=== PATIENT | female | born 1980 | race Caucasian/White ===

== ENCOUNTER 2016-05-03 10:24 | Emergency (ER) | payer BC, MEDICAID ==
[~2016-05-03] VITALS: Ht 154.9 cm; Wt 74.4 kg
[~2016-05-03 10:24] MED LIST: ACHD5005 PO; AMOX500C2; AMOX500C2 PO; CYCL10TA9 PO; DEPLIN; FRS325T PO; FURO20TA PO; FURO40TA4 PO; IBP600T1 PO; LABE100T2 PO; LANS30CA PO; LIRA0.6P SQ; METF-380; METF-380 PO; METHYL; METR500T PO; NITR-65 PO; NORE1TAB4 PO; OMEP20CA6; ONDA4TAB8 PO; ONDA8TAB12 PO; OXYC-12 PO; PHEN37.582 PO; POTA10CA16 PO; PREN1TAB19 PO; SERT25TA PO; SPIR100T28 PO
--- NOTE | 2016-05-03 10:38 | ED General ---
General Chief Complaint: Cough/Cold/Flu Symptoms Stated Complaint: COUGH,CONGESTION,N,V Source of Information: Patient Exam Limitations: No Limitations History of Present Illness Time Seen by Provider: 10:37 Initial Comments To ER with a cough, nasal congestion for which she has been on Zithromax and has 2 pills left, nausea and vomiting. These symptoms have been present for the past 12 days. She was seen at [facility] yesterday morning and was given a liter of IV fluids. She denies fevers. She is between 29 and 32 weeks gestation she states. Timing/Duration: 1-2 Days Severity: Moderate Associated Systoms: Nausea/Vomiting Allergies and Home Medications Allergies Coded Allergies: NKANo Known Allergies (Verified Allergy, Unknown, 06/03/08) Home Medications (Reported) Azithromycin 500 Mg Tablet #3 500 MG PO DAILY (Reported) Cefuroxime Axetil 500 Mg Tablet #14 500 MG PO BID Prescribed by: TORSTEN ENGEL on 05/03/16 1143 Fluoxetine HCl 20 Mg Capsule 20 MG PO DAILY (Reported) Ondansetron HCl 8 Mg Tablet #30 8 MG PO 4 PRN PRN NAUSEA (Reported) Pnv95/Ferrous Fumarate/FA 1 Each Tablet 1 EACH PO DAILY (Reported) Constitutional: see HPINo chills, No fever EENTM: see HPI Respiratory: no symptoms reported Cardiovascular: no symptoms reported Gastrointestinal: No abdominal pain, nausea vomiting Musculoskeletal: no symptoms reported Skin: no symptoms reported Psychiatric/Neurological: No Symptoms Reported Hematologic/Lymphatic: No Symptoms Reported Immunological/Allergic: no symptoms reported Past Yrcpmrm-Kdhluz-Vmdjhi Hx Patient Social History Alcohol Use: Denies Use Recreational Drug Use: No Smoking Status: Never a Smoker Former Smoker/When Quit: Jan 28, 2014 Immunizations Up To Date Tetanus Booster (TDap): Less than 5yrs PED Vaccines UTD: Yes Date of Influenza Vaccine: Feb 08, 2014 Surgeries HX Surgeries: Yes (LAP BAND 2009, RIGHT FOOT-AGE 5) Surgeries: Abdominal, Adenoidectomy, Gallbladder, Orthopedic, Tonsillectomy Respiratory Hx Respiratory Disorders: No Cardiovascular Hx Cardiac Disorders: Yes (GESTATIONAL HYPERTENSION) Cardiac Disorders: Syncope Neurological Hx Neurological Disorders: No Reproductive System Hx Reproductive Disorders: Yes Sexually Transmitted Disease: Yes (TRICHOMONAS) HIV/AIDS: No Female Reproductive Disorders: Menstrual Problems, Polycystic Ovarian Dis Genitourinary Hx Genitourinary Disorders: No Gastrointestinal Hx Gastrointestinal Disorders: Yes (Hx of [place]) Musculoskeletal Hx Musculoskeletal Disorders: No Endocrine Hx Endocrine Disorders: No HEENT HX ENT Disorders: No Cancer Hx Cancer: No Psychosocial Hx Psychiatric Problems: Yes Behavioral Health Disorders: Depression Integumentary HX Skin/Integumentary Disorder: No Blood Transfusions Hx Blood Disorders: Yes (ANEMIA) Adverse Reaction to a Blood Tr: No Family Medical History Family Medial History: Asthma 19 MOTHER, Onset:40's - Diabetes mellitus 19 MOTHER, Onset: Gastroenteritis G8 SISTER, Onset: Hypercholesterolemia 19 FATHER 19 MOTHER, Onset: Hypertension 19 FATHER, Onset: 19 MOTHER, Onset: Seizure disorder G8 SISTER, Onset: No Family History of: AIDS Abdominal aortic aneurysm [place]'s disease Alcoholism Alzheimer's disease Aphasia Arthritis Cancer of mouth Cardiovascular disease Cataracts Colon cancer Completed stroke Congenital disease Congenital heart disease Coronary thrombosis Cystic fibrosis Deafness or hearing loss Dementia Drug abuse Dysphasia Fibrocystic disease of breast Glaucoma Headache disorder Infertility Kidney disease Myocardial infarction Neoplasm Not obtainable due to adoption Osteoporosis Parkinson's disease Prostate cancer Psychosocial problem Respiratory disorder Severe allergy Thyroid disease Tuberculosis Visual disorder Physical Exam Vital Signs Vital Sign - Last 12Hours 05/03/16 10:34 Temp 97.9 Pulse 87 Resp 18 B/P 123/84 Pulse Ox 98 Capillary Refill : General Appearance: No Apparent Distress WD/WN Eyes: Bilateral Eye EOMI, Bilateral Eye Normal Inspection, Bilateral Eye PERRL HEENT: PERRL/EOMI TMs Normal Normal ENT Inspection Neck: Full Range of Motion Normal Inspection Respiratory: Normal Breath Sounds No Accessory Muscle Use No Respiratory Distress Cardiovascular: Regular Rate, Rhythm Normal Peripheral Pulses Gastrointestinal: Normal Bowel Sounds Soft Extremity: Normal Capillary Refill Normal Inspection Neurologic/Psychiatric: Alert Oriented x3 No Motor/Sensory Deficits Skin: Normal Color Warm/Dry Progress/Results/Core Measures Results/Orders Lab Results Laboratory Tests Test 05/03/16 10:45 05/03/16 10:55 Range/Units Urine Bacteria LARGE H /HPF Urine Bilirubin NEGATIVE NEGATIVE Urine Casts NONE /LPF Urine Clarity VERY CLOUDY H Urine Color YELLOW Urine Crystals NONE /LPF Urine Culture Indicated YES Urine Glucose (UA) NEGATIVE NEGATIVE Urine Ketones NEGATIVE NEGATIVE Urine Leukocyte Esterase 3+ H NEGATIVE Urine Mucus NEGATIVE /LPF Urine Nitrite NEGATIVE NEGATIVE Urine Protein 1+ H NEGATIVE Urine RBC RARE /HPF Urine RBC (Auto) NEGATIVE NEGATIVE Urine Specific [place] 1.020 1.016-1.022 Urine Squamous Epithelial Cells 10-25 H /HPF Urine Urobilinogen NORMAL NORMAL MG/DL Urine WBC 25-50 H /HPF Urine pH 5 5-9 Alanine Aminotransferase (ALT/SGPT) 9 0-55 U/L Albumin 3.2 3.2-4.5 G/DL Alkaline Phosphatase 75 40-136 U/L Anion Gap 9 5-14 MMOL/L Aspartate Amino Transf (AST/SGOT) 12 5-34 U/L BUN/Creatinine Ratio 11 Basophils # (Auto) 0.0 0.0-0.1 10^3/uL Basophils (%) (Auto) 0 0-10 % Blood Urea Nitrogen 8 7-18 MG/DL Calcium Level 8.4 L 8.5-10.1 MG/DL Carbon Dioxide Level 22 21-32 MMOL/L Chloride Level 105 98-107 MMOL/L Creatinine 0.73 0.60-1.30 MG/DL Eosinophils # (Auto) 0.0 0.0-0.3 10^3/uL Eosinophils (%) (Auto) 1 0-10 % Estimat Glomerular Filtration Rate > 60 Glucose Level 58 *L 70-105 MG/DL Hematocrit 37 35-52 % Hemoglobin 12.5 11.5-16.0 G/DL Lymphocytes # (Auto) 0.8 L 1.0-4.0 X 10^3 Lymphocytes (%) (Auto) 16 12-44 % Mean Corpuscular Hemoglobin 31 25-34 PG Mean Corpuscular Hemoglobin Concent 34 32-36 G/DL Mean Corpuscular Volume 92 80-99 FL Mean Platelet Volume 9.7 7.4-10.4 FL Monocytes # (Auto) 0.4 0.0-1.0 X 10^3 Monocytes (%) (Auto) 8 0-12 % Neutrophils # (Auto) 3.8 1.8-7.8 X 10^3 Neutrophils (%) (Auto) 76 H 42-75 % Platelet Count 194 130-400 10^3/uL Potassium Level 3.4 L 3.6-5.0 MMOL/L Red Blood Count 3.99 L 4.35-5.85 10^6/uL Red Cell Distribution Width 13.7 10.0-14.5 % Sodium Level 136 135-145 MMOL/L Total Bilirubin 0.3 0.1-1.0 MG/DL Total Protein 6.1 L 6.4-8.2 G/DL White Blood Count 5.0 4.3-11.0 10^3/uL Micro Results Microbiology 05/03/16 Influenza Types A,B Antigen (SAMI) - Final, Complete My Orders Orders-TORSTEN ENGEL APRN Cbc With Automated Diff (05/03/16 10:33) Comprehensive Metabolic Panel (05/03/16 10:33) Ua Culture If Indicated (05/03/16 10:33) Influenza A And B Antigens (05/03/16 10:33) Ns Iv 1000 Ml (Sodium Chloride 0.9%) (05/03/16 11:00) Ondansetron Injection (Zofran Injectio (05/03/16 11:00) Urine Culture (05/03/16 10:45) Ceftriaxone Injection (Rocephin Injectio (05/03/16 11:45) D50w (Emergency) Syringe (Dextrose 50% 5 (05/03/16 11:36) Medications Given in ED Current Medications Medications Dose Ordered Sig/Rufina Route Start Time Stop Time Status Last Admin Dose Admin Dextrose 50 ml STK-MED ONCE .ROUTE 05/03/16 11:36 05/03/16 11:38 DC 05/03/16 11:40 25 ML Ondansetron HCl 4 mg ONCE ONCE IVP 05/03/16 11:00 05/03/16 11:01 DC 05/03/16 11:01 4 MG Vital Signs/I&O Vital Sign - Last 12Hours 05/03/16 10:34 Temp 97.9 Pulse 87 Resp 18 B/P 123/84 Pulse Ox 98 Departure Communication Progress Notes heart tones obtained by RN and patient is feeling baby move. Impression Impression: Primary Impression: UTI (urinary tract infection) Qualified Code: N30.00 - Acute cystitis without hematuria Additional Impression: Hypoglycemia Disposition: 01 HOME, SELF-CARE Condition: Stable Departure-Patient Inst. Decision time for Depature: 11:42 Referrals: FÁTIMA NAVARRO DO (PCP) Primary Care Physician CAMPBELL NAVARRO, KIEL (Family) Primary Care Physician Patient Instructions: HYPOGLYCEMIA Add. Discharge Instructions: 1. Antibiotics as directed 2. Return to ER for any concerns 3. Follow-up with your doctor next week 4. Stop Zithromax start new antibiotic. All discharge instructions reviewed with patient and/or family. Voiced understanding. Scripts Cefuroxime Axetil (Cefuroxime)500 Mg [id number] Mg PO BID #14 TAB Prov:TORSTEN ENGEL APRN 05/03/16 TORSTEN ENGEL APRN May 03, 2016 10:38
[2016-05-03] MEDS ORDERED: AZIT500T2 PO (10:45)
[2016-05-03] MEDS ORDERED: PNV91TAB3 PO (10:45)
[2016-05-03] MEDS ORDERED: FLUO20CA42 PO (10:45)
[2016-05-03 10:57] LABS: BILIRUBIN,URINE NEGATIVE (NEGATIVE); KETONES,URINE NEGATIVE (NEGATIVE); LEUKOCYTE ESTERASE ,URINE 3+ (NEGATIVE); NITRITE,URINE NEGATIVE (NEGATIVE); PH,URINE 5 (5-9); PROTEIN,URINE 1+ (NEGATIVE); UROBILINOGEN,URINE NORMAL (NORMAL)
[2016-05-03] MEDS ORDERED: NS IV 1000 ML 1,000 ML IV SCH (11:00)
[2016-05-03] MEDS ORDERED: ONDANSETRON 4 MG/2 ML (SDV) Z0FRAN IVP ONE (11:00)
[2016-05-03 11:12] LABS: BASOPHILS % (AUTO) 0 % (0-10); EOSINOPHILS % (AUTO) 1 % (0-10); LYMPHOCYTES # (AUTO) 0.8 X 10^3 (1.0-4.0); LYMPHOCYTES % (AUTO) 16 % (12-44); MEAN CORPUSCULAR HEMOGLOBIN 31 PG (25-34); MEAN CORPUSCULAR HGB CONC 34 G/DL (32-36); MEAN CORPUSCULAR VOLUME 92 FL (80-99); MEAN PLATELET VOLUME 9.7 FL (7.4-10.4); MONOCYTES # (AUTO) 0.4 X 10^3 (0.0-1.0); MONOCYTES % (AUTO) 8 % (0-12); NEUTROPHILS # (AUTO) 3.8 X 10^3 (1.8-7.8); NEUTROPHILS % (AUTO) 76 % (42-75); PLATELET COUNT 194 10^3/uL (130-400); RED BLOOD COUNT 3.99 10^6/uL (4.35-5.85); RED CELL DISTRIBUTION WIDTH 13.7 % (10.0-14.5)
[2016-05-03 11:16] LABS: WBC,URINE 25-50 /HPF
[2016-05-03 11:32] LABS: ALANINE AMINOTRANSFERASE 9 U/L (0-55); ALBUMIN 3.2 G/DL (3.2-4.5); ANION GAP 9 MMOL/L (5-14); ASPARTATE AMINO TRANSFERASE 12 U/L (5-34); BILIRUBIN,TOTAL 0.3 MG/DL (0.1-1.0); BLOOD UREA NITROGEN 8 MG/DL (7-18); BUN/CREATININE RATIO 11; CALCIUM 8.4 MG/DL (8.5-10.1); CARBON DIOXIDE 22 MMOL/L (21-32); CHLORIDE 105 MMOL/L (98-107); CREATININE SERUM 0.73 MG/DL (0.60-1.30); GFR ESTIMATED > 60; POTASSIUM 3.4 MMOL/L (3.6-5.0); SODIUM 136 MMOL/L (135-145); TOTAL PROTEIN 6.1 G/DL (6.4-8.2)
[2016-05-03 11:35] LABS: GLUCOSE 58 MG/DL (70-105)
[2016-05-03] MEDS ORDERED: DEXTROSE 50% 50 ML (IMS) SYR ONE (11:36)
[2016-05-03] MEDS ORDERED: CEFU500T63 PO (11:43)
[2016-05-03] MEDS ORDERED: cefTRIAXone INJECTION 1,000 MG in NS (IVPB) 50 ML IV ONE (11:45)
[2016-05-03 12:14] VITALS: BP 123/84
[2016-05-20] MEDS ORDERED: CLIN300C11 PO (11:08)
== END 2016-05-03 12:14 | disposition home or self-care (01) ==
LOC: EDUNIT# 10:24 → ER 10:27
DX: O23.42 Unspecified infection of urinary tract in pregnancy, second trimester (principal); O99.280 Endocrine, nutritional and metabolic diseases complicating pregnancy, unspecified trimester; E16.2 Hypoglycemia, unspecified; O99.512 Diseases of the respiratory system complicating pregnancy, second trimester; Z3A.27 27 weeks gestation of pregnancy
CPT/HCPCS: 36415; 80053; 81000; 82962; 85025; 87088; 87804; 96361; 96365; 96375; 99282

== ENCOUNTER 2016-06-22 13:20 | Observation (INO) | payer BC, MEDICAID ==
[~2016-06-22] VITALS: Ht 154.9 cm; Wt 75.3 kg
[2016-06-22] VITALS (17 sets, daily range): BP systolic 133–190; BP diastolic 83–103
[~2016-06-22 13:20] MED LIST changes: +AZIT500T2 PO; +CEFU500T63 PO; +CLIN300C11 PO; +FLUO20CA42 PO; +PNV91TAB3 PO
[2016-06-22 13:38] LABS: KETONES,URINE 2+ (NEGATIVE); LEUKOCYTE ESTERASE ,URINE 2+ (NEGATIVE); NITRITE,URINE NEGATIVE (NEGATIVE); PH,URINE 5 (5-9); PROTEIN,URINE 2+ (NEGATIVE); UROBILINOGEN,URINE 1 MG/DL (NORMAL)
[2016-06-22 13:51] LABS: BILIRUBIN,URINE 1+ (NEGATIVE)
[2016-06-22] MEDS ORDERED: D5 LR IV SOLUTION 1,000 ML IV ONE (16:27)
[2016-06-22] MEDS ORDERED: morphine INJ 4 MG/ML 1 ML (VIAL/SYRINGE) IVP PRN (16:30)
[2016-06-22] MEDS: D5 LR IV SOLUTION 1,000 ML IV SCH (16:34)
[2016-06-22] MEDS ORDERED: LACTATED RINGERS 1,000 ML IV SCH (17:15)
[2016-06-22] MEDS: morphine INJ 4 MG/ML 1 ML (VIAL/SYRINGE) IVP PRN (23:49)
[2016-06-23] MEDS: D5 LR IV SOLUTION 1,000 ML IV SCH (00:13)
[2016-06-23] MEDS: morphine INJ 4 MG/ML 1 ML (VIAL/SYRINGE) IVP PRN ×2 (02:37→05:16)
[2016-06-23 05:16] VITALS: BP 148/99
[2016-06-23 10:00] VITALS: BP 147/94
[2016-06-23 10:27] VITALS: BP 141/94
--- NOTE | 2016-06-23 10:35 | Discharge Instructions ---
Discharge Inst-[facility] Serv Depart Medications Continued Medications: Pnv95/Ferrous Fumarate/FA ( [place]) 1 Each Tablet 1 EACH PO DAILY, TAB [Deplin] () Follow Up/Instructions Goal/Follow Up: Follow up with Dr. Brasher 1 week (next Friday) - [facility] will call to reschedule appt Activity Activity: Activity as Tolerated Nothing Inside Vagina: No [place] Diet Discharge Diet: No Restrictions Return to The Hospital For: Regular contractions (every 2-3 min) that you cannot walk or talk through that do not go away after rest and drinking fluid; return if leaking fluid For Any Problems or Questions: Contact Your Physician ALONDRA BRASHER DO Jun 23, 2016 10:34
--- NOTE | 2016-06-23 10:40 | Clinic Account Progress/Dx ---
Clinic Account Progress/Dx DIAGNOSIS: Diagnosis 1. 35 yo at 35w4d w/ contractions, not in active labor. - Pt was admitted for observation due to continued contractions. She was treated with IVF and pain medication with her contractions spacing out. Cervical exam at discharged was 3-3.5/80/posterior without significant change since admission. - GBS culture was obtained prior to DC. - Pt was discharged, she will not return to work until re-evaluated in 1 week. 2. Elevated BP during - BP was 140 systolic during her hospitalization. 24h urine protein and pre- eclampsia labs were done in the office this week and were wnl. Pt has hx of gestational hypertension with last . Will continue to monitor ALONDRA BRASHER DO Jun 23, 2016 10:39
--- OUTSIDE RECORDS SUMMARY | 2016-07-09 13:03 | XMS REPORT ---
Author ALONDRA Whitney Organization [employer] Address Unknown Phone Unavailable Care Team Providers Care Fiction And Nonfiction Writer Prose Name Role Phone ALONDRA BRASHER CP Unavailable Allergies, Adverse Reactions, Alerts Substance Reaction Event Type N.K.D.A. Info Not Available Non Drug Allergy Problems Problem Type Condition Code Onset Dates Condition Status Problem Gestational hypertension 642.30 Active Problem Polycystic ovaries 256.4 Active Problem hypertension 642.94 Active Medications Medication Code System Code Instructions Start Date End Date Status Dosage Prozac [facility] [address]-40 20 MG Orally Once a day 1 capsule in the morning Results No Known Results Summary Purpose [employer] Submission
--- OUTSIDE RECORDS SUMMARY | 2016-07-09 13:03 | XMS REPORT ---
Author ALONDRA Whitney Organization [employer] Address Unknown Phone Unavailable Care Team Providers Care Crozer Operator Name Role Phone ALONDRA BRASHER CP Unavailable Allergies No Known Allergies Problems Problem Type Condition Code Onset Dates Condition Status Problem Gestational hypertension 642.30 Active Problem Polycystic ovaries 256.4 Active Problem hypertension 642.94 Active Medications Medication Code System Code Instructions Start Date End Date Status Dosage Ortho-Novum (63) [facility] [address]-60 1-35 MG-MCG Orally Once a day 1 tablet Results No Known Results Summary Purpose [employer] Submission
--- OUTSIDE RECORDS SUMMARY | 2016-07-09 13:04 | XMS REPORT ---
Author CHAYA Lorenzo Organization [employer] Address Unknown Phone Unavailable Care Team Providers Care Tester Armature Or Fields Name Role Phone CHAYA BAILON CP Unavailable Allergies, Adverse Reactions, Alerts Substance Reaction Event Type N.K.D.A. Info Not Available Non Drug Allergy Problems Problem Type Condition Code Onset Dates Condition Status Problem Gestational hypertension 642.30 Active Problem Polycystic ovaries 256.4 Active Problem hypertension 642.94 Active Assessment Sinusitis J32.9 Active Medications Medication Code System Code Instructions Start Date End Date Status Dosage Zoloft [facility] [address]-81 25 MG Orally Once a day 1 tablet Motrin [facility] [address]-27 600 MG Orally Three times a day 1 tablet Flonase [facility] [address]-63 50 MCG/ACT Nasally 2 times a day Jan 04, 2015 1 spray in each nostril Ceftin [facility] [address]-26 250 MG Orally Twice a day Jan 11, 2015 Jan 21, 2015 1 tablet Ortho Micronor [facility] [address]-90 0.35 MG Orally Once a day Nov 03, 2014 1 tablet Lansoprazole [facility] [address]-61 30 MG Orally Once a day 1 capsule Procedures Procedure Coding System Code Date THER/PROPH/DIAG INJ, SC/IM CPT-4 82917 Jan 11, 2015 Office Visit, Est Pt., Level 3 CPT-4 61087 Jan 11, 2015 DEXAMETHASONE 4MG/ML (PER 1 MG) CPT-4 J1100 Jan 11, 2015 Vital Signs Date/Time: Jan 11, 2015 Temperature 98.4 F Weight 167.5 lbs Height 61 in BMI 31.65 Index Blood Pressure Diastolic 80 mmHg Blood Pressure Systolic 110 mmHg Cardiac Monitoring Heart Rate 84 bpm Results No Known Results Summary Purpose [employer] Submission
--- OUTSIDE RECORDS SUMMARY | 2016-07-09 13:04 | XMS REPORT ---
Author Author CHELLE KILLIAN Organization [employer] Address Unknown Phone Unavailable Care Team Providers Care Epitaxial Reactor Operator Name Role Phone CHELLE KILLIAN CP Unavailable Allergies, Adverse Reactions, Alerts Substance Reaction Event Type N.K.D.A. Info Not Available Non Drug Allergy Problems Problem Type Condition Code Onset Dates Condition Status Problem Gestational hypertension 642.30 Active Problem Polycystic ovaries 256.4 Active Problem hypertension 642.94 Active Assessment Encounter for dental examination Z01.20 Active Medications Medication Code System Code Instructions Start Date End Date Status Dosage Motrin [facility] [address]-28 600 MG Orally Three times a day 1 tablet Zoloft [facility] [address]-20 25 MG Orally Once a day 1 tablet Flonase [facility] [address]-48 50 MCG/ACT Nasally 2 times a day Jan 04, 2015 1 spray in each nostril Lansoprazole [facility] [address]-91 30 MG Orally Once a day 1 capsule Ortho Micronor [facility] [address]-60 0.35 MG Orally Once a day Nov 03, 2014 1 tablet Procedures Procedure Coding System Code Date Billing Notes on claim CPT-4 EC109 Jan 24, 2015 [employer] Employee/Board adjustment CPT-4 CHCEM Jan 24, 2015 INTERIM PARTIAL DENTURE CPT-4 D5820 Jan 24, 2015 Results No Known Results Summary Purpose [employer] Submission
--- OUTSIDE RECORDS SUMMARY | 2016-07-09 13:04 | XMS REPORT ---
Author Author KRISTINA TRACEY Organization [employer] Address Unknown Phone Unavailable Care Team Providers Care Tank Erector Name Role Phone KRISTINA TRACEY CP Unavailable Allergies, Adverse Reactions, Alerts Substance Reaction Event Type N.K.D.A. Info Not Available Non Drug Allergy Problems Problem Type Condition Code Onset Dates Condition Status Problem Gestational hypertension 642.30 Active Problem Polycystic ovaries 256.4 Active Problem hypertension 642.94 Active Assessment Acute nasopharyngitis [common cold] J00 Active Medications Medication Code System Code Instructions Start Date End Date Status Dosage Zithromax Z-Brian [facility] [address]-25 250 MG Orally Once a day Jan 02, 2015 Jan 07, 2015 2 tablets on the first day, then 1 tablet daily for 4 days Ortho Micronor [facility] [address]-41 0.35 MG Orally Once a day Nov 03, 2014 1 tablet Zoloft [facility] [address]-85 25 MG Orally Once a day 1 tablet Lansoprazole [facility] [address]-88 30 MG Orally Once a day 1 capsule Flonase [facility] [address]-29 50 MCG/ACT Nasally 2 times a day Jan 04, 2015 1 spray in each nostril Procedures Procedure Coding System Code Date Office Visit, Est Pt., Level 3 CPT-4 83370 Jan 04, 2015 Vital Signs Date/Time: Jan 04, 2015 Temperature 98.1 F Weight 170.2 lbs Height 61 in BMI 32.16 Index Blood Pressure Diastolic 68 mmHg Blood Pressure Systolic 112 mmHg Cardiac Monitoring Heart Rate 60 bpm Results No Known Results Summary Purpose [employer] Submission
--- OUTSIDE RECORDS SUMMARY | 2016-07-09 13:05 | XMS REPORT ---
Author Author SILVINO AGRCIA Organization [employer] Address Unknown Phone Unavailable Care Team Providers Care Postal Transportation Clerk Name Role Phone SILVINO GARCIA CP Unavailable Allergies, Adverse Reactions, Alerts Substance Reaction Event Type N.K.D.A. Info Not Available Non Drug Allergy Problems Problem Type Condition Code Onset Dates Condition Status Problem Gestational hypertension 642.30 Active Problem Polycystic ovaries 256.4 Active Problem hypertension 642.94 Active Assessment Sinusitis J32.9 Active Medications Medication Code System Code Instructions Start Date End Date Status Dosage Lansoprazole [facility] [address]-14 30 MG Orally Once a day 1 capsule Ortho Micronor [facility] [address]-29 0.35 MG Orally Once a day Nov 03, 2014 1 tablet Zithromax Z-Brian [facility] [address]-61 250 MG Orally Once a day Jan 02, 2015 Jan 07, 2015 2 tablets on the first day, then 1 tablet daily for 4 days Motrin [facility] [address]-12 600 MG Orally Three times a day 1 tablet Zoloft [facility] [address]-49 25 MG Orally Once a day 1 tablet Procedures Procedure Coding System Code Date Office Visit, Est Pt., Level 3 CPT-4 62281 Jan 02, 2015 Vital Signs Date/Time: Jan 02, 2015 Temperature 98.4 F Weight 167.9 lbs Height 61 in BMI 31.72 Index Blood Pressure Diastolic 70 mmHg Blood Pressure Systolic 110 mmHg Cardiac Monitoring Heart Rate 80 bpm Results No Known Results Summary Purpose [employer] Submission
--- OUTSIDE RECORDS SUMMARY | 2016-07-09 13:05 | XMS REPORT ---
Author Author CHELLE KILLIAN Organization [employer] Address Unknown Phone Unavailable Care Team Providers Care Package Winder Name Role Phone CHELLE KILLIAN CP Unavailable Allergies, Adverse Reactions, Alerts Substance Reaction Event Type N.K.D.A. Info Not Available Non Drug Allergy Problems Problem Type Condition Code Onset Dates Condition Status Problem Gestational hypertension 642.30 Active Problem Polycystic ovaries 256.4 Active Problem hypertension 642.94 Active Assessment Encounter for dental examination Z01.20 Active Assessment Dental caries K02.9 Active Medications No Known Medications Procedures Procedure Coding System Code Date EXTRAC ERUPTED TOOTH/EXPOSED ROOT CPT-4 D7140 Feb 16, 2015 EXTRAC ERUPTED TOOTH/EXPOSED ROOT CPT-4 D7140 Feb 16, 2015 MAX PARTIAL DENTURE - RESIN BASE CPT-4 D5211 Feb 16, 2015 Billing Notes on claim CPT-4 EC109 Feb 16, 2015 [employer] Employee/Board adjustment CPT-4 [facility] Feb 16, 2015 Vital Signs Date/Time: Feb 16, 2015 Blood Pressure Diastolic 70 mmHg Blood Pressure Systolic 110 mmHg Results No Known Results Summary Purpose [employer] Submission
--- OUTSIDE RECORDS SUMMARY | 2016-07-09 13:05 | XMS REPORT ---
Author ALONDRA Whitney Organization [employer] Address Unknown Phone Unavailable Care Team Providers Care Ct Manager Name Role Phone ALONDRA BRASHER CP Unavailable Allergies, Adverse Reactions, Alerts Substance Reaction Event Type N.K.D.A. Info Not Available Non Drug Allergy Problems Problem Type Condition Code Onset Dates Condition Status Problem Gestational hypertension 642.30 Active Problem Polycystic ovaries 256.4 Active Problem hypertension 642.94 Active Assessment Abnormal uterine bleeding N93.9 Active Medications Medication Code System Code Instructions Start Date End Date Status Dosage Lansoprazole [facility] [address]-96 30 MG Orally Once a day 1 capsule Zoloft [facility] [address]-13 25 MG Orally Once a day 1 tablet Zofran ODT [facility] [address]-56 4 MG Orally every 8 hrs 1 tablet on the tongue and allow to dissolve Ortho-Novum 1/35 (28) [facility] [address]-54 1-35 MG-MCG Orally Once a day 4 tablet Procedures Procedure Coding System Code Date Office Visit, Est Pt., Level 3 CPT-4 25146 Jan 30, 2015 Vital Signs Date/Time: Jan 30, 2015 Temperature 97.6 F Weight 173.0 lbs Height 61 in BMI 32.68 Index Blood Pressure Diastolic 72 mmHg Blood Pressure Systolic 114 mmHg Cardiac Monitoring Heart Rate 78 bpm Results No Known Results Summary Purpose [employer] Submission
--- OUTSIDE RECORDS SUMMARY | 2016-07-09 13:05 | XMS REPORT ---
Author Author BENI ROJO Organization [employer] Address Unknown Phone Unavailable Care Team Providers Care Loaf Counter Name Role Phone BENI ROJO CP Unavailable Allergies, Adverse Reactions, Alerts Substance Reaction Event Type N.K.D.A. Info Not Available Non Drug Allergy Problems Problem Type Condition Code Onset Dates Condition Status Problem Gestational hypertension 642.30 Active Problem Polycystic ovaries 256.4 Active Problem hypertension 642.94 Active Assessment Encounter for dental examination Z01.20 Active Medications No Known Medications Procedures Procedure Coding System Code Date INTRAORL-PERIAPICAL EA ADD FILM CPT-4 D0230 Jan 24, 2015 INTRAORL-PERIAPICAL EA ADD FILM CPT-4 D0230 Jan 24, 2015 INTRAORL-PERIAPICAL 1 FILM 35541 CPT-4 D0220 Jan 24, 2015 [employer] Employee/Board adjustment CPT-4 [facility] Jan 24, 2015 BITEWINGS - FOUR FILMS CPT-4 D0274 Jan 24, 2015 INTRAORL-PERIAPICAL EA ADD FILM CPT-4 D0230 Jan 24, 2015 Billing Notes on claim CPT-4 EC109 Jan 24, 2015 PROPHYLAXIS - ADULT CPT-4 D1110 Jan 24, 2015 Vital Signs Date/Time: Jan 24, 2015 Blood Pressure Diastolic 64 mmHg Blood Pressure Systolic 109 mmHg Height 61 in Results No Known Results Summary Purpose [employer]Works Submission
--- OUTSIDE RECORDS SUMMARY | 2016-07-09 13:08 | XMS REPORT | Continuity of Care Document ---
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 E61.2 02/09/2015 NAVARRO, CAMPBELL L MANAGER LATIN Ot Z87.440 02/10/2015 NAVARRO, CAMPBELL L MANAGER LATIN Ot N93.9 02/10/2015 NAVARRO, CAMPBELL L MANAGER LATIN Ot N93.9 02/21/2015 ANSHU RAWLS ALONDRA K Ot V89.03 02/21/2015 NAVARRO, CAMPBELL L MANAGER LATIN Ot D55.9 02/21/2015 NAVARRO, CAMPBELL L MANAGER LATIN Ot E03.9 02/21/2015 NAVARRO, CAMPBELL L MANAGER LATIN Ot E28.2 02/21/2015 NAVARRO, CAMPBELL L MANAGER LATIN Ot E53.8 02/21/2015 NAVARRO, CAMPBELL L MANAGER LATIN Ot E61.2 02/21/2015 CAMPBELL NAVARRO MANAGER LATIN Ot Z87.440 02/21/2015 CAMPBELL NAVARRO MANAGER LATIN Ot N93.9 02/21/2015 CAMPBELL NAVARRO MANAGER LATIN Ot N93.9 02/21/2015 CAMPBELL NAVARRO MANAGER LATIN Ot D55.9 02/21/2015 NAVARROCAMPBELL PAUL MANAGER LATIN Ot E03.9 02/21/2015 NAVARROCAMPBELL PAUL MANAGER LATIN Ot E28.2 02/21/2015 NAVARROCAMPBELL PAUL MANAGER LATIN Ot E53.8 02/21/2015 NAVARROCAMPBELL PAUL MANAGER LATIN Ot E61.2 02/21/2015 NAVARROCAMPBELL PAUL MANAGER LATIN Ot Z87.440 02/21/2015 CAMPBELL NAVARRO MANAGER LATIN Ot N93.9 03/02/2015 NAVARROCAMPBELL PAUL MANAGER LATIN Ot N93.9 03/02/2015 NAVARROCAMPBELL PAUL MANAGER LATIN Ot R10.30 04/19/2015 Ot 256.4 04/19/2015 Ot 268.9 04/19/2015 Ot 285.9 04/19/2015 Ot 787.91 04/19/2015 Ot 256.4 04/19/2015 Ot 266.2 04/19/2015 Ot 285.9 04/19/2015 Ot 255.8 04/19/2015 Ot 256.4 04/19/2015 Ot 268.9 04/19/2015 Ot 275.41 04/19/2015 Ot 579.9 04/19/2015 Ot 255.8 04/19/2015 Ot 256.4 04/19/2015 Ot 268.9 04/19/2015 Ot 275.41 04/19/2015 Ot 579.9 04/19/2015 Ot 427.9 04/19/2015 Ot 780.2 04/19/2015 Ot 427.9 04/19/2015 Ot 780.2 04/19/2015 Ot 244.9 04/19/2015 Ot 256.4 04/19/2015 Ot 285.9 04/19/2015 Ot 458.0 04/19/2015 Ot 780.79 04/19/2015 Ot 255.8 04/19/2015 Ot 255.10 04/19/2015 Ot 255.10 04/19/2015 Ot 782.3 04/19/2015 Ot 785.1 04/19/2015 Ot 256.4 04/19/2015 Ot 266.2 04/19/2015 Ot 268.9 04/19/2015 Ot 275.2 04/19/2015 Ot 285.9 04/19/2015 Ot 256.4 04/19/2015 Ot 266.2 04/19/2015 Ot 268.9 04/19/2015 Ot 275.2 04/19/2015 Ot 285.9 04/19/2015 RAMON CAMPBELL L MANAGER LATIN Ot 244.9 04/19/2015 RAMON CAMPBELL L MANAGER LATIN Ot 285.9 04/19/2015 RAMON CAMPBELL L MANAGER LATIN Ot 780.79 04/19/2015 RAMON CAMPBELL L MANAGER LATIN Ot 599.0 04/19/2015 RAMON CAMPBELL L MANAGER LATIN Ot 719.40 04/19/2015 RAMON CAMPBELL L MANAGER LATIN Ot 795.79 04/19/2015 CARLEY VIEYRAIA C AUTO PAINTER HELPER Ot 789.00 04/19/2015 RAMON CAMPBELL L MANAGER LATIN Ot 266.2 04/19/2015 RAMON CAMPBELL L MANAGER LATIN Ot 268.9 04/19/2015 RAMON CAMPBELL L MANAGER LATIN Ot 620.2 04/19/2015 RAMON CAMPBELL L MANAGER LATIN Ot 780.79 04/19/2015 RAMON CAMPBELL L MANAGER LATIN Ot 786.09 04/19/2015 RAMON CAMPBELL L MANAGER LATIN Ot 789.00 04/19/2015 RAMON CAMPBELL L MANAGER LATIN Ot 789.00 04/19/2015 RAMON CAMPBELL L MANAGER LATIN Ot V45.86 04/19/2015 RAMON CAMPBELL L MANAGER LATIN Ot 256.4 04/19/2015 RAMON CAMPBELL L MANAGER LATIN Ot 611.6 04/19/2015 RAMON CAMPBELL L MANAGER LATIN Ot 626.0 04/19/2015 RAMON CAMPBELL L MANAGER LATIN Ot 787.3 04/19/2015 RAMON CAMPBELL L MANAGER LATIN Ot 789.00 04/19/2015 RAMONCAMPBELL MANAGER LATIN Ot 611.6 04/19/2015 RAMONCAMPBELL MANAGER LATIN Ot 787.3 04/19/2015 RAMONCAMPBELL MANAGER LATIN Ot 789.00 04/19/2015 LASHON PATIÑO APRN Ot V22.0 04/19/2015 ALONDRA BRASHER DO Ot V22.0 04/19/2015 Ot V28.81 04/19/2015 BRASHER ALONDRA RAWLS Ot V89.03 04/19/2015 RAMON CAMPBELL Vasquez MANAGER LATIN Ot D55.9 04/19/2015 RAMON CAMPBELL Vasquez MANAGER LATIN Ot E03.9 04/19/2015 RAMON CAMPBELL Vasquez MANAGER LATIN Ot E28.2 04/19/2015 RAMON CAMPBELL Vasquez MANAGER LATIN Ot E53.8 04/19/2015 RAMON CAMPBELL Vasquez MANAGER LATIN Ot E61.2 04/19/2015 RAMON CAMPBELL Vasquez MANAGER LATIN Ot Z87.440 04/19/2015 RAMON CAMPBELL Vasquez MANAGER LATIN Ot N93.9 04/19/2015 RAMON CAMPBELL Vasquez MANAGER LATIN Ot N93.9 04/19/2015 RAMON CAMPBELL Vasquez MANAGER LATIN Ot R10.30 07/18/2015 RUTH GRANADOS MD Ot D50.9 IRON DEFICIENCY ANEMIA, UNSPECIFIED 07/18/2015 RUTH GRANADOS MD Ot E46 UNSPECIFIED PROTEIN-CALORIE MALNUTRITION 07/18/2015 RUTH GRANADOS MD Ot K90.9 INTESTINAL MALABSORPTION, UNSPECIFIED 07/18/2015 RUTH GRANADOS MD Ot Z98.84 BARIATRIC SURGERY STATUS 08/17/2015 Ot 256.4 POLYCYSTIC OVARIES 08/17/2015 Ot 266.2 B-COMPLEX DEFIC NEC 08/17/2015 Ot 285.9 ANEMIA NOS 08/17/2015 Ot 255.8 ADRENAL DISORDER NEC 08/17/2015 Ot 256.4 POLYCYSTIC OVARIES 08/17/2015 Ot 268.9 VITAMIN D DEFICIENCY NOS 08/17/2015 Ot 275.41 HYPOCALCEMIA 08/17/2015 Ot 579.9 INTEST MALABSORPTION NOS 08/17/2015 Ot 255.8 ADRENAL DISORDER NEC 08/17/2015 Ot 256.4 POLYCYSTIC OVARIES 08/17/2015 Ot 268.9 VITAMIN D DEFICIENCY NOS 08/17/2015 Ot 275.41 HYPOCALCEMIA 08/17/2015 Ot 579.9 INTEST MALABSORPTION NOS 08/17/2015 Ot 427.9 CARDIAC DYSRHYTHMIA NOS 08/17/2015 Ot 780.2 SYNCOPE AND COLLAPSE 08/17/2015 Ot 427.9 CARDIAC DYSRHYTHMIA NOS 08/17/2015 Ot 780.2 SYNCOPE AND COLLAPSE 08/17/2015 Ot 244.9 HYPOTHYROIDISM NOS 08/17/2015 Ot 256.4 POLYCYSTIC OVARIES 08/17/2015 Ot 285.9 ANEMIA NOS 08/17/2015 Ot 458.0 ORTHOSTATIC HYPOTENSION 08/17/2015 Ot 780.79 OTH MALAISE FATIGUE 08/17/2015 Ot 255.8 ADRENAL DISORDER NEC 08/17/2015 Ot 255.10 HYPERALDOSTERONISM, UNSPECIFIED 08/17/2015 Ot 255.10 HYPERALDOSTERONISM, UNSPECIFIED 08/17/2015 Ot 782.3 EDEMA 08/17/2015 Ot 785.1 PALPITATIONS 08/17/2015 Ot 256.4 POLYCYSTIC OVARIES 08/17/2015 Ot 266.2 B-COMPLEX DEFIC NEC 08/17/2015 Ot 268.9 VITAMIN D DEFICIENCY NOS 08/17/2015 Ot 275.2 DIS MAGNESIUM METABOLISM 08/17/2015 Ot 285.9 ANEMIA NOS 08/17/2015 Ot 256.4 POLYCYSTIC OVARIES 08/17/2015 Ot 266.2 B-COMPLEX DEFIC NEC 08/17/2015 Ot 268.9 VITAMIN D DEFICIENCY NOS 08/17/2015 Ot 275.2 DIS MAGNESIUM METABOLISM 08/17/2015 Ot 285.9 ANEMIA NOS 08/17/2015 CAMPBELL NAVARRO L MANAGER LATIN Ot 244.9 HYPOTHYROIDISM NOS 08/17/2015 CAMPBELL NAVARRO L MANAGER LATIN Ot 285.9 ANEMIA NOS 08/17/2015 CAMPBELL NAVARRO L MANAGER LATIN Ot 780.79 OTH MALAISE FATIGUE 08/17/2015 CAMPBELL NAVARRO L MANAGER LATIN Ot 599.0 URIN TRACT INFECTION NOS 08/17/2015 CAMPBELL NAVARRO L MANAGER LATIN Ot 719.40 JOINT PAIN-UNSPEC 08/17/2015 CAMPBELL NAVARRO L MANAGER LATIN Ot 795.79 OTH AND UNSPEC NONSPECIFIC IMMUNOLOGICAL 08/17/2015 CARLEY VIEYRAIA Ender AUT[employer] PAINTER HELPER Ot 789.00 ABDOMINAL PAIN, UNSPECIFIED SITE 08/17/2015 CAMPBELL NAVARRO MANAGER LATIN Ot 266.2 B-COMPLEX DEFIC NEC 08/17/2015 CAMPBELL NAVARRO MANAGER LATIN Ot 268.9 VITAMIN D DEFICIENCY NOS 08/17/2015 CAMPBELL NAVARRO MANAGER LATIN Ot 620.2 OVARIAN CYST NEC/NOS 08/17/2015 CAMPBELL NAVARRO MANAGER LATIN Ot 780.79 OTH MALAISE FATIGUE 08/17/2015 CAMPBELL NAVARRO MANAGER LATIN Ot 786.09 RESPIRATORY ABNORM NEC 08/17/2015 CAMPBELL NAVARRO MANAGER LATIN Ot 789.00 ABDOMINAL PAIN, UNSPECIFIED SITE 08/17/2015 CAMPBELL NAVARRO MANAGER LATIN Ot 789.00 ABDOMINAL PAIN, UNSPECIFIED SITE 08/17/2015 CAMPBELL NAVARRO MANAGER LATIN Ot V45.86 BARIATRIC SURGERY STATUS 08/17/2015 CAMPBELL NAVARRO MANAGER LATIN Ot 256.4 POLYCYSTIC OVARIES 08/17/2015 CAMPBELL NAVARRO MANAGER LATIN Ot 611.6 GALACTORRHEA-NONOBSTET 08/17/2015 CAMPBELL NAVARRO MANAGER LATIN Ot 626.0 ABSENCE OF MENSTRUATION 08/17/2015 CAMPBELL NAVARRO MANAGER LATIN Ot 787.3 FLATUL/ERUCTAT/GAS PAIN 08/17/2015 CAMPBELL NAVARRO MANAGER LATIN Ot 789.00 ABDOMINAL PAIN, UNSPECIFIED SITE 08/17/2015 CAMPBELL NAVARRO MANAGER LATIN Ot 611.6 GALACTORRHEA-NONOBSTET 08/17/2015 CAMPBELL NAVARRO MANAGER LATIN Ot 787.3 FLATUL/ERUCTAT/GAS PAIN 08/17/2015 CAMPBELL NAVARRO MANAGER LATIN Ot 789.00 ABDOMINAL PAIN, UNSPECIFIED SITE 08/17/2015 LASHON PATIÑO APRN Ot V22.0 SUPERVIS NORMAL 1ST PREG 08/17/2015 ALONDRA BRASHER DO Ot V22.0 SUPERVIS NORMAL 1ST PREG 08/17/2015 Ot V28.81 ENCOUNTER FOR ANATOMIC SURVEY 08/17/2015 ALONDRA BRASHER DO Ot V89.03 SUSPECTED ANOMALY NOT FOUND 08/17/2015 CAMPBELL NAVARRO MANAGER LATIN Ot D55.9 ANEMIA DUE TO ENZYME DISORDER, UNSPECIFI 08/17/2015 CAMPBELL NAVARRO MANAGER LATIN Ot E03.9 HYPOTHYROIDISM, UNSPECIFIED 08/17/2015 CAMPBELL NAVARRO MANAGER LATIN Ot E28.2 POLYCYSTIC OVARIAN SYNDROME 08/17/2015 CAMPBELL NAVARRO MANAGER LATIN Ot E53.8 DEFICIENCY OF OTHER SPECIFIED B GROUP 08/17/2015 CAMPBELL NAVARRO MANAGER LATIN Ot E61.2 MAGNESIUM DEFICIENCY 08/17/2015 CAMPBELL NAVARRO MANAGER LATIN Ot Z87.440 PERSONAL HISTORY OF URINARY (TRACT ) INFE 08/17/2015 CAMPBELL NAVARRO MANAGER LATIN Ot N93.9 ABNORMAL UTERINE AND VAGINAL BLEEDING, U 08/17/2015 CAMPBELL NAVARRO MANAGER LATIN Ot N93.9 ABNORMAL UTERINE AND VAGINAL BLEEDING, U 08/17/2015 CAMPBELL NAVARRO MANAGER LATIN Ot R10.30 LOWER ABDOMINAL PAIN, UNSPECIFIED 08/17/2015 RUTH GRANADOS MD Ot D50.9 IRON DEFICIENCY ANEMIA, UNSPECIFIED 08/17/2015 RUTH GRANADOS MD Ot E46 UNSPECIFIED PROTEIN-CALORIE MALNUTRITION 08/17/2015 RUTH GRANADOS MD Ot K90.9 INTESTINAL MALABSORPTION, UNSPECIFIED 08/17/2015 RUTH GRANADOS MD Ot Z98.84 BARIATRIC SURGERY STATUS 08/17/2015 CAMPBELL NAVARRO MANAGER LATIN Ot D55.9 ANEMIA DUE TO ENZYME DISORDER, UNSPECIFI 08/17/2015 CAMPBELL NAVARRO MANAGER LATIN Ot E03.9 HYPOTHYROIDISM, UNSPECIFIED 08/17/2015 CAMPBELL NAVARRO MANAGER LATIN Ot E28.2 POLYCYSTIC OVARIAN SYNDROME 08/17/2015 CAMPBELL NAVARRO MANAGER LATIN Ot E53.8 DEFICIENCY OF OTHER SPECIFIED B GROUP 08/17/2015 CAMPBELL NAVARRO MANAGER LATIN Ot E61.2 MAGNESIUM DEFICIENCY 08/17/2015 CAMPBELL NAVARRO MANAGER LATIN Ot Z87.440 PERSONAL HISTORY OF URINARY (TRACT ) INFE 08/17/2015 CAMPBELL NAVARRO MANAGER LATIN Ot N93.9 ABNORMAL UTERINE AND VAGINAL BLEEDING, U 08/17/2015 CAMPBELL NAVARRO MANAGER LATIN Ot N93.9 ABNORMAL UTERINE AND VAGINAL BLEEDING, U 08/17/2015 CAMPBELL NAVARRO MANAGER LATIN Ot R10.30 LOWER ABDOMINAL PAIN, UNSPECIFIED 08/17/2015 RUTH GRANADOS MD Ot D50.9 IRON DEFICIENCY ANEMIA, UNSPECIFIED 08/17/2015 RUTH GRANADOS MD Ot E46 UNSPECIFIED PROTEIN-CALORIE MALNUTRITION 08/17/2015 RUTH GRANADOS MD Ot K90.9 INTESTINAL MALABSORPTION, UNSPECIFIED 08/17/2015 RUTH GRANADOS MD Ot Z98.84 BARIATRIC SURGERY STATUS 08/17/2015 BRASHER DO, ALONDRA K Ot V22.0 SUPERVIS NORMAL 1ST PREG 08/17/2015 LASHON PATIÑO APRN Ot V22.0 SUPERVIS NORMAL 1ST PREG 08/17/2015 CAMPBELL NAVARRO MANAGER LATIN Ot 611.6 GALACTORRHEA-NONOBSTET 08/17/2015 CAMPBELL NAVARRO MANAGER LATIN Ot 787.3 FLATUL/ERUCTAT/GAS PAIN 08/17/2015 CAMPBELL NAVARRO MANAGER LATIN Ot 789.00 ABDOMINAL PAIN, UNSPECIFIED SITE 08/17/2015 CAMPBELL NAVARRO MANAGER LATIN Ot 256.4 POLYCYSTIC OVARIES 08/17/2015 CAMPBELL NAVARRO MANAGER LATIN Ot 611.6 GALACTORRHEA-NONOBSTET 08/17/2015 CAMPBELL NAVARRO MANAGER LATIN Ot 626.0 ABSENCE OF MENSTRUATION 08/17/2015 CAMPBELL NAVARRO MANAGER LATIN Ot 787.3 FLATUL/ERUCTAT/GAS PAIN 08/17/2015 CAMPBELL NAVARRO MANAGER LATIN Ot 789.00 ABDOMINAL PAIN, UNSPECIFIED SITE 08/17/2015 CAMPBELL NAVARRO MANAGER LATIN Ot 789.00 ABDOMINAL PAIN, UNSPECIFIED SITE 08/17/2015 CAMPBELL NAVARRO MANAGER LATIN Ot V45.86 BARIATRIC SURGERY STATUS 08/17/2015 CAMPBELL NAVARRO MANAGER LATIN Ot 789.00 ABDOMINAL PAIN, UNSPECIFIED SITE 08/17/2015 CAMPBELL NAVARRO MANAGER LATIN Ot 266.2 B-COMPLEX DEFIC NEC 08/17/2015 CAMPBELL NAVARRO MANAGER LATIN Ot 268.9 VITAMIN D DEFICIENCY NOS 08/17/2015 CAMPBELL NAVARRO MANAGER LATIN Ot 620.2 OVARIAN CYST NEC/NOS 08/17/2015 CAMPBELL NAVARRO MANAGER LATIN Ot 780.79 OTH MALAISE FATIGUE 08/17/2015 CAMPBELL NAVARRO MANAGER LATIN Ot 786.09 RESPIRATORY ABNORM NEC 08/17/2015 CAMPBELL VIEYRA AUTO PAINTER HELPER Ot 789.00 ABDOMINAL PAIN, UNSPECIFIED SITE 08/31/2015 Ot 256.4 POLYCYSTIC OVARIES 08/31/2015 Ot 266.2 B-COMPLEX DEFIC NEC 08/31/2015 Ot 285.9 ANEMIA NOS 08/31/2015 Ot 255.8 ADRENAL DISORDER NEC 08/31/2015 Ot 256.4 POLYCYSTIC OVARIES 08/31/2015 Ot 268.9 VITAMIN D DEFICIENCY NOS 08/31/2015 Ot 275.41 HYPOCALCEMIA 08/31/2015 Ot 579.9 INTEST MALABSORPTION NOS 08/31/2015 Ot 255.8 ADRENAL DISORDER NEC 08/31/2015 Ot 256.4 POLYCYSTIC OVARIES 08/31/2015 Ot 268.9 VITAMIN D DEFICIENCY NOS 08/31/2015 Ot 275.41 HYPOCALCEMIA 08/31/2015 Ot 579.9 INTEST MALABSORPTION NOS 08/31/2015 Ot 427.9 CARDIAC DYSRHYTHMIA NOS 08/31/2015 Ot 780.2 SYNCOPE AND COLLAPSE 08/31/2015 Ot 427.9 CARDIAC DYSRHYTHMIA NOS 08/31/2015 Ot 780.2 SYNCOPE AND COLLAPSE 08/31/2015 Ot 244.9 HYPOTHYROIDISM NOS 08/31/2015 Ot 256.4 POLYCYSTIC OVARIES 08/31/2015 Ot 285.9 ANEMIA NOS 08/31/2015 Ot 458.0 ORTHOSTATIC HYPOTENSION 08/31/2015 Ot 780.79 OTH MALAISE FATIGUE 08/31/2015 Ot 255.8 ADRENAL DISORDER NEC 08/31/2015 Ot 255.10 HYPERALDOSTERONISM, UNSPECIFIED 08/31/2015 Ot 255.10 HYPERALDOSTERONISM, UNSPECIFIED 08/31/2015 Ot 782.3 EDEMA 08/31/2015 Ot 785.1 PALPITATIONS 08/31/2015 Ot 256.4 POLYCYSTIC OVARIES 08/31/2015 Ot 266.2 B-COMPLEX DEFIC NEC 08/31/2015 Ot 268.9 VITAMIN D DEFICIENCY NOS 08/31/2015 Ot 275.2 DIS MAGNESIUM METABOLISM 08/31/2015 Ot 285.9 ANEMIA NOS 08/31/2015 Ot 256.4 POLYCYSTIC OVARIES 08/31/2015 Ot 266.2 B-COMPLEX DEFIC NEC 08/31/2015 Ot 268.9 VITAMIN D DEFICIENCY NOS 08/31/2015 Ot 275.2 DIS MAGNESIUM METABOLISM 08/31/2015 Ot 285.9 ANEMIA NOS 08/31/2015 CAMPBELL NAVARRO L MANAGER LATIN Ot 244.9 HYPOTHYROIDISM NOS 08/31/2015 CAMPBELL NAVARRO L MANAGER LATIN Ot 285.9 ANEMIA NOS 08/31/2015 CAMPBELL NAVARRO L MANAGER LATIN Ot 780.79 OTH MALAISE FATIGUE 08/31/2015 CAMPBELL NAVARRO MANAGER LATIN Ot 599.0 URIN TRACT INFECTION NOS 08/31/2015 CAMPBELL NAVARRO L MANAGER LATIN Ot 719.40 JOINT PAIN-UNSPEC 08/31/2015 CAMPBELL NAVARRO MANAGER LATIN Ot 795.79 OTH AND UNSPEC NONSPECIFIC IMMUNOLOGICAL 08/31/2015 CAMPBELL VIEYRA AUTO PAINTER HELPER Ot 789.00 ABDOMINAL PAIN, UNSPECIFIED SITE 08/31/2015 CAMPBELL NAVARRO MANAGER LATIN Ot 266.2 B-COMPLEX DEFIC NEC 08/31/2015 CAMPBELL NAVARRO MANAGER LATIN Ot 268.9 VITAMIN D DEFICIENCY NOS 08/31/2015 CAMPBELL NAVARRO L MANAGER LATIN Ot 620.2 OVARIAN CYST NEC/NOS 08/31/2015 CAMPBELL NAVARRO L MANAGER LATIN Ot 780.79 OTH MALAISE FATIGUE 08/31/2015 CAMPBELL NAVARRO L MANAGER LATIN Ot 786.09 RESPIRATORY ABNORM NEC 08/31/2015 CAMPBELL NAVARRO L MANAGER LATIN Ot 789.00 ABDOMINAL PAIN, UNSPECIFIED SITE 08/31/2015 CAMPBELL NAVARRO L MANAGER LATIN Ot 789.00 ABDOMINAL PAIN, UNSPECIFIED SITE 08/31/2015 CAMPBELL NAVARRO MANAGER LATIN Ot V45.86 BARIATRIC SURGERY STATUS 08/31/2015 CAMPBELL NAVARRO L MANAGER LATIN Ot 256.4 POLYCYSTIC OVARIES 08/31/2015 CAMPBELL NAVARRO L MANAGER LATIN Ot 611.6 GALACTORRHEA-NONOBSTET 08/31/2015 CAMPBELL NAVARRO MANAGER LATIN Ot 626.0 ABSENCE OF MENSTRUATION 08/31/2015 NAVARROCAMPBELL PAUL MANAGER LATIN Ot 787.3 FLATUL/ERUCTAT/GAS PAIN 08/31/2015 NAVARROCAMPBELL PAUL MANAGER LATIN Ot 789.00 ABDOMINAL PAIN, UNSPECIFIED SITE 08/31/2015 RAMONCAMPBELL MANAGER LATIN Ot 611.6 GALACTORRHEA-NONOBSTET 08/31/2015 RAMON CAMPBELL Vasquez MANAGER LATIN Ot 787.3 FLATUL/ERUCTAT/GAS PAIN 08/31/2015 NAVARROCAMPBELL PAUL MANAGER LATIN Ot 789.00 ABDOMINAL PAIN, UNSPECIFIED SITE 08/31/2015 LASHON PATIÑO APRN Ot V22.0 SUPERVIS NORMAL 1ST PREG 08/31/2015 ALONDRA BRASHER DO Ot V22.0 SUPERVIS NORMAL 1ST PREG 08/31/2015 Ot V28.81 ENCOUNTER FOR ANATOMIC SURVEY 08/31/2015 ALONDRA BRASHER DO Ot V89.03 SUSPECTED ANOMALY NOT FOUND 08/31/2015 CAMPBELL NAVARRO MANAGER LATIN Ot D55.9 ANEMIA DUE TO ENZYME DISORDER, UNSPECIFI 08/31/2015 CAMPBELL NAVARRO MANAGER LATIN Ot E03.9 HYPOTHYROIDISM, UNSPECIFIED 08/31/2015 CAMPBELL NAVARRO MANAGER LATIN Ot E28.2 POLYCYSTIC OVARIAN SYNDROME 08/31/2015 RAMON CAMPBELL Pedro MANAGER LATIN Ot E53.8 DEFICIENCY OF OTHER SPECIFIED B GROUP 08/31/2015 CAMPBELL NAVARRO MANAGER LATIN Ot E61.2 MAGNESIUM DEFICIENCY 08/31/2015 CAMPBELL NAVARRO MANAGER LATIN Ot Z87.440 PERSONAL HISTORY OF URINARY (TRACT ) INFE 08/31/2015 CAMPBELL NAVARRO MANAGER LATIN Ot N93.9 ABNORMAL UTERINE AND VAGINAL BLEEDING, U 08/31/2015 CAMPBELL NAVARRO MANAGER LATIN Ot N93.9 ABNORMAL UTERINE AND VAGINAL BLEEDING, U 08/31/2015 CAMPBELL NAVARRO MANAGER LATIN Ot R10.30 LOWER ABDOMINAL PAIN, UNSPECIFIED 08/31/2015 RUTH GRANADOS MD Ot D50.9 IRON DEFICIENCY ANEMIA, UNSPECIFIED 08/31/2015 RUTH GRANADOS MD Ot E46 UNSPECIFIED PROTEIN-CALORIE MALNUTRITION 08/31/2015 RUTH GRANADOS MD Ot K90.9 INTESTINAL MALABSORPTION, UNSPECIFIED 08/31/2015 RUTH GRANADOS MD, Ot Z98.84 BARIATRIC SURGERY STATUS 11/26/2015 RAMON CAMPBELL L MANAGER LATIN Ot D55.9 ANEMIA DUE TO ENZYME DISORDER, UNSPECIFI 11/26/2015 CAMPBELL NAVARRO MANAGER LATIN Ot E03.9 HYPOTHYROIDISM, UNSPECIFIED 11/26/2015 CAMPBELL NAVARRO MANAGER LATIN Ot E28.2 POLYCYSTIC OVARIAN SYNDROME 11/26/2015 CARLEY NAVARROIA Pedro MANAGER LATIN Ot E53.8 DEFICIENCY OF OTHER SPECIFIED B GROUP 11/26/2015 CAMPBELL NAVARRO MANAGER LATIN Ot E61.2 MAGNESIUM DEFICIENCY 11/26/2015 CAMPBELL NAVARRO MANAGER LATIN Ot Z87.440 PERSONAL HISTORY OF URINARY (TRACT ) INFE 11/26/2015 CAMPBELL NAVARRO MANAGER LATIN Ot N93.9 ABNORMAL UTERINE AND VAGINAL BLEEDING, U 11/26/2015 CAMPBELL NAVARRO MANAGER LATIN Ot N93.9 ABNORMAL UTERINE AND VAGINAL BLEEDING, U 11/26/2015 CAMPBELL NAVARRO MANAGER LATIN Ot R10.30 LOWER ABDOMINAL PAIN, UNSPECIFIED 11/26/2015 RUTH GRANADOS MD Ot D50.9 IRON DEFICIENCY ANEMIA, UNSPECIFIED 11/26/2015 RUTH GRANADOS MD Ot E46 UNSPECIFIED PROTEIN-CALORIE MALNUTRITION 11/26/2015 RUTH GRANADOS MD Ot K90.9 INTESTINAL MALABSORPTION, UNSPECIFIED 11/26/2015 RUTH GRANADOS MD Ot Z98.84 BARIATRIC SURGERY STATUS 12/06/2015 TIP BOJORQUEZ MD Ot E86.9 VOLUME DEPLETION, UNSPECIFIED 12/06/2015 TIP BOOJRQUEZ MD Ot 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.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 12/06/2015 TIP BOJORQUEZ MD Ot R11.2 NAUSEA WITH VOMITING, UNSPECIFIED 12/06/2015 TIP BOJORQUEZ MD Ot Z3A.01 LESS THAN 8 WEEKS GESTATION OF 12/06/2015 TIP BOJORQUEZ MD, Ot Z87.891 PERSONAL HISTORY OF NICOTINE DEPENDENCE 12/06/2015 Ot 255.8 ADRENAL DISORDER NEC 12/06/2015 Ot 256.4 POLYCYSTIC OVARIES 12/06/2015 Ot 268.9 VITAMIN D DEFICIENCY NOS 12/06/2015 Ot 275.41 HYPOCALCEMIA 12/06/2015 Ot 579.9 INTEST MALABSORPTION NOS 12/06/2015 Ot 255.8 ADRENAL DISORDER NEC 12/06/2015 Ot 256.4 POLYCYSTIC OVARIES 12/06/2015 Ot 268.9 VITAMIN D DEFICIENCY NOS 12/06/2015 Ot 275.41 HYPOCALCEMIA 12/06/2015 Ot 579.9 INTEST MALABSORPTION NOS 12/06/2015 Ot 427.9 CARDIAC DYSRHYTHMIA NOS 12/06/2015 Ot 780.2 SYNCOPE AND COLLAPSE 12/06/2015 Ot 427.9 CARDIAC DYSRHYTHMIA NOS 12/06/2015 Ot 780.2 SYNCOPE AND COLLAPSE 12/06/2015 Ot 244.9 HYPOTHYROIDISM NOS 12/06/2015 Ot 256.4 POLYCYSTIC OVARIES 12/06/2015 Ot 285.9 ANEMIA NOS 12/06/2015 Ot 458.0 ORTHOSTATIC HYPOTENSION 12/06/2015 Ot 780.79 OTH MALAISE FATIGUE 12/06/2015 Ot 255.8 ADRENAL DISORDER NEC 12/06/2015 Ot 255.10 HYPERALDOSTERONISM, UNSPECIFIED 12/06/2015 Ot 255.10 HYPERALDOSTERONISM, UNSPECIFIED 12/06/2015 Ot 782.3 EDEMA 12/06/2015 Ot 785.1 PALPITATIONS 12/06/2015 Ot 256.4 POLYCYSTIC OVARIES 12/06/2015 Ot 266.2 B-COMPLEX DEFIC NEC 12/06/2015 Ot 268.9 VITAMIN D DEFICIENCY NOS 12/06/2015 Ot 275.2 DIS MAGNESIUM METABOLISM 12/06/2015 Ot 285.9 ANEMIA NOS 12/06/2015 Ot 256.4 POLYCYSTIC OVARIES 12/06/2015 Ot 266.2 B-COMPLEX DEFIC NEC 12/06/2015 Ot 268.9 VITAMIN D DEFICIENCY NOS 12/06/2015 Ot 275.2 DIS MAGNESIUM METABOLISM 12/06/2015 Ot 285.9 ANEMIA NOS 12/06/2015 CAMPBELL NAVARRO L MANAGER LATIN Ot 244.9 HYPOTHYROIDISM NOS 12/06/2015 CAMPBELL NAVARRO L MANAGER LATIN Ot 285.9 ANEMIA NOS 12/06/2015 CAMPBELL NAVARRO L MANAGER LATIN Ot 780.79 OTH MALAISE FATIGUE 12/06/2015 CAMPBELL NAVARRO L MANAGER LATIN Ot 599.0 URIN TRACT INFECTION NOS 12/06/2015 CAMPBELL NAVARRO MANAGER LATIN Ot 719.40 JOINT PAIN-UNSPEC 12/06/2015 CAMPBELL NAVARRO MANAGER LATIN Ot 795.79 OTH AND UNSPEC NONSPECIFIC IMMUNOLOGICAL 12/06/2015 JARRELL CAMPBELL Handley AUTO PAINTER HELPER Ot 789.00 ABDOMINAL PAIN, UNSPECIFIED SITE 12/06/2015 CAMPBELL NAVARRO MANAGER LATIN Ot 266.2 B-COMPLEX DEFIC NEC 12/06/2015 CAMPBELL NAVARRO L MANAGER LATIN Ot 268.9 VITAMIN D DEFICIENCY NOS 12/06/2015 CAMPBELL NAVARRO MANAGER LATIN Ot 620.2 OVARIAN CYST NEC/NOS 12/06/2015 CAMPBELL NAVARRO MANAGER LATIN Ot 780.79 OTH MALAISE FATIGUE 12/06/2015 CAMPBELL NAVARRO MANAGER LATIN Ot 786.09 RESPIRATORY ABNORM NEC 12/06/2015 CAMPBELL NAVARRO MANAGER LATIN Ot 789.00 ABDOMINAL PAIN, UNSPECIFIED SITE 12/06/2015 CAMPBELL NAVARRO L MANAGER LATIN Ot 789.00 ABDOMINAL PAIN, UNSPECIFIED SITE 12/06/2015 CAMPBELL NAVARRO MANAGER LATIN Ot V45.86 BARIATRIC SURGERY STATUS 12/06/2015 CAMPBELL NAVARRO L MANAGER LATIN Ot 256.4 POLYCYSTIC OVARIES 12/06/2015 CAMPBELL NAVARRO MANAGER LATIN Ot 611.6 GALACTORRHEA-NONOBSTET 12/06/2015 CAMPBELL NAVARRO MANAGER LATIN Ot 626.0 ABSENCE OF MENSTRUATION 12/06/2015 CAMPBELL NAVARRO MANAGER LATIN Ot 787.3 FLATUL/ERUCTAT/GAS PAIN 12/06/2015 CAMPBELL NAVARRO MANAGER LATIN Ot 789.00 ABDOMINAL PAIN, UNSPECIFIED SITE 12/06/2015 CAMPBELL ANVARRO MANAGER LATIN Ot 611.6 GALACTORRHEA-NONOBSTET 12/06/2015 CAMPBELL NAVARRO L MANAGER LATIN Ot 787.3 FLATUL/ERUCTAT/GAS PAIN 12/06/2015 CAMPBELL NAVARRO MANAGER LATIN Ot 789.00 ABDOMINAL PAIN, UNSPECIFIED SITE 12/06/2015 LASHON PATIÑO AUTO PAINTER HELPER Ot V22.0 SUPERVIS NORMAL 1ST PREG 12/06/2015 ALONDRA BRASHER DO Ot V22.0 SUPERVIS NORMAL 1ST PREG 12/06/2015 Ot V28.81 ENCOUNTER FOR ANATOMIC SURVEY 12/06/2015 ALONDRA BRASHER DO Ot V89.03 SUSPECTED ANOMALY NOT FOUND 12/06/2015 CAMPBELL NAVARRO MANAGER LATIN Ot D55.9 ANEMIA DUE TO ENZYME DISORDER, UNSPECIFI 12/06/2015 CAMPBELL NAVARRO MANAGER LATIN Ot E03.9 HYPOTHYROIDISM, UNSPECIFIED 12/06/2015 CAMPBELL NAVARRO MANAGER LATIN Ot E28.2 POLYCYSTIC OVARIAN SYNDROME 12/06/2015 CAMPBELL NAVARRO MANAGER LATIN Ot E53.8 DEFICIENCY OF OTHER SPECIFIED B GROUP 12/06/2015 CAMPBELL NAVARRO MANAGER LATIN Ot E61.2 MAGNESIUM DEFICIENCY 12/06/2015 CAMPBELL NAVARRO MANAGER LATIN Ot Z87.440 PERSONAL HISTORY OF URINARY (TRACT ) INFE 12/06/2015 CAMPBELL NAVARRO MANAGER LATIN Ot N93.9 ABNORMAL UTERINE AND VAGINAL BLEEDING, U 12/06/2015 CAMPBELL NAVARRO MANAGER LATIN Ot N93.9 ABNORMAL UTERINE AND VAGINAL BLEEDING, U 12/06/2015 CAMPBELL NAVARRO MANAGER LATIN Ot R10.30 LOWER ABDOMINAL PAIN, UNSPECIFIED 12/06/2015 RUTH GRANADOS MD Ot D50.9 IRON DEFICIENCY ANEMIA, UNSPECIFIED 12/06/2015 RUTH GRANADOS MD Ot E46 UNSPECIFIED PROTEIN-CALORIE MALNUTRITION 12/06/2015 RUTH GRANADOS MD Ot K90.9 INTESTINAL MALABSORPTION, UNSPECIFIED 12/06/2015 RUTH GRANADOS MD Ot Z98.84 BARIATRIC SURGERY STATUS 12/08/2015 TIP BOJORQUEZ MD, Ot E86.9 VOLUME DEPLETION, UNSPECIFIED 12/08/2015 TIP BOJORQUEZ MD, Ot O99.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 12/08/2015 TIP BOJORQUEZ MD, Ot R11.2 NAUSEA WITH VOMITING, UNSPECIFIED 12/08/2015 TIP BOJORQUEZ MD, Ot Z3A.01 LESS THAN 8 WEEKS GESTATION OF 12/08/2015 TPI BOJORQUEZ MD, Ot Z87.891 PERSONAL HISTORY OF NICOTINE DEPENDENCE 02/27/2016 VANESSA BRASHER DOA John Ot Z34.82 ENCOUNTER FOR SUPRVSN OF NORMAL PREGNANC 02/28/2016 VANESSA BRASHER DOA John Ot Z34.82 ENCOUNTER FOR SUPRVSN OF NORMAL PREGNANC 03/13/2016 BRASHER VANESSA RAWLSA John Ot Z34.82 ENCOUNTER FOR SUPRVSN OF NORMAL PREGNANC 05/03/2016 TORSTEN ENGEL APRN Ot E16.2 HYPOGLYCEMIA, UNSPECIFIED 05/03/2016 TORSTEN ENGEL APRN Ot O23.42 UNSP INFCT OF URINARY TRACT IN 05/03/2016 TORSTEN ENGEL APRN Ot O99.280 ENDO, NUTRITIONAL AND METAB DISEASES COM 05/03/2016 TORSTEN ENGEL APRN Ot O99.512 DISEASES OF THE RESP SYS COMP , 05/03/2016 TORSTEN ENGEL APRN Ot R11.2 NAUSEA WITH VOMITING, UNSPECIFIED 05/03/2016 TORSTEN ENGEL APRN Ot Z3A.27 27 WEEKS GESTATION OF 05/05/2016 TORSTEN ENGEL AUTO PAINTER HELPER Ot E16.2 HYPOGLYCEMIA, UNSPECIFIED 05/05/2016 TORSTEN ENGEL APRN Ot O23.42 UNSP INFCT OF URINARY TRACT IN 05/05/2016 TORSTEN ENGEL APRN Ot O99.280 ENDO, NUTRITIONAL AND METAB DISEASES COM 05/05/2016 TORSTEN ENGEL APRN Ot O99.512 DISEASES OF THE RESP SYS COMP , 05/05/2016 TORSTEN ENGEL APRN Ot R11.2 NAUSEA WITH VOMITING, UNSPECIFIED 05/05/2016 TORSTEN ENGEL APRN Ot Z3A.27 27 WEEKS GESTATION OF 06/23/2016 VANESSA BRASHER DOA K Ot O26.93 RELATED CONDITIONS, UNSPECIFIE 06/23/2016 VANESSA BRASHER DOA K Ot O60.03 LABOR WITHOUT DELIVERY, THIRD TR 06/23/2016 VANESSA BRASHER DOA K Ot R03.0 ELEVATED BLOOD-PRESSURE READING, W/O DON 06/23/2016 VANESSA BRASHER DOA K Ot Z3A.35 35 WEEKS GESTATION OF 06/23/2016 VANESSA BRASHER DOA K Ot O26.93 RELATED CONDITIONS, UNSPECIFIE 06/23/2016 ANSHU RAWLS ALONDRA K Ot O60.03 LABOR WITHOUT DELIVERY, THIRD TR 06/23/2016 ALONDRA BRASHER DO Ot R03.0 ELEVATED BLOOD-PRESSURE READING, W/O DON 06/23/2016 ALONDRA BRASHER DO Ot Z3A.35 35 WEEKS GESTATION OF 06/30/2016 ALONDRA BRASHER DO Ot O32.1XX0 MATERNAL CARE FOR BREECH PRESENTATION, U 06/30/2016 ALONDRA BRASHER DO John Ot O42.013 PRETRM ELEUTERIO ROM, ONSET LABOR W/N 24 HOUR 06/30/2016 ALONDRA BRASHER DO John Ot Z37.0 SINGLE LIVE 06/30/2016 ALONDRA BRASHER DO Ot Z3A.36 36 WEEKS GESTATION OF Procedures Code Description [place] [address] TEST, URINE (IN-HOUSE) 01/31/2014 69363 ROUTINE VENIPUNCTURE 02/07/2014 48408 US OB - EARLY <14 WEEKS 02/07/2014 78833 SYPHILLIS-STATE LAB 02/07/2014 81104 HIV (STATE [facility]) 02/07/2014 88518 ANTIBODY SCREEN (order) 02/07/2014 42940 CULTURE URINE 12/2013 00041 HEP B SURFACE ANTIGEN (FORMERLY [facility]) 02/07/2014 04273 CBC 02/07/2014 87969 TSH 02/07/2014 [id number] ANTIBODY SCREEN (RESULT ONLY) 02/08/2014 81741 A1C (L) 2013 15058 BLOOD TYPE/Rh FACTOR 02/08/2014 10395 RUBELLA ANTIBODY, IGG 02/08/2014 39360 GC/CHLAM PROBE (FORMERLY [facility]) 03/07/2014 16079 PAP SMEAR 2013 Q0091 PAP SMEAR OBTAIN SMEAR 03/07/2014 89476 UA OB DIP 2013 65887 TRICHOMONAS (IN-HOUSE) 03/07/2014 81770 CULTURE URINE 11/2013 24879 CULTURE UROGENITAL 03/09/2014 07266 TB TEST INTRADERMAL 03/16/2014 81360 UA W/ CULTURE IF INDICATED 03/30/2014 31469 CULTURE URINE 63184 UA OB DIP 2014 09908 ROUTINE VENIPUNCTURE 06/28/2014 83050 UA OB DIP 2014 14733 CBC 06/28/2014 57521 GLUCOSE JACINTA 1 HOUR 06/29/2014 17456 UA OB DIP 2014 75.69 09/23/2014 [id number] EXTRACTION OF POC, LOW CERVICAL, OPEN AP 06/28/2016 Results Test Result Range Influenza virus A and B antigen detection - 05/03/16 10:44 FLU RESULT NEGATIVE FOR INFLUENZA A AND B ANTIGENS BY IA NRG Complete urinalysis with reflex to culture - 05/03/16 10:45 Urine color determination YELLOW NRG Urine clarity determination VERY CLOUDY NRG Urine pH measurement by test strip 5 5- 9 Specific gravity of urine by test strip 1.020 1.016-1.022 Urine protein assay by test strip, semi-quantitative 1+ NEGATIVE Urine glucose detection by automated test strip NEGATIVE NEGATIVE Erythrocytes detection in urine sediment by light microscopy NEGATIVE NEGATIVE Urine ketones detection by automated test strip NEGATIVE NEGATIVE Urine nitrite detection by test strip NEGATIVE NEGATIVE Urine total bilirubin detection by test strip NEGATIVE NEGATIVE Urine urobilinogen measurement by automated test strip (mass/volume) NORMAL NORMAL Urine leukocyte esterase detection by dipstick 3+ NEGATIVE Automated urine sediment erythrocyte count by microscopy (number/high power field) RARE NRG Automated urine sediment leukocyte count by microscopy (number/high power field ) [HPF] NRG Bacteria detection in urine sediment by light microscopy LARGE NRG Squamous epithelial cells detection in urine sediment by light microscopy 10-25 NRG Crystals detection in urine sediment by light microscopy NONE NRG Casts detection in urine sediment by light microscopy NONE NRG Mucus detection in urine sediment by light microscopy NEGATIVE NRG Complete urinalysis with reflex to culture YES NRG Bacterial urine culture - 05/03/16 10:45 Bacterial urine culture [id number] NRG COLONY COUNT >100,000/ML NRG Complete blood count (CBC) with automated white blood cell (WBC) differential - 05/03/16 10:55 Blood leukocytes automated count (number/volume) 5.0 10*3/ uL 4.3-11.0 Blood erythrocytes automated count (number/volume) 3.99 10*6 /uL 4.35-5.85 Venous blood hemoglobin measurement (mass/volume) 12.5 g/dL 11.5-16.0 Blood hematocrit (volume fraction) 37 % 35-52 Automated erythrocyte mean corpuscular volume 92 [foz_us] 80-99 Automated erythrocyte mean corpuscular hemoglobin (mass per erythrocyte) 31 pg 25-34 Automated erythrocyte mean corpuscular hemoglobin concentration measurement ( mass/volume) 34 g/dL 32-36 Automated erythrocyte distribution width ratio 13.7 % 10.0-14.5 Automated blood platelet count (count/volume) 194 10*3/uL 130-400 Automated blood platelet mean volume measurement 9.7 [foz_us ] 7.4-10.4 Automated blood neutrophils/100 leukocytes 76 % 42-75 Automated blood lymphocytes/100 leukocytes 16 % 12-44 Blood monocytes/100 leukocytes 8 % 0-12 Automated blood eosinophils/100 leukocytes 1 % 0-10 Automated blood basophils/100 leukocytes 0 % 0-10 Blood neutrophils automated count (number/volume) 3.8 10*3 1.8-7.8 Blood lymphocytes automated count (number/volume) 0.8 10*3 1.0-4.0 Blood monocytes automated count (number/volume) 0.4 10*3 0.0-1.0 Automated eosinophil count 0.0 10*3/uL 0.0-0.3 Automated blood basophil count (count/volume) 0.0 10*3/uL 0.0-0.1 Comprehensive metabolic panel - 05/03/16 10:55 Serum or plasma sodium measurement (moles/volume) 136 mmol/ L 135-145 Serum or plasma potassium measurement (moles/volume) 3.4 mmol/L 3.6-5.0 Serum or plasma chloride measurement (moles/volume) 105 mmol /L 98-107 Carbon dioxide 22 mmol/L 21-32 Serum or plasma anion gap determination (moles/volume) 9 mmol/L 5-14 Serum or plasma urea nitrogen measurement (mass/volume) 8 mg /dL 7-18 Serum or plasma creatinine measurement (mass/volume) 0.73 mg /dL 0.60-1.30 Serum or plasma urea nitrogen/creatinine mass ratio 11 NRG Serum or plasma creatinine measurement with calculation of estimated glomerular filtration rate > NRG Serum or plasma glucose measurement (mass/volume) 58 mg/dL 70-105 Serum or plasma calcium measurement (mass/volume) 8.4 mg/dL 8.5-10.1 Serum or plasma total bilirubin measurement (mass/volume) 0.3 mg/dL 0.1-1.0 Serum or plasma alkaline phosphatase measurement (enzymatic activity/volume) 75 U/L 40-136 Serum or plasma aspartate aminotransferase measurement (enzymatic activity/ volume) 12 U/L 5-34 Serum or plasma alanine aminotransferase measurement (enzymatic activity/volume ) 9 U/L 0-55 Serum or plasma protein measurement (mass/volume) 6.1 g/dL 6.4-8.2 Serum or plasma albumin measurement (mass/volume) 3.2 g/dL 3.2-4.5 Capillary blood glucose measurement by glucometer (mass/volume) - 05/03/16 12: 10 Capillary blood glucose measurement by glucometer (mass/volume) 80 mg/dL 70-110 Complete urinalysis with reflex to culture - 06/22/16 13:30 Urine color determination YELLOW NRG Urine clarity determination SLIGHTLY CLOUDY NRG Urine pH measurement by test strip 5 5- 9 Specific gravity of urine by test strip 1.025 1.016-1.022 Urine protein assay by test strip, semi-quantitative 2+ NEGATIVE Urine glucose detection by automated test strip NEGATIVE NEGATIVE Erythrocytes detection in urine sediment by light microscopy 2+ NEGATIVE Urine ketones detection by automated test strip 2+ NEGATIVE Urine nitrite detection by test strip NEGATIVE NEGATIVE Urine total bilirubin detection by test strip 1+ NEGATIVE Urine urobilinogen measurement by automated test strip (mass/volume) 1 mg/dL NORMAL Urine leukocyte esterase detection by dipstick 2+ NEGATIVE Automated urine sediment erythrocyte count by microscopy (number/high power field) NONE NRG Automated urine sediment leukocyte count by microscopy (number/high power field ) [HPF] NRG Bacteria detection in urine sediment by light microscopy FEW NRG Squamous epithelial cells detection in urine sediment by light microscopy 10-25 NRG Crystals detection in urine sediment by light microscopy NONE NRG Casts detection in urine sediment by light microscopy NONE NRG Mucus detection in urine sediment by light microscopy MODERATE NRG Complete urinalysis with reflex to culture NO NRG Bacterial urine culture - 06/22/16 13:30 Bacterial urine culture FOOTNOTE NRG Streptococcus agalactiae detection by organism specific culture - 06/23/16 10: 25 QUANTITY OF GROWTH Isolated NRG MRSA AGAR Screening test for MRSA is NEGATIVE (Final to follow) NRG Streptococcus agalactiae detection by organism specific culture [id number] NRG Complete urinalysis with reflex to culture - 06/28/16 05:15 Urine color determination YELLOW NRG Urine clarity determination CLEAR NRG Urine pH measurement by test strip 6 5- 9 Specific gravity of urine by test strip 1.025 1.016-1.022 Urine protein assay by test strip, semi-quantitative 2+ NEGATIVE Urine glucose detection by automated test strip NEGATIVE NEGATIVE Erythrocytes detection in urine sediment by light microscopy 4+ NEGATIVE Urine ketones detection by automated test strip 1+ NEGATIVE Urine nitrite detection by test strip NEGATIVE NEGATIVE Urine total bilirubin detection by test strip NEGATIVE NEGATIVE Urine urobilinogen measurement by automated test strip (mass/volume) 1 mg/dL NORMAL Urine leukocyte esterase detection by dipstick 3+ NEGATIVE Automated urine sediment erythrocyte count by microscopy (number/high power field) [HPF] NRG Automated urine sediment leukocyte count by microscopy (number/high power field ) > [HPF] NRG Bacteria detection in urine sediment by light microscopy LARGE NRG Squamous epithelial cells detection in urine sediment by light microscopy >50 NRG Crystals detection in urine sediment by light microscopy PRESENT NRG Casts detection in urine sediment by light microscopy NONE NRG Mucus detection in urine sediment by light microscopy NEGATIVE NRG Complete urinalysis with reflex to culture YES NRG Calcium oxalate crystals detection in urine sediment by light microscopy FEW NRG Bacterial urine culture - 06/28/16 05:15 URINE CULTURE RESULTS <10,000/ML NRG Complete blood count (CBC) with automated white blood cell (WBC) differential - 06/28/16 05:50 Blood leukocytes automated count (number/volume) 7.5 10*3/ uL 4.3-11.0 Blood erythrocytes automated count (number/volume) 3.89 10*6 /uL 4.35-5.85 Venous blood hemoglobin measurement (mass/volume) 12.2 g/dL 11.5-16.0 Blood hematocrit (volume fraction) 35 % 35-52 Automated erythrocyte mean corpuscular volume 91 [foz_us] 80-99 Automated erythrocyte mean corpuscular hemoglobin (mass per erythrocyte) 31 pg 25-34 Automated erythrocyte mean corpuscular hemoglobin concentration measurement ( mass/volume) 35 g/dL 32-36 Automated erythrocyte distribution width ratio 13.7 % 10.0-14.5 Automated blood platelet count (count/volume) 212 10*3/uL 130-400 Automated blood platelet mean volume measurement 11.4 [foz_ us] 7.4-10.4 Automated blood neutrophils/100 leukocytes 67 % 42-75 Automated blood lymphocytes/100 leukocytes 26 % 12-44 Blood monocytes/100 leukocytes 6 % 0-12 Automated blood eosinophils/100 leukocytes 0 % 0-10 Automated blood basophils/100 leukocytes 0 % 0-10 Blood neutrophils automated count (number/volume) 5.1 10*3 1.8-7.8 Blood lymphocytes automated count (number/volume) 2.0 10*3 1.0-4.0 Blood monocytes automated count (number/volume) 0.5 10*3 0.0-1.0 Automated eosinophil count 0.0 10*3/uL 0.0-0.3 Automated blood basophil count (count/volume) 0.0 10*3/uL 0.0-0.1 Blood type T Indirect antibody screen panel - 06/28/16 05:50 ABO+Rh group OP NRG Transfusion band number [id number] NRG Blood group antibody screen NEGATIVE NRG Encounters ACCT No. Visit Date/Time Discharge Status Pt. Type Provider Facility Loc./Unit Complaint [id number] 07/14/2014 13:49:00 07/14/2014 23: 59:59 CLS Outpatient LASHON PATIÑO APRN [id number] 06/28/2014 13:22:00 06/28/2014 23: 59:59 CLS Outpatient ALONDRA BRASHER DO [id number] 05/31/2014 10:07:00 05/31/2014 23: 59:59 CLS Outpatient LASHON PATIÑO APRN [id number] 05/09/2014 08:26:00 05/09/2014 23: 59:59 CLS Outpatient KRISTINA TRACEY APRN [id number] 05/02/2014 13:54:00 05/02/2014 23: 59:59 CLS Outpatient ALONDRA BRASHER DO [id number] 04/04/2014 13:58:00 04/04/2014 23: 59:59 CLS Outpatient ALONDRA BRASHER DO [id number] 03/30/2014 12:55:00 03/30/2014 23: 59:59 CLS Outpatient LAKISHA SOFYA PERRY [id number] 03/07/2014 08:42:00 03/07/2014 23: 59:59 CLS Outpatient LASHON PATIÑO APRN [id number] 02/07/2014 13:00:00 02/07/2014 23: 59:59 CLS Outpatient LASHON PATIÑO APRN [id number] 01/31/2014 10:48:00 01/31/2014 23: 59:59 CLS Outpatient ALONDRA BRASHER DO
--- OUTSIDE RECORDS SUMMARY | 2016-07-09 13:08 | XMS REPORT ---
Author Author FROILAN SUTTON [facility] eClinicalWorks Address Unknown Phone Unavailable Care Team Providers Care Guest Services Director Name Role Phone FROILAN SUTTON Unavailable Allergies No Known Allergies Problems Problem Type Condition Code Onset Dates Condition Status Problem hypertension 642.94 Active Problem Gestational hypertension 642.30 Active Problem Normal in first trimester Z34.91 Active Problem Polycystic ovaries 256.4 Active Medications Medication Code System Code Instructions Start Date End Date Status Dosage Hydrocodone-Acetaminophen [facility] [address]-30 5-325 MG Orally every 6 hrs Jan 31, 2016 1 tablet as needed Results No Known Results Summary Purpose eClinicalWorks Submission
--- OUTSIDE RECORDS SUMMARY | 2016-07-09 13:08 | XMS REPORT ---
Author ALONDRA Whitney [facility] eClinicalWorks Address Unknown Phone Unavailable Care Team Providers Care Welder Boilermaker Name Role Phone ALONDRA BRASHER CP Unavailable Allergies, Adverse Reactions, Alerts Substance Reaction Event Type N.K.D.A. Info Not Available Non Drug Allergy Problems Problem Type Condition Code Onset Dates Condition Status Problem Normal in first trimester Z34.91 Active Problem hypertension 642.94 Active Problem Normal in second trimester Z34.92 Active Assessment Normal in second trimester Z34.92 Active Problem Gestational hypertension 642.30 Active Problem Polycystic ovaries 256.4 Active Medications Medication Code System Code Instructions Start Date End Date Status Dosage Deplin 15 [facility] [address]-60 15-90.314 MG Orally Once a day 1 capsule [facility] [address] - Orally Once a day 1 tablet Prozac [facility] [address]-00 20 MG Orally Once a day 1 capsule in the morning Procedures Procedure Coding System Code Date ALPHA-FETOPROTEIN, SERUM CPT-4 24077 Feb 12, 2016 INHIBIN A CPT-4 79364 Feb 12, 2016 URINE-NO MICRO CPT-4 76217 Feb 12, 2016 CHORIONIC GONADOTROPIN TEST CPT-4 84335 Feb 12, 2016 ASSAY OF ESTRIOL CPT-4 60305 Feb 12, 2016 VENIPUNCT, ROUTINE* CPT-4 67702 Feb 12, 2016 Office Visit, Est Pt., Level 3 CPT-4 46513 Feb 12, 2016 Vital Signs Date/Time: Feb 12, 2016 Cardiac Monitoring Heart Rate 80 bpm Weight 166 lbs Height 61 in BMI 31.365 Index Blood Pressure Diastolic 74 mmHg Blood Pressure Systolic 118 mmHg Results Name Result Date Reference Range Unit Abnormality Flag TETRA SCREEN ----PDF . [id number] ----AFP MoM 0.44 20160212 ----AFP Value 21.0 [id number] ng/mL ----DSR (Second Trimester) 1 [place] 6582 20160212 ----Gest. Age on Collection Date 19.4 20160212 WEEKS ----[place] 1 [place] [address] 20160212 ----Gestat. Age Based On LMP 20160212 ----DON MoM 0.60 20160212 ----M[age] 20160212 YEARS ----DON Value 106.13 20160212 pg/mL ----Race 20160212 ----uE3 MoM 0.56 20160212 ----Weight 166 [id number] lbs ----DSR (By Age) 1 [place] 325 20160212 ----uE3 Value 0.97 20160212 ng/mL ----Insulin Dep Diabetes No 20160212 ----T18 Risk Not increased 20160212 ----Results Report [id number] ----Multiple Gestation No 20160212 ----hCG MoM 0.50 20160212 ----T18 (By Age) 1:1265 20160212 ----Test Results: *Screen Negative* 20160212 ----hCG Value 88495 [id number] mIU/mL PDF Report ----PDF Report1 [facility] [id number] ROUTINE VENIPUNCTURE UA OB DIP (IN HOUSE) ----Protein negative 20160212 ----Glucose negative 20160212 Summary Purpose eClinicalWorks Submission
--- OUTSIDE RECORDS SUMMARY | 2016-07-09 13:08 | XMS REPORT ---
Author ALONDRA Whitney Organization eClinicalWorks Address Unknown Phone Unavailable Care Team Providers Care Service Desk Director Name Role Phone ALONDRA BRASHER CP Unavailable Allergies No Known Allergies Problems Problem Type Condition Code Onset Dates Condition Status Problem Gestational hypertension 642.30 Active Problem Polycystic ovaries 256.4 Active Problem hypertension 642.94 Active Medications Medication Code System Code Instructions Start Date End Date Status Dosage Ortho-Novum (92) [facility] [address]-49 1-35 MG-MCG Orally Once a day 1 tablet Results No Known Results Summary Purpose eClinicalWorks Submission
--- OUTSIDE RECORDS SUMMARY | 2016-07-09 13:09 | XMS REPORT ---
Author ALONDRA Whitney [facility] eClinicalWorks Address Unknown Phone Unavailable Care Team Providers Care Radiology Practitioner Assistant Name Role Phone ALONDRA BRASHER CP Unavailable Allergies No Known Allergies Problems Problem Type Condition Code Onset Dates Condition Status Problem Gestational hypertension 642.30 Active Problem Polycystic ovaries 256.4 Active Problem hypertension 642.94 Active Assessment test positive Z32.01 Active Medications No Known Medications Procedures Procedure Coding System Code Date URINE TEST CPT-4 89443 Nov 28, 2015 Results No Known Results Summary Purpose eClinicalWorks Submission
--- OUTSIDE RECORDS SUMMARY | 2016-07-14 04:37 | XMS REPORT | Continuity of Care Document ---
Author Author [facility] Address Unknown Phone Unavailable Allergies Active Description [...] Ot E928.9 ACCIDENT NOS 04/20/2012 Ot V06.1 [id number], COMBINED [ 04/25/2012 Ot V58.32 ENCOUNTER FOR [...] K V72.42 TEST POSITIVE RESULT 01/31/2014 MADL HYDRAMATIC SPECIALIST, KRISTINA L V72.42 TEST POSITIVE RESULT 01/31/2014 HAROON PANTOJAN, LASHON A V72.42 TEST POSITIVE RESULT 01/31/2014 BRASHER DO, ALONDRA K V72.42 TEST POSITIVE RESULT 01/31/2014 HAROON PERRY, LASHON A V72.42 TEST POSITIVE RESULT 02/07/2014 HAROON PERRY LASHON A V04.81 FLU SHOT 02/07/2014 HAROON PANTOJAN, LASHON A V22.0 , NORMAL FIRST 02/07/2014 HAROON HYDRAMATIC SPECIALIST, LASHON A V04.81 FLU SHOT 02/07/2014 HAROON PANTOJAN, LASHON A V22.0 , NORMAL FIRST 02/07/2014 RAJROBE HYDRAMATIC SPECIALIST, SOFYA A V04.81 FLU SHOT 02/07/2014 RAJOTTE HYDRAMATIC SPECIALIST, SFOYA A V22.0 , NORMAL FIRST 02/07/2014 BRASHER DO, ALONDRA K V04.81 FLU SHOT 02/07/2014 BRASHER DO, ALONDRA K V22.0 , NORMAL FIRST 02/07/2014 BRASHER DO, ALONDRA K V04.81 FLU SHOT 02/07/2014 BRASHER DO, ALONDRA K V22.0 , NORMAL FIRST 02/07/2014 MADL HYDRAMATIC SPECIALIST, KRISTINA L V04.81 FLU SHOT 02/07/2014 MADL HYDRAMATIC SPECIALIST, KRISTINA L V22.0 , NORMAL FIRST 02/07/2014 HAROON HYDRAMATIC SPECIALIST, LASHON A V04.81 FLU SHOT 02/07/2014 HAROON HYDRAMATIC SPECIALIST, LASHON A V22.0 , NORMAL FIRST 02/07/2014 [...] SOFYA A 131.01 TRICHOMONAL VULVOVAGINITIS 03/07/2014 LAKISHA EPRRY SOFYA A 646.50 COMPL OF - ASYMPTOMATIC [...] CERVICAL CANCER SCREENING (PAP SMEAR) 03/07/2014 HAROON HYDRAMATIC SPECIALISTLASHON Villegas A 131.01 TRICHOMONAL VULVOVAGINITIS 03/07/2014 HAROON HYDRAMATIC SPECIALISTWING VillegasIDI A 646.50 COMPL OF - ASYMPTOMATIC BACTURIA 03/07/2014 HAROONNelly PERRY LASHON A V73.81 HPV SCREENING 03/07/2014 HAROON HYDRAMATIC SPECIALISTWING VillegasIDI A V74.5 STD SCREEN 03/07/2014 HAROON PANTOJAWING VillegasIDI A V76.2 CERVICAL CANCER SCREENING (PAP SMEAR) 03/30/2014 LAKISHA PERRY SOFYA A 788.1 DYSURIA 03/30/2014 LAKISHA PERRY SOFYA A V22.2 INCIDENTAL 03/30/2014 BRASHER DO, ALONDRA K 788.1 DYSURIA 03/30/2014 BRASHER DO, ALONDRA K V22.2 INCIDENTAL 03/30/2014 BRASHER DO, ALONDRA K 788.1 DYSURIA 03/30/2014 BRASHER DO, ALONDRA K V22.2 INCIDENTAL 03/30/2014 MADL HYDRAMATIC SPECIALIST, KRISTINA L 788.1 DYSURIA 03/30/2014 MADL HYDRAMATIC SPECIALIST, KRISTINA L V22.2 INCIDENTAL 03/30/2014 HAROON HYDRAMATIC SPECIALIST, LASHON A 788.1 DYSURIA 03/30/2014 HAROON HYDRAMATIC SPECIALIST, LASHON A V22.2 INCIDENTAL 03/30/2014 BRASHER DO, ALONDRA K 788.1 DYSURIA 03/30/2014 BRASHER DO, ALONDRA K V22.2 INCIDENTAL 03/30/2014 HAROON HYDRAMATIC SPECIALIST, LASHON A 788.1 DYSURIA 03/30/2014 HAROON HYDRAMATIC SPECIALIST, LASHON A V22.2 INCIDENTAL 04/04/2014 BRASHER DO, ALONDRA K 256.4 POLYCYSTIC OVARIES 04/04/2014 BRASHER DO, ALONDRA K V02.51 GBS - CARRIER OR SUSPECTED CARRIER 04/04/2014 BRASHER DO, ALONDRA K 256.4 POLYCYSTIC OVARIES 04/04/2014 BRASHER DO, ALONDRA K V02.51 GBS - CARRIER OR SUSPECTED CARRIER 04/04/2014 MADL HYDRAMATIC SPECIALIST, KRISTINA L 256.4 POLYCYSTIC OVARIES 04/04/2014 MADL HYDRAMATIC SPECIALIST, KRISTINA L V02.51 GBS - CARRIER OR SUSPECTED CARRIER 04/04/2014 HAROON HYDRAMATIC SPECIALIST, LASHON A 256.4 POLYCYSTIC OVARIES 04/04/2014 HAROON HYDRAMATIC SPECIALIST, LASHON A V02.51 GBS - CARRIER OR SUSPECTED CARRIER 04/04/2014 BRASHER DO, ALONDRA K 256.4 POLYCYSTIC OVARIES 04/04/2014 BRASHER DO, ALONDRA K V02.51 GBS - CARRIER OR SUSPECTED CARRIER 04/04/2014 HAROON HYDRAMATIC SPECIALIST, LASHON A 256.4 POLYCYSTIC OVARIES 04/04/2014 HAROON HYDRAMATIC SPECIALIST, LASHON A V02.51 GBS - CARRIER OR [...] 04/22/2014 Ot 285.9 04/22/2014 RAMON CAMPBELL L PURCHASING INTERN Ot 244.9 04/22/2014 RAMON CAMPBELL L PURCHASING INTERN Ot 285.9 04/22/2014 RAMON CAMPBELL L PURCHASING INTERN Ot 780.79 04/22/2014 RAMON CAMPBELL L PURCHASING INTERN Ot 599.0 04/22/2014 RAMON CAMPBELL L PURCHASING INTERN Ot 719.40 04/22/2014 RAMON CAMPBELL L PURCHASING INTERN Ot 795.79 04/22/2014 CARLEY VIEYRAIA C HYDRAMATIC SPECIALIST Ot 789.00 04/22/2014 ARMON CAMPBELL L PURCHASING INTERN Ot 266.2 04/22/2014 RAMON CAMPBELL L PURCHASING INTERN Ot 268.9 04/22/2014 RAMON CAMPBELL L PURCHASING INTERN Ot 620.2 04/22/2014 RAMON CAMPBELL L PURCHASING INTERN Ot 780.79 04/22/2014 RAMON CAMPBELL L PURCHASING INTERN Ot 786.09 04/22/2014 RAMON CAMPBELL L PURCHASING INTERN Ot 789.00 04/22/2014 RAMON CAMPBELL L PURCHASING INTERN Ot 789.00 04/22/2014 RAMON CAMPBELL L PURCHASING INTERN Ot V45.86 04/22/2014 RAMON CAMPBELL L PURCHASING INTERN Ot 256.4 04/22/2014 RAMON CAMPBELL L PURCHASING INTERN Ot 611.6 04/22/2014 RAMON CAMPBELL L PURCHASING INTERN Ot 626.0 04/22/2014 RAMON CAMPBELL L PURCHASING INTERN Ot 787.3 04/22/2014 RAMON CAMPBELL L PURCHASING INTERN Ot 789.00 04/22/2014 RAMON CAMPBELL L PURCHASING INTERN Ot 611.6 04/22/2014 RAMON CAMPBELL L PURCHASING INTERN Ot 787.3 04/22/2014 RAMON CAMPBELL Pedro PURCHASING INTERN Ot 789.00 04/22/2014 LASHON PATIÑO APRN Ot V22.0 04/27/2014 ANNE MARIE MIXON DO John Ot 275.2 DIS MAGNESIUM [...] 08/28/2014 Ot 285.9 08/28/2014 KATHLEEN NAVARRORICIA L PURCHASING INTERN Ot 244.9 08/28/2014 KATHLEEN NAVARRORICIA L PURCHASING INTERN Ot 285.9 08/28/2014 KATHLEEN NAVARRORICIA L PURCHASING INTERN Ot 780.79 08/28/2014 RAMON CAMPBELL L PURCHASING INTERN Ot 599.0 08/28/2014 RAMON CAMPBELL L PURCHASING INTERN Ot 719.40 08/28/2014 RAMON CAMPBELL L PURCHASING INTERN Ot 795.79 08/28/2014 JARRELL, CAMPBELL C HYDRAMATIC SPECIALIST Ot 789.00 08/28/2014 RAMON CAMPBELL L PURCHASING INTERN Ot 266.2 08/28/2014 RAMON CAMPBELL L PURCHASING INTERN Ot 268.9 08/28/2014 RAMON CAMPBELL L PURCHASING INTERN Ot 620.2 08/28/2014 RAMON CAMPBELL L PURCHASING INTERN Ot 780.79 08/28/2014 RAMON CAMPBELL L PURCHASING INTERN Ot 786.09 08/28/2014 RAMON CAMPBELL L PURCHASING INTERN Ot 789.00 08/28/2014 RAMON CAMPBELL L PURCHASING INTERN Ot 789.00 08/28/2014 RAMON CAMPBELL L PURCHASING INTERN Ot V45.86 08/28/2014 RAMON CAMPBELL L PURCHASING INTERN Ot 256.4 08/28/2014 NAVARROCAMPBELL PAUL PURCHASING INTERN Ot 611.6 08/28/2014 NAVARROCAMPBELL PAUL PURCHASING INTERN Ot 626.0 08/28/2014 NAVARROCAMPBELL PAUL PURCHASING INTERN Ot 787.3 08/28/2014 NAVARROCAMPBELL PAUL PURCHASING INTERN Ot 789.00 08/28/2014 NAVARROCAMPBELL PAUL PURCHASING INTERN Ot 611.6 08/28/2014 NAVARROCAMPBELL PAUL PURCHASING INTERN Ot 787.3 08/28/2014 NAVARROCAMPBELL PAUL PURCHASING INTERN Ot 789.00 08/28/2014 HAROON LASHONBEBETO [place]ish[place]m APRN [...] 09/01/2014 Ot 285.9 09/01/2014 CAMPBELL NAVARRO L PURCHASING INTERN Ot 244.9 09/01/2014 CAMPBELL NAVARRO L PURCHASING INTERN Ot 285.9 09/01/2014 CAMPBELL NAVARRO L PURCHASING INTERN Ot 780.79 09/01/2014 CAMPBELL NAVARRO L PURCHASING INTERN Ot 599.0 09/01/2014 CAMPBELL NAVARRO L PURCHASING INTERN Ot 719.40 09/01/2014 CAMPBELL NAVARRO L PURCHASING INTERN Ot 795.79 09/01/2014 CAMPBELL VIEYRA HYDRAMATIC SPECIALIST Ot 789.00 09/01/2014 CARLEY NAVARROIA L PURCHASING INTERN Ot 266.2 09/01/2014 CAMPBELL NAVARRO L PURCHASING INTERN Ot 268.9 09/01/2014 CAMPBELL NAVARRO L PURCHASING INTERN Ot 620.2 09/01/2014 CAMPBELL NAVARRO L PURCHASING INTERN Ot 780.79 09/01/2014 NAVARROCARLEY PAULIA L PURCHASING INTERN Ot 786.09 09/01/2014 NAVARRO, CAMPBELL L PURCHASING INTERN Ot 789.00 09/01/2014 NAVARROKATHLEENCAMPBELL L PURCHASING INTERN Ot 789.00 09/01/2014 NAVARROCARLEY PAULIA L PURCHASING INTERN Ot V45.86 09/01/2014 RAMONCARLEYIA L PURCHASING INTERN Ot 256.4 09/01/2014 NAVARROKATHLEENCAMPBELL L PURCHASING INTERN Ot 611.6 09/01/2014 NAVARROKATHLEENCAMPBELL L PURCHASING INTERN Ot 626.0 09/01/2014 NAVARROCARLEYIA L PURCHASING INTERN Ot 787.3 09/01/2014 NAVARROKATHLEENCAMPBELL L PURCHASING INTERN Ot 789.00 09/01/2014 NAVARROCARLEYIA L PURCHASING INTERN Ot 611.6 09/01/2014 RAMON CAMPBELL L PURCHASING INTERN Ot 787.3 09/01/2014 RAMON CAMPBELL L PURCHASING INTERN Ot 789.00 09/01/2014 LASHON PATIÑO APRN Ot [...] K Ot 646.51 ASYM BACTERIURIA-DELIVER 09/25/2014 BRASHER ALONDRA John Ot 648.22 ANEMIA-DELIVERED W P/P 09/25/2014 [...] 02/03/2015 Ot 285.9 02/03/2015 KATHLEEN NAVARRORICIA L PURCHASING INTERN Ot 244.9 02/03/2015 KATHLEEN NAVARRORICIA L PURCHASING INTERN Ot 285.9 02/03/2015 CAMPBELL NAVARRO L PURCHASING INTERN Ot 780.79 02/03/2015 KATHLEEN NAVARRORICIA L PURCHASING INTERN Ot 599.0 02/03/2015 KATHLEEN NAVARRORICIA L PURCHASING INTERN Ot 719.40 02/03/2015 KATHLEEN NAVARRORICIA L PURCHASING INTERN Ot 795.79 02/03/2015 CAMPBELL VIEYRA C HYDRAMATIC SPECIALIST Ot 789.00 02/03/2015 RAMON CAMPBELL L PURCHASING INTERN Ot 266.2 02/03/2015 RAMON CAMPBELL L PURCHASING INTERN Ot 268.9 02/03/2015 KATHLEEN NAVARRORICIA L PURCHASING INTERN Ot 620.2 02/03/2015 RAMON CAMPBELL L PURCHASING INTERN Ot 780.79 02/03/2015 KATHLEEN NAVARRORICIA L PURCHASING INTERN Ot 786.09 02/03/2015 KATHLEEN NAVARRORICIA L PURCHASING INTERN Ot 789.00 02/03/2015 KATHLEEN NAVARRORICIA L PURCHASING INTERN Ot 789.00 02/03/2015 NAVARROCAMPBELL PAUL PURCHASING INTERN Ot V45.86 02/03/2015 NAVARROCAMPBELL PAUL PURCHASING INTERN Ot 256.4 02/03/2015 NAVARROCAMPBELL PAUL PURCHASING INTERN Ot 611.6 02/03/2015 NAVARROCAMPBELL PAUL PURCHASING INTERN Ot 626.0 02/03/2015 NAVARROCAMPBELL PAUL PURCHASING INTERN Ot 787.3 02/03/2015 NAVARROCAMPBELL PAUL PURCHASING INTERN Ot 789.00 02/03/2015 NAVARROCAMPBELL PAUL PURCHASING INTERN Ot 611.6 02/03/2015 NAVARROCAMPBELL PURCHASING INTERN Ot 787.3 02/03/2015 RAMONCAMPBELL PURCHASING INTERN Ot 789.00 02/03/2015 LASHON PATIÑO APRN Ot [...] 02/03/2015 Ot 285.9 02/03/2015 CAMPBELL NAVARRO L PURCHASING INTERN Ot 244.9 02/03/2015 CAMPBELL NAVARRO L PURCHASING INTERN Ot 285.9 02/03/2015 CAMPBELL NAVARRO L PURCHASING INTERN Ot 780.79 02/03/2015 KATHLEEN NAVARRORICIA L PURCHASING INTERN Ot 599.0 02/03/2015 KATHLEEN NAVARRORICIA L PURCHASING INTERN Ot 719.40 02/03/2015 RAMON CAMPBELL L PURCHASING INTERN Ot 795.79 02/03/2015 CAMPBELL VIEYRA C HYDRAMATIC SPECIALIST Ot 789.00 02/03/2015 RAMON CAMPBELL L PURCHASING INTERN Ot 266.2 02/03/2015 RAMON CAMPBELL L PURCHASING INTERN Ot 268.9 02/03/2015 RAMON CAMPBELL L PURCHASING INTERN Ot 620.2 02/03/2015 KATHLEEN NAVARRORICIA L PURCHASING INTERN Ot 780.79 02/03/2015 RAMON CAMPBELL L PURCHASING INTERN Ot 786.09 02/03/2015 RAMON CAMPBELL L PURCHASING INTERN Ot 789.00 02/03/2015 RAMON CAMPBELL L PURCHASING INTERN Ot 789.00 02/03/2015 KATHLEEN NAVARRORICIA L PURCHASING INTERN Ot V45.86 02/03/2015 RAMON, CAMPBELL L PURCHASING INTERN Ot 256.4 02/03/2015 NAVARRO, CAMPBELL L PURCHASING INTERN Ot 611.6 02/03/2015 NAVARRO, CAMPBELL L PURCHASING INTERN Ot 626.0 02/03/2015 NAVARRO, CAMPBELL L PURCHASING INTERN Ot 787.3 02/03/2015 NAVARRO, CAMPBELL L PURCHASING INTERN Ot 789.00 02/03/2015 NAVARRO, CAMPBELL L PURCHASING INTERN Ot 611.6 02/03/2015 NAVARRO, CAMPBELL L PURCHASING INTERN Ot 787.3 02/03/2015 NAVARRO, CAMPBELL L PURCHASING INTERN Ot 789.00 02/03/2015 LASOHN PATIÑO APRN Ot V22.0 02/03/2015 ANSHU RAWLSALONDRA Ot V22.0 02/03/2015 Ot V28.81 02/03/2015 BRASHER ALONDRA RAWLS K Ot V89.03 02/09/2015 RAMON CAMPBELL L PURCHASING INTERN Ot D55.9 02/09/2015 NAVARRO, CAMPBELL L PURCHASING INTERN Ot E03.9 02/09/2015 NAVARRO, CAMPBELL L PURCHASING INTERN Ot E28.2 02/09/2015 NAVARRO, CAMPBELL L PURCHASING INTERN Ot E53.8 02/09/2015 NAVARRO, CAMPBELL L PURCHASING INTERN Ot E61.2 02/09/2015 NAVARRO, CAMPBELL L PURCHASING INTERN Ot Z87.440 02/10/2015 NAVARRO, CAMPBELL L PURCHASING INTERN Ot N93.9 02/10/2015 NAVARRO, CAMPBELL L PURCHASING INTERN Ot N93.9 02/21/2015 ANSHU RAWLS ALONDRA K Ot V89.03 02/21/2015 NAVARRO, CAMPBELL L PURCHASING INTERN Ot D55.9 02/21/2015 NAVARRO, CAMPBELL L PURCHASING INTERN Ot E03.9 02/21/2015 NAVARRO, CAMPBELL L PURCHASING INTERN Ot E28.2 02/21/2015 NAVARRO, CAMPBELL L PURCHASING INTERN Ot E53.8 02/21/2015 NAVARRO, CAMPBELL L PURCHASING INTERN Ot E61.2 02/21/2015 CAMPBELL NAVARRO PURCHASING INTERN Ot Z87.440 02/21/2015 CAMPBELL NAVARRO PURCHASING INTERN Ot N93.9 02/21/2015 CAMPBELL NAVARRO PURCHASING INTERN Ot N93.9 02/21/2015 CAMPBELL NAVARRO PURCHASING INTERN Ot D55.9 02/21/2015 NAVARROCAMPBELL PAUL PURCHASING INTERN Ot E03.9 02/21/2015 NAVARROCAMPBELL PAUL PURCHASING INTERN Ot E28.2 02/21/2015 NAVARROCAMPBELL PAUL PURCHASING INTERN Ot E53.8 02/21/2015 NAVARROCAMPBELL PAUL PURCHASING INTERN Ot E61.2 02/21/2015 NAVARROCAMPBELL PAUL PURCHASING INTERN Ot Z87.440 02/21/2015 CAMPBELL NAVARRO PURCHASING INTERN Ot N93.9 03/02/2015 NAVARROCAMPBELL PAUL PURCHASING INTERN Ot N93.9 03/02/2015 NAVARROCAMPBELL PAUL PURCHASING INTERN Ot R10.30 04/19/2015 Ot 256.4 04/19/2015 Ot [...] 04/19/2015 Ot 285.9 04/19/2015 RAMON CAMPBELL L PURCHASING INTERN Ot 244.9 04/19/2015 RAMON CAMPBELL L PURCHASING INTERN Ot 285.9 04/19/2015 RAMON CAMPBELL L PURCHASING INTERN Ot 780.79 04/19/2015 RAMON CAMPBELL L PURCHASING INTERN Ot 599.0 04/19/2015 RAMON CAMPBELL L PURCHASING INTERN Ot 719.40 04/19/2015 RAMON CAMPBELL L PURCHASING INTERN Ot 795.79 04/19/2015 CARLEY VIEYRAIA C HYDRAMATIC SPECIALIST Ot 789.00 04/19/2015 RAMON CAMPBELL L PURCHASING INTERN Ot 266.2 04/19/2015 RAMON CAMPBELL L PURCHASING INTERN Ot 268.9 04/19/2015 RAMON CAMPBELL L PURCHASING INTERN Ot 620.2 04/19/2015 RAMON CAMPBELL L PURCHASING INTERN Ot 780.79 04/19/2015 RAMON CAMPBELL L PURCHASING INTERN Ot 786.09 04/19/2015 RAMON CAMPBELL L PURCHASING INTERN Ot 789.00 04/19/2015 RAMON CAMPBELL L PURCHASING INTERN Ot 789.00 04/19/2015 RAMON CAMPBELL L PURCHASING INTERN Ot V45.86 04/19/2015 RAMON CAMPBELL L PURCHASING INTERN Ot 256.4 04/19/2015 RAMON CAMPBELL L PURCHASING INTERN Ot 611.6 04/19/2015 RAMON CAMPBELL L PURCHASING INTERN Ot 626.0 04/19/2015 RAMON CAMPBELL L PURCHASING INTERN Ot 787.3 04/19/2015 RAMON CAMPBELL L PURCHASING INTERN Ot 789.00 04/19/2015 RAMONCAMPBELL PURCHASING INTERN Ot 611.6 04/19/2015 RAMONCAMPBELL PURCHASING INTERN Ot 787.3 04/19/2015 RAMONCAMPBELL PURCHASING INTERN Ot 789.00 04/19/2015 LASHON PATIÑO APRN Ot V22.0 04/19/2015 ALONDRA BRASHER DO Ot V22.0 04/19/2015 Ot V28.81 04/19/2015 BRASHER ALONDRA RAWLS Ot V89.03 04/19/2015 RAMON CAMPBELL Vasquez PURCHASING INTERN Ot D55.9 04/19/2015 RAMON CAMPBELL Vasquez PURCHASING INTERN Ot E03.9 04/19/2015 RAMON CAMPBELL Vasquez PURCHASING INTERN Ot E28.2 04/19/2015 RAMON CAMPBELL Vasquez PURCHASING INTERN Ot E53.8 04/19/2015 RAMON CAMPBELL Vasquez PURCHASING INTERN Ot E61.2 04/19/2015 RAMON CAMPBELL Vasquez PURCHASING INTERN Ot Z87.440 04/19/2015 RAMON CAMPBELL Vasquez PURCHASING INTERN Ot N93.9 04/19/2015 RAMON CAMPBELL Vasquez PURCHASING INTERN Ot N93.9 04/19/2015 RAMON CAMPBELL Vasquez PURCHASING INTERN Ot R10.30 07/18/2015 RUTH GRANADOS MD Ot [...] 285.9 ANEMIA NOS 08/17/2015 CAMPBELL NAVARRO L PURCHASING INTERN Ot 244.9 HYPOTHYROIDISM NOS 08/17/2015 CAMPBELL NAVARRO L PURCHASING INTERN Ot 285.9 ANEMIA NOS 08/17/2015 CAMPBELL NAVARRO L PURCHASING INTERN Ot 780.79 OTH MALAISE FATIGUE 08/17/2015 CAMPBELL NAVARRO L PURCHASING INTERN Ot 599.0 URIN TRACT INFECTION NOS 08/17/2015 CAMPBELL NAVARRO L PURCHASING INTERN Ot 719.40 JOINT PAIN-UNSPEC 08/17/2015 CAMPBELL NAVARRO L PURCHASING INTERN Ot 795.79 OTH AND UNSPEC NONSPECIFIC IMMUNOLOGICAL 08/17/2015 CARLEY VIEYRAIA Ender HYDRAMATIC SPECIALIST Ot 789.00 ABDOMINAL PAIN, UNSPECIFIED SITE 08/17/2015 CAMPBELL NAVARRO PURCHASING INTERN Ot 266.2 B-COMPLEX DEFIC NEC 08/17/2015 CAMPBELL NAVARRO PURCHASING INTERN Ot 268.9 VITAMIN D DEFICIENCY NOS 08/17/2015 CAMPBELL NAVARRO PURCHASING INTERN Ot 620.2 OVARIAN CYST NEC/NOS 08/17/2015 CAMPBELL NAVARRO PURCHASING INTERN Ot 780.79 OTH MALAISE FATIGUE 08/17/2015 CAMPBELL NAVARRO PURCHASING INTERN Ot 786.09 RESPIRATORY ABNORM NEC 08/17/2015 CAMPBELL NAVARRO PURCHASING INTERN Ot 789.00 ABDOMINAL PAIN, UNSPECIFIED SITE 08/17/2015 CAMPBELL NAVARRO PURCHASING INTERN Ot 789.00 ABDOMINAL PAIN, UNSPECIFIED SITE 08/17/2015 CAMPBELL NAVARRO PURCHASING INTERN Ot V45.86 BARIATRIC SURGERY STATUS 08/17/2015 CAMPBELL NAVARRO PURCHASING INTERN Ot 256.4 POLYCYSTIC OVARIES 08/17/2015 CAMPBELL NAVARRO PURCHASING INTERN Ot 611.6 GALACTORRHEA-NONOBSTET 08/17/2015 CAMPBELL NAVARRO PURCHASING INTERN Ot 626.0 ABSENCE OF MENSTRUATION 08/17/2015 CAMPBELL NAVARRO PURCHASING INTERN Ot 787.3 FLATUL/ERUCTAT/GAS PAIN 08/17/2015 CAMPBELL NAVARRO PURCHASING INTERN Ot 789.00 ABDOMINAL PAIN, UNSPECIFIED SITE 08/17/2015 CAMPBELL NAVARRO PURCHASING INTERN Ot 611.6 GALACTORRHEA-NONOBSTET 08/17/2015 CAMPBELL NAVARRO PURCHASING INTERN Ot 787.3 FLATUL/ERUCTAT/GAS PAIN 08/17/2015 CAMPBELL NAVARRO PURCHASING INTERN Ot 789.00 ABDOMINAL PAIN, UNSPECIFIED SITE 08/17/2015 LASHON PATIÑO APRN Ot V22.0 SUPERVIS NORMAL 1ST PREG 08/17/2015 ALONDRA BRASHER DO Ot V22.0 SUPERVIS NORMAL 1ST PREG 08/17/2015 Ot V28.81 ENCOUNTER FOR ANATOMIC SURVEY 08/17/2015 ALONDRA BRASHER DO Ot V89.03 SUSPECTED ANOMALY NOT FOUND 08/17/2015 CAMPBELL NAVARRO PURCHASING INTERN Ot D55.9 ANEMIA DUE TO ENZYME DISORDER, UNSPECIFI 08/17/2015 CAMPBELL NAVARRO PURCHASING INTERN Ot E03.9 HYPOTHYROIDISM, UNSPECIFIED 08/17/2015 CAMPBELL NAVARRO PURCHASING INTERN Ot E28.2 POLYCYSTIC OVARIAN SYNDROME 08/17/2015 CAMPBELL NAVARRO PURCHASING INTERN Ot E53.8 DEFICIENCY OF OTHER SPECIFIED B GROUP 08/17/2015 CAMPBELL NAVARRO PURCHASING INTERN Ot E61.2 MAGNESIUM DEFICIENCY 08/17/2015 CAMPBELL NAVARRO PURCHASING INTERN Ot Z87.440 PERSONAL HISTORY OF URINARY (TRACT ) INFE 08/17/2015 CAMPBELL NAVARRO PURCHASING INTERN Ot N93.9 ABNORMAL UTERINE AND VAGINAL BLEEDING, U 08/17/2015 CAMPBELL NAVARRO PURCHASING INTERN Ot N93.9 ABNORMAL UTERINE AND VAGINAL BLEEDING, U 08/17/2015 CAMPBELL NAVARRO PURCHASING INTERN Ot R10.30 LOWER ABDOMINAL PAIN, UNSPECIFIED 08/17/2015 RUTH GRANADOS MD Ot D50.9 IRON DEFICIENCY ANEMIA, UNSPECIFIED 08/17/2015 RUTH GRANADOS MD Ot E46 UNSPECIFIED PROTEIN-CALORIE MALNUTRITION 08/17/2015 RUTH GRANADOS MD Ot K90.9 INTESTINAL MALABSORPTION, UNSPECIFIED 08/17/2015 RUTH GRANADOS MD Ot Z98.84 BARIATRIC SURGERY STATUS 08/17/2015 CAMPBELL NAVARRO PURCHASING INTERN Ot D55.9 ANEMIA DUE TO ENZYME DISORDER, UNSPECIFI 08/17/2015 CAMPBELL NAVARRO PURCHASING INTERN Ot E03.9 HYPOTHYROIDISM, UNSPECIFIED 08/17/2015 CAMPBELL NAVARRO PURCHASING INTERN Ot E28.2 POLYCYSTIC OVARIAN SYNDROME 08/17/2015 CAMPBELL NAVARRO PURCHASING INTERN Ot E53.8 DEFICIENCY OF OTHER SPECIFIED B GROUP 08/17/2015 CAMPBELL NAVARRO PURCHASING INTERN Ot E61.2 MAGNESIUM DEFICIENCY 08/17/2015 CAMPBELL NAVARRO PURCHASING INTERN Ot Z87.440 PERSONAL HISTORY OF URINARY (TRACT ) INFE 08/17/2015 CAMPBELL NAVARRO PURCHASING INTERN Ot N93.9 ABNORMAL UTERINE AND VAGINAL BLEEDING, U 08/17/2015 CAMPBELL NAVARRO PURCHASING INTERN Ot N93.9 ABNORMAL UTERINE AND VAGINAL BLEEDING, U 08/17/2015 CAMPBELL NAVARRO PURCHASING INTERN Ot R10.30 LOWER ABDOMINAL PAIN, UNSPECIFIED 08/17/2015 [...] SUPERVIS NORMAL 1ST PREG 08/17/2015 CAMPBELL NAVARRO PURCHASING INTERN Ot 611.6 GALACTORRHEA-NONOBSTET 08/17/2015 CAMPBELL NAVARRO PURCHASING INTERN Ot 787.3 FLATUL/ERUCTAT/GAS PAIN 08/17/2015 CAMPBELL NAVARRO PURCHASING INTERN Ot 789.00 ABDOMINAL PAIN, UNSPECIFIED SITE 08/17/2015 CAMPBELL NAVARRO PURCHASING INTERN Ot 256.4 POLYCYSTIC OVARIES 08/17/2015 CAMPBELL NAVARRO PURCHASING INTERN Ot 611.6 GALACTORRHEA-NONOBSTET 08/17/2015 CAMPBELL NAVARRO PURCHASING INTERN Ot 626.0 ABSENCE OF MENSTRUATION 08/17/2015 CAMPBELL NAVARRO PURCHASING INTERN Ot 787.3 FLATUL/ERUCTAT/GAS PAIN 08/17/2015 CAMPBELL NAVARRO PURCHASING INTERN Ot 789.00 ABDOMINAL PAIN, UNSPECIFIED SITE 08/17/2015 CAMPBELL NAVARRO PURCHASING INTERN Ot 789.00 ABDOMINAL PAIN, UNSPECIFIED SITE 08/17/2015 CAMPBELL NAVARRO PURCHASING INTERN Ot V45.86 BARIATRIC SURGERY STATUS 08/17/2015 CAMPBELL NAVARRO PURCHASING INTERN Ot 789.00 ABDOMINAL PAIN, UNSPECIFIED SITE 08/17/2015 CAMPBELL NAVARRO PURCHASING INTERN Ot 266.2 B-COMPLEX DEFIC NEC 08/17/2015 CAMPBELL NAVARRO PURCHASING INTERN Ot 268.9 VITAMIN D DEFICIENCY NOS 08/17/2015 CAMPBELL NAVARRO PURCHASING INTERN Ot 620.2 OVARIAN CYST NEC/NOS 08/17/2015 CAMPBELL NAVARRO PURCHASING INTERN Ot 780.79 OTH MALAISE FATIGUE 08/17/2015 CAMPBELL NAVARRO PURCHASING INTERN Ot 786.09 RESPIRATORY ABNORM NEC 08/17/2015 CAMPBELL VIEYRA HYDRAMATIC SPECIALIST Ot 789.00 ABDOMINAL PAIN, UNSPECIFIED SITE 08/31/2015 [...] 285.9 ANEMIA NOS 08/31/2015 CAMPBELL NAVARRO L PURCHASING INTERN Ot 244.9 HYPOTHYROIDISM NOS 08/31/2015 CAMPBELL NAVARRO L PURCHASING INTERN Ot 285.9 ANEMIA NOS 08/31/2015 CAMPBELL NAVARRO L PURCHASING INTERN Ot 780.79 OTH MALAISE FATIGUE 08/31/2015 CAMPBELL NAVARRO PURCHASING INTERN Ot 599.0 URIN TRACT INFECTION NOS 08/31/2015 CAMPBELL NAVARRO L PURCHASING INTERN Ot 719.40 JOINT PAIN-UNSPEC 08/31/2015 CAMPBELL NAVARRO PURCHASING INTERN Ot 795.79 OTH AND UNSPEC NONSPECIFIC IMMUNOLOGICAL 08/31/2015 CAMPBELL VIEYRA HYDRAMATIC SPECIALIST Ot 789.00 ABDOMINAL PAIN, UNSPECIFIED SITE 08/31/2015 CAMPBELL NAVARRO PURCHASING INTERN Ot 266.2 B-COMPLEX DEFIC NEC 08/31/2015 CAMPBELL NAVARRO PURCHASING INTERN Ot 268.9 VITAMIN D DEFICIENCY NOS 08/31/2015 CAMPBELL NAVARRO L PURCHASING INTERN Ot 620.2 OVARIAN CYST NEC/NOS 08/31/2015 CAMPBELL NAVARRO L PURCHASING INTERN Ot 780.79 OTH MALAISE FATIGUE 08/31/2015 CAMPBELL NAVARRO L PURCHASING INTERN Ot 786.09 RESPIRATORY ABNORM NEC 08/31/2015 CAMPBELL NAVARRO L PURCHASING INTERN Ot 789.00 ABDOMINAL PAIN, UNSPECIFIED SITE 08/31/2015 CAMPBELL NAVARRO L PURCHASING INTERN Ot 789.00 ABDOMINAL PAIN, UNSPECIFIED SITE 08/31/2015 CAMPBELL NAVARRO PURCHASING INTERN Ot V45.86 BARIATRIC SURGERY STATUS 08/31/2015 CAMPBELL NAVARRO L PURCHASING INTERN Ot 256.4 POLYCYSTIC OVARIES 08/31/2015 CAMPBELL NAVARRO L PURCHASING INTERN Ot 611.6 GALACTORRHEA-NONOBSTET 08/31/2015 CAMPBELL NAVARRO PURCHASING INTERN Ot 626.0 ABSENCE OF MENSTRUATION 08/31/2015 NAVARROCAMPBELL PAUL PURCHASING INTERN Ot 787.3 FLATUL/ERUCTAT/GAS PAIN 08/31/2015 NAVARROCAMPBELL PAUL PURCHASING INTERN Ot 789.00 ABDOMINAL PAIN, UNSPECIFIED SITE 08/31/2015 RAMONCAMPBELL PURCHASING INTERN Ot 611.6 GALACTORRHEA-NONOBSTET 08/31/2015 RAMON CAMPBELL Vasquez PURCHASING INTERN Ot 787.3 FLATUL/ERUCTAT/GAS PAIN 08/31/2015 NAVARROCAMPBELL PAUL PURCHASING INTERN Ot 789.00 ABDOMINAL PAIN, UNSPECIFIED SITE 08/31/2015 LASHON PATIÑO APRN Ot V22.0 SUPERVIS NORMAL 1ST PREG 08/31/2015 ALNODRA BRASHER DO Ot V22.0 SUPERVIS NORMAL 1ST PREG 08/31/2015 Ot V28.81 ENCOUNTER FOR ANATOMIC SURVEY 08/31/2015 ALONDRA BRASHER DO Ot V89.03 SUSPECTED ANOMALY NOT FOUND 08/31/2015 CAMPBELL NAVARRO PURCHASING INTERN Ot D55.9 ANEMIA DUE TO ENZYME DISORDER, UNSPECIFI 08/31/2015 CAMPBELL NAVARRO PURCHASING INTERN Ot E03.9 HYPOTHYROIDISM, UNSPECIFIED 08/31/2015 CAMPBELL NAVARRO PURCHASING INTERN Ot E28.2 POLYCYSTIC OVARIAN SYNDROME 08/31/2015 RAMON CAMPBELL Pedro PURCHASING INTERN Ot E53.8 DEFICIENCY OF OTHER SPECIFIED B GROUP 08/31/2015 CAMPBELL NAVARRO PURCHASING INTERN Ot E61.2 MAGNESIUM DEFICIENCY 08/31/2015 CAMPBELL NAVARRO PURCHASING INTERN Ot Z87.440 PERSONAL HISTORY OF URINARY (TRACT ) INFE 08/31/2015 CAMPBELL NAVARRO PURCHASING INTERN Ot N93.9 ABNORMAL UTERINE AND VAGINAL BLEEDING, U 08/31/2015 CAMPBELL NAVARRO PURCHASING INTERN Ot N93.9 ABNORMAL UTERINE AND VAGINAL BLEEDING, U 08/31/2015 CAMPBELL NAVARRO PURCHASING INTERN Ot R10.30 LOWER ABDOMINAL PAIN, UNSPECIFIED 08/31/2015 RUTH GRANADOS MD Ot D50.9 IRON DEFICIENCY ANEMIA, UNSPECIFIED 08/31/2015 RUTH GRANADOS MD Ot E46 UNSPECIFIED PROTEIN-CALORIE MALNUTRITION 08/31/2015 RUTH GRANADOS MD Ot K90.9 INTESTINAL MALABSORPTION, UNSPECIFIED 08/31/2015 RUTH GRANADOS MD, Ot Z98.84 BARIATRIC SURGERY STATUS 11/26/2015 RAMON CAMPBELL L PURCHASING INTERN Ot D55.9 ANEMIA DUE TO ENZYME DISORDER, UNSPECIFI 11/26/2015 CAMPBELL NAVARRO PURCHASING INTERN Ot E03.9 HYPOTHYROIDISM, UNSPECIFIED 11/26/2015 CAMPBELL NAVARRO PURCHASING INTERN Ot E28.2 POLYCYSTIC OVARIAN SYNDROME 11/26/2015 CARLEY NAVARROIA Pedro PURCHASING INTERN Ot E53.8 DEFICIENCY OF OTHER SPECIFIED B GROUP 11/26/2015 CAMPBELL NAVARRO PURCHASING INTERN Ot E61.2 MAGNESIUM DEFICIENCY 11/26/2015 CAMPBELL NAVARRO PURCHASING INTERN Ot Z87.440 PERSONAL HISTORY OF URINARY (TRACT ) INFE 11/26/2015 CAMPBELL NAVARRO PURCHASING INTERN Ot N93.9 ABNORMAL UTERINE AND VAGINAL BLEEDING, U 11/26/2015 CAMPBELL NAVARRO PURCHASING INTERN Ot N93.9 ABNORMAL UTERINE AND VAGINAL BLEEDING, U 11/26/2015 CAMPBELL NAVARRO PURCHASING INTERN Ot R10.30 LOWER ABDOMINAL PAIN, UNSPECIFIED 11/26/2015 RUTH GRANADOS MD Ot D50.9 IRON DEFICIENCY ANEMIA, UNSPECIFIED 11/26/2015 RUTH GRANADOS MD Ot E46 UNSPECIFIED PROTEIN-CALORIE MALNUTRITION 11/26/2015 RUTH GRANADOS MD Ot K90.9 INTESTINAL MALABSORPTION, UNSPECIFIED 11/26/2015 RUTH GRANADOS MD Ot Z98.84 BARIATRIC SURGERY STATUS 12/06/2015 TIP BOJORQUEZ MD Ot E86.9 VOLUME DEPLETION, UNSPECIFIED 12/06/2015 TIP BOJORQUEZ MD Ot O99.611 DISEASES OF THE DGSTV [...] 285.9 ANEMIA NOS 12/06/2015 CAMPBELL NAVARRO L PURCHASING INTERN Ot 244.9 HYPOTHYROIDISM NOS 12/06/2015 CAMPBELL NAVARRO L PURCHASING INTERN Ot 285.9 ANEMIA NOS 12/06/2015 CAMPBELL NAVARRO L PURCHASING INTERN Ot 780.79 OTH MALAISE FATIGUE 12/06/2015 CAMBPELL NAVARRO L PURCHASING INTERN Ot 599.0 URIN TRACT INFECTION NOS 12/06/2015 CAMPBELL NAVARRO PURCHASING INTERN Ot 719.40 JOINT PAIN-UNSPEC 12/06/2015 CAMPBELL NAVARRO PURCHASING INTERN Ot 795.79 OTH AND UNSPEC NONSPECIFIC IMMUNOLOGICAL 12/06/2015 JARRELL CAMPBELL Handley HYDRAMATIC SPECIALIST Ot 789.00 ABDOMINAL PAIN, UNSPECIFIED SITE 12/06/2015 CAMPBELL NAVARRO PURCHASING INTERN Ot 266.2 B-COMPLEX DEFIC NEC 12/06/2015 CAMPBELL NAVARRO L PURCHASING INTERN Ot 268.9 VITAMIN D DEFICIENCY NOS 12/06/2015 CAMPBELL NAVARRO PURCHASING INTERN Ot 620.2 OVARIAN CYST NEC/NOS 12/06/2015 CAMPBELL NAVARRO PURCHASING INTERN Ot 780.79 OTH MALAISE FATIGUE 12/06/2015 CAMPBELL NAVARRO PURCHASING INTERN Ot 786.09 RESPIRATORY ABNORM NEC 12/06/2015 CAMPBELL NAVARRO PURCHASING INTERN Ot 789.00 ABDOMINAL PAIN, UNSPECIFIED SITE 12/06/2015 CAMPBELL NAVARRO L PURCHASING INTERN Ot 789.00 ABDOMINAL PAIN, UNSPECIFIED SITE 12/06/2015 CAMPBELL NAVARRO PURCHASING INTERN Ot V45.86 BARIATRIC SURGERY STATUS 12/06/2015 CAMPBELL NAVARRO L PURCHASING INTERN Ot 256.4 POLYCYSTIC OVARIES 12/06/2015 CAMPBELL NAVARRO PURCHASING INTERN Ot 611.6 GALACTORRHEA-NONOBSTET 12/06/2015 CAMPBELL NAVARRO PURCHASING INTERN Ot 626.0 ABSENCE OF MENSTRUATION 12/06/2015 CAMPBELL NAVARRO PURCHASING INTERN Ot 787.3 FLATUL/ERUCTAT/GAS PAIN 12/06/2015 CAMPBELL NAVARRO PURCHASING INTERN Ot 789.00 ABDOMINAL PAIN, UNSPECIFIED SITE 12/06/2015 CAMPBELL NAVARRO PURCHASING INTERN Ot 611.6 GALACTORRHEA-NONOBSTET 12/06/2015 CAMPBELL NAVARRO L PURCHASING INTERN Ot 787.3 FLATUL/ERUCTAT/GAS PAIN 12/06/2015 CAMPBELL NAVARRO PURCHASING INTERN Ot 789.00 ABDOMINAL PAIN, UNSPECIFIED SITE 12/06/2015 LASHON PATIÑO HYDRAMATIC SPECIALIST Ot V22.0 SUPERVIS NORMAL 1ST PREG 12/06/2015 ALONDRA BRASHER DO Ot V22.0 SUPERVIS NORMAL 1ST PREG 12/06/2015 Ot V28.81 ENCOUNTER FOR ANATOMIC SURVEY 12/06/2015 ALONDRA BRASHER DO Ot V89.03 SUSPECTED ANOMALY NOT FOUND 12/06/2015 CAMPBELL NAVARRO PURCHASING INTERN Ot D55.9 ANEMIA DUE TO ENZYME DISORDER, UNSPECIFI 12/06/2015 CAMPBELL NAVARRO PURCHASING INTERN Ot E03.9 HYPOTHYROIDISM, UNSPECIFIED 12/06/2015 CAMPBELL NAVARRO PURCHASING INTERN Ot E28.2 POLYCYSTIC OVARIAN SYNDROME 12/06/2015 CAMPBELL NAVARRO PURCHASING INTERN Ot E53.8 DEFICIENCY OF OTHER SPECIFIED B GROUP 12/06/2015 CAMPBELL NAVARRO PURCHASING INTERN Ot E61.2 MAGNESIUM DEFICIENCY 12/06/2015 CAMPBELL NAVARRO PURCHASING INTERN Ot Z87.440 PERSONAL HISTORY OF URINARY (TRACT ) INFE 12/06/2015 CAMPBELL NAVARRO PURCHASING INTERN Ot N93.9 ABNORMAL UTERINE AND VAGINAL BLEEDING, U 12/06/2015 CAMPBELL NAVARRO PURCHASING INTERN Ot N93.9 ABNORMAL UTERINE AND VAGINAL BLEEDING, U 12/06/2015 CAMPBELL NAVARRO PURCHASING INTERN Ot R10.30 LOWER ABDOMINAL PAIN, UNSPECIFIED 12/06/2015 [...] LESS THAN 8 WEEKS GESTATION OF 12/08/2015 TIP BOJORQUEZ MD, Ot Z87.891 PERSONAL HISTORY [...] 27 WEEKS GESTATION OF 05/05/2016 TORSTEN ENGEL HYDRAMATIC SPECIALIST Ot E16.2 HYPOGLYCEMIA, UNSPECIFIED 05/05/2016 TORSTEN ENGEL [...] Procedures Code Description [place] [address] TEST, URINE (IN-HOUSE) 01/31/2014 25859 ROUTINE VENIPUNCTURE 02/07/2014 27833 US OB - EARLY <14 WEEKS 02/07/2014 02986 SYPHILLIS-[facility] 02/07/2014 28010 HIV ([facility]) 02/07/2014 99935 ANTIBODY SCREEN (order) 02/07/2014 38304 CULTURE URINE 12/2013 63610 HEP B SURFACE ANTIGEN ([facility]) 02/07/2014 83076 CBC 02/07/2014 09632 TSH 02/07/2014 7696239 ANTIBODY SCREEN (RESULT ONLY) 02/08/2014 73380 A1C (L) 2013 41948 BLOOD TYPE/Rh FACTOR 02/08/2014 88408 RUBELLA ANTIBODY, IGG 02/08/2014 24460 GC/CHLAM PROBE ([facility]) 03/07/2014 44539 PAP SMEAR 2013 Q0091 PAP SMEAR OBTAIN SMEAR 03/07/2014 56250 UA OB DIP 2013 35432 TRICHOMONAS (IN-HOUSE) 03/07/2014 49721 CULTURE URINE 11/2013 37954 CULTURE UROGENITAL 03/09/2014 83345 TB TEST INTRADERMAL 03/16/2014 06927 UA W/ CULTURE IF INDICATED 03/30/2014 28671 CULTURE URINE 38768 UA OB DIP 2014 20980 ROUTINE VENIPUNCTURE 06/28/2014 12061 UA OB DIP 2014 39042 CBC 06/28/2014 92100 GLUCOSE JACINTA 1 HOUR 06/29/2014 23217 UA OB DIP 2014 75.69 09/23/2014 [id number] EXTRACTION OF POC, LOW CERVICAL, OPEN AP [...] culture - 05/03/16 10:45 Bacterial urine culture [id number] NRG COLONY COUNT >100,000/ML NRG Complete blood [...] Streptococcus agalactiae detection by organism specific culture [id number] NRG Complete urinalysis with reflex to culture [...] ABO+Rh group OP NRG Transfusion band number [id number] NRG Blood group antibody screen NEGATIVE NRG Encounters ACCT No. Visit Date/Time Discharge Status Pt. Type Provider Facility Loc./Unit Complaint [id number] 07/14/2014 13:49:00 07/14/2014 23: 59:59 CLS Outpatient LASHON PATIÑO APRN [id number] 06/28/2014 13:22:00 06/28/2014 23: 59:59 CLS Outpatient ALONDRA BRASHER DO [id number] 05/31/2014 10:07:00 05/31/2014 23: 59:59 CLS Outpatient LASHON PATIÑO APRN [id number] 05/09/2014 08:26:00 05/09/2014 23: 59:59 CLS Outpatient KRISTINA TRACEY APRN [id number] 05/02/2014 13:54:00 05/02/2014 23: 59:59 CLS Outpatient ALONDRA BRASHER DO [id number] 04/04/2014 13:58:00 04/04/2014 23: 59:59 CLS Outpatient ALONDRA BRASHER DO [id number] 03/30/2014 12:55:00 03/30/2014 23: 59:59 CLS Outpatient LAKISHA SOFYA PERRY [id number] 03/07/2014 08:42:00 03/07/2014 23: 59:59 CLS Outpatient LASHON PATIÑO APRN [id number] 02/07/2014 13:00:00 02/07/2014 23: 59:59 CLS Outpatient LASHON PATIÑO APRN [id number] 01/31/2014 10:48:00 01/31/2014 23: 59:59 CLS Outpatient ALONDRA BRASHER DO
== END 2016-06-23 10:32 | disposition home or self-care (01) ==
LOC: DELPENDDIS → LDRP 13:20 → WSo 13:20 → LDRP 13:32 → UNDOADMOB 14:00 → WSo 14:00 → LDRP 14:00 → UNDODISOB 06-23 11:05 → EDSTATUS 06-25 15:58
PROVIDERS: ADMIT Family Medicine; ATTEND Family Medicine
DX: O60.03 Preterm labor without delivery, third trimester (principal); O26.93 Pregnancy related conditions, unspecified, third trimester; R03.0 Elevated blood-pressure reading, without diagnosis of hypertension; Z3A.35 35 weeks gestation of pregnancy
CPT/HCPCS: 81000; 87077; 87081; 87088; 96361; 96374; 96376; 99211; G0378

== ENCOUNTER 2016-06-28 04:57 | Inpatient (IN) | payer BC, MEDICAID ==
[~2016-06-28] VITALS: Ht 154.9 cm; Wt 75.0 kg
[2016-06-28 05:17] VITALS: BP 147/89
[2016-06-28] MEDS ORDERED: D5 LR IV SOLUTION 1,000 ML IV ONE ×2 (05:37→08:02)
[2016-06-28] MEDS ORDERED: D5 LR IV SOLUTION 1,000 ML IV SCH (05:42)
[2016-06-28] MEDS ORDERED: MINERAL OIL CONCENTRATE 99.9% 15 ML UDC TOP PRN (05:45)
[2016-06-28] MEDS: CATHETER FLUSH 10 ML SYR IV SCH ×2 (06:00→22:00)
[2016-06-28] MEDS ORDERED: LANS15CA21 PO (06:18)
[2016-06-28 06:24] LABS: BASOPHILS % (AUTO) 0 % (0-10); EOSINOPHILS % (AUTO) 0 % (0-10); LYMPHOCYTES % (AUTO) 26 % (12-44); MEAN CORPUSCULAR HEMOGLOBIN 31 PG (25-34); MEAN CORPUSCULAR HGB CONC 35 G/DL (32-36); MEAN CORPUSCULAR VOLUME 91 FL (80-99); MEAN PLATELET VOLUME 11.4 FL (7.4-10.4); MONOCYTES # (AUTO) 0.5 X 10^3 (0.0-1.0); MONOCYTES % (AUTO) 6 % (0-12); NEUTROPHILS # (AUTO) 5.1 X 10^3 (1.8-7.8); NEUTROPHILS % (AUTO) 67 % (42-75); PLATELET COUNT 212 10^3/uL (130-400); RED BLOOD COUNT 3.89 10^6/uL (4.35-5.85); RED CELL DISTRIBUTION WIDTH 13.7 % (10.0-14.5); WHITE BLOOD COUNT 7.5 10^3/uL (4.3-11.0)
[2016-06-28] MEDS ORDERED: METOCLOPRAMIDE INJ 10 MG/2 ML (REGLAN) ONE (07:28)
[2016-06-28] MEDS ORDERED: metroNIDAZOLE 500MG/100ML IVPB 100 ML ONE (07:29)
[2016-06-28] MEDS ORDERED: CITRIC ACID/SOB CIT (BICITRA) 30 ML UDC ONE (07:29)
[2016-06-28] MEDS ORDERED: LACTATED RINGERS 2,000 ML IV ONE (07:29)
[2016-06-28] MEDS ORDERED: FAMOTIDINE 20MG/2ML IV (PEPCID) ONE (07:29)
[2016-06-28] MEDS ORDERED: ONDANSETRON 4 MG/2 ML (SDV) Z0FRAN ONE (07:42)
[2016-06-28] MEDS ORDERED: OXYTOCIN/NORMAL SALINE 1,000 ML IV ONE (07:42)
[2016-06-28] MEDS ORDERED: KETOROLAC 30 MG/ML VIAL ONE (07:42)
[2016-06-28] MEDS ORDERED: fentaNYL INJECTION 100 MCG/2 ML AMP ONE (07:43)
[2016-06-28] MEDS ORDERED: BUPIVACAINE SPINAL 0.75% (SENSORCAINE) 2 ML AMP ONE (07:43)
[2016-06-28 07:45] VITALS: BP 162/105
[2016-06-28] MEDS ORDERED: CATHETER FLUSH 10 ML SYR IV PRN (07:45)
[2016-06-28] MEDS ORDERED: CITRIC ACID/SOB CIT (BICITRA) 30 ML UDC PO ONE (07:45)
[2016-06-28] MEDS ORDERED: FAMOTIDINE 20MG/2ML IV (PEPCID) IV ONE (07:45)
[2016-06-28] MEDS ORDERED: METOCLOPRAMIDE INJ 10 MG/2 ML (REGLAN) IV ONE (07:45)
[2016-06-28] MEDS ORDERED: OXYTOCIN/NORMAL SALINE 500 ML IV SCH (07:54)
[2016-06-28] MEDS ORDERED: diphenhydrAMINE 50 MG/ML INJ (BENADRYL) ONE ×2 (07:57→08:06)
--- NOTE | 2016-06-28 07:58 | Progress Note-Pre Operative ---
Pre-Operative Progress Note H&P Reviewed The H&P is performed per Dr. Das. patient has a term with breech presentation and PROM. I have been consult for a delivery. records have been reviewed there are no contraindications to the surgery. H&P is per Dr. Das Date H&P Reviewed: Jun 28, 2016 Time H&P Reviewed: 07:56 Pre-Operative Diagnosis: term with PROM and breech LAURA THIBODEAUX MD Jun 28, 2016 07:58
[2016-06-28] MEDS ORDERED: MEASLES,MUMPS,RUBELLA 1 EA INJ SC ONE (08:00)
[2016-06-28] MEDS ORDERED: TETANUS,DIPTH,PERTUSS P/F (BOOSTRIX) 0.5 ML VIAL IM ONE (08:00)
[2016-06-28] MEDS ORDERED: metroNIDAZOLE 500MG/100ML IVPB 100 ML IV ONE (08:00)
[2016-06-28] MEDS ORDERED: ceFAZolin INJECTION 2,000 MG in NS (IVPB) 50 ML IV ONE (08:00)
--- NOTE | 2016-06-28 08:06 | Diagnostic Imaging Report ---
OB ultrasound. INDICATION: Water leak, rupture of membranes. TECHNIQUE: Multiple, limited real-time grayscale images were obtained of the gravid uterus. CORRELATION STUDY: None FINDINGS: Limited obstetrical ultrasound imaging demonstrates intrauterine in breech presentation. There is presence of oligohydramnios with an index at 4 cm. The placenta is fundal aspect without findings to suggest previa. cardiac activity at 161 beats per minute. IMPRESSION: Limited obstetrical sonogram imaging demonstrates intrauterine in breech presentation with small-volume amniotic fluid. Dictated by: Dictated on workstation # [id number]
--- NOTE | 2016-06-28 08:42 | History & Physical-OB ---
OB - Chief Complaint & HPI Date Date of Admission: Date of Admission: Jun 28, 2016 at 05:42 Chief Complaint/History OB-Reason for Admission/Chief: Rupture of Membranes Hx : 2 Hx Para: 1 Expected Date of Delivery: Jul 24, 2016 Gestational Age in Weeks: 36 Gestational Age in Days: 2 Other reason for admission: SROM, breech position Allergies and Home Medications Allergies Coded Allergies: NKANo Known Allergies (Verified Allergy, Unknown, 06/03/08) Home Medications Lansoprazole 15 Mg Capsule.dr, 15 MG PO DAILY, (Reported) Pnv95/Ferrous Fumarate/FA 1 Each Tablet, 1 EACH PO DAILY, (Reported) [Deplin] , (Reported) OB - History Hx of Present Care: Yes Ultrasounds: Normal mid trimester US Obstetrical Complications: None Medical Complications: None Information Induced Hypertension: No Maternal Gestational Diabetes: No (noted to have some intermittented elevated BP (140 systolic) over the past week; pre-eclamptic labs wnl, 24h urine protein wnl) Obstetrical History Hx : 2 Hx Para: 1 Hx # Term Pregnancies: 1 Hx Termination: No Hx Total # of Abortions (Spona: 0 Hx Multiple Gestation: No Hx Ectopic : No Hx Stillbirth: No Hx Complication: No Hx Induced Hypertens: Yes (first ) Hx Maternal Gestational Diabet: No Hx Hemorrhage: No Delivery History Hx Dystocia: No Hx Forceps Assisted Delivery: No Hx Vacuum Extraction Assisted: No Hx Placenta Abnormality: No Hx Distress: No Hx Large For Gestational Age I: No Hx Small for Gestational Age I: No Hx Section: No Hx Vaginal Delivery Post C-Sec: No Hx Blood Disorders: No (ANEMIA) Adverse Rxn to Tranfusion: No Patient Past Medical History PMH: hx PCOS PSH: cholecystectomy foot surgery lap band Social History/Family History HIV/AIDS: No Recent Infectious Disease Expo: No Sexually Transmitted Disease: No (HX: TRICHOMONAS 2014) Alcohol Use: Denies Use Recreational Drug Use: No Immunizations Hepatitis A: Yes Hepatitis B: Yes Tetanus Booster (TDap): Less than 5yrs Date of Influenza Vaccine: Dec 13, 2015 RPR/VDRL: Negative GBS Status: Negative HBsAG: Negative OB - Admission Exam Physical Exam Vitals: Vital Signs 06/28/16 05:17 Temp 97.8 Pulse 60 Resp 18 B/P (MAP) 147/89 O2 Delivery Room Air Abdomen: Gravid Cervical Dilatation: 3cm Effacement: 75% Station: Ballotable Membranes: Ruptured (grossly ruptured) Amniotic Fluid: Clear Accelerations: Accelerations Present Decelerations: No Decelerations Contractions on Admission: < 5 Minutes Apart Labs Laboratory Tests Test 06/28/16 05:50 Range/Units White Blood Count 7.5 4.3-11.0 10^3/uL Red Blood Count 3.89 L 4.35-5.85 10^6/uL Hemoglobin 12.2 11.5-16.0 G/DL Hematocrit 35 35-52 % Mean Corpuscular Volume 91 80-99 FL Mean Corpuscular Hemoglobin 31 25-34 PG Mean Corpuscular Hemoglobin Concent 35 32-36 G/DL Red Cell Distribution Width 13.7 10.0-14.5 % Platelet Count 212 130-400 10^3/uL Mean Platelet Volume 11.4 H 7.4-10.4 FL Neutrophils (%) (Auto) 67 42-75 % Lymphocytes (%) (Auto) 26 12-44 % Monocytes (%) (Auto) 6 0-12 % Eosinophils (%) (Auto) 0 0-10 % Basophils (%) (Auto) 0 0-10 % Neutrophils # (Auto) 5.1 1.8-7.8 X 10^3 Lymphocytes # (Auto) 2.0 1.0-4.0 X 10^3 Monocytes # (Auto) 0.5 0.0-1.0 X 10^3 Eosinophils # (Auto) 0.0 0.0-0.3 10^3/uL Basophils # (Auto) 0.0 0.0-0.1 10^3/uL OB - Assessment/Plan/Diagnosis Assessment Assessment: rupture of membranes, other (breech presentation) Plan Plan: Section (primary c/s for SROM w/ breech presentation) Other Plan Dr. Junior to do ALONDRA BRASHER DO Jun 28, 2016 08:42
[2016-06-28 10:15] VITALS: BP 128/80
[2016-06-28 10:23] LABS: BILIRUBIN,URINE NEGATIVE (NEGATIVE); KETONES,URINE 1+ (NEGATIVE); LEUKOCYTE ESTERASE ,URINE 3+ (NEGATIVE); NITRITE,URINE NEGATIVE (NEGATIVE); PH,URINE 6 (5-9); PROTEIN,URINE 2+ (NEGATIVE); UROBILINOGEN,URINE 1 MG/DL (NORMAL)
[2016-06-28] MEDS: PROMETHAZINE INJ 25 MG/ML (PHENERGAN) AMP IM PRN ×2 (10:24→15:28)
[2016-06-28] MEDS: MEPERIDINE (DEMEROL) INJ 100 MG/ML IM PRN ×2 (10:25→15:28)
[2016-06-28 10:49] LABS: SQUAMOUS EPITHELIAL CELL,UR >50 /HPF; WBC,URINE >100 /HPF
[2016-06-28 10:50] LABS: CALCIUM OXALATE CRYSTALS,UR FEW /LPF
[2016-06-28] MEDS ORDERED: NALOXONE 0.4 MG/ML 1 ML (NARCAN) VIAL IV PRN ×2 (12:00)
[2016-06-28] MEDS ORDERED: ONDANSETRON 4 MG/2 ML (SDV) Z0FRAN IV PRN (12:00)
[2016-06-28] MEDS ORDERED: METOCLOPRAMIDE INJ 10 MG/2 ML (REGLAN) IV PRN (12:00)
[2016-06-28] MEDS ORDERED: diphenhydrAMINE 50 MG/ML INJ (BENADRYL) IV PRN (12:00)
[2016-06-28] MEDS: D5 LR IV SOLUTION 1,000 ML IV SCH ×2 (13:24→20:10)
[2016-06-28 13:30] VITALS: BP 136/96
[2016-06-28] MEDS: oxyCODONE/APAP 10/325MG (PERCOCET 10) TABLET PO PRN ×2 (14:01→20:14)
[2016-06-28] MEDS: KETOROLAC 30 MG/ML VIAL IVP SCH ×2 (14:01→20:11)
--- NOTE | 2016-06-28 14:32 | OPERATIVE REPORT ---
PROCEDURE PHYSICIAN: LAURA THIBODEAUX DATE OF PROCEDURE: 06/28/2016 PREOPERATIVE DIAGNOSES: 1. 36-2/7 weeks gestation with PPROM. 2. Breech presentation. POSTOPERATIVE DIAGNOSES: 1. 36-2/7 weeks gestation with PPROM. 2. Breech presentation. OPERATIVE PROCEDURE: Primary low transverse delivery of a viable female with Apgars of 8 and 9 at one and five minutes respectfully. Weight was 5 pounds 9 ounces. time was 0821. Cord arterial blood gas had a pH of 7.29. [facility] NURSE PRACTITIONER FOR DELIVERY: Dr. Das. ROLLING ATTENDANT FOR DELIVERY: Dr. Das. OPERATIVE DESCRIPTION: With the patient in the supine position, under satisfactory spinal anesthesia, she was prepped and draped usual fashion for abdominal surgery. [place] catheter was placed in the urinary bladder and left to dependent drainage. A Pfannenstiel incision made through the skin with scalpel. The patient's abdomen entered in the usual manner. Bladder retractor placed in position, clean scalpel used to make a 4 cm hysterotomy incision transversely across lower uterine segment. That incision was extended bluntly. A vigorous viable female infant was delivered via the uterine incision by breech extraction. The delivery was atraumatic. The was bulb suction on completion of delivery. The umbilical cord was doubly clamped and cut and Dr. Das took the baby to the warmer. Cord bloods were obtained for a pH and other lab work. The placenta delivered spontaneously. It was Gale with a 3 vessel cord. It appeared normal. It was sent to pathology secondary to the patient's history of PROM. The uterus was exteriorized, interior wiped clean with a wet laparotomy sponge. Uterine incision then closed with running locked suture of 2-0 Vicryl. Hemostasis was complete. The uterus was returned to the abdominal cavity. All blood clot and debris removed from the abdominal cavity. With sponge and needle counts correct and hemostasis assured, the anterior parietal peritoneum was closed with running suture of 2-0 Vicryl. Rectus muscles were closed with that suture well. The rectus fascia was closed with 2-0 Vicryl. Subcutaneous tissue with 2-0 Vicryl and the skin was stapled. Sponge and needle counts were correct on completion of delivery and closure. The patient tolerated the procedure well, and was transferred to recovery room in stable condition. The infant had been taken stable to the full term nursery. Estimated blood loss for the delivery was around 350 mL. Sponge and needle counts were correct. Job ID: [id number] Dictated Date: 06/28/2016 09:54:56 Harness Inspector Date: 06/28/2016 14:27:19 / lewis
[2016-06-28 16:05] VITALS: BP 142/104
[2016-06-28 19:59] VITALS: BP 125/92
[2016-06-28] MEDS: DOCUSATE SODIUM 100 MG (COLACE) CAP PO SCH ×2 (20:09→20:13)
[2016-06-29] MEDS: D5 LR IV SOLUTION 1,000 ML IV SCH (00:06)
[2016-06-29 00:18] VITALS: BP 122/84
[2016-06-29] MEDS: oxyCODONE/APAP 10/325MG (PERCOCET 10) TABLET PO PRN ×4 (00:52→19:50)
[2016-06-29] MEDS: KETOROLAC 30 MG/ML VIAL IVP SCH ×2 (02:19→20:52)
[2016-06-29 05:30] VITALS: BP 119/81
[2016-06-29] MEDS: CATHETER FLUSH 10 ML SYR IV SCH ×2 (06:00→06:13)
[2016-06-29] MEDS ORDERED: IBUPROFEN 800 MG (MOTRIN) TAB PO SCH (08:00)
--- NOTE | 2016-06-29 08:12 | Progress Note-Standard ---
Standard Progress Note Progress Notes/Assess & Plan Progress/Assessment & Plan patient is without complaint. She is ambulating, voiding, tolerating by mouth well, has adequate pain control. Patient denies chest pain, denies shortness of breath, denies nausea vomiting, denies headache. Vital Signs Date Time Temp Pulse Resp B/P (MAP) Pulse Ox O2 Delivery O2 Flow Rate FiO2 06/29/16 05:30 96.3 85 18 119/81 99 Room Air 06/29/16 00:18 98.9 74 19 122/84 95 Room Air 06/28/16 19:59 96.3 83 18 125/92 94 Room Air 06/28/16 16:05 97.6 115 18 142/104 95 Room Air 06/28/16 13:30 96.8 82 16 136/96 99 Room Air 06/28/16 10:15 97.1 51 16 128/80 Room Air I & O 06/29/16 07:00 Intake Total 4500 ml Output Total 450 ml Balance 4050 ml vital signs are stable. Patient is afebrile. Fundus is firm below the umbilicus and nontender. The incision is clean dry and intact. Extremities show no clubbing or cyanosis. There is no Homans sign. There is some pretibial pitting edema that is normal. Assessment and plan post operative day number 1 status post primary doing well. Plan is for routine convalescence care today and consider discharge home tomorrow LAURA THIBODEAUX MD Jun 29, 2016 8:12 am
[2016-06-29] MEDS ORDERED: OXYC-465 PO (08:14)
[2016-06-29] MEDS ORDERED: IBUP-1780 PO (08:14)
[2016-06-29] MEDS ORDERED: DOCU100C37 PO (08:14)
--- NOTE | 2016-06-29 08:16 | Discharge Instructions ---
Discharge Instructions Discharge Medications New, Converted or Re-Newed RX: RX on Chart Patient Instructions Patient Instructions: as directed Return to The Hospital For: as directed Activity & Diet Discharge Diet: No Restrictions Activity as Tolerated: No Orders-Post D/C & Referrals Follow Up Appt: RTC Tuesday, July 05, 2016 at 930 a.m. for incision check. Call to make follow up appt. for patient with Dr. Das in 6 weeks. Wound Care: Remove anselmo, apply benzoin and steri strips. Activity Per routine post instructions. Please call in RX to patient pharmacy. Diet as tolerated Patient may shower or tub bathe as desired. Continue home meds LAURA THIBODEAUX MD Jun 29, 2016 8:16 am
[2016-06-29] MEDS: DOCUSATE SODIUM 100 MG (COLACE) CAP PO SCH ×2 (08:43→19:49)
[2016-06-29 08:45] VITALS: BP 126/91
[2016-06-29 14:45] VITALS: BP 119/80
[2016-06-29] MEDS: IBUPROFEN SUSP 100MG/5ML (MOTRIN) UDC PO PRN ×2 (14:47→21:30)
--- NOTE | 2016-06-29 17:39 | Anesthesia-Regional Post-Op ---
Regional Patient Condition Mental Status: Alert, Oriented x3 Circulation: Same as Pre-Op Headache: Absent Sensation: Full Recovery Motor Block: Absent Post Op Complications Complications None Follow Up Care/Instructions Patient Instructions None needed. Anesthesia/Patient Condition Patient is doing well, no complaints, stable vital signs, no apparent adverse anesthesia problems. No complications reported per nursing. RUPERTO BENNETT CRNA Jun 29, 2016 17:39
[2016-06-29 21:31] VITALS: BP 134/89
[2016-06-30] MEDS: oxyCODONE/APAP 10/325MG (PERCOCET 10) TABLET PO PRN ×3 (00:47→14:15)
[2016-06-30 03:54] VITALS: BP 108/70
[2016-06-30] MEDS: IBUPROFEN SUSP 100MG/5ML (MOTRIN) UDC PO PRN ×2 (03:54→10:18)
[2016-06-30] MEDS: DOCUSATE SODIUM 100 MG (COLACE) CAP PO SCH (08:05)
[2016-06-30 08:10] VITALS: BP 109/72
--- NOTE | 2016-06-30 09:12 | Progress Note-Standard ---
Standard Progress Note Progress Notes/Assess & Plan Progress/Assessment & Plan patient is without complaint. She is ambulating, voiding, tolerating by mouth well, has adequate pain control. Patient denies chest pain, denies shortness of breath, denies nausea vomiting, denies headache. Vital Signs Date Time Temp Pulse Resp B/P (MAP) Pulse Ox O2 Delivery O2 Flow Rate FiO2 06/29/16 05:30 96.3 85 18 119/81 99 Room Air 06/29/16 00:18 98.9 74 19 122/84 95 Room Air 06/28/16 19:59 96.3 83 18 125/92 94 Room Air 06/28/16 16:05 97.6 115 18 142/104 95 Room Air 06/28/16 13:30 96.8 82 16 136/96 99 Room Air 06/28/16 10:15 97.1 51 16 128/80 Room Air I & O 06/29/16 07:00 Intake Total 4500 ml Output Total 450 ml Balance 4050 ml vital signs are stable. Patient is afebrile. Fundus is firm below the umbilicus and nontender. The incision is clean dry and intact. Extremities show no clubbing or cyanosis. There is no Homans sign. There is some pretibial pitting edema that is normal. Assessment and plan post operative day number 1 status post primary doing well. Plan is for routine convalescence care today and consider discharge home tomorrow June 30, 2016 Patient is without complaint. She is ambulating, voiding, tolerating by mouth well, patient has good pain control. Patient denies chest pain, denies shortness breath, denies nausea vomiting, denies headache. Patient feels ready for discharge home. Vital Signs Date Time Temp Pulse Resp B/P (MAP) Pulse Ox O2 Delivery O2 Flow Rate FiO2 06/30/16 08:10 98.4 92 18 109/72 98 Room Air 06/30/16 03:54 97.3 74 18 108/70 98 Room Air 06/29/16 21:31 98.5 94 18 134/89 Room Air 06/29/16 14:45 98.0 88 18 119/80 Room Air I & O 06/30/16 07:00 Intake Total 1200 ml Output Total 1000 ml Balance 200 ml vital signs are stable. Patient is afebrile. Fundus is firm below the umbilicus and nontender. incision is clean dry and intact. Extremities show no clubbing cyanosis. There is no Homans sign. There is some pretibial pitting edema that is normal. Assessment and plan postoperative day number 2 status post primary at 36 weeks and 2 days secondary to breech presentation with P PROM. Plan is for discharge home with follow-up in clinic. Final Diagnosis 36-2/7 weeks' gestation in labor with PPROM and reach presentation LAURA THIBODEAUX MD Jun 30, 2016 9:12 am
--- OUTSIDE RECORDS SUMMARY | 2016-07-21 07:42 | XMS REPORT | Continuity of Care Document ---
Author Author [facility] of [facility] of [facility] Address Unknown Phone Unavailable Allergies Active [...] Ot E928.9 ACCIDENT NOS 04/20/2012 Ot V06.1 [id number], COMBINED [ 04/25/2012 Ot V58.32 ENCOUNTER FOR [...] K V72.42 TEST POSITIVE RESULT 01/31/2014 MADL SENIOR ORACLE DATABASE ADMINISTRATOR, KRISTINA L V72.42 TEST POSITIVE RESULT 01/31/2014 HAROON PANTOJAN, LASHON A V72.42 TEST POSITIVE RESULT 01/31/2014 BRASHER DO, ALONDRA K V72.42 TEST POSITIVE RESULT 01/31/2014 HAROON PERRY, LASHON A V72.42 TEST POSITIVE RESULT 02/07/2014 HAROON PERRY LASHON A V04.81 FLU SHOT 02/07/2014 HAROON PANTOJAN, LASHON A V22.0 , NORMAL FIRST 02/07/2014 HAROON SENIOR ORACLE DATABASE ADMINISTRATOR, LASHON A V04.81 FLU SHOT 02/07/2014 HAROON PANTOJAN, LASHON A V22.0 , NORMAL FIRST 02/07/2014 RAJROBE SENIOR ORACLE DATABASE ADMINISTRATOR, SOFYA A V04.81 FLU SHOT 02/07/2014 RAJOTTE SENIOR ORACLE DATABASE ADMINISTRATOR, SOFYA A V22.0 , NORMAL FIRST 02/07/2014 BRASHER DO, ALONDRA K V04.81 FLU SHOT 02/07/2014 BRASHER DO, ALONDRA K V22.0 , NORMAL FIRST 02/07/2014 BRASHER DO, ALONDRA K V04.81 FLU SHOT 02/07/2014 BRASHER DO, ALONDRA K V22.0 , NORMAL FIRST 02/07/2014 MADL SENIOR ORACLE DATABASE ADMINISTRATOR, KRISTINA L V04.81 FLU SHOT 02/07/2014 MADL SENIOR ORACLE DATABASE ADMINISTRATOR, KRISTINA L V22.0 , NORMAL FIRST 02/07/2014 HAROON SENIOR ORACLE DATABASE ADMINISTRATOR, LASHON A V04.81 FLU SHOT 02/07/2014 HAROON SENIOR ORACLE DATABASE ADMINISTRATOR, LASHON A V22.0 , NORMAL FIRST 02/07/2014 [...] CERVICAL CANCER SCREENING (PAP SMEAR) 03/07/2014 HAROON SENIOR ORACLE DATABASE ADMINISTRATORLASHON Villegas A 131.01 TRICHOMONAL VULVOVAGINITIS 03/07/2014 HAROON SENIOR ORACLE DATABASE ADMINISTRATORWING VillegasIDI A 646.50 COMPL OF - ASYMPTOMATIC BACTURIA 03/07/2014 HAROONNelly PERRY LASHON A V73.81 HPV SCREENING 03/07/2014 HAROON SENIOR ORACLE DATABASE ADMINISTRATORWING VillegasIDI A V74.5 STD SCREEN 03/07/2014 HAROON PANTOJAWING VillegasIDI A V76.2 CERVICAL CANCER SCREENING (PAP SMEAR) 03/30/2014 LAKISHA PERRY SOFYA A 788.1 DYSURIA 03/30/2014 LAKISHA PERRY SOFYA A V22.2 INCIDENTAL 03/30/2014 BRASHER DO, ALONDRA K 788.1 DYSURIA 03/30/2014 BRASHER DO, ALONDRA K V22.2 INCIDENTAL 03/30/2014 BRASHER DO, ALONDRA K 788.1 DYSURIA 03/30/2014 BRASHER DO, ALONDRA K V22.2 INCIDENTAL 03/30/2014 MADL SENIOR ORACLE DATABASE ADMINISTRATOR, KRISTINA L 788.1 DYSURIA 03/30/2014 MADL SENIOR ORACLE DATABASE ADMINISTRATOR, KRISTINA L V22.2 INCIDENTAL 03/30/2014 HAROON SENIOR ORACLE DATABASE ADMINISTRATOR, LASHON A 788.1 DYSURIA 03/30/2014 HAROON SENIOR ORACLE DATABASE ADMINISTRATOR, LASHON A V22.2 INCIDENTAL 03/30/2014 BRASHER DO, ALONDRA K 788.1 DYSURIA 03/30/2014 BRASHER DO, ALONDRA K V22.2 INCIDENTAL 03/30/2014 HAROON SENIOR ORACLE DATABASE ADMINISTRATOR, LASHON A 788.1 DYSURIA 03/30/2014 HAROON SENIOR ORACLE DATABASE ADMINISTRATOR, LASHON A V22.2 INCIDENTAL 04/04/2014 BRASHER DO, ALONDRA K 256.4 POLYCYSTIC OVARIES 04/04/2014 BRASHER DO, ALONDRA K V02.51 GBS - CARRIER OR SUSPECTED CARRIER 04/04/2014 BRASHER DO, ALONDRA K 256.4 POLYCYSTIC OVARIES 04/04/2014 BRASHER DO, ALONDRA K V02.51 GBS - CARRIER OR SUSPECTED CARRIER 04/04/2014 MADL SENIOR ORACLE DATABASE ADMINISTRATOR, KRISTINA L 256.4 POLYCYSTIC OVARIES 04/04/2014 MADL SENIOR ORACLE DATABASE ADMINISTRATOR, KRISTINA L V02.51 GBS - CARRIER OR SUSPECTED CARRIER 04/04/2014 HAROON SENIOR ORACLE DATABASE ADMINISTRATOR, LASHON A 256.4 POLYCYSTIC OVARIES 04/04/2014 HAROON SENIOR ORACLE DATABASE ADMINISTRATOR, LASHON A V02.51 GBS - CARRIER OR SUSPECTED CARRIER 04/04/2014 BRASHER DO, ALONDRA K 256.4 POLYCYSTIC OVARIES 04/04/2014 BRASHER DO, ALONDRA K V02.51 GBS - CARRIER OR SUSPECTED CARRIER 04/04/2014 HAROON SENIOR ORACLE DATABASE ADMINISTRATOR, LASHON A 256.4 POLYCYSTIC OVARIES 04/04/2014 HAROON SENIOR ORACLE DATABASE ADMINISTRATOR, LASHON A V02.51 GBS - CARRIER OR [...] 04/22/2014 Ot 285.9 04/22/2014 RAMON CAMPBELL L ODD PIECE CHECKER Ot 244.9 04/22/2014 RAMON CAMPBELL L ODD PIECE CHECKER Ot 285.9 04/22/2014 RAMON CAMPBELL L ODD PIECE CHECKER Ot 780.79 04/22/2014 RAMON CAMPBELL L ODD PIECE CHECKER Ot 599.0 04/22/2014 RAMON CAMPBELL L ODD PIECE CHECKER Ot 719.40 04/22/2014 RAMON CAMPBELL L ODD PIECE CHECKER Ot 795.79 04/22/2014 CARLEY VIEYRAIA C SENIOR ORACLE DATABASE ADMINISTRATOR Ot 789.00 04/22/2014 RAMON CAMPBELL L ODD PIECE CHECKER Ot 266.2 04/22/2014 RAMON CAMPBELL L ODD PIECE CHECKER Ot 268.9 04/22/2014 RAMON CAMPBELL L ODD PIECE CHECKER Ot 620.2 04/22/2014 RAMON CAMPBELL L ODD PIECE CHECKER Ot 780.79 04/22/2014 RAMON CAMPBELL L ODD PIECE CHECKER Ot 786.09 04/22/2014 RAMON CAMPBELL L ODD PIECE CHECKER Ot 789.00 04/22/2014 RAMON CAMPBELL L ODD PIECE CHECKER Ot 789.00 04/22/2014 RAMON CAMPBELL L ODD PIECE CHECKER Ot V45.86 04/22/2014 RAMON CAMPBELL L ODD PIECE CHECKER Ot 256.4 04/22/2014 RAMON CAMPBELL L ODD PIECE CHECKER Ot 611.6 04/22/2014 RAMON CAMPBELL L ODD PIECE CHECKER Ot 626.0 04/22/2014 RAMON CAMPBELL L ODD PIECE CHECKER Ot 787.3 04/22/2014 RAMON CAMPBELL L ODD PIECE CHECKER Ot 789.00 04/22/2014 RAMON CAMPBELL L ODD PIECE CHECKER Ot 611.6 04/22/2014 RAMON CAMPBELL L ODD PIECE CHECKER Ot 787.3 04/22/2014 RAMON CAMPBELL Pedro ODD PIECE CHECKER Ot 789.00 04/22/2014 LASHON PATIÑO APRN Ot [...] APRN A 780.2 SYNCOPE AND COLLAPSE 05/09/2014 KIRSTINA TRACEY APRN 465.9 UPPER RESPIRATORY INFECTION 05/09/2014 [...] APRN A V77.1 DIABETES SCREENING 06/28/2014 LASHON APTIÑO APRN V78.0 ANEMIA SCREENING 07/22/2014 ALONDRA BRASHER [...] 08/28/2014 Ot 285.9 08/28/2014 KATHLEEN NAVARRORICIA L ODD PIECE CHECKER Ot 244.9 08/28/2014 KATHLEEN NAVARRORICIA L ODD PIECE CHECKER Ot 285.9 08/28/2014 KATHLEEN NAVARRORICIA L ODD PIECE CHECKER Ot 780.79 08/28/2014 RAMON CAMPBELL L ODD PIECE CHECKER Ot 599.0 08/28/2014 RAMON CAMPBELL L ODD PIECE CHECKER Ot 719.40 08/28/2014 RAMON CAMPBELL L ODD PIECE CHECKER Ot 795.79 08/28/2014 JARRELL, CAMPBELL C SENIOR ORACLE DATABASE ADMINISTRATOR Ot 789.00 08/28/2014 RAMON CAMPBELL L ODD PIECE CHECKER Ot 266.2 08/28/2014 RAMON CAMPBELL L ODD PIECE CHECKER Ot 268.9 08/28/2014 RAMON CAMPBELL L ODD PIECE CHECKER Ot 620.2 08/28/2014 RAMON CAMPBELL L ODD PIECE CHECKER Ot 780.79 08/28/2014 RAMON CAMPBELL L ODD PIECE CHECKER Ot 786.09 08/28/2014 RAMON CAMPBELL L ODD PIECE CHECKER Ot 789.00 08/28/2014 RAMON CAMPBELL L ODD PIECE CHECKER Ot 789.00 08/28/2014 RAMON CAMPBELL L ODD PIECE CHECKER Ot V45.86 08/28/2014 RAMON CAMPBELL L ODD PIECE CHECKER Ot 256.4 08/28/2014 NAVARROCAMPBELL PAUL ODD PIECE CHECKER Ot 611.6 08/28/2014 NAVARROCAMPBELL PAUL ODD PIECE CHECKER Ot 626.0 08/28/2014 NAVARROCAMPBELL PAUL ODD PIECE CHECKER Ot 787.3 08/28/2014 NAVARROCAMPBELL PAUL ODD PIECE CHECKER Ot 789.00 08/28/2014 NAVARROCAMPBELL PAUL ODD PIECE CHECKER Ot 611.6 08/28/2014 NAVARROCAMPBELL PAUL ODD PIECE CHECKER Ot 787.3 08/28/2014 NAVARROCAMPBELL PAUL ODD PIECE CHECKER Ot 789.00 08/28/2014 HAROON LASHONBEBETO Chisholm APRN [...] 09/01/2014 Ot 285.9 09/01/2014 CAMPBELL NAVARRO L ODD PIECE CHECKER Ot 244.9 09/01/2014 CAMPBELL NAVARRO L ODD PIECE CHECKER Ot 285.9 09/01/2014 CAMPBELL NAVARRO L ODD PIECE CHECKER Ot 780.79 09/01/2014 CAMPBELL NAVARRO L ODD PIECE CHECKER Ot 599.0 09/01/2014 CAMPBELL NAVARRO L ODD PIECE CHECKER Ot 719.40 09/01/2014 CAMPBELL NAVARRO L ODD PIECE CHECKER Ot 795.79 09/01/2014 CAMPBELL VIEYRA SENIOR ORACLE DATABASE ADMINISTRATOR Ot 789.00 09/01/2014 CARLEY NAVARROIA L ODD PIECE CHECKER Ot 266.2 09/01/2014 CAMPBELL NAVARRO L ODD PIECE CHECKER Ot 268.9 09/01/2014 CAMPBELL NAVARRO L ODD PIECE CHECKER Ot 620.2 09/01/2014 CAMPBELL NAVARRO L ODD PIECE CHECKER Ot 780.79 09/01/2014 NAVARROCARLEY PAULIA L ODD PIECE CHECKER Ot 786.09 09/01/2014 NAVARRO, CAMPBELL L ODD PIECE CHECKER Ot 789.00 09/01/2014 NAVARROKATHLEENCAMPBELL L ODD PIECE CHECKER Ot 789.00 09/01/2014 NAVARROCARLEY PAULIA L ODD PIECE CHECKER Ot V45.86 09/01/2014 RAMONCARLEYIA L ODD PIECE CHECKER Ot 256.4 09/01/2014 NAVARROKATHLEENCAMPBELL L ODD PIECE CHECKER Ot 611.6 09/01/2014 NAVARROKATHLEENCAMPBELL L ODD PIECE CHECKER Ot 626.0 09/01/2014 NAVARROCARLEYIA L ODD PIECE CHECKER Ot 787.3 09/01/2014 NAVARROKATHLEENCAMPBELL L ODD PIECE CHECKER Ot 789.00 09/01/2014 NAVARROCARLEYIA L ODD PIECE CHECKER Ot 611.6 09/01/2014 RAMON CAMPBELL L ODD PIECE CHECKER Ot 787.3 09/01/2014 RAMON CAMPBELL L ODD PIECE CHECKER Ot 789.00 09/01/2014 LASHON PATIÑO APRN Ot [...] 02/03/2015 Ot 285.9 02/03/2015 KATHLEEN NAVARRORICIA L ODD PIECE CHECKER Ot 244.9 02/03/2015 KATHLEEN NAVARRORICIA L ODD PIECE CHECKER Ot 285.9 02/03/2015 CAMPBELL NAVARRO L ODD PIECE CHECKER Ot 780.79 02/03/2015 KATHLEEN NAVARRORICIA L ODD PIECE CHECKER Ot 599.0 02/03/2015 KATHLEEN NAVARRORICIA L ODD PIECE CHECKER Ot 719.40 02/03/2015 KATHLEEN NAVARRORICIA L ODD PIECE CHECKER Ot 795.79 02/03/2015 CAMPBELL VIEYRA C SENIOR ORACLE DATABASE ADMINISTRATOR Ot 789.00 02/03/2015 RAMON CAMPBELL L ODD PIECE CHECKER Ot 266.2 02/03/2015 RAMON CAMPBELL L ODD PIECE CHECKER Ot 268.9 02/03/2015 KATHLEEN NAVARRORICIA L ODD PIECE CHECKER Ot 620.2 02/03/2015 RAMON CAMPBELL L ODD PIECE CHECKER Ot 780.79 02/03/2015 KATHLEEN NAVARRORICIA L ODD PIECE CHECKER Ot 786.09 02/03/2015 KATHLEEN NAVARRORICIA L ODD PIECE CHECKER Ot 789.00 02/03/2015 KATHLEEN NAVARRORICIA L ODD PIECE CHECKER Ot 789.00 02/03/2015 NAVARROCAMPBELL PAUL ODD PIECE CHECKER Ot V45.86 02/03/2015 NAVARROCAMPBELL PAUL ODD PIECE CHECKER Ot 256.4 02/03/2015 NAVARROCAMPBELL PAUL ODD PIECE CHECKER Ot 611.6 02/03/2015 NAVARROCMAPBELL PAUL ODD PIECE CHECKER Ot 626.0 02/03/2015 NAVARROCAMPBELL PAUL ODD PIECE CHECKER Ot 787.3 02/03/2015 NAVARROCAMPBELL PAUL ODD PIECE CHECKER Ot 789.00 02/03/2015 NAVARROCAMPBELL PAUL ODD PIECE CHECKER Ot 611.6 02/03/2015 NAVARROCAMPBELL ODD PIECE CHECKER Ot 787.3 02/03/2015 RAMONCAMPBELL ODD PIECE CHECKER Ot 789.00 02/03/2015 LASHON PATIÑO APRN Ot [...] 02/03/2015 Ot 285.9 02/03/2015 CAMPBELL NAVARRO L ODD PIECE CHECKER Ot 244.9 02/03/2015 CAMPBELL NAVARRO L ODD PIECE CHECKER Ot 285.9 02/03/2015 CAMPBELL NAVARRO L ODD PIECE CHECKER Ot 780.79 02/03/2015 KATHLEEN NAVARRORICIA L ODD PIECE CHECKER Ot 599.0 02/03/2015 KATHLEEN NAVARRORICIA L ODD PIECE CHECKER Ot 719.40 02/03/2015 RAMON CAMPBELL L ODD PIECE CHECKER Ot 795.79 02/03/2015 CAMPBELL VIEYRA C SENIOR ORACLE DATABASE ADMINISTRATOR Ot 789.00 02/03/2015 RAMON CAMPBELL L ODD PIECE CHECKER Ot 266.2 02/03/2015 RAMON CAMPBELL L ODD PIECE CHECKER Ot 268.9 02/03/2015 RAMON CAMPBELL L ODD PIECE CHECKER Ot 620.2 02/03/2015 KATHLEEN NAVARRORICIA L ODD PIECE CHECKER Ot 780.79 02/03/2015 RAMON CAMPBELL L ODD PIECE CHECKER Ot 786.09 02/03/2015 RAMON CAMPBELL L ODD PIECE CHECKER Ot 789.00 02/03/2015 RAMON CAMPBELL L ODD PIECE CHECKER Ot 789.00 02/03/2015 KATHLEEN NAVARRORICIA L ODD PIECE CHECKER Ot V45.86 02/03/2015 RAMON, CAMPBELL L ODD PIECE CHECKER Ot 256.4 02/03/2015 NAVARRO, CAMPBELL L ODD PIECE CHECKER Ot 611.6 02/03/2015 NAVARRO, CAMPBELL L ODD PIECE CHECKER Ot 626.0 02/03/2015 NAVARRO, CAMPBELL L ODD PIECE CHECKER Ot 787.3 02/03/2015 NAVARRO, CAMPBELL L ODD PIECE CHECKER Ot 789.00 02/03/2015 NAVARRO, CAMPBELL L ODD PIECE CHECKER Ot 611.6 02/03/2015 NAVARRO, CAMPBELL L ODD PIECE CHECKER Ot 787.3 02/03/2015 NAVARRO, CAMPBELL L ODD PIECE CHECKER Ot 789.00 02/03/2015 LASHON PATIÑO APRN Ot V22.0 02/03/2015 ANSHU RAWLSALONDRA Ot V22.0 02/03/2015 Ot V28.81 02/03/2015 BRASHER ALONDRA RAWLS K Ot V89.03 02/09/2015 RAMON CAMPBELL L ODD PIECE CHECKER Ot D55.9 02/09/2015 NAVARRO, CAMPBELL L ODD PIECE CHECKER Ot E03.9 02/09/2015 NAVARRO, CAMPBELL L ODD PIECE CHECKER Ot E28.2 02/09/2015 NAVARRO, CAMPBELL L ODD PIECE CHECKER Ot E53.8 02/09/2015 NAVARRO, CAMPBELL L ODD PIECE CHECKER Ot E61.2 02/09/2015 NAVARRO, CAMPBELL L ODD PIECE CHECKER Ot Z87.440 02/10/2015 NAVARRO, CAMPBELL L ODD PIECE CHECKER Ot N93.9 02/10/2015 NAVARRO, CAMPBELL L ODD PIECE CHECKER Ot N93.9 02/21/2015 ANSHU RAWLS ALONDRA K Ot V89.03 02/21/2015 NAVARRO, CAMPBELL L ODD PIECE CHECKER Ot D55.9 02/21/2015 NAVARRO, CAMPBELL L ODD PIECE CHECKER Ot E03.9 02/21/2015 NAVARRO, CAMPBELL L ODD PIECE CHECKER Ot E28.2 02/21/2015 NAVARRO, CAMPBELL L ODD PIECE CHECKER Ot E53.8 02/21/2015 NAVARRO, CAMPBELL L ODD PIECE CHECKER Ot E61.2 02/21/2015 CAMPBELL NAVARRO ODD PIECE CHECKER Ot Z87.440 02/21/2015 CAMPBELL NAVARRO ODD PIECE CHECKER Ot N93.9 02/21/2015 CAMPBELL NAVARRO ODD PIECE CHECKER Ot N93.9 02/21/2015 CAMPBELL NAVARRO ODD PIECE CHECKER Ot D55.9 02/21/2015 NAVARROCAMPBELL PAUL ODD PIECE CHECKER Ot E03.9 02/21/2015 NAVARROCAMPBELL PAUL ODD PIECE CHECKER Ot E28.2 02/21/2015 NAVARROCAMPBELL PAUL ODD PIECE CHECKER Ot E53.8 02/21/2015 NAVARROCAMPBELL PAUL ODD PIECE CHECKER Ot E61.2 02/21/2015 NAVARROCAMPBELL PAUL ODD PIECE CHECKER Ot Z87.440 02/21/2015 CAMPBELL NAVARRO ODD PIECE CHECKER Ot N93.9 03/02/2015 NAVARROCAMPBELL PAUL ODD PIECE CHECKER Ot N93.9 03/02/2015 NAVARROCAMPBELL PAUL ODD PIECE CHECKER Ot R10.30 04/19/2015 Ot 256.4 04/19/2015 Ot [...] 04/19/2015 Ot 285.9 04/19/2015 RAMON CAMPBELL L ODD PIECE CHECKER Ot 244.9 04/19/2015 RAMON CAMPBELL L ODD PIECE CHECKER Ot 285.9 04/19/2015 RAMON CAMPBELL L ODD PIECE CHECKER Ot 780.79 04/19/2015 RAMON CAMPBELL L ODD PIECE CHECKER Ot 599.0 04/19/2015 RAMON CAMPBELL L ODD PIECE CHECKER Ot 719.40 04/19/2015 RAMON CAMPBELL L ODD PIECE CHECKER Ot 795.79 04/19/2015 CARLEY VIEYRAIA C SENIOR ORACLE DATABASE ADMINISTRATOR Ot 789.00 04/19/2015 RAMON CAMPBELL L ODD PIECE CHECKER Ot 266.2 04/19/2015 RAMON CAMPBELL L ODD PIECE CHECKER Ot 268.9 04/19/2015 RAMON CAMPBELL L ODD PIECE CHECKER Ot 620.2 04/19/2015 RAMON CAMPBELL L ODD PIECE CHECKER Ot 780.79 04/19/2015 RAMON CAMPBELL L ODD PIECE CHECKER Ot 786.09 04/19/2015 RAMON CAMPBELL L ODD PIECE CHECKER Ot 789.00 04/19/2015 RAMON CAMPBELL L ODD PIECE CHECKER Ot 789.00 04/19/2015 RAMON CAMPBELL L ODD PIECE CHECKER Ot V45.86 04/19/2015 RAMON CAMPBELL L ODD PIECE CHECKER Ot 256.4 04/19/2015 RAMON CAMPBELL L ODD PIECE CHECKER Ot 611.6 04/19/2015 RAMON CAMPBELL L ODD PIECE CHECKER Ot 626.0 04/19/2015 RAMON CAMPBELL L ODD PIECE CHECKER Ot 787.3 04/19/2015 RAMON CAMPBELL L ODD PIECE CHECKER Ot 789.00 04/19/2015 RAMONCAMPBELL ODD PIECE CHECKER Ot 611.6 04/19/2015 RAMONCAMPBELL ODD PIECE CHECKER Ot 787.3 04/19/2015 RAMONCAMPBELL ODD PIECE CHECKER Ot 789.00 04/19/2015 LASHON PATIÑO APRN Ot V22.0 04/19/2015 ALONDRA BRASHER DO Ot V22.0 04/19/2015 Ot V28.81 04/19/2015 BRASHER ALONDRA RAWLS Ot V89.03 04/19/2015 RAMON CAMPBELL Vasquez ODD PIECE CHECKER Ot D55.9 04/19/2015 RAMON CAMPBELL Vasquez ODD PIECE CHECKER Ot E03.9 04/19/2015 RAMON CAMPBELL Vasquez ODD PIECE CHECKER Ot E28.2 04/19/2015 RAMON CAMPBELL Vasquez ODD PIECE CHECKER Ot E53.8 04/19/2015 RAMON CAMPBELL Vasquez ODD PIECE CHECKER Ot E61.2 04/19/2015 RAMON CAMPBELL Vasquez ODD PIECE CHECKER Ot Z87.440 04/19/2015 RAMON CAMPBELL Vasquez ODD PIECE CHECKER Ot N93.9 04/19/2015 RAMON CAMPBELL Vasquez ODD PIECE CHECKER Ot N93.9 04/19/2015 RAMON CAMPBELL Vasquez ODD PIECE CHECKER Ot R10.30 07/18/2015 RUTH GRANADOS MD Ot [...] 285.9 ANEMIA NOS 08/17/2015 CAMPBELL NAVARRO L ODD PIECE CHECKER Ot 244.9 HYPOTHYROIDISM NOS 08/17/2015 CAMPBELL NAVARRO L ODD PIECE CHECKER Ot 285.9 ANEMIA NOS 08/17/2015 CAMPBELL NAVARRO L ODD PIECE CHECKER Ot 780.79 OTH MALAISE FATIGUE 08/17/2015 CAMPBELL NAVARRO L ODD PIECE CHECKER Ot 599.0 URIN TRACT INFECTION NOS 08/17/2015 CAMPBELL NAVARRO L ODD PIECE CHECKER Ot 719.40 JOINT PAIN-UNSPEC 08/17/2015 CAMPBELL NAVARRO L ODD PIECE CHECKER Ot 795.79 OTH AND UNSPEC NONSPECIFIC IMMUNOLOGICAL 08/17/2015 CARLEY VIEYRAIA Ender SENIOR ORACLE DATABASE ADMINISTRATOR Ot 789.00 ABDOMINAL PAIN, UNSPECIFIED SITE 08/17/2015 CAMPBELL NAVARRO ODD PIECE CHECKER Ot 266.2 B-COMPLEX DEFIC NEC 08/17/2015 CAMPBELL NAVARRO ODD PIECE CHECKER Ot 268.9 VITAMIN D DEFICIENCY NOS 08/17/2015 CAMPBELL NAVARRO ODD PIECE CHECKER Ot 620.2 OVARIAN CYST NEC/NOS 08/17/2015 CAMPBELL NAVARRO ODD PIECE CHECKER Ot 780.79 OTH MALAISE FATIGUE 08/17/2015 CAMPBELL NAVARRO ODD PIECE CHECKER Ot 786.09 RESPIRATORY ABNORM NEC 08/17/2015 CAMPBELL NAVARRO ODD PIECE CHECKER Ot 789.00 ABDOMINAL PAIN, UNSPECIFIED SITE 08/17/2015 CAMPBELL NAVARRO ODD PIECE CHECKER Ot 789.00 ABDOMINAL PAIN, UNSPECIFIED SITE 08/17/2015 CAMPBELL NAVARRO ODD PIECE CHECKER Ot V45.86 BARIATRIC SURGERY STATUS 08/17/2015 CAMPBELL NAVARRO ODD PIECE CHECKER Ot 256.4 POLYCYSTIC OVARIES 08/17/2015 CAMPBELL NAVARRO ODD PIECE CHECKER Ot 611.6 GALACTORRHEA-NONOBSTET 08/17/2015 CAMPBELL NAVARRO ODD PIECE CHECKER Ot 626.0 ABSENCE OF MENSTRUATION 08/17/2015 CAMPBELL NAVARRO ODD PIECE CHECKER Ot 787.3 FLATUL/ERUCTAT/GAS PAIN 08/17/2015 CAMPBELL NAVARRO ODD PIECE CHECKER Ot 789.00 ABDOMINAL PAIN, UNSPECIFIED SITE 08/17/2015 CAMPBELL NAVARRO ODD PIECE CHECKER Ot 611.6 GALACTORRHEA-NONOBSTET 08/17/2015 CAMPBELL NAVARRO ODD PIECE CHECKER Ot 787.3 FLATUL/ERUCTAT/GAS PAIN 08/17/2015 CAMPBELL NAVARRO ODD PIECE CHECKER Ot 789.00 ABDOMINAL PAIN, UNSPECIFIED SITE 08/17/2015 LASHON PATIÑO APRN Ot V22.0 SUPERVIS NORMAL 1ST PREG 08/17/2015 ALONDRA BRASHER DO Ot V22.0 SUPERVIS NORMAL 1ST PREG 08/17/2015 Ot V28.81 ENCOUNTER FOR ANATOMIC SURVEY 08/17/2015 ALONDRA BRASHER DO Ot V89.03 SUSPECTED ANOMALY NOT FOUND 08/17/2015 CAMPBELL NAVARRO ODD PIECE CHECKER Ot D55.9 ANEMIA DUE TO ENZYME DISORDER, UNSPECIFI 08/17/2015 CAMPBELL NAVARRO ODD PIECE CHECKER Ot E03.9 HYPOTHYROIDISM, UNSPECIFIED 08/17/2015 CAMPBELL NAVARRO ODD PIECE CHECKER Ot E28.2 POLYCYSTIC OVARIAN SYNDROME 08/17/2015 CAMPBELL NAVARRO ODD PIECE CHECKER Ot E53.8 DEFICIENCY OF OTHER SPECIFIED B GROUP 08/17/2015 CAMPBELL NAVARRO ODD PIECE CHECKER Ot E61.2 MAGNESIUM DEFICIENCY 08/17/2015 CAMPBELL NAVARRO ODD PIECE CHECKER Ot Z87.440 PERSONAL HISTORY OF URINARY (TRACT ) INFE 08/17/2015 CAMPBELL NAVARRO ODD PIECE CHECKER Ot N93.9 ABNORMAL UTERINE AND VAGINAL BLEEDING, U 08/17/2015 CAMPBELL NAVARRO ODD PIECE CHECKER Ot N93.9 ABNORMAL UTERINE AND VAGINAL BLEEDING, U 08/17/2015 CAMPBELL NAVARRO ODD PIECE CHECKER Ot R10.30 LOWER ABDOMINAL PAIN, UNSPECIFIED 08/17/2015 RUTH GRANADOS MD Ot D50.9 IRON DEFICIENCY ANEMIA, UNSPECIFIED 08/17/2015 RUTH GRANADOS MD Ot E46 UNSPECIFIED PROTEIN-CALORIE MALNUTRITION 08/17/2015 RUTH GRANADOS MD Ot K90.9 INTESTINAL MALABSORPTION, UNSPECIFIED 08/17/2015 RUTH GRANADOS MD Ot Z98.84 BARIATRIC SURGERY STATUS 08/17/2015 CAMPBELL NAVARRO ODD PIECE CHECKER Ot D55.9 ANEMIA DUE TO ENZYME DISORDER, UNSPECIFI 08/17/2015 CAMPBELL NAVARRO ODD PIECE CHECKER Ot E03.9 HYPOTHYROIDISM, UNSPECIFIED 08/17/2015 CAMPBELL NAVARRO ODD PIECE CHECKER Ot E28.2 POLYCYSTIC OVARIAN SYNDROME 08/17/2015 CAMPBELL NAVARRO ODD PIECE CHECKER Ot E53.8 DEFICIENCY OF OTHER SPECIFIED B GROUP 08/17/2015 CAMPBELL NAVARRO ODD PIECE CHECKER Ot E61.2 MAGNESIUM DEFICIENCY 08/17/2015 CAMPBELL NAVARRO ODD PIECE CHECKER Ot Z87.440 PERSONAL HISTORY OF URINARY (TRACT ) INFE 08/17/2015 CAMPBELL NAVARRO ODD PIECE CHECKER Ot N93.9 ABNORMAL UTERINE AND VAGINAL BLEEDING, U 08/17/2015 CAMPBELL NAVARRO ODD PIECE CHECKER Ot N93.9 ABNORMAL UTERINE AND VAGINAL BLEEDING, U 08/17/2015 CAMPBELL NAVARRO ODD PIECE CHECKER Ot R10.30 LOWER ABDOMINAL PAIN, UNSPECIFIED 08/17/2015 [...] SUPERVIS NORMAL 1ST PREG 08/17/2015 CAMPBELL NAVARRO ODD PIECE CHECKER Ot 611.6 GALACTORRHEA-NONOBSTET 08/17/2015 CAMPBELL NAVARRO ODD PIECE CHECKER Ot 787.3 FLATUL/ERUCTAT/GAS PAIN 08/17/2015 CAMPBELL NAVARRO ODD PIECE CHECKER Ot 789.00 ABDOMINAL PAIN, UNSPECIFIED SITE 08/17/2015 CAMPBELL NAVARRO ODD PIECE CHECKER Ot 256.4 POLYCYSTIC OVARIES 08/17/2015 CAMPBELL NAVARRO ODD PIECE CHECKER Ot 611.6 GALACTORRHEA-NONOBSTET 08/17/2015 CAMPBELL NAVARRO ODD PIECE CHECKER Ot 626.0 ABSENCE OF MENSTRUATION 08/17/2015 CAMPBELL NAVARRO ODD PIECE CHECKER Ot 787.3 FLATUL/ERUCTAT/GAS PAIN 08/17/2015 CAMPBELL NAVARRO ODD PIECE CHECKER Ot 789.00 ABDOMINAL PAIN, UNSPECIFIED SITE 08/17/2015 CAMPBELL NAVARRO ODD PIECE CHECKER Ot 789.00 ABDOMINAL PAIN, UNSPECIFIED SITE 08/17/2015 CAMPBELL NAVARRO ODD PIECE CHECKER Ot V45.86 BARIATRIC SURGERY STATUS 08/17/2015 CAMPBELL NAVARRO ODD PIECE CHECKER Ot 789.00 ABDOMINAL PAIN, UNSPECIFIED SITE 08/17/2015 CAMPBELL NAVARRO ODD PIECE CHECKER Ot 266.2 B-COMPLEX DEFIC NEC 08/17/2015 CAMPBELL NAVARRO ODD PIECE CHECKER Ot 268.9 VITAMIN D DEFICIENCY NOS 08/17/2015 CAMPBELL NAVARRO ODD PIECE CHECKER Ot 620.2 OVARIAN CYST NEC/NOS 08/17/2015 CAMPBELL NAVARRO ODD PIECE CHECKER Ot 780.79 OTH MALAISE FATIGUE 08/17/2015 CAMPBELL NAVARRO ODD PIECE CHECKER Ot 786.09 RESPIRATORY ABNORM NEC 08/17/2015 CAMPBELL VIEYRA SENIOR [employer]ACLE DATABASE ADMINISTRATOR Ot 789.00 ABDOMINAL PAIN, UNSPECIFIED SITE 08/31/2015 [...] 285.9 ANEMIA NOS 08/31/2015 CAMPBELL NAVARRO L ODD PIECE CHECKER Ot 244.9 HYPOTHYROIDISM NOS 08/31/2015 CAMPBELL NAVARRO L ODD PIECE CHECKER Ot 285.9 ANEMIA NOS 08/31/2015 CAMPBELL NAVARRO L ODD PIECE CHECKER Ot 780.79 OTH MALAISE FATIGUE 08/31/2015 CAMPBELL NAVARRO ODD PIECE CHECKER Ot 599.0 URIN TRACT INFECTION NOS 08/31/2015 CAMPBELL NAVARRO L ODD PIECE CHECKER Ot 719.40 JOINT PAIN-UNSPEC 08/31/2015 CAMPBELL NAVARRO ODD PIECE CHECKER Ot 795.79 OTH AND UNSPEC NONSPECIFIC IMMUNOLOGICAL 08/31/2015 CAMPBELL VIEYRA S[employer]IOR [employer] DATABASE ADMINISTRATOR Ot 789.00 ABDOMINAL PAIN, UNSPECIFIED SITE 08/31/2015 CAMPBELL NAVARRO ODD PIECE CHECKER Ot 266.2 B-COMPLEX DEFIC NEC 08/31/2015 CAMPBELL NAVARRO ODD PIECE CHECKER Ot 268.9 VITAMIN D DEFICIENCY NOS 08/31/2015 CAMPBELL NAVARRO L ODD PIECE CHECKER Ot 620.2 OVARIAN CYST NEC/NOS 08/31/2015 CAMPBELL NAVARRO L ODD PIECE CHECKER Ot 780.79 OTH MALAISE FATIGUE 08/31/2015 CAMPBELL NAVARRO L ODD PIECE CHECKER Ot 786.09 RESPIRATORY ABNORM NEC 08/31/2015 CAMPBELL NAVARRO L ODD PIECE CHECKER Ot 789.00 ABDOMINAL PAIN, UNSPECIFIED SITE 08/31/2015 CAMPBELL NAVARRO L ODD PIECE CHECKER Ot 789.00 ABDOMINAL PAIN, UNSPECIFIED SITE 08/31/2015 CAMPBELL NAVARRO ODD PIECE CHECKER Ot V45.86 BARIATRIC SURGERY STATUS 08/31/2015 CAMPBELL NAVARRO L ODD PIECE CHECKER Ot 256.4 POLYCYSTIC OVARIES 08/31/2015 CAMPBELL NAVARRO L ODD PIECE CHECKER Ot 611.6 GALACTORRHEA-NONOBSTET 08/31/2015 CAMPBELL NAVARRO ODD PIECE CHECKER Ot 626.0 ABSENCE OF MENSTRUATION 08/31/2015 NAVARROCAMPBELL PAUL ODD PIECE CHECKER Ot 787.3 FLATUL/ERUCTAT/GAS PAIN 08/31/2015 NAVARROCAMPBELL PAUL ODD PIECE CHECKER Ot 789.00 ABDOMINAL PAIN, UNSPECIFIED SITE 08/31/2015 RAMONCAMPBELL ODD PIECE CHECKER Ot 611.6 GALACTORRHEA-NONOBSTET 08/31/2015 RAMON CAMPBELL Vasquez ODD PIECE CHECKER Ot 787.3 FLATUL/ERUCTAT/GAS PAIN 08/31/2015 NAVARROCAMPBELL PAUL ODD PIECE CHECKER Ot 789.00 ABDOMINAL PAIN, UNSPECIFIED SITE 08/31/2015 LASHON PATIÑO APRN Ot V22.0 SUPERVIS NORMAL 1ST PREG 08/31/2015 ALONDRA BRASHER DO Ot V22.0 SUPERVIS NORMAL 1ST PREG 08/31/2015 Ot V28.81 ENCOUNTER FOR ANATOMIC SURVEY 08/31/2015 ALONDRA BRASHER DO Ot V89.03 SUSPECTED ANOMALY NOT FOUND 08/31/2015 CAMPBELL NAVARRO ODD PIECE CHECKER Ot D55.9 ANEMIA DUE TO ENZYME DISORDER, UNSPECIFI 08/31/2015 CAMPBELL NAVARRO ODD PIECE CHECKER Ot E03.9 HYPOTHYROIDISM, UNSPECIFIED 08/31/2015 CAMPBELL NAVARRO ODD PIECE CHECKER Ot E28.2 POLYCYSTIC OVARIAN SYNDROME 08/31/2015 RAMON CAMPBELL Pedro ODD PIECE CHECKER Ot E53.8 DEFICIENCY OF OTHER SPECIFIED B GROUP 08/31/2015 CAMPBELL NAVARRO ODD PIECE CHECKER Ot E61.2 MAGNESIUM DEFICIENCY 08/31/2015 CAMPBELL NAVARRO ODD PIECE CHECKER Ot Z87.440 PERSONAL HISTORY OF URINARY (TRACT ) INFE 08/31/2015 CAMPBELL NAVARRO ODD PIECE CHECKER Ot N93.9 ABNORMAL UTERINE AND VAGINAL BLEEDING, U 08/31/2015 CAMPBELL NAVARRO ODD PIECE CHECKER Ot N93.9 ABNORMAL UTERINE AND VAGINAL BLEEDING, U 08/31/2015 CAMPBELL NAVARRO ODD PIECE CHECKER Ot R10.30 LOWER ABDOMINAL PAIN, UNSPECIFIED 08/31/2015 RUTH GRANADOS MD Ot D50.9 IRON DEFICIENCY ANEMIA, UNSPECIFIED 08/31/2015 RUTH GRANADOS MD Ot E46 UNSPECIFIED PROTEIN-CALORIE MALNUTRITION 08/31/2015 RUTH GRANADOS MD Ot K90.9 INTESTINAL MALABSORPTION, UNSPECIFIED 08/31/2015 RUTH GRANADOS MD, Ot Z98.84 BARIATRIC SURGERY STATUS 11/26/2015 RAMON CAMPBELL L ODD PIECE CHECKER Ot D55.9 ANEMIA DUE TO ENZYME DISORDER, UNSPECIFI 11/26/2015 CAMPBELL NAVARRO ODD PIECE CHECKER Ot E03.9 HYPOTHYROIDISM, UNSPECIFIED 11/26/2015 CAMPBELL NAVARRO ODD PIECE CHECKER Ot E28.2 POLYCYSTIC OVARIAN SYNDROME 11/26/2015 CARLEY NAVARROIA Pedro ODD PIECE CHECKER Ot E53.8 DEFICIENCY OF OTHER SPECIFIED B GROUP 11/26/2015 CAMPBELL NAVARRO ODD PIECE CHECKER Ot E61.2 MAGNESIUM DEFICIENCY 11/26/2015 CAMPBELL NAVARRO ODD PIECE CHECKER Ot Z87.440 PERSONAL HISTORY OF URINARY (TRACT ) INFE 11/26/2015 CAMPBELL NAVARRO ODD PIECE CHECKER Ot N93.9 ABNORMAL UTERINE AND VAGINAL BLEEDING, U 11/26/2015 CAMPBELL NAVARRO ODD PIECE CHECKER Ot N93.9 ABNORMAL UTERINE AND VAGINAL BLEEDING, U 11/26/2015 CAMPBELL NAVARRO ODD PIECE CHECKER Ot R10.30 LOWER ABDOMINAL PAIN, UNSPECIFIED 11/26/2015 [...] 285.9 ANEMIA NOS 12/06/2015 CAMPBELL NAVARRO L ODD PIECE CHECKER Ot 244.9 HYPOTHYROIDISM NOS 12/06/2015 CAMPBELL NAVARRO L ODD PIECE CHECKER Ot 285.9 ANEMIA NOS 12/06/2015 CAMPBELL NAVARRO L ODD PIECE CHECKER Ot 780.79 OTH MALAISE FATIGUE 12/06/2015 CAMPBELL NAVARRO L ODD PIECE CHECKER Ot 599.0 URIN TRACT INFECTION NOS 12/06/2015 CAMPBELL NAVARRO ODD PIECE CHECKER Ot 719.40 JOINT PAIN-UNSPEC 12/06/2015 CAMPBELL NAVARRO ODD PIECE CHECKER Ot 795.79 OTH AND UNSPEC NONSPECIFIC IMMUNOLOGICAL 12/06/2015 JARRELL CAMPBELL Handley SENIOR ORACLE DATABASE ADMINISTRATOR Ot 789.00 ABDOMINAL PAIN, UNSPECIFIED SITE 12/06/2015 CAMPBELL NAVARRO ODD PIECE CHECKER Ot 266.2 B-COMPLEX DEFIC NEC 12/06/2015 CAMPBELL NAVARRO L ODD PIECE CHECKER Ot 268.9 VITAMIN D DEFICIENCY NOS 12/06/2015 CAMPBELL NAVARRO ODD PIECE CHECKER Ot 620.2 OVARIAN CYST NEC/NOS 12/06/2015 CAMPBELL NAVARRO ODD PIECE CHECKER Ot 780.79 OTH MALAISE FATIGUE 12/06/2015 CAMPBELL NAVARRO ODD PIECE CHECKER Ot 786.09 RESPIRATORY ABNORM NEC 12/06/2015 CAMPBELL NAVARRO ODD PIECE CHECKER Ot 789.00 ABDOMINAL PAIN, UNSPECIFIED SITE 12/06/2015 CAMPBELL NAVARRO L ODD PIECE CHECKER Ot 789.00 ABDOMINAL PAIN, UNSPECIFIED SITE 12/06/2015 CAMPBELL NAVARRO ODD PIECE CHECKER Ot V45.86 BARIATRIC SURGERY STATUS 12/06/2015 CAMPBELL NAVARRO L ODD PIECE CHECKER Ot 256.4 POLYCYSTIC OVARIES 12/06/2015 CAMPBELL NAVARRO ODD PIECE CHECKER Ot 611.6 GALACTORRHEA-NONOBSTET 12/06/2015 CAMPBELL NAVARRO ODD PIECE CHECKER Ot 626.0 ABSENCE OF MENSTRUATION 12/06/2015 CAMPBELL NAVARRO ODD PIECE CHECKER Ot 787.3 FLATUL/ERUCTAT/GAS PAIN 12/06/2015 CAMPBELL NAVARRO ODD PIECE CHECKER Ot 789.00 ABDOMINAL PAIN, UNSPECIFIED SITE 12/06/2015 CAMPBELL NAVARRO ODD PIECE CHECKER Ot 611.6 GALACTORRHEA-NONOBSTET 12/06/2015 CAMPBELL NAVARRO L ODD PIECE CHECKER Ot 787.3 FLATUL/ERUCTAT/GAS PAIN 12/06/2015 CAMPBELL NAVARRO ODD PIECE CHECKER Ot 789.00 ABDOMINAL PAIN, UNSPECIFIED SITE 12/06/2015 LASHON PATIÑO SENIOR ORACLE DATABASE ADMINISTRATOR Ot V22.0 SUPERVIS NORMAL 1ST PREG 12/06/2015 ALONDRA BRASHER DO Ot V22.0 SUPERVIS NORMAL 1ST PREG 12/06/2015 Ot V28.81 ENCOUNTER FOR ANATOMIC SURVEY 12/06/2015 ALONDRA BRASHER DO Ot V89.03 SUSPECTED ANOMALY NOT FOUND 12/06/2015 CAMPBELL NAVARRO ODD PIECE CHECKER Ot D55.9 ANEMIA DUE TO ENZYME DISORDER, UNSPECIFI 12/06/2015 CAMPBELL NAVARRO ODD PIECE CHECKER Ot E03.9 HYPOTHYROIDISM, UNSPECIFIED 12/06/2015 CAMPBELL NAVARRO ODD PIECE CHECKER Ot E28.2 POLYCYSTIC OVARIAN SYNDROME 12/06/2015 CAMPBELL NAVARRO ODD PIECE CHECKER Ot E53.8 DEFICIENCY OF OTHER SPECIFIED B GROUP 12/06/2015 CAMPBELL NAVARRO ODD PIECE CHECKER Ot E61.2 MAGNESIUM DEFICIENCY 12/06/2015 CAMPBELL NAVARRO ODD PIECE CHECKER Ot Z87.440 PERSONAL HISTORY OF URINARY (TRACT ) INFE 12/06/2015 CAMPBELL NAVARRO ODD PIECE CHECKER Ot N93.9 ABNORMAL UTERINE AND VAGINAL BLEEDING, U 12/06/2015 CAMPBELL NAVARRO ODD PIECE CHECKER Ot N93.9 ABNORMAL UTERINE AND VAGINAL BLEEDING, U 12/06/2015 CAMPBELL NAVARRO ODD PIECE CHECKER Ot R10.30 LOWER ABDOMINAL PAIN, UNSPECIFIED 12/06/2015 [...] 27 WEEKS GESTATION OF 05/05/2016 TORSTEN ENGEL SENIOR ORACLE DATABASE ADMINISTRATOR Ot E16.2 HYPOGLYCEMIA, UNSPECIFIED 05/05/2016 TORSTEN ENGEL [...] Procedures Code Description [place] [address] TEST, URINE (IN-HOUSE) 01/31/2014 27074 ROUTINE VENIPUNCTURE 02/07/2014 57918 US OB - EARLY <14 WEEKS 02/07/2014 18441 SYPHILLIS[facility] 02/07/2014 40999 HIV ([facility]) 02/07/2014 46121 ANTIBODY SCREEN (order) 02/07/2014 40878 CULTURE URINE 12/2013 18205 HEP B SURFACE ANTIGEN ([facility]) 02/07/2014 44070 CBC 02/07/2014 79871 TSH 02/07/2014 [id number] ANTIBODY SCREEN (RESULT ONLY) 02/08/2014 14601 A1C (L) 2013 63511 BLOOD TYPE/Rh FACTOR 02/08/2014 20315 RUBELLA ANTIBODY, IGG 02/08/2014 24681 GC/CHLAM PROBE ([facility]) 03/07/2014 35355 PAP SMEAR 2013 Q0091 PAP SMEAR OBTAIN SMEAR 03/07/2014 21679 UA OB DIP 2013 87672 TRICHOMONAS (IN-HOUSE) 03/07/2014 88846 CULTURE URINE 11/2013 53552 CULTURE UROGENITAL 03/09/2014 48132 TB TEST INTRADERMAL 03/16/2014 14444 UA W/ CULTURE IF INDICATED 03/30/2014 97377 CULTURE URINE 12447 UA OB DIP 2014 98414 ROUTINE VENIPUNCTURE 06/28/2014 10029 UA OB DIP 2014 90025 CBC 06/28/2014 23387 GLUCOSE JACINTA 1 HOUR 06/29/2014 35436 UA OB DIP 2014 75.69 09/23/2014 [id number] EXTRACTION OF POC, LOW CERVICAL, OPEN AP [...] culture - 05/03/16 10:45 Bacterial urine culture [id number] NRG COLONY COUNT >100,000/ML NRG Complete blood [...] Streptococcus agalactiae detection by organism specific culture [id number] NRG Complete urinalysis with reflex to culture [...] ABO+Rh group OP NRG Transfusion band number [id number] NRG Blood group antibody screen NEGATIVE NRG Encounters ACCT No. Visit Date/Time Discharge Status Pt. Type Provider Facility Loc./Unit Complaint [id number] 07/14/2014 13:49:00 07/14/2014 23: 59:59 CLS Outpatient LASHON PATIÑO APRN [id number] 06/28/2014 13:22:00 06/28/2014 23: 59:59 CLS Outpatient ALONDRA BRASHER DO [id number] 05/31/2014 10:07:00 05/31/2014 23: 59:59 CLS Outpatient LASHON PATIÑO APRN [id number] 05/09/2014 08:26:00 05/09/2014 23: 59:59 CLS Outpatient KRISTINA TRACEY APRN [id number] 05/02/2014 13:54:00 05/02/2014 23: 59:59 CLS Outpatient ALONDRA BRASHER DO [id number] 04/04/2014 13:58:00 04/04/2014 23: 59:59 CLS Outpatient ALONDRA BRASHER DO [id number] 03/30/2014 12:55:00 03/30/2014 23: 59:59 CLS Outpatient LAKISHA SOFYA PERRY [id number] 03/07/2014 08:42:00 03/07/2014 23: 59:59 CLS Outpatient LASHON PATIÑO APRN [id number] 02/07/2014 13:00:00 02/07/2014 23: 59:59 CLS Outpatient LASHON PATIÑO APRN [id number] 01/31/2014 10:48:00 01/31/2014 23: 59:59 CLS Outpatient ALONDRA BRASHER DO
== END 2016-06-30 14:35 | disposition home or self-care (01) | DRG 766 ==
LOC: DELPENDDIS → WSo 04:57 → LDRP 04:58 → WSo 05:42 → LDRP 05:42
PROVIDERS: ADMIT Family Medicine; ATTEND Family Medicine
PROC: 10D00Z1 Extraction of Products of Conception, Low, Open Approach (ICD-10-PCS; principal; 2016-06-28 07:50)
DX: O42.013 Preterm premature rupture of membranes, onset of labor within 24 hours of rupture, third trimester (principal); O32.1XX0 Maternal care for breech presentation, not applicable or unspecified; Z3A.36 36 weeks gestation of pregnancy; Z37.0 Single live birth
CPT/HCPCS: 36415; 76815; 81000; 85025; 86850; 86900; 86901; 87088; 94664; 99212

== ENCOUNTER 2016-10-27 10:21 | Emergency (ER) | payer BC, MEDICAID ==
[~2016-10-27] VITALS: Ht 154.9 cm; Wt 71.7 kg
[~2016-10-27 10:21] MED LIST changes: +DOCU100C37 PO; +IBUP-1780 PO; +LANS15CA21 PO; +OXYC-465 PO
[2016-10-27] MEDS ORDERED: VORT5TAB (10:39)
[2016-10-27] MEDS ORDERED: NS IV 1000 ML 1,000 ML IV ONE (10:40)
[2016-10-27] MEDS ORDERED: BUSP5TAB59 PO (10:40)
[2016-10-27] MEDS ORDERED: KETOROLAC 30 MG/ML VIAL IVP STA (10:40)
--- NOTE | 2016-10-27 10:40 | ED Headache ---
General Chief Complaint: Head/Cervical Problems Stated Complaint: MIGRAINE Nursing Triage Note: AMBULATED TO ROOM 05 WITH COMPLAINTS OF MIGRAINE X4 DAYS. OUT OF IMITREX. Nursing Sepsis Screen: No Definite Risk Source: patient Exam Limitations: no limitations History of Present Illness Time seen by provider: 10:35 Initial Comments Patient presents to ER with chief complaint of 45 days of migraine headache that started out as a global is now mostly centered in the right side parietal scalp. She feels it is throbbing and constant. She has a history of migraines and has been treated in the past excess with Imitrex but she is out of the medicine and has not taken in the past for 5 days. She is having nausea. She has no aura. She does have a little blurring of her right eye vision which has happened before with her migraines that just started this morning. She is having no fever or chills or nasal congestion or diarrhea. She has history of allergies was not using anything for it. Patient states she had a C-sections in the last year and was having depression started on BuSpar which has been improving since. She was also given Percocet to be taken for pain and for her headaches but she has not taken any yet. Allergies and Home Medications Allergies Coded Allergies: NKANo Known Allergies (Verified Allergy, Unknown, 06/03/08) Home Medications Buspirone HCl 5 Mg Tablet, 5 MG PO DAILY, (Reported) Vortioxetine Hydrobromide 5 Mg Tablet, #30 (Reported) Constitutional: No chills, No diaphoresis, No dizziness, No fever, No malaise Eyes: See HPI, Denies Blindness, Blurred Vision Ears, Nose, Mouth, Throat: denies ear pain, denies nose pain Respiratory: No cough, No short of breath Cardiovascular: No chest pain, No palpitations Gastrointestinal: No constipation, No diarrhea, nausea, No vomiting Genitourinary: No discharge, No dysuria : No (presently on her period) LMP: Oct 25, 2016 Musculoskeletal: No back pain, No joint pain Skin: No pruritus, No rash Psychiatric/Neurological: Anxiety, Depressed Past Meamrog-Egswse-Twdwye Hx Patient Social History Alcohol Use: Denies Use Recreational Drug Use: No Smoking Status: Never a Smoker Former Smoker/When Quit: Jan 28, 2014 Recent Foreign Travel: No Contact w/Someone Who Travel: No Recent Infectious Disease Expo: No Recent Hopitalizations: No Immunizations Up To Date Tetanus Booster (TDap): Less than 5yrs PED Vaccines UTD: Yes Date of Influenza Vaccine: Dec 13, 2015 Seasonal Allergies Seasonal Allergies: Yes Surgeries HX Surgeries: Yes (LAP BAND 2009, RIGHT FOOT-AGE 5) Surgeries: Abdominal, Adenoidectomy, Gallbladder, Orthopedic, Tonsillectomy Respiratory Hx Respiratory Disorders: No Cardiovascular Hx Cardiac Disorders: Yes (GESTATIONAL HYPERTENSION) Cardiac Disorders: Syncope Neurological Hx Neurological Disorders: No Reproductive System Hx Reproductive Disorders: Yes Sexually Transmitted Disease: No (HX: TRICHOMONAS 2013) HIV/AIDS: No Female Reproductive Disorders: Menstrual Problems, Polycystic Ovarian Dis Genitourinary Hx Genitourinary Disorders: No Genitourinary Disorders: UTI-Chronic Gastrointestinal Hx Gastrointestinal Disorders: Yes (Hx of [place]) Gastrointestinal Disorders: Gastroesophageal Reflux Musculoskeletal Hx Musculoskeletal Disorders: No Endocrine Hx Endocrine Disorders: No HEENT HX ENT Disorders: No Cancer Hx Cancer: No Psychosocial Hx Psychiatric Problems: Yes Behavioral Health Disorders: Anxiety, Depression Integumentary HX Skin/Integumentary Disorder: No Blood Transfusions Hx Blood Disorders: No (ANEMIA) Adverse Reaction to a Blood Tr: No Family Medical History Family Medial History: Asthma 19 MOTHER, Onset:40's - 50 Diabetes mellitus 19 MOTHER, Onset:40's - 50 Gastroenteritis G8 SISTER, Onset:25's - 30 Hypercholesterolemia 19 FATHER 19 MOTHER, Onset:40's - 50 Hypertension 19 FATHER, Onset:40's - 50 19 MOTHER, Onset:30's - 40 Seizure disorder G8 SISTER, Onset:30's - 40 No Family History of: AIDS Abdominal aortic aneurysm Dauphin's disease Alcoholism Alzheimer's disease Aphasia Arthritis Cancer of mouth Cardiovascular disease Cataracts Colon cancer Completed stroke Congenital disease Congenital heart disease Coronary thrombosis Cystic fibrosis Deafness or hearing loss Dementia Drug abuse Dysphasia Fibrocystic disease of breast Glaucoma Headache disorder Infertility Kidney disease Myocardial infarction Neoplasm Not obtainable due to adoption Osteoporosis Parkinson's disease Prostate cancer Psychosocial problem Respiratory disorder Severe allergy Thyroid disease Tuberculosis Visual disorder Physical Exam Vital Signs Vital Sign - Last 12Hours 10/27/16 10:25 Temp 98.0 Pulse 55 Resp 16 B/P (MAP) 145/89 Pulse Ox 98 Capillary Refill : Less Than 3 Seconds General Appearance: WD/WN, moderate distress HEENT: PERRL/EOMI, pharynx normal, TM abnormal (R) (mucoid effusion canal and TM are clear) Neck: non-tender, supple, normal inspection Cardiovascular: regular rate, rhythm, no edema Respiratory: lungs clear, normal breath sounds Gastrointestinal: non tender, soft Extremities: non-tender, normal capillary refill Psychiatric: alert, oriented x 3 Skin: normal color, warm/dry Progress/Results/Core Measures Results/Orders My Orders Orders - ROSSANA LOVETT Ketorolac Injection (Toradol Injection) (10/27/16 10:40) Saline Lock/Iv-Start (10/27/16 10:40) Ns Iv 1000 Ml (Sodium Chloride 0.9%) (10/27/16 10:40) Prochlorperazine Injection (Compazine In (10/27/16 10:45) Sumatriptan Injection (Imitrex Injection (10/27/16 10:45) Medications Given in ED Current Medications Medications Dose Ordered Sig/Rufina Route Start Time Stop Time Status Last Admin Dose Admin Prochlorperazine Edisylate 10 mg ONCE ONCE IV 10/27/16 10:45 10/27/16 10:46 DC 10/27/16 10:52 10 MG Sodium Chloride 1,000 ml @ 0 mls/hr Q0M ONCE IV 10/27/16 10:40 10/27/16 10:44 DC 10/27/16 10:52 1,000 MLS/HR Sumatriptan Succinate 6 mg ONCE ONCE SQ 10/27/16 10:45 10/27/16 10:46 DC 10/27/16 10:51 6 MG Vital Signs/I&O Vital Sign - Last 12Hours 10/27/16 10:25 Temp 98.0 Pulse 55 Resp 16 B/P (MAP) 145/89 Pulse Ox 98 Blood Pressure Mean: 107 Progress Note #1: Time: 10:49 Progress Note Since sumatriptan as worked in the past we'll go ahead and give to her now. We' ll use Compazine control her nausea as well as for its benefits for her migraine breaking. We will give her a liter fluids to help rehydrate her since she's had poor appetite for the past for 5 days. And we will give her Toradol also try and help with the pain Since she's been using Tylenol primarily. She says she has a prescription from her own doctor and does not need a refill on the sumatriptan she just has not picked it up. We have also advised her be unwise to use any kind of opiate for migraine headache as this can lead to an acute episodic migraine pattern turning into a more chronic headache and migraine pattern. Progress Note #2: Time: 11:23 Progress Note Patient received her liter fluids and her Imitrex and Compazine and Toradol. Her headache is greatly improved. Her nausea is completely gone. She is feeling ready to go home. Departure Impression Impression: Primary Impression: Migraine Qualified Codes: G43.009 - Migraine without aura, not intractable, without status migrainosus Additional Impression: Nausea and vomiting Qualified Codes: R11.2 - Nausea with vomiting, unspecified Disposition: 01 HOME, SELF-CARE Condition: Improved Departure-Patient Inst. Decision time for Depature: 11:24 Referrals: [facility] (PCP) Primary Care Physician ASHLEY ZEE (Family) Primary Care Physician Patient Instructions: Migraine Headache (DC) Add. Discharge Instructions: Get some rest in a quiet darkened area make sure you are drinking plenty of fluids. You can use Tylenol 1000 mg every 8 hours as needed. You should also grain picker some sumatriptan and use this every 4 hours as needed to stop your headache. If your headaches are becoming more chronic or frequent you should discuss with your doctor starting a medicine to try and block or prevent headaches from forming. It's important to try and recognize what your triggers might be so that you can avoid them. If you're having nausea I have sent you home with a prescription to be taken every 6 hours as needed. If you're having new or worsening symptoms you should return to the ER or follow up with your primary care physician as appropriate. All discharge instructions reviewed with patient and/or family. Voiced understanding. Scripts Prochlorperazine Maleate (Compazine) 10 Mg Tablet 10 MG PO Q6H Y for NAUSEA/VOMITING-1ST LINE, #20 TAB 0 Refills Prov: ROSSANA LOVETT 10/27/16 Copy Copies To 1: ALONDRA BRASHER TITUS J Oct 27, 2016 10:40
[2016-10-27] MEDS ORDERED: SUMAtriptan 6 MG/0.5 ML (IMITREX) INJ SQ ONE (10:45)
[2016-10-27] MEDS ORDERED: PROCHLORPERAZINE 10 MG/2ML INJ (COMPAZINE) IV ONE (10:45)
[2016-10-27] MEDS ORDERED: PROC-1 PO (11:26)
[2016-10-27 11:33] VITALS: BP 139/80
== END 2016-10-27 11:33 | disposition home or self-care (01) ==
LOC: EDUNIT# 10:21 → ER 10:22
DX: G43.909 Migraine, unspecified, not intractable, without status migrainosus (principal); R11.2 Nausea with vomiting, unspecified; F41.9 Anxiety disorder, unspecified; F32.9 Major depressive disorder, single episode, unspecified; K21.9 Gastro-esophageal reflux disease without esophagitis; Z87.42 Personal history of other diseases of the female genital tract; Z90.89 Acquired absence of other organs; Z87.891 Personal history of nicotine dependence; Z98.890 Other specified postprocedural states
CPT/HCPCS: 96361; 96372; 96374; 96375

== ENCOUNTER 2018-08-27 21:49 | Emergency (ER) | payer OTHER, MEDICAID ==
[~2018-08-27] VITALS: Ht 154.9 cm; Wt 74.4 kg
[~2018-08-27 21:49] MED LIST changes: +BUSP5TAB59 PO; +PROC-1 PO; +VORT5TAB
--- OUTSIDE RECORDS SUMMARY | 2018-08-27 22:04 | XMS REPORT ---
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 July, Active 13413436 Problem PCOS (polycystic ovarian syndrome) E28.2 Oct, Active 99529480 Problem MTHFR gene mutation E72.12 Active 93314124 Problem History of laparoscopic adjustable gastric banding Z98.84 July, Active 076327404 Problem Migraine without aura and without status migrainosus, not intractable G43.009 Active 765503571 Problem Vitamin D deficiency E55.9 Dec, Active 37001574 Problem Seasonal allergic rhinitis J30.2 May, Active 691445539 Problem Generalized anxiety disorder F41.1 Active 80323703 Problem Major depressive disorder, recurrent, moderate F33.1 Active 855589922 ALLERGIES No Information ENCOUNTERS Encounter Location Date Diagnosis [employer] [place] [address] July, [employer] [address] [place] [address] Jun, [employer] [address] [place] [address] May, Overweight (BMI 25.0-29.9) E66.3 [facility] [address] [place] [address] May, Major depressive disorder, recurrent, moderate F33.1 ; Generalized anxiety disorder F41.1 and Overweight (BMI 25.0-29.9) E66.3 [facility] [address] [place] [address] Mar, Overweight E66.3 [employer] [address] [place] [address] Mar, Generalized anxiety disorder F41.1 ; Major depressive disorder, recurrent, moderate F33.1 ; MTHFR gene mutation E72.12 ; Polycystic ovarian disease E28.2 ; Migraine without aura and without status migrainosus, not intractable G43.009 and Overweight E66.3 [facility] [id number] [place] [address] Feb, [place] [facility] [address] [address] Aug, [facility] [facility] [id number] [place] [address] May, [facility] [facility] [id number] [place] [address] July, Generalized anxiety disorder F41.1 [facility] [id number] [place] [address] July, Major depressive disorder, recurrent, moderate F33.1 and Generalized anxiety disorder F41.1 [facility] [id number] [place] [address] July, Generalized anxiety disorder F41.1 [facility] [id number] [place] [address] Jun, Depressive disorder, 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.9 and Anxiety state, unspecified F41.1 [facility] [id number] [place] [address] May, [facility] [facility] [id number] [place] [address] May, [facility] [id number] [place] [address] May, [facility] [facility] [id number] [place] [address] May, Elevated blood pressure complicating , antepartum, third trimester O13.3 [place] [facility] [address] [place] [address] May, Elevated blood pressure complicating , antepartum, third trimester O13.3 [facility] [id number] [place] [address] May, Normal in multigravida in third trimester Z34.83 ; Elevated blood pressure complicating , antepartum, third trimester O13.3 and 34 weeks gestation of Z3A.34 [facility] [id number] [place] [address] May, [facility] [id number] [place] [address] May, Normal in multigravida in third trimester Z34.83 and 33 weeks gestation of Z3A.33 [facility] [id number] [place] [address] May, Normal in multigravida in third trimester Z34.83 and 31 weeks gestation of Z3A.31 [facility] [id number] [place] [address] May, Normal in multigravida in third trimester Z34.83 ; 29 weeks gestation of Z3A.29 and Encounter for immunization Z23 [facility] [id number] [place] [address] 02 May, 2016 28 weeks gestation of Z3A.28 [facility] [id number] [place] [address] Mar, Gastroenteritis K52.9 [facility] [id number] [place] [address] Mar, Normal in multigravida in second trimester Z34.82 and 25 weeks gestation of Z3A.25 [facility] [id number] [place] [address] Feb, [place] [address] [place] [address] Feb, Normal in multigravida in second trimester Z34.82 ; 21 weeks gestation of Z3A.21 and UTI in , second trimester O23.42 [facility] [id number] [place] [address] 14 Jan, 2016 Normal in second trimester Z34.92 [facility] [id number] [place] [address] Jan, [facility] [id number] [place] [address] Dec, Normal in first trimester Z34.91 and 12 weeks gestation of Z3A.12 [facility] [id number] [place] [address] Nov, Normal in first trimester Z34.91 ; 8 weeks gestation of Z3A.08 and Encounter for immunization Z23 [facility] [id number] [place] [address] Oct, [facility] [id number] [place] [address] Oct, test positive Z32.01 [facility] [id number] [place] [phone] Jan, Encounter for dental examination Z01.20 and Dental caries K02.9 [facility] [address] [place] [address] Jan, [facility] [id number] [place] [address] Jan, [facility] [id number] [place] [address] Jan, Abnormal uterine bleeding N93.9 [facility] [address] [place] [phone] Dec, Encounter for dental examination Z01.20 [facility] [id number] [phone] Dec, Encounter for dental examination Z01.20 [facility] [id number] [place] [address] Dec, Sinusitis J32.9 [facility] [address] [place] [address] Dec, Acute nasopharyngitis [common cold] J00 [facility] [id number] [place] [address] Dec, Sinusitis J32.9 [facility] [address] [place] [address] Oct, [facility] [id number] [place] [address] Oct, Routine follow-up V24.2 ; hypertension 642.94 ; General counseling on prescription of oral contraceptives V25.01 ; Migraine 346.90 ; Depression 311 and GERD (gastroesophageal reflux disease) 530.81 [place] [facility] [address] [address] Sep, [place] [address] [place] [address] Sep, Headache 784.0 ; hypertension 642.94 and Patient is a currently breast-feeding mother V24.1 [place] [address] [place] [address] Sep, hypertension 642.94 [place] [facility] [address] [address] Sep, [facility] [id number] [place] [address] Sep, Gestational proteinuria, 646.24 [facility] [address] [address] Sep, Gestational proteinuria, 646.24 [place] [facility] [id number] [place] [address] Aug, [place] [address] [address] Aug, Supervision of normal first V22.0 and Carrier or suspected carrier of Group B streptococcus V02.51 [facility] [facility] [id number] [place] [address] Aug, Supervision of normal first V22.0 and Gestational hypertension 642.30 [facility] [facility] [id number] [place] [address] Aug, Supervision of normal first V22.0 [facility] [facility] [id number] [place] [address] Aug, [place] [id number] [place] [address] Aug, Supervision of normal first V22.0 and Elevated blood pressure affecting in third trimester, antepartum 642.33 [place] [facility] [id number] [place] [address] July, Supervision of normal first V22.0 [place] [id number] [place] [address] July, Supervision of normal first V22.0 and Abdominal cramping affecting 646.80 [place] [id number] [place] [address] July, Supervision of normal first V22.0 [place] [facility] [id number] [place] [address] July, Supervision of normal first V22.0 and Insomnia 780.52 [place] [facility] [id number] [place] [address] July, Supervision of normal first V22.0 [place] [facility] [id number] [place] [address] July, Supervision of normal first V22.0 [facility] [address] [place] [address] Jun, Supervision of normal first V22.0 and TDAP DX V06.1 [facility] [address], [place] [address] Jun, [facility] [id number] [place] [address] Jun, [facility] [address], [place] [address] May, [facility] [id number] [place] [address] May, [facility] [address], [place] [address] May, [facility] [address], [place] [address] May, [facility] [address], [place] [address] May, [facility] [address], [place] [address] May, [facility] [address], [place] [address] May, [facility] [address], [place] [address] May, [facility] [address], [place] [address] May, [facility] [address], [place] [address] May, [facility] [address], [place] [address] May, [facility] [place] [facility] [address] [id number] [place] [address] May, [facility] [place] [facility] [address] [id number] [place] [address] May, [facility] [place] [facility] [address] [id number] [place] [address] Mar, [facility] [place] [facility] [address] [id number] [place] [address] Mar, [facility] [place] [facility] [address] [id number] [place] [address] Mar, [facility] [place] [facility] [address] [id number] [place] [address] Mar, [facility] [place] [facility] [address] [id number] [place] [address] Mar, [facility] [place] [facility] [address] [id number] [place] [address] Mar, [facility] [place] [facility] [address] [id number] [place] [address] Mar, [facility] [place] [facility] [address] [id number] [place] [address] Feb, [facility] [place] [facility] [address] [id number] [place] [address] Feb, [facility] [place] [facility] [address] [id number] [place] [address] Feb, [facility] [place] [facility] [address] [id number] [place] [address] Feb, [facility] [place] [facility] [address] [id number] [place] [address] Feb, [facility] [place] [facility] [address] [id number] [place] [address] Feb, [facility] [place] [facility] [address] [id number] [place] [address] Feb, [facility] [address], [place] [address] Feb, [facility] [address], [place] [address] Feb, [facility] [address], [place] [address] Feb, [facility] [address], [place] [address] Jan, [facility] [address], [place] [address] Jan, [facility] [address] [place] [address] Jan, [facility] [address] [place] [address] Jan, [facility] [address], [place] [address] Jan, [facility] [address], [place] [address] Jan, [facility] [address], [place] [address] Jan, [facility] [address], [place] [address] Jan, [facility] [address], [place] [address] Jan, [facility] [id number], [place] [address] Jan, IMMUNIZATIONS No Known Immunizations SOCIAL HISTORY Never Assessed REASON FOR VISIT EMR-[facility] [place] PLAN OF CARE VITAL SIGNS MEDICATIONS Unknown Medications RESULTS No Results PROCEDURES No Known procedures INSTRUCTIONS MEDICATIONS ADMINISTERED No Known Medications MEDICAL (GENERAL) HISTORY Type Description Date Medical History History of PCOS Medical History Fainting Medical History Genetic mutation--MTHFR, [id number] Surgical History cholecystectomy 2009 Surgical History lap band 2008 Surgical History foot surgery age 5 Surgical History tonsillectomy and adenoidectomy age 4 Surgical History 2017 Hospitalization History Childbirth
--- OUTSIDE RECORDS SUMMARY | 2018-08-27 22:05 | XMS REPORT ---
Author Author ALONDRA BRASHER Organization [facility] Address [address] [place] [address] Care Team Providers Care Care Transition Coordinator Name Role Phone ANSHU ALONDRA Unavailable PROBLEMS Type Condition ICD9-CM Code JIX87-WP Code Onset Dates Condition Status SNOMED Code Problem History of gestational hypertension Z87.59 Active 021616321 Problem Major depressive disorder, recurrent, moderate F33.1 Active 635698921 Problem Generalized anxiety disorder F41.1 Active 48709114 Problem Normal in multigravida in third trimester Z34.83 Active 14377937 Problem Polycystic ovarian disease E28.2 Active 13064460 Problem Depressive disorder, 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.9 Active 81499793 Problem Elevated blood pressure complicating , antepartum, third trimester O13.3 Active 90880495 ALLERGIES No Information SOCIAL HISTORY Never Assessed PLAN OF CARE Activity Details Follow Up 2 Weeks Reason:ob VITAL SIGNS Height 61 in 2016-06-10 Weight 175.5 lbs 2016-06-10 Temperature 97.8 degrees Fahrenheit 2016-06-10 Heart Rate 76 bpm 2016-06-10 Respiratory Rate 18 2016-06-10 BMI 33.16 kg/m2 2016-06-10 Blood pressure systolic 127 mmHg 2016-06-10 Blood pressure diastolic 82 mmHg 2016-06-10 MEDICATIONS Medication Instructions Dosage Frequency Start Date End Date Duration Status Lansoprazole Active - Orally Once a day 1 tablet 24h Active Prozac 20 MG Orally Once a day 1 capsule in the morning 24h Active Deplin 15 15-90.314 MG Orally Once a day 1 capsule 24h Active Promethazine HCl 25 MG Orally every 4-6 hours 1 tablet as needed May, Active RESULTS Name Result Date Reference Range UA OB DIP (IN HOUSE) 2016-06-10 Glucose Negative Protein Negative PROCEDURES Procedure Date Ordered Result Body Site URINE-NO MICRO June 10, 2016 IMMUNIZATIONS No Known Immunizations MEDICAL (GENERAL) HISTORY Type Description Date Medical History History of PCOS Medical History Fainting Medical History Genetic mutation--MTHFR, [id number] Surgical History cholecystectomy 2009 Surgical History lap band 2009 Surgical History foot surgery age 5 Surgical History tonsillectomy and adenoidectomy Hospitalization History Childbirth
--- OUTSIDE RECORDS SUMMARY | 2018-08-27 22:05 | XMS REPORT ---
Author Author FROILAN SUTTON Organization [facility] Address [address] [place] [address] Care Team Providers Care Pipe Caulker Name Role Phone FROILAN SUTTON Unavailable PROBLEMS Type Condition ICD9-CM Code CDC06-BY Code Onset Dates Condition Status SNOMED Code Problem History of gestational hypertension Z87.59 Active 700872910 Problem Major depressive disorder, recurrent, moderate F33.1 Active 371912146 Problem Generalized anxiety disorder F41.1 Active 00158642 Problem Normal in multigravida in third trimester Z34.83 Active 46654299 Problem Polycystic ovarian disease E28.2 Active 92402147 Problem Depressive disorder, 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.9 Active 01942305 Problem Elevated blood pressure complicating , antepartum, third trimester O13.3 Active 19181749 ALLERGIES Substance Reaction Event Type Date Status N.K.D.A. Unknown Non Drug Allergy May, Unknown SOCIAL HISTORY No smoking Hx information available PLAN OF CARE Activity Details Follow Up as scheduled Reason: VITAL SIGNS Height 61 in 2016-05-02 Weight 164 lbs 2016-05-02 Temperature 98.2 degrees Fahrenheit 2016-05-02 Heart Rate 80 bpm 2016-05-02 Respiratory Rate 18 2016-05-02 BMI 30.988 kg/m2 2016-05-02 Blood pressure systolic 110 mmHg 2016-05-02 Blood pressure diastolic 80 mmHg 2016-05-02 MEDICATIONS Medication Instructions Dosage Frequency Start Date End Date Duration Status Promethazine HCl 25 MG Orally every 4-6 hours 1 tablet as needed May, Active - Orally Once a day 1 tablet 24h Active Deplin 15 15-90.314 MG Orally Once a day 1 capsule 24h Active Zithromax Z-Brian 250 MG Orally Once a day 2 tablets on the first day, then 1 tablet daily for 4 days 24h Active Prozac 20 MG Orally Once a day 1 capsule in the morning 24h Active RESULTS Name Result Date Reference Range UA LONG DIP (IN HOUSE) 2016-05-02 Lot # [id number] Exp date 01/2017 Clarity slightly cloudy Color yellow Odor no GLU negative GEORGI negative KET 1+ SG 1.015 BLO negative pH 7.0 Protein negative URO 0.2 NIT negative RASHAD 2+ Lot # Exp date CULTURE, URINE 2016-05-02 Urine Culture, Routine Final report Result 1 No growth PROCEDURES Procedure Date Ordered Related Diagnosis Body Site URINALYSIS, AUTO, W/O SCOPE May 02, 2016 URINE CULTURE/COLONY COUNT May 02, 2016 THER/PROPH/DIAG INJ, SC/IM May 02, 2016 PHENERGAN (IM) 25 MG (25 MG/ML) May 02, 2016 Office Visit, Est Pt., Level 3 May 02, 2016 IMMUNIZATIONS Vaccine Route Administration Date Status PHENERGAN (IM) 25 MG (25 MG/ML) IM Intramuscular May 02, 2016 Administered
--- OUTSIDE RECORDS SUMMARY | 2018-08-27 22:05 | XMS REPORT ---
Author Author ALONDRA BRASHER [facility] Address [address] [place] [address] Care Team Providers Care Naval Inspector Name Role Phone ALONDRA BRASHER Unavailable PROBLEMS Type Condition ICD9-CM Code IMP35-TS Code Onset Dates Condition Status SNOMED Code Problem History of gestational hypertension Z87.59 Active 981319465 Problem Major depressive disorder, recurrent, moderate F33.1 Active 641795940 Problem Generalized anxiety disorder F41.1 Active 50134583 Problem Normal in multigravida in third trimester Z34.83 Active 14833459 Problem Polycystic ovarian disease E28.2 Active 72560288 Problem Depressive disorder, 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.9 Active 48929701 Problem Elevated blood pressure complicating , antepartum, third trimester O13.3 Active 85915115 ALLERGIES No Information SOCIAL HISTORY Never Assessed PLAN OF CARE VITAL SIGNS Height 61 in 2016-06-20 Blood pressure systolic 130 mmHg 2016-06-20 Blood pressure diastolic 88 mmHg 2016-06-20 MEDICATIONS Unknown Medications RESULTS No Results PROCEDURES No Known procedures IMMUNIZATIONS No Known Immunizations MEDICAL (GENERAL) HISTORY Type Description Date Medical History History of PCOS Medical History Fainting Medical History Genetic mutation--MTHFR, [id number] Surgical History cholecystectomy 2009 Surgical History lap band 2009 Surgical History foot surgery age 5 Surgical History tonsillectomy and adenoidectomy Hospitalization History Childbirth
--- OUTSIDE RECORDS SUMMARY | 2018-08-27 22:05 | XMS REPORT ---
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 July, Active 00390914 Problem PCOS (polycystic ovarian syndrome) E28.2 Oct, Active 51674494 Problem MTHFR gene mutation E72.12 Active 67184540 Problem History of laparoscopic adjustable gastric banding Z98.84 July, Active 870283535 Problem Migraine without aura and without status migrainosus, not intractable G43.009 Active 891497392 Problem Vitamin D deficiency E55.9 Dec, Active 86334123 Problem Seasonal allergic rhinitis J30.2 May, Active 199331894 Problem Generalized anxiety disorder F41.1 Active 84622452 Problem Major depressive disorder, recurrent, moderate F33.1 Active 891177056 ALLERGIES No Information ENCOUNTERS Encounter Location Date Diagnosis [address] [place] [address] Jun, [facility] [address] [address] May, Overweight (BMI 25.0-29.9) E66.3 [address] [place] [address] May, Major depressive disorder, recurrent, moderate F33.1 ; Generalized anxiety disorder F41.1 and Overweight (BMI 25.0-29.9) E66.3 [facility] [address] [place] [address] Mar, Overweight E66.3 [facility] [place] [address] [place] [address] Mar, Generalized anxiety disorder F41.1 ; Major depressive disorder, recurrent, moderate F33.1 ; MTHFR gene mutation E72.12 ; Polycystic ovarian disease E28.2 ; Migraine without aura and without status migrainosus, not intractable G43.009 and Overweight E66.3 [facility] [id number] [place] [address] Feb, [facility] [id number] [place] [address] Aug, [facility] [id number] [place] [address] May, [facility] [id number] [place] [address] July, Generalized anxiety disorder F41.1 [id number] [place] [address] July, Major depressive disorder, recurrent, moderate F33.1 and Generalized anxiety disorder F41.1 [id number] [place] [address] July, Generalized anxiety disorder F41.1 [id number] [place] [address] Jun, Depressive disorder, 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.9 and Anxiety state, unspecified F41.1 [id number] [place] [address] May, [facility] [id number] [place] [address] May, [facility] [id number] [place] [address] May, [facility] [id number] [place] [address] May, Elevated blood pressure complicating , antepartum, third trimester O13.3 [facility] [id number] [place] [address] May, Elevated blood pressure complicating , antepartum, third trimester O13.3 [id number] [place] [address] May, Normal in multigravida in third trimester Z34.83 ; Elevated blood pressure complicating , antepartum, third trimester O13.3 and 34 weeks gestation of Z3A.34 [facility] [id number] [place] [address] May, [facility] [id number] [place] [address] May, Normal in multigravida in third trimester Z34.83 and 33 weeks gestation of Z3A.33 [facility] [id number] [place] [address] 27 May, 2016 Normal in multigravida in third trimester Z34.83 and 31 weeks gestation of Z3A.31 [facility] [id number] [place] [address] May, Normal in multigravida in third trimester Z34.83 ; 29 weeks gestation of Z3A.29 and Encounter for immunization Z23 [id number] [place] [address] 02 May, 2016 28 weeks gestation of Z3A.28 [facility] [id number] [place] [address] Mar, Gastroenteritis K52.9 [id number] [place] [address] Mar, Normal in multigravida in second trimester Z34.82 and 25 weeks gestation of Z3A.25 [facility] [id number] [place] [address] Feb, [facility] [id number] [place] [address] Feb, Normal in multigravida in second trimester Z34.82 ; 21 weeks gestation of Z3A.21 and UTI in , second trimester O23.42 [facility] [id number] [place] [address] 14 Jan, 2016 Normal in second trimester Z34.92 [facility] [id number] [place] [address] Jan, [address] [address] Dec, Normal in first trimester Z34.91 and 12 weeks gestation of Z3A.12 [address] [address] Nov, Normal in first trimester Z34.91 ; 8 weeks gestation of Z3A.08 and Encounter for immunization Z23 [address] [address] Oct, [facility] [id number] [place] [address] Oct, test positive Z32.01 [facility] [address] [id number] Jan, Encounter for dental examination Z01.20 and Dental caries K02.9 [id number] [place] [address] Jan, [facility] [id number] [place] [address] Jan, [facility] [id number] [place] [address] Jan, Abnormal uterine bleeding N93.9 [facility] [id number] [place] [id number] Dec, Encounter for dental examination Z01.20 [facility] [id number] [place] [id number] Dec, Encounter for dental examination Z01.20 [address] [place] [address] Dec, Sinusitis J32.9 [address] [id number] [place] [address] 07 Dec, 2014 Acute nasopharyngitis [common cold] J00 [facility] [address] [id number] [place] [address] Dec, Sinusitis J32.9 [id number] [place] [address] Oct, [address] [address] Oct, Routine follow-up V24.2 ; hypertension 642.94 ; General counseling on prescription of oral contraceptives V25.01 ; Migraine 346.90 ; Depression 311 and GERD (gastroesophageal reflux disease) 530.81 [id number] [place] [address] Sep, [id number] [place] [address] Sep, Headache 784.0 ; hypertension 642.94 and Patient is a currently breast-feeding mother V24.1 [id number] [place] [address] Sep, hypertension 642.94 [id number] [place] [address] Sep, [facility] [id number] [place] [address] Sep, Gestational proteinuria, 646.24 [id number] [place] [address] Sep, Gestational proteinuria, 646.24 [id number] [place] [address] Aug, [id number] [place] [address] Aug, Supervision of normal first V22.0 and Carrier or suspected carrier of Group B streptococcus V02.51 [id number] [place] [address] Aug, Supervision of normal first V22.0 and Gestational hypertension 642.30 [id number] [place] [address] Aug, Supervision of normal first V22.0 [address] [address] Aug, [address] [id number] [place] [address] Aug, Supervision of normal first V22.0 and Elevated blood pressure affecting in third trimester, antepartum 642.33 [address] [address] [id number] [place] [address] July, Supervision of normal first V22.0 [id number] [place] [address] July, Supervision of normal first V22.0 and Abdominal cramping affecting 646.80 [id number] [place] [address] July, Supervision of normal first V22.0 [id number] [place] [address] July, Supervision of normal first V22.0 and Insomnia 780.52 [id number] [place] [address] July, Supervision of normal first V22.0 [id number] [place] [address] July, Supervision of normal first V22.0 [facility] [id number] [address] 29 Jun, 2014 Supervision of normal first V22.0 and TDAP DX V06.1 [facility] [address] [address] 14 Jun, 2014 [facility] [address] [address] Jun, [facility] [address] [address] May, [facility] [id number] [place] [address] May, [facility] [id number] [address] May, [facility] [address] [place] [address] May, [facility] [address] [address] May, [facility] [address] [address] May, [facility] [address] [address] May, [facility] [address] [address] May, 2014 [facility] [address] [address] May, [facility] [address] [address] May, 2014 [facility] [address] [address] May, 2014 [facility] [address] [address] May, [facility] [place] [facility] [address] [id number] [place] [address] May, [facility] [place] [facility] [address] [id number] [place] [address] Mar, [facility] [place] [facility] [address] [id number] [place] [address] Mar, [facility] [place] [facility] [address] [id number] [place] [address] Mar, [facility] [place] [facility] [address] [id number] [place] [address] Mar, [facility] [place] [facility] [address] [id number] [place] [address] Mar, [facility] [place] [facility] [address] [id number] [place] [address] Mar, [facility] [place] [facility] [address] [id number] [place] [address] Mar, [facility] [place] [facility] [address] [id number] [place] [address] Feb, [facility] [place] [facility] [address] [id number] [place] [address] Feb, [facility] [place] [facility] [address] [id number] [place] [address] Feb, [facility] [place] [facility] [address] [id number] [place] [address] Feb, [facility] [place] [facility] [address] [id number] [place] [address] Feb, [facility] [place] [facility] [address] [id number] [place] [address] Feb, [facility] [place] [facility] [address] [id number] [place] [address] Feb, [facility] [place] [facility] [address] [address] Feb, [facility] [address] [address] Feb, [facility] [address] [address] Feb, [facility] [address] [address] Jan, [facility] [address] [address] Jan, [facility] [address] [place] [address] Jan, [facility] [address] [address] Jan, [facility] [address] [place] [address] Jan, [facility] [address] [address] Jan, [facility] [address] [address] Jan, [facility] [address] [address] Jan, [facility] [address] [address] Jan, [facility] [id number] [address] Jan, IMMUNIZATIONS No Known Immunizations SOCIAL HISTORY Never Assessed REASON FOR VISIT [facility]MR[facility] PLAN OF CARE VITAL SIGNS MEDICATIONS Medication Instructions Dosage Frequency Start Date End Date Duration Status Lansoprazole 30 mg 1 capsule by Oral route 1 time per day Jan, Active Classic 28-0.8 mg 1 Tablet by Oral route 1 time per day May, Active Zofran ODT 8 mg 1 tablet by Oral route every 8 hours PRN nausea or vomiting May, Active Amoxicillin 500 mg 1 capsule by Oral route 2 times per day for 7 day(s) Jan, Active Keflex 500 mg take 1 capsule by Oral route 3 times per day for 7 days May, Active Zoloft 25 mg take 1 tablet (25 mg) by oral route once daily May, Active RESULTS No Results PROCEDURES No Known procedures INSTRUCTIONS MEDICATIONS ADMINISTERED No Known Medications MEDICAL (GENERAL) HISTORY Type Description Date Medical History History of PCOS Medical History Fainting Medical History Genetic mutation--MTHFR, [id number] Surgical History cholecystectomy 2008 Surgical History lap band 2009 Surgical History foot surgery age 5 Surgical History tonsillectomy and adenoidectomy age 4 Surgical History 2017 Hospitalization History Childbirth
--- OUTSIDE RECORDS SUMMARY | 2018-08-27 22:05 | XMS REPORT ---
Author Author BYRON ROWE Organization [facility] Address [address] [place] [address] Care Team Providers Care Solid Die Cutter Name Role Phone BYRON ROWE Unavailable PROBLEMS Type Condition ICD9-CM Code PWP98-OJ Code Onset Dates Condition Status SNOMED Code Problem History of gestational hypertension Z87.59 Active 519025225 Problem Major depressive disorder, recurrent, moderate F33.1 Active 476983100 Problem Generalized anxiety disorder F41.1 Active 46365553 Problem Normal in multigravida in third trimester Z34.83 Active 11073748 Problem Polycystic ovarian disease E28.2 Active 87276392 Problem Depressive disorder, 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.9 Active 08764653 Problem Elevated blood pressure complicating , antepartum, third trimester O13.3 Active 77370373 ALLERGIES Substance Reaction Event Type Date Status N.K.D.A. Unknown Non Drug Allergy Mar, Unknown SOCIAL HISTORY No smoking Hx information available PLAN OF CARE Activity Details Follow Up prn Reason: VITAL SIGNS Height 61 in 2016-04-26 Weight 168.8 lbs 2016-04-26 Temperature 97.7 degrees Fahrenheit 2016-04-26 Heart Rate 76 bpm 2016-04-26 Respiratory Rate 18 2016-04-26 BMI 31.89 kg/m2 2016-04-26 Blood pressure systolic 114 mmHg 2016-04-26 Blood pressure diastolic 88 mmHg 2016-04-26 MEDICATIONS Medication Instructions Dosage Frequency Start Date End Date Duration Status Zithromax Z-Brian 250 MG Orally Once a day 2 tablets on the first day, then 1 tablet daily for 4 days 24h Active Prozac 20 MG Orally Once a day 1 capsule in the morning 24h Active Deplin 15 15-90.314 MG Orally Once a day 1 capsule 24h Active - Orally Once a day 1 tablet 24h Active RESULTS No Results PROCEDURES Procedure Date Ordered Related Diagnosis Body Site Office Visit, Est Pt., Level 3 Apr 26, 2016 IMMUNIZATIONS No Known Immunizations
--- OUTSIDE RECORDS SUMMARY | 2018-08-27 22:05 | XMS REPORT ---
Author Author ALONDRA BRASHER [facility] Address [address] [place] [address] Care Team Providers Care Rn Tele Name Role Phone ALONDRA BRASHER Unavailable PROBLEMS Type Condition ICD9-CM Code GLX68-QL Code Onset Dates Condition Status SNOMED Code Problem History of gestational hypertension Z87.59 Active 586177690 Problem Major depressive disorder, recurrent, moderate F33.1 Active 803589623 Problem Generalized anxiety disorder F41.1 Active 75811576 Problem Normal in multigravida in third trimester Z34.83 Active 49618702 Problem Polycystic ovarian disease E28.2 Active 40257643 Problem Depressive disorder, 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.9 Active 05478508 Problem Elevated blood pressure complicating , antepartum, third trimester O13.3 Active 16048291 ALLERGIES No Information SOCIAL HISTORY Never Assessed PLAN OF CARE VITAL SIGNS MEDICATIONS Unknown Medications RESULTS No Results PROCEDURES No Known procedures IMMUNIZATIONS No Known Immunizations MEDICAL (GENERAL) HISTORY Type Description Date Medical History History of PCOS Medical History Fainting Medical History Genetic mutation--MTHFR, [id number] Surgical History cholecystectomy 2008 Surgical History lap band 2008 Surgical History foot surgery age 5 Surgical History tonsillectomy and adenoidectomy Hospitalization History Childbirth
--- OUTSIDE RECORDS SUMMARY | 2018-08-27 22:05 | XMS REPORT ---
Author Author IRIS WONG Organization [facility] Address [address] [place] [address] Care Team Providers Care Makeup Instructor Name Role Phone IRIS WONG Unavailable PROBLEMS Type Condition ICD9-CM Code WAJ00-MS Code Onset Dates Condition Status SNOMED Code Problem History of gestational hypertension Z87.59 Active 988305969 Problem Major depressive disorder, recurrent, moderate F33.1 Active 708706058 Problem Generalized anxiety disorder F41.1 Active 51887133 Problem Normal in multigravida in third trimester Z34.83 Active 60164203 Problem Polycystic ovarian disease E28.2 Active 08380542 Problem Depressive disorder, 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.9 Active 91328495 Problem Elevated blood pressure complicating , antepartum, third trimester O13.3 Active 75668253 ALLERGIES No Information SOCIAL HISTORY Never Assessed PLAN OF CARE Activity Details Follow Up Next available . Reason:anxiety VITAL SIGNS MEDICATIONS Medication Instructions Dosage Frequency Start Date End Date Duration Status SudoGest 30 MG Orally every 6 hrs 1 tablet as needed 6h Active Prozac 20 MG Orally Once a day 1 capsule in the morning 24h Active Lansoprazole Active Deplin 15 15-90.314 MG Orally Once a day 1 capsule 24h Active RESULTS No Results PROCEDURES Procedure Date Ordered Result Body Site Psychotherapy, patient &/family, 45 minutes, established patient August 02, 2016 IMMUNIZATIONS No Known Immunizations MEDICAL (GENERAL) HISTORY Type Description Date Medical History History of PCOS Medical History Fainting Medical History Genetic mutation--MTHFR, [id number] Surgical History cholecystectomy 2009 Surgical History lap band 2009 Surgical History foot surgery age 5 Surgical History tonsillectomy and adenoidectomy Hospitalization History Childbirth
--- OUTSIDE RECORDS SUMMARY | 2018-08-27 22:06 | XMS REPORT ---
Author Author ALONDRA BRASHER Organization [facility] Address [address] [place] [address] Care Team Providers Care Environmental Health Physician Name Role Phone ALONDRA BRASHER Unavailable PROBLEMS Type Condition ICD9-CM Code DND12-JB Code Onset Dates Condition Status SNOMED Code Problem History of gestational hypertension Z87.59 Active 300323304 Problem Major depressive disorder, recurrent, moderate F33.1 Active 688000553 Problem Generalized anxiety disorder F41.1 Active 76915364 Problem Normal in multigravida in third trimester Z34.83 Active 10951918 Problem Polycystic ovarian disease E28.2 Active 77512183 Problem Depressive disorder, 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.9 Active 80577044 Problem Elevated blood pressure complicating , antepartum, third trimester O13.3 Active 67161296 ALLERGIES No Information SOCIAL HISTORY Never Assessed PLAN OF CARE Activity Details Follow Up 2 Weeks Reason:ob VITAL SIGNS Height 61 in 2016-05-13 Weight 165.6 lbs 2016-05-13 Temperature 98.2 degrees Fahrenheit 2016-05-13 Heart Rate 77 bpm 2016-05-13 Respiratory Rate 18 2016-05-13 BMI 31.29 kg/m2 2016-05-13 Blood pressure systolic 121 mmHg 2016-05-13 Blood pressure diastolic 78 mmHg 2016-05-13 MEDICATIONS Medication Instructions Dosage Frequency Start Date End Date Duration Status - Orally Once a day 1 tablet 24h Active Prozac 20 MG Orally Once a day 1 capsule in the morning 24h Active Promethazine HCl 25 MG Orally every 4-6 hours 1 tablet as needed May, Active Deplin 15 15-90.314 MG Orally Once a day 1 capsule 24h Active RESULTS Name Result Date Reference Range UA LONG DIP (IN HOUSE) 2016-05-13 Lot # [id number] Exp date Clarity Clear Color Brown Odor Yes GLU Negative GEORGI 1+ KET Trace SG >=1.030 BLO Negative pH 5.0 Protein 1+ URO 0.2 NIT Negative RASHAD 1+ Lot # Exp date CULTURE, URINE 2016-05-13 Urine Culture, Routine Final report Result 1 No growth PROCEDURES Procedure Date Ordered Result Body Site URINALYSIS, AUTO, W/O SCOPE May 13, 2016 TDAP (BOOSTRIX) May 13, 2016 URINE CULTURE/COLONY COUNT May 13, 2016 SINGLE IMMUNIZATION ADMIN May 13, 2016 IMMUNIZATIONS Vaccine Route Administration Date Status TDAP (BOOSTRIX) IM Intramuscular May 13, 2016 Administered MEDICAL (GENERAL) HISTORY Type Description Date Medical History History of PCOS Medical History Fainting Medical History Genetic mutation--MTHFR, [id number] Surgical History cholecystectomy 2008 Surgical History lap band 2008 Surgical History foot surgery age 5 Surgical History tonsillectomy and adenoidectomy Hospitalization History Childbirth
--- OUTSIDE RECORDS SUMMARY | 2018-08-27 22:06 | XMS REPORT ---
Author Author ALONDRA BRASHER [facility] Address [address] [place] [address] Care Team Providers Care Data Entry Clerk Name Role Phone ALONDRA BRASHER Unavailable PROBLEMS Type Condition ICD9-CM Code [id number] Code Onset Dates Condition Status SNOMED Code Problem History of gestational hypertension Z87.59 Active 964978515 Problem Major depressive disorder, recurrent, moderate F33.1 Active 724285870 Problem Generalized anxiety disorder F41.1 Active 67000921 Problem Normal in multigravida in third trimester Z34.83 Active 06551698 Problem Polycystic ovarian disease E28.2 Active 75792099 Problem Depressive disorder, 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.9 Active 32277563 Problem Elevated blood pressure complicating , antepartum, third trimester O13.3 Active 58645435 ALLERGIES No Information SOCIAL HISTORY Never Assessed PLAN OF CARE VITAL SIGNS MEDICATIONS Unknown Medications RESULTS No Results PROCEDURES No Known procedures IMMUNIZATIONS No Known Immunizations MEDICAL (GENERAL) HISTORY Type Description Date Medical History History of PCOS Medical History Fainting Medical History Genetic mutation--MTHFR, [id number] Surgical History cholecystectomy 2008 Surgical History lap band 2008 Surgical History foot surgery age 5 Surgical History tonsillectomy and adenoidectomy Hospitalization History Childbirth
--- OUTSIDE RECORDS SUMMARY | 2018-08-27 22:06 | XMS REPORT ---
Author Author MYNOR ASHFORD Organization [facility] Address [address] [place] [address] Care Team Providers Care Community Engagement Specialist Name Role Phone MYNOR ASHFORD Unavailable PROBLEMS Type Condition ICD9-CM Code [id number] Code Onset Dates Condition Status SNOMED Code Problem History of gestational hypertension Z87.59 Active 558212325 Problem Major depressive disorder, recurrent, moderate F33.1 Active 991175154 Problem Generalized anxiety disorder F41.1 Active 19768261 Problem Normal in multigravida in third trimester Z34.83 Active 86336557 Problem Polycystic ovarian disease E28.2 Active 37487325 Problem Depressive disorder, 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.9 Active 72165661 Problem Elevated blood pressure complicating , antepartum, third trimester O13.3 Active 01250512 ALLERGIES No Information SOCIAL HISTORY Never Assessed PLAN OF CARE VITAL SIGNS MEDICATIONS Unknown Medications RESULTS No Results PROCEDURES No Known procedures IMMUNIZATIONS No Known Immunizations MEDICAL (GENERAL) HISTORY Type Description Date Medical History History of PCOS Medical History Fainting Medical History Genetic mutation--MTHFR, [id number] Surgical History cholecystectomy 2008 Surgical History lap band 2008 Surgical History foot surgery age 5 Surgical History tonsillectomy and adenoidectomy Hospitalization History Childbirth
--- OUTSIDE RECORDS SUMMARY | 2018-08-27 22:06 | XMS REPORT ---
Author Author IRIS WONG Organization [facility] Address [address] [place] [address] Care Team Providers Care Nuclear Control Operator Name Role Phone IRIS WONG Unavailable PROBLEMS Type Condition ICD9-CM Code [id number] Code Onset Dates Condition Status SNOMED Code Problem History of gestational hypertension Z87.59 Active 544651012 Problem Major depressive disorder, recurrent, moderate F33.1 Active 910771910 Problem Generalized anxiety disorder F41.1 Active 15401719 Problem Normal in multigravida in third trimester Z34.83 Active 86192591 Problem Polycystic ovarian disease E28.2 Active 55640808 Problem Depressive disorder, 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.9 Active 58106687 Problem Elevated blood pressure complicating , antepartum, third trimester O13.3 Active 45405480 ALLERGIES No Information SOCIAL HISTORY Never Assessed PLAN OF CARE Activity Details Follow Up Next available Reason:anxiety VITAL SIGNS MEDICATIONS Unknown Medications RESULTS No Results PROCEDURES Procedure Date Ordered Result Body Site Psychotherapy, patient &/family, 45 minutes, established patient August 12, 2016 IMMUNIZATIONS No Known Immunizations MEDICAL (GENERAL) HISTORY Type Description Date Medical History History of PCOS Medical History Fainting Medical History Genetic mutation--MTHFR, [id number] Surgical History cholecystectomy 2009 Surgical History lap band 2009 Surgical History foot surgery age 5 Surgical History tonsillectomy and adenoidectomy Hospitalization History Childbirth
--- OUTSIDE RECORDS SUMMARY | 2018-08-27 22:06 | XMS REPORT ---
Author Author REMEDIOS Barahona Organization [facility] Address [address] [place] [address] Care Team Providers Care Merchant Patroller Name Role Phone REMEDIOS Barahona Unavailable PROBLEMS Type Condition ICD9-CM Code QUQ98-EC Code Onset Dates Condition Status SNOMED Code Problem History of gestational hypertension Z87.59 Active 158881512 Problem Major depressive disorder, recurrent, moderate F33.1 Active 553695682 Problem Generalized anxiety disorder F41.1 Active 86029527 Problem Normal in multigravida in third trimester Z34.83 Active 47519874 Problem Polycystic ovarian disease E28.2 Active 91268569 Problem Depressive disorder, 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.9 Active 48744045 Problem Elevated blood pressure complicating , antepartum, third trimester O13.3 Active 13247119 ALLERGIES No Known Allergies SOCIAL HISTORY Never Assessed PLAN OF CARE Activity Details Follow Up 2 Weeks Reason: VITAL SIGNS Height 61 in 2016-08-12 Weight 150.1 lbs 2016-08-12 Heart Rate 68 bpm 2016-08-12 Respiratory Rate 18 2016-08-12 BMI 28.36 kg/m2 2016-08-12 Blood pressure systolic 132 mmHg 2016-08-12 Blood pressure diastolic 90 mmHg 2016-08-12 MEDICATIONS Medication Instructions Dosage Frequency Start Date End Date Duration Status Trintellix 5 mg orally once a day 1 tablet 24h July, Aug, 30 days Active EnLyte - Orally Once a day as directed 24h July, 90 days Active Lansoprazole Active EnBrace HR - Orally Once a day 1 capsule 24h July, 90 days Active RESULTS No Results PROCEDURES No Known procedures IMMUNIZATIONS No Known Immunizations MEDICAL (GENERAL) HISTORY Type Description Date Medical History History of PCOS Medical History Fainting Medical History Genetic mutation--MTHFR, [id number] Surgical History cholecystectomy 2009 Surgical History lap band 2009 Surgical History foot surgery age 5 Surgical History tonsillectomy and adenoidectomy Hospitalization History Childbirth
--- OUTSIDE RECORDS SUMMARY | 2018-08-27 22:06 | XMS REPORT ---
Author Author ALONDRA BRASHER [facility] Address [address] [place] [address] Care Team Providers Care Oracle Programmer Name Role Phone ALONDRA BRASHER Unavailable PROBLEMS Type Condition ICD9-CM Code [id number]-[id number] Code Onset Dates Condition Status SNOMED Code Problem History of gestational hypertension Z87.59 Active 715443698 Problem Major depressive disorder, recurrent, moderate F33.1 Active 397351013 Problem Generalized anxiety disorder F41.1 Active 12133464 Problem Normal in multigravida in third trimester Z34.83 Active 32042768 Problem Polycystic ovarian disease E28.2 Active 70886866 Problem Depressive disorder, 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 Unknown Non Drug Allergy Feb, Unknown SOCIAL HISTORY No smoking Hx information available PLAN OF CARE Activity Details Follow Up 4 Weeks Reason:ob VITAL SIGNS Height 61 in 2016-03-18 Weight 172 lbs 2016-03-18 Temperature 98.2 degrees Fahrenheit 2016-03-18 Heart Rate 70 bpm 2016-03-18 Respiratory Rate 20 2016-03-18 BMI 32.499 kg/m2 2016-03-18 Blood pressure systolic 104 mmHg 2016-03-18 Blood pressure diastolic 70 mmHg 2016-03-18 MEDICATIONS Medication Instructions Dosage Frequency Start Date End Date Duration Status - Orally Once a day 1 tablet 24h Active Prozac 20 MG Orally Once a day 1 capsule in the morning 24h Active Deplin 15 15-90.314 MG Orally Once a day 1 capsule 24h Active RESULTS Name Result Date Reference Range UA LONG DIP (IN HOUSE) 2016-03-18 Lot # [id number] Exp date 02/14 Clarity clear Color mayda Odor none GLU negative GEORGI negative KET negative SG >=1.030 BLO negative pH 5.5 Protein negative URO 0.2 NIT negative RASHAD trace Lot # Exp date CULTURE, URINE 2016-03-18 Urine Culture, Routine Final report Result 1 No growth PROCEDURES Procedure Date Ordered Related Diagnosis Body Site URINE-NO MICRO Mar 18, 2016 Office Visit, Est Pt., Level 3 Mar 18, 2016 URINE CULTURE/COLONY COUNT Mar 18, 2016 URINALYSIS, AUTO, W/O SCOPE Mar 18, 2016 IMMUNIZATIONS No Known Immunizations
--- OUTSIDE RECORDS SUMMARY | 2018-08-27 22:06 | XMS REPORT ---
Author Author MYNOR ASHFORD Organization [facility] Address [address] [place] [address] Care Team Providers Care Calcine Furnace Loader Name Role Phone MYNOR ASHFORD Unavailable PROBLEMS Type Condition ICD9-CM Code FGY76-SO Code Onset Dates Condition Status SNOMED Code Problem History of gestational hypertension Z87.59 Active 190806775 Problem Major depressive disorder, recurrent, moderate F33.1 Active 605850161 Problem Generalized anxiety disorder F41.1 Active 36344467 Problem Normal in multigravida in third trimester Z34.83 Active 40332063 Problem Polycystic ovarian disease E28.2 Active 25119704 Problem Depressive disorder, 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.9 Active 79371170 Problem Elevated blood pressure complicating , antepartum, third trimester O13.3 Active 32093616 ALLERGIES No Information SOCIAL HISTORY Never Assessed PLAN OF CARE VITAL SIGNS MEDICATIONS Unknown Medications RESULTS Name Result Date Reference Range URINE PROTEIN 24 HOUR 2016-06-20 Protein,Total,Urine 23.3 Not Estab. Prot,24hr calculated 97.9 30.0-150.0 PROCEDURES Procedure Date Ordered Result Body Site ASSAY OF PROTEIN, URINE June 20, 2016 IMMUNIZATIONS No Known Immunizations MEDICAL (GENERAL) HISTORY Type Description Date Medical History History of PCOS Medical History Fainting Medical History Genetic mutation--MTHFR, [id number] Surgical History cholecystectomy 2009 Surgical History lap band 2009 Surgical History foot surgery age 5 Surgical History tonsillectomy and adenoidectomy Hospitalization History Childbirth
--- OUTSIDE RECORDS SUMMARY | 2018-08-27 22:06 | XMS REPORT ---
Author Author ALONDRA BRASHER [facility] Address [address] [place] [address] Care Team Providers Care Umbrella Repairer Name Role Phone BRASHERALONDRA Unavailable PROBLEMS Type Condition ICD9-CM Code NWQ68-RU Code Onset Dates Condition Status SNOMED Code Problem History of gestational hypertension Z87.59 Active 754407090 Problem Major depressive disorder, recurrent, moderate F33.1 Active 950057709 Problem Generalized anxiety disorder F41.1 Active 43905294 Problem Normal in multigravida in third trimester Z34.83 Active 69149470 Problem Polycystic ovarian disease E28.2 Active 05771845 Problem Depressive disorder, 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.9 Active 04375157 Problem Elevated blood pressure complicating , antepartum, third trimester O13.3 Active 65432959 ALLERGIES Unknown Allergies SOCIAL HISTORY No smoking Hx information available PLAN OF CARE Activity Details Follow Up 4 Weeks Reason:ob VITAL SIGNS Height 61 in 2016-04-15 Weight 169.9 lbs 2016-04-15 Temperature 97.6 degrees Fahrenheit 2016-04-15 Heart Rate 88 bpm 2016-04-15 Respiratory Rate 20 2016-04-15 BMI 32.102 kg/m2 2016-04-15 Blood pressure systolic 136 mmHg 2016-04-15 Blood pressure diastolic 80 mmHg 2016-04-15 MEDICATIONS Medication Instructions Dosage Frequency Start Date End Date Duration Status Prozac 20 MG Orally Once a day 1 capsule in the morning 24h Active - Orally Once a day 1 tablet 24h Active Deplin 15 15-90.314 MG Orally Once a day 1 capsule 24h Active RESULTS Name Result Date Reference Range UA OB DIP (IN HOUSE) 2016-04-15 Glucose Negative Protein Negative GLUCOSE JACINTA 1 HOUR 2016-04-15 Gestational Diabetes Screen 85 65-139 CBC 2016-04-15 WBC 7.2 3.4-10.8 RBC 3.72 3.77-5.28 Hemoglobin 11.6 11.1-15.9 Hematocrit 34.5 34.0-46.6 MCV 93 79-97 MCH 31.2 26.6-33.0 MCHC 33.6 31.5-35.7 RDW 14.1 12.3-15.4 Platelets 232 150-379 Neutrophils 79 Lymphs 16 Monocytes 5 Eos 0 Basos 0 Immature Cells Neutrophils (Absolute) 5.7 1.4-7.0 Lymphs (Absolute) 1.1 0.7-3.1 Monocytes(Absolute) 0.4 0.1-0.9 Eos (Absolute) 0.0 0.0-0.4 Baso (Absolute) 0.0 0.0-0.2 Immature Granulocytes 0 Immature Grans (Abs) 0.0 0.0-0.1 NRBC Hematology Comments: PROCEDURES Procedure Date Ordered Related Diagnosis Body Site URINE-NO MICRO Apr 15, 2016 COMPLETE CBC W/AUTO DIFF WBC Apr 15, 2016 Office Visit, Est Pt., Level 3 Apr 15, 2016 GLUCOSE TEST Apr 15, 2016 VENIPUNCT, ROUTINE* Apr 15, 2016 IMMUNIZATIONS No Known Immunizations
--- OUTSIDE RECORDS SUMMARY | 2018-08-27 22:06 | XMS REPORT ---
Author Author ALONDRA BRASHER Organization [facility] Address [address] [place] [address] Care Team Providers Care Traveling Nurse Name Role Phone ALONDRA BRASHER Unavailable PROBLEMS Type Condition ICD9-CM Code [id number]-UI Code Onset Dates Condition Status SNOMED Code Problem History of gestational hypertension Z87.59 Active 312040032 Problem Major depressive disorder, recurrent, moderate F33.1 Active 143634465 Problem Generalized anxiety disorder F41.1 Active 74373008 Problem Normal in multigravida in third trimester Z34.83 Active 22771589 Problem Polycystic ovarian disease E28.2 Active 36802113 Problem Depressive disorder, 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.9 Active 83282635 Problem Elevated blood pressure complicating , antepartum, third trimester O13.3 Active 95699627 ALLERGIES No Information SOCIAL HISTORY Never Assessed PLAN OF CARE Activity Details Follow Up 2 Weeks Reason:ob VITAL SIGNS Height 61 in 2016-05-27 Weight 169.0 lbs 2016-05-27 Temperature 98.5 degrees Fahrenheit 2016-05-27 Heart Rate 77 bpm 2016-05-27 Respiratory Rate 18 2016-05-27 BMI 31.932 kg/m2 2016-05-27 Blood pressure systolic 126 mmHg 2016-05-27 Blood pressure diastolic 77 mmHg 2016-05-27 MEDICATIONS Medication Instructions Dosage Frequency Start Date End Date Duration Status - Orally Once a day 1 tablet 24h Active Deplin 15 15-90.314 MG Orally Once a day 1 capsule 24h Active Prozac 20 MG Orally Once a day 1 capsule in the morning 24h Active Promethazine HCl 25 MG Orally every 4-6 hours 1 tablet as needed May, Active RESULTS Name Result Date Reference Range UA OB DIP (IN HOUSE) 2016-05-27 Glucose Negative Protein 1+ UA LONG DIP (IN HOUSE) 2016-05-27 Lot # [id number] Exp date Clarity Clear Color DarkYellow Odor Yes GLU Negative GEORGI 1+ KET Trace SG >=1.030 BLO Negative pH 5.5 Protein 1+ URO 0.2 NIT Negative RASHAD 1+ Lot # Exp date PROCEDURES Procedure Date Ordered Result Body Site URINE-NO MICRO May 27, 2016 URINALYSIS, AUTO, W/O SCOPE May 27, 2016 IMMUNIZATIONS No Known Immunizations MEDICAL (GENERAL) HISTORY Type Description Date Medical History History of PCOS Medical History Fainting Medical History Genetic mutation--MTHFR, [id number] Surgical History cholecystectomy 2009 Surgical History lap band 2009 Surgical History foot surgery age 5 Surgical History tonsillectomy and adenoidectomy Hospitalization History Childbirth
[2018-08-27] MEDS ORDERED: BACL10TA (22:07)
[2018-08-27] MEDS ORDERED: SUMA50TA2 (22:07)
[2018-08-27] MEDS ORDERED: VORT20TA (22:07)
[2018-08-27] MEDS ORDERED: TOPI100T11 (22:07)
[2018-08-27] MEDS ORDERED: SPIR100T4 (22:07)
[2018-08-27] MEDS ORDERED: METF-399 (22:07)
--- OUTSIDE RECORDS SUMMARY | 2018-08-27 22:07 | XMS REPORT ---
Author Author ALONDRA BRASHER [facility] Address [address] [place] [address] Care Team Providers Care Camera Repairman Name Role Phone ALONDRA BRASHER Unavailable PROBLEMS Type Condition ICD9-CM Code SEF08-LM Code Onset Dates Condition Status SNOMED Code Problem History of gestational hypertension Z87.59 Active 319409690 Problem Major depressive disorder, recurrent, moderate F33.1 Active 437377342 Problem Generalized anxiety disorder F41.1 Active 01405986 Problem Normal in multigravida in third trimester Z34.83 Active 28314736 Problem Polycystic ovarian disease E28.2 Active 92454092 Problem Depressive disorder, 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
--- OUTSIDE RECORDS SUMMARY | 2018-08-27 22:13 | XMS REPORT | Continuity of Care Document ---
Author Organization Unknown Address Unknown Allergies Active Description Code Type Severity Reaction Onset Reported/Identified Relationship to Patient Clinical Status Yes NKANo Known Allergies NKA Miscellaneous Allergy Unknown N/A 06/03/2008 Medications There is no data. Problems Date Dx Coded Attending Type Code [...] Ot E928.9 ACCIDENT NOS 04/20/2012 Ot V06.1 [id number], COMBINED [ 04/25/2012 Ot V58.32 ENCOUNTER FOR [...] K V72.42 TEST POSITIVE RESULT 01/31/2014 HAROON GLASS ENAMEL MIXER, LASHON A V72.42 TEST POSITIVE RESULT 01/31/2014 HAROON PANTOJAN, LASHON A V72.42 TEST POSITIVE RESULT 01/31/2014 JAYAE GLASS ENAMEL MIXER, SOFYA A V72.42 TEST POSITIVE RESULT 01/31/2014 BRASHER DO, ALONDRA K V72.42 TEST POSITIVE RESULT 01/31/2014 BRASHER DO, ALONDRA K V72.42 TEST POSITIVE RESULT 01/31/2014 MADL GLASS ENAMEL MIXER, KRISTINA L V72.42 TEST POSITIVE RESULT 01/31/2014 HAROON GLASS ENAMEL MIXER, LASHON A V72.42 TEST POSITIVE RESULT 01/31/2014 BRASHER DO, ALONDRA K V72.42 TEST POSITIVE RESULT 01/31/2014 HAROON PANTOJAN, LASHON A V72.42 TEST POSITIVE RESULT 02/07/2014 HAROON PANTOJAN, LASHON A V04.81 FLU SHOT 02/07/2014 HAROON GLASS ENAMEL MIXER, LASHON A V22.0 , NORMAL FIRST 02/07/2014 HAROON GLASS ENAMEL MIXER, LASHON A V04.81 FLU SHOT 02/07/2014 HAROON GLASS ENAMEL MIXER, LASHON A V22.0 , NORMAL FIRST 02/07/2014 RAJOTTE GLASS ENAMEL MIXER, SOFYA A V04.81 FLU SHOT 02/07/2014 RAJOTTE GLASS ENAMEL MIXER, SOFYA A V22.0 , NORMAL FIRST 02/07/2014 BRASHER DO, ALONDRA K V04.81 FLU SHOT 02/07/2014 BRASHER DO, ALONDRA K V22.0 , NORMAL FIRST 02/07/2014 BRASHER DO, ALONDRA K V04.81 FLU SHOT 02/07/2014 BRASHER DO, ALONDRA K V22.0 , NORMAL FIRST 02/07/2014 MADL GLASS ENAMEL MIXER, KRISTINA L V04.81 FLU SHOT 02/07/2014 MADL GLASS ENAMEL MIXER, KRISTINA L V22.0 , NORMAL FIRST 02/07/2014 HAROON GLASS ENAMEL MIXER, LASHON A V04.81 FLU SHOT 02/07/2014 HAROON GLASS ENAMEL MIXER, LASHON A V22.0 , NORMAL FIRST 02/07/2014 BRASHER DO, ALONDRA K V04.81 FLU SHOT 02/07/2014 BRASHER DO, ALONDRA K V22.0 , NORMAL FIRST 02/07/2014 WING PATIÑO APRNIDI A V04.81 FLU SHOT 02/07/2014 LASHON PATIÑO APRN A V22.0 , NORMAL FIRST 03/07/2014 WING [...] V76.2 CERVICAL CANCER SCREENING (PAP SMEAR) 03/07/2014 BRASHER DO ALONDRA K 131.01 TRICHOMONAL VULVOVAGINITIS 03/07/2014 BRASHER DO ALONDRA K 646.50 COMPL OF - ASYMPTOMATIC BACTURIA 03/07/2014 BRASHER DO ALONDRA K V73.81 HPV SCREENING 03/07/2014 BRASHER DO ALONDRA K V74.5 STD SCREEN 03/07/2014 BRASHER DO ALONDRA K V76.2 CERVICAL CANCER SCREENING (PAP SMEAR) 03/07/2014 BRASHER DO ALONDRA K 131.01 TRICHOMONAL VULVOVAGINITIS 03/07/2014 BRASHER DO ALONDRA K 646.50 COMPL OF - ASYMPTOMATIC BACTURIA 03/07/2014 BRASHER DO ALONDRA K V73.81 HPV SCREENING 03/07/2014 BRASHER DO ALONDRA K V74.5 STD SCREEN 03/07/2014 BRASHER DO ALONDRA K V76.2 CERVICAL CANCER SCREENING (PAP SMEAR) 03/07/2014 KRISTINA TRACEY APRN L 131.01 TRICHOMONAL VULVOVAGINITIS 03/07/2014 KRISTINA TRACEY APRN L 646.50 COMPL OF - ASYMPTOMATIC BACTURIA 03/07/2014 KRISTINA TRACEY APRN L V73.81 HPV SCREENING 03/07/2014 KYUNG PERRY KRISTINA L V74.5 STD SCREEN 03/07/2014 KRISTINA TRACEY APRN L V76.2 CERVICAL CANCER SCREENING (PAP SMEAR) 03/07/2014 HAROON GLASS ENAMEL MIXERWING VillegasIDI A 131.01 TRICHOMONAL VULVOVAGINITIS 03/07/2014 HAROON PANTOJAWING VillegasIDI A 646.50 COMPL OF - ASYMPTOMATIC BACTURIA 03/07/2014 HAROON GLASS ENAMEL MIXERLASHON Villegas A V73.81 HPV SCREENING 03/07/2014 HAROON GLASS ENAMEL MIXERLASHON Villegas A V74.5 STD SCREEN 03/07/2014 HAROONLASHON Villegas APRN A V76.2 CERVICAL CANCER SCREENING (PAP SMEAR) 03/07/2014 ALONDRA BRASHER DO K 131.01 TRICHOMONAL VULVOVAGINITIS 03/07/2014 VANESSA BRASHER DOA K 646.50 COMPL OF - ASYMPTOMATIC BACTURIA 03/07/2014 ALONDRA BRASHER DO K V73.81 HPV SCREENING 03/07/2014 ALONDRA BRASHER DO K V74.5 STD SCREEN 03/07/2014 ALONDRA BRASHER DO K V76.2 CERVICAL CANCER SCREENING (PAP SMEAR) 03/07/2014 HAROONLASHON Villegas APRN A 131.01 TRICHOMONAL VULVOVAGINITIS 03/07/2014 HAROONLASHON Villegas APRN A 646.50 COMPL OF - ASYMPTOMATIC BACTURIA 03/07/2014 HAROONWING Villegas APRNIDI A V73.81 HPV SCREENING 03/07/2014 HAROONWING Villegas APRNIDI A V74.5 STD SCREEN 03/07/2014 HAROONLASHON Villegas APRN A V76.2 CERVICAL CANCER SCREENING (PAP SMEAR) 03/30/2014 LEE ANN BANUELOS APRNYL A 788.1 DYSURIA 03/30/2014 LEE ANN BANUELOS APRNYL A V22.2 INCIDENTAL 03/30/2014 BRASHER DO, ALONDRA K 788.1 DYSURIA 03/30/2014 BRASHER DO, ALONDRA K V22.2 INCIDENTAL 03/30/2014 BRASHER DO, ALONDRA K 788.1 DYSURIA 03/30/2014 BRASHER DO, ALONDRA K V22.2 INCIDENTAL 03/30/2014 MADL GLASS ENAMEL MIXER, KRISTINA L 788.1 DYSURIA 03/30/2014 MADL GLASS ENAMEL MIXER, KRISTINA L V22.2 INCIDENTAL 03/30/2014 HARONO GLASS ENAMEL MIXER, LASHON A 788.1 DYSURIA 03/30/2014 HAROON GLASS ENAMEL MIXER, LASHON A V22.2 INCIDENTAL 03/30/2014 BRASHER DO, ALONDRA K 788.1 DYSURIA 03/30/2014 BRASHER DO, ALONDRA K V22.2 INCIDENTAL 03/30/2014 HAROON GLASS ENAMEL MIXER, LASHON A 788.1 DYSURIA 03/30/2014 HAROON GLASS ENAMEL MIXER, LASHON A V22.2 INCIDENTAL 04/04/2014 BRASHER DO, ALONDRA K 256.4 POLYCYSTIC OVARIES 04/04/2014 BRASHER DO, ALONDRA K V02.51 GBS - CARRIER OR SUSPECTED CARRIER 04/04/2014 BRASHER DO, ALONDRA K 256.4 POLYCYSTIC OVARIES 04/04/2014 BRASHER DO, ALONDRA K V02.51 GBS - CARRIER OR SUSPECTED CARRIER 04/04/2014 MADL GLASS ENAMEL MIXER, KRISTINA L 256.4 POLYCYSTIC OVARIES 04/04/2014 MADL GLASS ENAMEL MIXER, KRISTINA L V02.51 GBS - CARRIER OR SUSPECTED CARRIER 04/04/2014 HAROON GLASS ENAMEL MIXER, LASHON A 256.4 POLYCYSTIC OVARIES 04/04/2014 HAROON GLASS ENAMEL MIXER, LASHON A V02.51 GBS - CARRIER OR SUSPECTED CARRIER 04/04/2014 BRASHER DO, ALONDRA K 256.4 POLYCYSTIC OVARIES 04/04/2014 BRASHER DO, ALONDRA K V02.51 GBS - CARRIER OR SUSPECTED CARRIER 04/04/2014 HAROON GLASS ENAMEL MIXER, LASHON A 256.4 POLYCYSTIC OVARIES 04/04/2014 HAROON GLASS ENAMEL MIXER, LASHON A V02.51 GBS - CARRIER OR [...] 04/22/2014 Ot 285.9 04/22/2014 RAMON CAMPBELL L ENGINEERING INSTRUCTOR Ot 244.9 04/22/2014 RAMON CAMPBELL L ENGINEERING INSTRUCTOR Ot 285.9 04/22/2014 RAMON CAMPBELL L ENGINEERING INSTRUCTOR Ot 780.79 04/22/2014 RAMON CAMPBELL L ENGINEERING INSTRUCTOR Ot 599.0 04/22/2014 RAMON CAMPBELL L ENGINEERING INSTRUCTOR Ot 719.40 04/22/2014 RAMON CAMPBELL L ENGINEERING INSTRUCTOR Ot 795.79 04/22/2014 CARLEY VIEYRAIA C GLASS ENAMEL MIXER Ot 789.00 04/22/2014 RAMON CAMPBELL L ENGINEERING INSTRUCTOR Ot 266.2 04/22/2014 RAMON CAMPBELL L ENGINEERING INSTRUCTOR Ot 268.9 04/22/2014 RAMON CAMPBELL L ENGINEERING INSTRUCTOR Ot 620.2 04/22/2014 RAMON CAMPBELL L ENGINEERING INSTRUCTOR Ot 780.79 04/22/2014 RAMON CAMPBELL L ENGINEERING INSTRUCTOR Ot 786.09 04/22/2014 NAVARRO, CAMPBELL L ENGINEERING INSTRUCTOR Ot 789.00 04/22/2014 RAMON CAMPBELL L ENGINEERING INSTRUCTOR Ot 789.00 04/22/2014 RAMON CAMPBELL L ENGINEERING INSTRUCTOR Ot V45.86 04/22/2014 RAMON CAMPBELL L ENGINEERING INSTRUCTOR Ot 256.4 04/22/2014 RAMON CAMPBELL L ENGINEERING INSTRUCTOR Ot 611.6 04/22/2014 RAMON CAMPBELL L ENGINEERING INSTRUCTOR Ot 626.0 04/22/2014 RAMON CAMPBELL L ENGINEERING INSTRUCTOR Ot 787.3 04/22/2014 NAVARRO, CAMPBELL L ENGINEERING INSTRUCTOR Ot 789.00 04/22/2014 RAMON CAMPBELL L ENGINEERING INSTRUCTOR Ot 611.6 04/22/2014 RAMON CAMPBELL L ENGINEERING INSTRUCTOR Ot 787.3 04/22/2014 NAVARRO, CAMPBELL L ENGINEERING INSTRUCTOR Ot 789.00 04/22/2014 LASHON PATIÑO A [place] Ot V22.0 04/27/2014 ANNE MARIE MIXON DO John Ot 275.2 DIS MAGNESIUM METABOLISM 04/27/2014 ANNE MARIE MIXON DO Ot 276.50 VOLUME DEPLETION, UNSPECIFIED 04/27/2014 ANNE MARIE MIXON DO Ot 276.8 HYPOPOTASSEMIA 04/27/2014 ANNE MARIE MIXON DO Ot 599.0 URIN TRACT INFECTION NOS 04/27/2014 ANNE MARIE MIXON DO John Ot 646.63 INFECTION-ANTEPARTUM 04/27/2014 THOMAS MIXON DOKathrine Lopez Ot 646.83 PREG COMPL NEC-ANTEPART 04/27/2014 APURVA RAWLSANNE MARIE Ot 780.2 SYNCOPE AND COLLAPSE 04/28/2014 ALONDRA BRASHER DO 780.2 SYNCOPE AND COLLAPSE 04/28/2014 KRISTINA TRACEY APRN 780.2 SYNCOPE AND COLLAPSE 04/28/2014 LASHON PATIÑO APRN A 780.2 SYNCOPE AND COLLAPSE 04/28/2014 ALONDRA BRASHER DO 780.2 SYNCOPE AND COLLAPSE 04/28/2014 LASHON PATIÑO APRN A 780.2 SYNCOPE AND COLLAPSE 05/09/2014 KRISTINA TRACEY APRN 465.9 UPPER RESPIRATORY INFECTION 05/09/2014 WING PATIÑO APRNIDI A 465.9 UPPER RESPIRATORY INFECTION 05/09/2014 ALONDRA BRASHER DO 465.9 UPPER RESPIRATORY INFECTION 05/09/2014 WING PATIÑO APRNIDI A 465.9 UPPER RESPIRATORY INFECTION 05/09/2014 ALONDRA BRASHER DO Ot V22.0 05/25/2014 HAROON PERRY LASHON A 525.9 TOOTH PAIN 05/25/2014 BRASHER ALONDRA RAWLS K 525.9 TOOTH PAIN 05/25/2014 HAROON APRN, LASHON A 525.9 TOOTH PAIN 05/30/2014 HAROON PERRY LASHON A 780.99 ANHEDONIA 05/30/2014 ALONDRA BRASHER DO 780.99 ANHEDONIA 05/30/2014 HAROON PERRY LASHON A 780.99 ANHEDONIA 05/31/2014 LASHON PATIÑO APRN A 787.01 NAUSEA WITH VOMITING 05/31/2014 ALONDRA BRASHER DO 787.01 NAUSEA WITH VOMITING 05/31/2014 LASHON PATIÑO APRN 787.01 NAUSEA WITH VOMITING 06/28/2014 ALONDRA BRASHER DO V58.69 MEDICATION HIGH RISK 06/28/2014 ALONDRA BRASHER DO V77.1 DIABETES SCREENING 06/28/2014 ALONDRA BRASHER DO V78.0 ANEMIA SCREENING 06/28/2014 LASHON PATIÑO APRN V58.69 MEDICATION HIGH RISK 06/28/2014 LASHON PATIÑO APRN V77.1 DIABETES SCREENING 06/28/2014 LASHON PATIÑO APRN [...] 08/28/2014 Ot 285.9 08/28/2014 KATHLEEN NAVARRORICIA L ENGINEERING INSTRUCTOR Ot 244.9 08/28/2014 KATHLEEN NAVARRORICIA L ENGINEERING INSTRUCTOR Ot 285.9 08/28/2014 RAMON CAMPBELL L ENGINEERING INSTRUCTOR Ot 780.79 08/28/2014 RAMON CAMPBELL L ENGINEERING INSTRUCTOR Ot 599.0 08/28/2014 RAMON CAMPBELL L ENGINEERING INSTRUCTOR Ot 719.40 08/28/2014 RAMON CAMPBELL L ENGINEERING INSTRUCTOR Ot 795.79 08/28/2014 JARRELL CAMPBELL C GLASS ENAMEL MIXER Ot 789.00 08/28/2014 RAMON CAMPBELL L ENGINEERING INSTRUCTOR Ot 266.2 08/28/2014 RAMON CAMPBELL L ENGINEERING INSTRUCTOR Ot 268.9 08/28/2014 RAMON CAMPBELL L ENGINEERING INSTRUCTOR Ot 620.2 08/28/2014 RAMON CAMPBELL L ENGINEERING INSTRUCTOR Ot 780.79 08/28/2014 RAMON CAMPBELL L ENGINEERING INSTRUCTOR Ot 786.09 08/28/2014 RAMON CAMPBELL L ENGINEERING INSTRUCTOR Ot 789.00 08/28/2014 RAMON CAMPBELL L ENGINEERING INSTRUCTOR Ot 789.00 08/28/2014 RAMON CAMPBELL L ENGINEERING INSTRUCTOR Ot V45.86 08/28/2014 RAMON CAMPBELL L ENGINEERING INSTRUCTOR Ot 256.4 08/28/2014 CAMPBELL NAVARRO ENGINEERING INSTRUCTOR Ot 611.6 08/28/2014 CMAPBELL NAVARRO ENGINEERING INSTRUCTOR Ot 626.0 08/28/2014 CAMPBELL NAVARRO ENGINEERING INSTRUCTOR Ot 787.3 08/28/2014 NAVARROCAMPBELL PAUL ENGINEERING INSTRUCTOR Ot 789.00 08/28/2014 CAMPBELL NAVARRO ENGINEERING INSTRUCTOR Ot 611.6 08/28/2014 NAVARROCAMPBELL PAUL ENGINEERING INSTRUCTOR Ot 787.3 08/28/2014 NAVARROCAMPBELL PAUL ENGINEERING INSTRUCTOR Ot 789.00 08/28/2014 HAROONLASHON APRN Ot V22.0 08/28/2014 ALONDRA BRASHER DO Ot V22.0 08/28/2014 Ot V28.81 08/28/2014 ALONDRA BRASHER DO Ot V89.03 08/28/2014 ANSHU RAWLS ALONDRA Lopez Ot 644.03 THRT ELEUTERIO LABOR-ANTEPART 08/30/2014 ANSHU RAWLS ALONDRA Lopez Ot 644.03 THRT ELEUTERIO LABOR-ANTEPART 09/01/2014 ALONDRA BRASHER DO Ot 644.03 THRT ELEUTERIO LABOR-ANTEPART 09/01/2014 Ot [...] 09/01/2014 Ot 285.9 09/01/2014 CAMPBELL NAVARRO L ENGINEERING INSTRUCTOR Ot 244.9 09/01/2014 CAMPBELL NAVARRO L ENGINEERING INSTRUCTOR Ot 285.9 09/01/2014 CAMPBELL NAVARRO L ENGINEERING INSTRUCTOR Ot 780.79 09/01/2014 KATHLEEN NAVARRORICIA L ENGINEERING INSTRUCTOR Ot 599.0 09/01/2014 ARMON CAMPBELL L ENGINEERING INSTRUCTOR Ot 719.40 09/01/2014 RAMON CAMPBELL L ENGINEERING INSTRUCTOR Ot 795.79 09/01/2014 CAMPBELL VIEYRA GLASS ENAMEL MIXER Ot 789.00 09/01/2014 RAMON CAMPBELL L ENGINEERING INSTRUCTOR Ot 266.2 09/01/2014 CAMPBELL NAVARRO L ENGINEERING INSTRUCTOR Ot 268.9 09/01/2014 CAMPBELL NAVARRO L ENGINEERING INSTRUCTOR Ot 620.2 09/01/2014 CAMPBELL NAVARRO L ENGINEERING INSTRUCTOR Ot 780.79 09/01/2014 RAMONCAMPBELL L ENGINEERING INSTRUCTOR Ot 786.09 09/01/2014 RAMONCARLEYIA L ENGINEERING INSTRUCTOR Ot 789.00 09/01/2014 NAVARROKATHLEENCAMPBELL L ENGINEERING INSTRUCTOR Ot 789.00 09/01/2014 NAVARROCARLEYIA L ENGINEERING INSTRUCTOR Ot V45.86 09/01/2014 RAMONKATHLEENCAMPBELL L ENGINEERING INSTRUCTOR Ot 256.4 09/01/2014 NAVARRO CAMPBELL L ENGINEERING INSTRUCTOR Ot 611.6 09/01/2014 NAVARROKATHLEENCAMPBELL L ENGINEERING INSTRUCTOR Ot 626.0 09/01/2014 NAVARROKATHLEENCAMPBELL L ENGINEERING INSTRUCTOR Ot 787.3 09/01/2014 NAVARROKATHLEENCAPMBELL L ENGINEERING INSTRUCTOR Ot 789.00 09/01/2014 NAVARROKATHLEENCAMPBELL L ENGINEERING INSTRUCTOR Ot 611.6 09/01/2014 NAVARRO, CAMPBELL L ENGINEERING INSTRUCTOR Ot 787.3 09/01/2014 NAVARROCARLEYIA L ENGINEERING INSTRUCTOR Ot 789.00 09/01/2014 LASHON PATIÑO APRN Ot V22.0 09/01/2014 BRASHER DO, ALONDRA K Ot V22.0 09/01/2014 Ot V28.81 09/01/2014 BRASHER DO, ALONDRA K Ot V89.03 09/01/2014 BRASHER DO, ALONDRA K Ot V22.0 09/09/2014 HERMAN JAVIER, FROILAN Villegas Ot 642.33 TRANS HYPERTEN-ANTEPART 09/09/2014 FROILAN SUTTON MD Ot 642.33 09/16/2014 BRASHER DO, ALONDRA K Ot V89.03 09/19/2014 BRASHER DO, ALONDRA K Ot 642.33 TRANS HYPERTEN-ANTEPART 09/23/2014 BRASHER DO, ALONDRA K Ot V22.0 09/25/2014 BRASHER DO, ALONDRA K Ot 285.9 ANEMIA NOS 09/25/2014 BRASHER DO, ALONDRA K Ot 300.00 ANXIETY STATE NOS 09/25/2014 BRASHER DO, ALONDRA K Ot 311 DEPRESSIVE DISORDER NEC 09/25/2014 BRASHER DO, ALONDRA K Ot 642.31 TRANS HYPERTEN-DELIVERED 09/25/2014 BRASHER DO, ALONDRA K Ot 646.51 ASYM BACTERIURIA-DELIVER 09/25/2014 ANSHU RAWLS ALONDRA John Ot 648.22 ANEMIA-DELIVERED W P/P 09/25/2014 ANSHU RAWLS ALONDRA John Ot 648.41 MENTAL DISORDER-DELIVER 09/25/2014 ANSHU RAWLS ALONDRA John Ot 648.91 OTH CURR COND-DELIVERED 09/25/2014 ANSHU RAWLS ALONDRA John Ot 649.21 BARIATRIC SURG STATUS COMP PREG/CHILDBIR 09/25/2014 ANSHU RAWLS ALONDRA John Ot 656.81 FET/PLAC PROB NEC-DELIV 09/25/2014 ANSHU RAWLS ALONDRA John Ot 664.11 DEL W 2 DEG LACERAT-DEL 09/25/2014 ANSHU RAWLS ALONDRA John Ot V02.51 GROUP B STREPT CARRIER/SUSPECTED CARRIER 09/25/2014 VANESSA BRASHER DOA John Ot V27.0 DELIVER-SINGLE LIVEBORN 10/02/2014 RAMU JAVIER, ANTONIETA Lopez Ot 642.34 TRANS HYPERTEN-POSTPART 01/29/2015 APURVA DO ANNE MARIE John Ot D64.9 ANEMIA, UNSPECIFIED 01/29/2015 APURVA RAWLS ANNE MARIE John Ot F17.210 NICOTINE DEPENDENCE, CIGARETTES, UNCOMPL 01/29/2015 APURVA DO ANNE MARIE John Ot N93.8 OTHER SPECIFIED ABNORMAL UTERINE [...] 02/03/2015 Ot 285.9 02/03/2015 CAMPBELL NAVARRO L ENGINEERING INSTRUCTOR Ot 244.9 02/03/2015 CAMPBELL NAVARRO L ENGINEERING INSTRUCTOR Ot 285.9 02/03/2015 CAMPBELL NAVARRO L ENGINEERING INSTRUCTOR Ot 780.79 02/03/2015 KATHLEEN NAVARRORICIA L ENGINEERING INSTRUCTOR Ot 599.0 02/03/2015 KATHLEEN NAVARRORICIA L ENGINEERING INSTRUCTOR Ot 719.40 02/03/2015 KATHLEEN NAVARRORICIA L ENGINEERING INSTRUCTOR Ot 795.79 02/03/2015 CAMPBELL VIEYRA C GLASS ENAMEL MIXER Ot 789.00 02/03/2015 RAMON CAMPBELL L ENGINEERING INSTRUCTOR Ot 266.2 02/03/2015 RAMON CAMPBELL L ENGINEERING INSTRUCTOR Ot 268.9 02/03/2015 KATHLEEN NAVARRORICIA L ENGINEERING INSTRUCTOR Ot 620.2 02/03/2015 KATHLEEN NAVARRORICIA L ENGINEERING INSTRUCTOR Ot 780.79 02/03/2015 KATHLEEN NAVARRORICIA L ENGINEERING INSTRUCTOR Ot 786.09 02/03/2015 RAMON CAMPBELL L ENGINEERING INSTRUCTOR Ot 789.00 02/03/2015 KATHLEEN NAVARRORICIA L ENGINEERING INSTRUCTOR Ot 789.00 02/03/2015 CAMPBELL NAVARRO ENGINEERING INSTRUCTOR Ot V45.86 02/03/2015 CAMPBELL NAVARRO ENGINEERING INSTRUCTOR Ot 256.4 02/03/2015 CAMPBELL NAVARRO ENGINEERING INSTRUCTOR Ot 611.6 02/03/2015 CAMPBELL NAVARRO ENGINEERING INSTRUCTOR Ot 626.0 02/03/2015 CAMPBELL NAVARRO ENGINEERING INSTRUCTOR Ot 787.3 02/03/2015 NAVARROCAMPBELL PAUL ENGINEERING INSTRUCTOR Ot 789.00 02/03/2015 CAMPBELL NAVARRO ENGINEERING INSTRUCTOR Ot 611.6 02/03/2015 NAVARROCAMPBELL PAUL ENGINEERING INSTRUCTOR Ot 787.3 02/03/2015 NAVARROCAMPBELL PAUL ENGINEERING INSTRUCTOR Ot 789.00 02/03/2015 LASHON PATIÑO APRN Ot V22.0 02/03/2015 ANSHU RAWLS ALONDRA John Ot V22.0 02/03/2015 Ot V28.81 02/03/2015 ALONDRA BRASHER DO Ot V89.03 02/03/2015 BRASHER ALONDRA RAWLS Ot V89.03 02/03/2015 Ot 266.2 02/03/2015 Ot [...] 02/03/2015 Ot 285.9 02/03/2015 CAMPBELL NAVARRO L ENGINEERING INSTRUCTOR Ot 244.9 02/03/2015 CAMPBELL NAVARRO L ENGINEERING INSTRUCTOR Ot 285.9 02/03/2015 KATHLEEN NAVARRORICIA L ENGINEERING INSTRUCTOR Ot 780.79 02/03/2015 KATHLEEN NAVARRORICIA L ENGINEERING INSTRUCTOR Ot 599.0 02/03/2015 KATHLEEN NAVARRORICIA L ENGINEERING INSTRUCTOR Ot 719.40 02/03/2015 RAMON CAMPBELL L ENGINEERING INSTRUCTOR Ot 795.79 02/03/2015 CAMPBELL VIEYRA GLASS ENAMEL MIXER Ot 789.00 02/03/2015 KATHLEEN NAVARRORICIA L ENGINEERING INSTRUCTOR Ot 266.2 02/03/2015 RAMON CAMPBELL L ENGINEERING INSTRUCTOR Ot 268.9 02/03/2015 RAMON CAMPBELL L ENGINEERING INSTRUCTOR Ot 620.2 02/03/2015 KATHLEEN NAVARRORICIA L ENGINEERING INSTRUCTOR Ot 780.79 02/03/2015 KATHLEEN NAVARRORICIA L ENGINEERING INSTRUCTOR Ot 786.09 02/03/2015 RAMON CAMPBELL L ENGINEERING INSTRUCTOR Ot 789.00 02/03/2015 KATHLEEN NAVARRORICIA L ENGINEERING INSTRUCTOR Ot 789.00 02/03/2015 KAHTLEEN NAVARRORICIA L ENGINEERING INSTRUCTOR Ot V45.86 02/03/2015 NAVARRO, CAMPBELL L ENGINEERING INSTRUCTOR Ot 256.4 02/03/2015 NAVARRO, CAMPBELL L ENGINEERING INSTRUCTOR Ot 611.6 02/03/2015 NAVARRO, CAMPBELL L ENGINEERING INSTRUCTOR Ot 626.0 02/03/2015 NAVARRO, CAMPBELL L ENGINEERING INSTRUCTOR Ot 787.3 02/03/2015 NAVARRO, CAMPBELL L ENGINEERING INSTRUCTOR Ot 789.00 02/03/2015 NAVARRO, CAMPBELL L ENGINEERING INSTRUCTOR Ot 611.6 02/03/2015 NAVARRO, CAMPBELL L ENGINEERING INSTRUCTOR Ot 787.3 02/03/2015 NAVARRO, CAMPBELL L ENGINEERING INSTRUCTOR Ot 789.00 02/03/2015 LASHON PATIÑO APRN Ot V22.0 02/03/2015 BRASHER ALONDRA Ot V22.0 02/03/2015 Ot V28.81 02/03/2015 BRASHER ALONDRA RAWLS K Ot V89.03 02/09/2015 RAMON CAMPBELL L ENGINEERING INSTRUCTOR Ot D55.9 02/09/2015 NAVARRO, CAMPBELL L ENGINEERING INSTRUCTOR Ot E03.9 02/09/2015 NAVARRO, CAMPBELL L ENGINEERING INSTRUCTOR Ot E28.2 02/09/2015 NAVARRO, CAMPBELL L ENGINEERING INSTRUCTOR Ot E53.8 02/09/2015 NAVARRO, CAMPBELL L ENGINEERING INSTRUCTOR Ot E61.2 02/09/2015 NAVARRO, CAMPBELL L ENGINEERING INSTRUCTOR Ot Z87.440 02/10/2015 NAVARRO, CAMPBELL L ENGINEERING INSTRUCTOR Ot N93.9 02/10/2015 NAVARRO, CAMPBELL L ENGINEERING INSTRUCTOR Ot N93.9 02/21/2015 ANSHU RAWLS ALONDRA K Ot V89.03 02/21/2015 NAVARRO, CAMPBELL L ENGINEERING INSTRUCTOR Ot D55.9 02/21/2015 NAVARRO, CAMPBELL L ENGINEERING INSTRUCTOR Ot E03.9 02/21/2015 NAVARRO, CAMPBELL L ENGINEERING INSTRUCTOR Ot E28.2 02/21/2015 NAVARRO, CAMPBELL L ENGINEERING INSTRUCTOR Ot E53.8 02/21/2015 NAVARRO, CAMPBELL L ENGINEERING INSTRUCTOR Ot E61.2 02/21/2015 NAVARRO, CAMPBELL L ENGINEERING INSTRUCTOR Ot Z87.440 02/21/2015 NAVARROCAMPBELL PAUL ENGINEERING INSTRUCTOR Ot N93.9 02/21/2015 NAVARROCAMPBELL PAUL ENGINEERING INSTRUCTOR Ot N93.9 02/21/2015 NAVARROCAMPBELL PAUL ENGINEERING INSTRUCTOR Ot D55.9 02/21/2015 NAVARROCAMPBELL PAUL ENGINEERING INSTRUCTOR Ot E03.9 02/21/2015 NAVARROCAMPBELL PAUL ENGINEERING INSTRUCTOR Ot E28.2 02/21/2015 NAVARROCAMPBELL PAUL ENGINEERING INSTRUCTOR Ot E53.8 02/21/2015 NAVARROCAMPBELL PAUL ENGINEERING INSTRUCTOR Ot E61.2 02/21/2015 NAVARROCAMPBELL PAUL ENGINEERING INSTRUCTOR Ot Z87.440 02/21/2015 NAVARROCAMPBELL PAUL ENGINEERING INSTRUCTOR Ot N93.9 03/02/2015 NAVARROCAMPBELL PAUL ENGINEERING INSTRUCTOR Ot N93.9 03/02/2015 NAVARROCAMPBELL PAUL ENGINEERING INSTRUCTOR Ot R10.30 04/19/2015 Ot 256.4 04/19/2015 Ot [...] 04/19/2015 Ot 285.9 04/19/2015 RAMON CAMPBELL L ENGINEERING INSTRUCTOR Ot 244.9 04/19/2015 NAVARRO, CAMPBELL L ENGINEERING INSTRUCTOR Ot 285.9 04/19/2015 RAMON CAMPBELL L ENGINEERING INSTRUCTOR Ot 780.79 04/19/2015 RAMON CAMPBELL L ENGINEERING INSTRUCTOR Ot 599.0 04/19/2015 RAMON CAMPBELL L ENGINEERING INSTRUCTOR Ot 719.40 04/19/2015 RAMON CAMPBELL L ENGINEERING INSTRUCTOR Ot 795.79 04/19/2015 CARLEY VIEYRAIA C GLASS ENAMEL MIXER Ot 789.00 04/19/2015 NAVARRO, CAMPBELL L ENGINEERING INSTRUCTOR Ot 266.2 04/19/2015 NAVARRO, CAMPBELL L ENGINEERING INSTRUCTOR Ot 268.9 04/19/2015 RAMON CAMPBELL L ENGINEERING INSTRUCTOR Ot 620.2 04/19/2015 RAMON CAMPBELL L ENGINEERING INSTRUCTOR Ot 780.79 04/19/2015 RAMON CAMPBELL L ENGINEERING INSTRUCTOR Ot 786.09 04/19/2015 RAMON CAMPBELL L ENGINEERING INSTRUCTOR Ot 789.00 04/19/2015 NAVARRO, CAMPBELL L ENGINEERING INSTRUCTOR Ot 789.00 04/19/2015 RAMON CAMPBELL L ENGINEERING INSTRUCTOR Ot V45.86 04/19/2015 RAMON CAMPBELL L ENGINEERING INSTRUCTOR Ot 256.4 04/19/2015 RAMON CAMPBELL L ENGINEERING INSTRUCTOR Ot 611.6 04/19/2015 RAMON CAMPBELL L ENGINEERING INSTRUCTOR Ot 626.0 04/19/2015 RAMON CAMPBELL L ENGINEERING INSTRUCTOR Ot 787.3 04/19/2015 RAMON CAMPBELL L ENGINEERING INSTRUCTOR Ot 789.00 04/19/2015 CAMPBELL NAVARRO L ENGINEERING INSTRUCTOR Ot 611.6 04/19/2015 RAMONCAMPBELL ENGINEERING INSTRUCTOR Ot 787.3 04/19/2015 RAMON CAMPBELL Vasquez ENGINEERING INSTRUCTOR Ot 789.00 04/19/2015 LASHON PATIÑO APRN Ot V22.0 04/19/2015 BRASHER ALONDRA RAWLS Ot V22.0 04/19/2015 Ot V28.81 04/19/2015 BRASHER ALONDRA RAWLS Ot V89.03 04/19/2015 RAMON CAMPBELL L ENGINEERING INSTRUCTOR Ot D55.9 04/19/2015 RAMON CAMPBELL L ENGINEERING INSTRUCTOR Ot E03.9 04/19/2015 RAMON CAMPBELL L ENGINEERING INSTRUCTOR Ot E28.2 04/19/2015 RAMON CAMPBELL L ENGINEERING INSTRUCTOR Ot E53.8 04/19/2015 RAMON CAMPBELL Vasquez ENGINEERING INSTRUCTOR Ot E61.2 04/19/2015 RAMON CAMPBELL L ENGINEERING INSTRUCTOR Ot Z87.440 04/19/2015 RAMON CAMPBELL L ENGINEERING INSTRUCTOR Ot N93.9 04/19/2015 RAMON CAMPBELL L ENGINEERING INSTRUCTOR Ot N93.9 04/19/2015 RAMON CAMPBELL Pedro ENGINEERING INSTRUCTOR Ot R10.30 07/18/2015 RUTH GRANADOS MD Ot [...] 285.9 ANEMIA NOS 08/17/2015 CAMPBELL NAVARRO L ENGINEERING INSTRUCTOR Ot 244.9 HYPOTHYROIDISM NOS 08/17/2015 CAMPBELL NAVARRO L ENGINEERING INSTRUCTOR Ot 285.9 ANEMIA NOS 08/17/2015 CAMPBELL NAVARRO L ENGINEERING INSTRUCTOR Ot 780.79 OTH MALAISE FATIGUE 08/17/2015 CAMPBELL NAVARRO L ENGINEERING INSTRUCTOR Ot 599.0 URIN TRACT INFECTION NOS 08/17/2015 CAMPBELL NAVARRO L ENGINEERING INSTRUCTOR Ot 719.40 JOINT PAIN-UNSPEC 08/17/2015 CAMPBELL NAVARRO L ENGINEERING INSTRUCTOR Ot 795.79 OTH AND UNSPEC NONSPECIFIC IMMUNOLOGICAL 08/17/2015 RIDCAMPBELL HORAN GLASS ENAMEL MIXER Ot 789.00 ABDOMINAL PAIN, UNSPECIFIED SITE 08/17/2015 CAMPBELL NAVARRO ENGINEERING INSTRUCTOR Ot 266.2 B-COMPLEX DEFIC NEC 08/17/2015 CAMPBELL NAVARRO ENGINEERING INSTRUCTOR Ot 268.9 VITAMIN D DEFICIENCY NOS 08/17/2015 CAMPBELL NAVARRO ENGINEERING INSTRUCTOR Ot 620.2 OVARIAN CYST NEC/NOS 08/17/2015 CAMPBELL NAVARRO ENGINEERING INSTRUCTOR Ot 780.79 OTH MALAISE FATIGUE 08/17/2015 CAMPBELL NAVARRO ENGINEERING INSTRUCTOR Ot 786.09 RESPIRATORY ABNORM NEC 08/17/2015 CAMPBELL NAVARRO ENGINEERING INSTRUCTOR Ot 789.00 ABDOMINAL PAIN, UNSPECIFIED SITE 08/17/2015 CAMPBELL NAVARRO ENGINEERING INSTRUCTOR Ot 789.00 ABDOMINAL PAIN, UNSPECIFIED SITE 08/17/2015 CAMPBELL NAVARRO ENGINEERING INSTRUCTOR Ot V45.86 BARIATRIC SURGERY STATUS 08/17/2015 CAMPBELL NAVARRO ENGINEERING INSTRUCTOR Ot 256.4 POLYCYSTIC OVARIES 08/17/2015 CAMPBELL NAVARRO ENGINEERING INSTRUCTOR Ot 611.6 GALACTORRHEA-NONOBSTET 08/17/2015 CAMPBELL NAVARRO ENGINEERING INSTRUCTOR Ot 626.0 ABSENCE OF MENSTRUATION 08/17/2015 CAMPBELL NAVARRO ENGINEERING INSTRUCTOR Ot 787.3 FLATUL/ERUCTAT/GAS PAIN 08/17/2015 CAMPBELL NAVARRO ENGINEERING INSTRUCTOR Ot 789.00 ABDOMINAL PAIN, UNSPECIFIED SITE 08/17/2015 CAMPBELL NAVARRO ENGINEERING INSTRUCTOR Ot 611.6 GALACTORRHEA-NONOBSTET 08/17/2015 CAMPBELL NAVARRO ENGINEERING INSTRUCTOR Ot 787.3 FLATUL/ERUCTAT/GAS PAIN 08/17/2015 CAMPBELL NAVARRO ENGINEERING INSTRUCTOR Ot 789.00 ABDOMINAL PAIN, UNSPECIFIED SITE 08/17/2015 LASHON PATIÑO APRN Ot V22.0 SUPERVIS NORMAL 1ST PREG 08/17/2015 ALONDRA BRASHER DO Ot V22.0 SUPERVIS NORMAL 1ST PREG 08/17/2015 Ot V28.81 ENCOUNTER FOR ANATOMIC SURVEY 08/17/2015 ALONDRA BRASHER DO Ot V89.03 SUSPECTED ANOMALY NOT FOUND 08/17/2015 CAMPBELL NAVARRO ENGINEERING INSTRUCTOR Ot D55.9 ANEMIA DUE TO ENZYME DISORDER, UNSPECIFI 08/17/2015 CAMPBELL NAVARRO ENGINEERING INSTRUCTOR Ot E03.9 HYPOTHYROIDISM, UNSPECIFIED 08/17/2015 CAMPBELL NAVARRO ENGINEERING INSTRUCTOR Ot E28.2 POLYCYSTIC OVARIAN SYNDROME 08/17/2015 CAMPBELL NAVARRO ENGINEERING INSTRUCTOR Ot E53.8 DEFICIENCY OF OTHER SPECIFIED B GROUP 08/17/2015 CAMPBELL NAVARRO L ENGINEERING INSTRUCTOR Ot E61.2 MAGNESIUM DEFICIENCY 08/17/2015 CAMPBELL NAVARRO ENGINEERING INSTRUCTOR Ot Z87.440 PERSONAL HISTORY OF URINARY (TRACT) INFE 08/17/2015 CAMPBELL NAVARRO ENGINEERING INSTRUCTOR Ot N93.9 ABNORMAL UTERINE AND VAGINAL BLEEDING, U 08/17/2015 CAMPBELL NAVARRO ENGINEERING INSTRUCTOR Ot N93.9 ABNORMAL UTERINE AND VAGINAL BLEEDING, U 08/17/2015 CAMPBELL NAVARRO ENGINEERING INSTRUCTOR Ot R10.30 LOWER ABDOMINAL PAIN, UNSPECIFIED 08/17/2015 DARWIN JAVIER, RUTH Ot D50.9 IRON DEFICIENCY ANEMIA, UNSPECIFIED 08/17/2015 DARWIN JAVIER, RUTH Ot E46 UNSPECIFIED PROTEIN-CALORIE MALNUTRITION 08/17/2015 DARWIN JAVIER, RUTH Ot K90.9 INTESTINAL MALABSORPTION, UNSPECIFIED 08/17/2015 DARWIN JAVIER, RUTH Ot Z98.84 BARIATRIC SURGERY STATUS 08/17/2015 CAMPBELL NAVARRO ENGINEERING INSTRUCTOR Ot D55.9 ANEMIA DUE TO ENZYME DISORDER, UNSPECIFI 08/17/2015 CAMPBELL NAVARRO ENGINEERING INSTRUCTOR Ot E03.9 HYPOTHYROIDISM, UNSPECIFIED 08/17/2015 CAMPBELL NAVARRO ENGINEERING INSTRUCTOR Ot E28.2 POLYCYSTIC OVARIAN SYNDROME 08/17/2015 CAMPBELL NAVARRO ENGINEERING INSTRUCTOR Ot E53.8 DEFICIENCY OF OTHER SPECIFIED B GROUP 08/17/2015 CAMPBELL NAVARRO ENGINEERING INSTRUCTOR Ot E61.2 MAGNESIUM DEFICIENCY 08/17/2015 CAMPBELL NAVARRO ENGINEERING INSTRUCTOR Ot Z87.440 PERSONAL HISTORY OF URINARY (TRACT) INFE 08/17/2015 CAMPBELL NAVARRO ENGINEERING INSTRUCTOR Ot N93.9 ABNORMAL UTERINE AND VAGINAL BLEEDING, U 08/17/2015 CAMPBELL NAVARRO ENGINEERING INSTRUCTOR Ot N93.9 ABNORMAL UTERINE AND VAGINAL BLEEDING, U 08/17/2015 CAMPBELL NAVARRO ENGINEERING INSTRUCTOR Ot R10.30 LOWER ABDOMINAL PAIN, UNSPECIFIED 08/17/2015 RUTH GRANADOS MD Ot D50.9 IRON DEFICIENCY ANEMIA, UNSPECIFIED 08/17/2015 RUTH GRANADOS MD Ot E46 UNSPECIFIED PROTEIN-CALORIE MALNUTRITION 08/17/2015 RUTH GRANADOS MD Ot K90.9 INTESTINAL MALABSORPTION, UNSPECIFIED 08/17/2015 RUTH GRANADOS MD Ot Z98.84 BARIATRIC SURGERY STATUS 08/17/2015 ANSHU RAWLS, ALONDRA K Ot V22.0 SUPERVIS NORMAL 1ST PREG 08/17/2015 LASHON PATIÑO APRN Ot V22.0 SUPERVIS NORMAL 1ST PREG 08/17/2015 CAMPBELL NAVARRO ENGINEERING INSTRUCTOR Ot 611.6 GALACTORRHEA-NONOBSTET 08/17/2015 CAMPBELL NAVARRO ENGINEERING INSTRUCTOR Ot 787.3 FLATUL/ERUCTAT/GAS PAIN 08/17/2015 CAMPBELL NAVARRO ENGINEERING INSTRUCTOR Ot 789.00 ABDOMINAL PAIN, UNSPECIFIED SITE 08/17/2015 CAMPBELL NAVARRO ENGINEERING INSTRUCTOR Ot 256.4 POLYCYSTIC OVARIES 08/17/2015 CAMPBELL NAVARRO L ENGINEERING INSTRUCTOR Ot 611.6 GALACTORRHEA-NONOBSTET 08/17/2015 CAMPBELL NAVARRO ENGINEERING INSTRUCTOR Ot 626.0 ABSENCE OF MENSTRUATION 08/17/2015 CAMPBELL NAVARRO ENGINEERING INSTRUCTOR Ot 787.3 FLATUL/ERUCTAT/GAS PAIN 08/17/2015 CAMPBELL NAVARRO ENGINEERING INSTRUCTOR Ot 789.00 ABDOMINAL PAIN, UNSPECIFIED SITE 08/17/2015 CAMPBELL NAVARRO ENGINEERING INSTRUCTOR Ot 789.00 ABDOMINAL PAIN, UNSPECIFIED SITE 08/17/2015 CAMPBELL NAVARRO ENGINEERING INSTRUCTOR Ot V45.86 BARIATRIC SURGERY STATUS 08/17/2015 CAMPBELL NAVARRO ENGINEERING INSTRUCTOR Ot 789.00 ABDOMINAL PAIN, UNSPECIFIED SITE 08/17/2015 CAMPBELL NAVARRO ENGINEERING INSTRUCTOR Ot 266.2 B-COMPLEX DEFIC NEC 08/17/2015 CAMPBELL NAVARRO ENGINEERING INSTRUCTOR Ot 268.9 VITAMIN D DEFICIENCY NOS 08/17/2015 CAMPBELL NAVARRO ENGINEERING INSTRUCTOR Ot 620.2 OVARIAN CYST NEC/NOS 08/17/2015 CAMPBELL NAVARRO ENGINEERING INSTRUCTOR Ot 780.79 OTH MALAISE FATIGUE 08/17/2015 CAMPBELL NAVARRO ENGINEERING INSTRUCTOR Ot 786.09 RESPIRATORY ABNORM NEC 08/17/2015 CAMPBELL VIEYRA GLASS ENAMEL MIXER Ot 789.00 ABDOMINAL PAIN, UNSPECIFIED SITE 08/31/2015 [...] 285.9 ANEMIA NOS 08/31/2015 CAMPBELL NAVARRO L ENGINEERING INSTRUCTOR Ot 244.9 HYPOTHYROIDISM NOS 08/31/2015 CAMPBELL NAVARRO L ENGINEERING INSTRUCTOR Ot 285.9 ANEMIA NOS 08/31/2015 CAMPBELL NAVARRO L ENGINEERING INSTRUCTOR Ot 780.79 OTH MALAISE FATIGUE 08/31/2015 CAMPBELL NAVARRO L ENGINEERING INSTRUCTOR Ot 599.0 URIN TRACT INFECTION NOS 08/31/2015 CAMPBELL NAVARRO L ENGINEERING INSTRUCTOR Ot 719.40 JOINT PAIN-UNSPEC 08/31/2015 CAMPBELL NAVARRO ENGINEERING INSTRUCTOR Ot 795.79 OTH AND UNSPEC NONSPECIFIC IMMUNOLOGICAL 08/31/2015 CAMPBELL VIEYRA GLASS ENAMEL MIXER Ot 789.00 ABDOMINAL PAIN, UNSPECIFIED SITE 08/31/2015 CAMPBELL NAVARRO ENGINEERING INSTRUCTOR Ot 266.2 B-COMPLEX DEFIC NEC 08/31/2015 CAMPBELL NAVARRO L ENGINEERING INSTRUCTOR Ot 268.9 VITAMIN D DEFICIENCY NOS 08/31/2015 CAMPBELL NAVARRO ENGINEERING INSTRUCTOR Ot 620.2 OVARIAN CYST NEC/NOS 08/31/2015 CAMPBELL NAVARRO ENGINEERING INSTRUCTOR Ot 780.79 OTH MALAISE FATIGUE 08/31/2015 CAMPBELL NAVARRO ENGINEERING INSTRUCTOR Ot 786.09 RESPIRATORY ABNORM NEC 08/31/2015 CAMPBELL NAVARRO L ENGINEERING INSTRUCTOR Ot 789.00 ABDOMINAL PAIN, UNSPECIFIED SITE 08/31/2015 CAMPBELL NAVARRO L ENGINEERING INSTRUCTOR Ot 789.00 ABDOMINAL PAIN, UNSPECIFIED SITE 08/31/2015 CAMPBELL NAVARRO L ENGINEERING INSTRUCTOR Ot V45.86 BARIATRIC SURGERY STATUS 08/31/2015 CAMPBELL NAVARRO L ENGINEERING INSTRUCTOR Ot 256.4 POLYCYSTIC OVARIES 08/31/2015 CAMPBELL NAVARRO ENGINEERING INSTRUCTOR Ot 611.6 GALACTORRHEA-NONOBSTET 08/31/2015 CAMPBELL NAVARRO L ENGINEERING INSTRUCTOR Ot 626.0 ABSENCE OF MENSTRUATION 08/31/2015 RAMONCAMPBELL ENGINEERING INSTRUCTOR Ot 787.3 FLATUL/ERUCTAT/GAS PAIN 08/31/2015 NAVARROCAMPBELL PAUL ENGINEERING INSTRUCTOR Ot 789.00 ABDOMINAL PAIN, UNSPECIFIED SITE 08/31/2015 RAMONCAMPBELL ENGINEERING INSTRUCTOR Ot 611.6 GALACTORRHEA-NONOBSTET 08/31/2015 RAMON CAMPBELL L ENGINEERING INSTRUCTOR Ot 787.3 FLATUL/ERUCTAT/GAS PAIN 08/31/2015 NAVARROCAMPBELL PAUL ENGINEERING INSTRUCTOR Ot 789.00 ABDOMINAL PAIN, UNSPECIFIED SITE 08/31/2015 LASHON PATIÑO APRN Ot V22.0 SUPERVIS NORMAL 1ST PREG 08/31/2015 ALONDRA BRASHER DO Ot V22.0 SUPERVIS NORMAL 1ST PREG 08/31/2015 Ot V28.81 ENCOUNTER FOR ANATOMIC SURVEY 08/31/2015 ALONDRA BRASHER DO Ot V89.03 SUSPECTED ANOMALY NOT FOUND 08/31/2015 CAMPBELL NAVARRO ENGINEERING INSTRUCTOR Ot D55.9 ANEMIA DUE TO ENZYME DISORDER, UNSPECIFI 08/31/2015 CAMPBELL NAVARRO ENGINEERING INSTRUCTOR Ot E03.9 HYPOTHYROIDISM, UNSPECIFIED 08/31/2015 CAMPBELL NAVARRO ENGINEERING INSTRUCTOR Ot E28.2 POLYCYSTIC OVARIAN SYNDROME 08/31/2015 CAMPBELL NAVARRO ENGINEERING INSTRUCTOR Ot E53.8 DEFICIENCY OF OTHER SPECIFIED B GROUP 08/31/2015 CAMPBELL NAVARRO ENGINEERING INSTRUCTOR Ot E61.2 MAGNESIUM DEFICIENCY 08/31/2015 CAMPBELL NAVARRO ENGINEERING INSTRUCTOR Ot Z87.440 PERSONAL HISTORY OF URINARY (TRACT) INFE 08/31/2015 CAMPBELL NAVARRO ENGINEERING INSTRUCTOR Ot N93.9 ABNORMAL UTERINE AND VAGINAL BLEEDING, U 08/31/2015 CAMPBELL NAVARRO ENGINEERING INSTRUCTOR Ot N93.9 ABNORMAL UTERINE AND VAGINAL BLEEDING, U 08/31/2015 CAMPBELL NAVARRO ENGINEERING INSTRUCTOR Ot R10.30 LOWER ABDOMINAL PAIN, UNSPECIFIED 08/31/2015 DARWIN JAVIER, RUTH Ot D50.9 IRON DEFICIENCY ANEMIA, UNSPECIFIED 08/31/2015 DARWIN JAVIER, RUTH Ot E46 UNSPECIFIED PROTEIN-CALORIE MALNUTRITION 08/31/2015 RUTH GRANADOS MD Ot K90.9 INTESTINAL MALABSORPTION, UNSPECIFIED 08/31/2015 RUTH GRANADOS MD, Ot Z98.84 BARIATRIC SURGERY STATUS 11/26/2015 CAMPBELL NAVARRO ENGINEERING INSTRUCTOR Ot D55.9 ANEMIA DUE TO ENZYME DISORDER, UNSPECIFI 11/26/2015 CAMPBELL NAVARRO ENGINEERING INSTRUCTOR Ot E03.9 HYPOTHYROIDISM, UNSPECIFIED 11/26/2015 CAMPBELL NAVARRO ENGINEERING INSTRUCTOR Ot E28.2 POLYCYSTIC OVARIAN SYNDROME 11/26/2015 CAMPBELL NAVARRO ENGINEERING INSTRUCTOR Ot E53.8 DEFICIENCY OF OTHER SPECIFIED B GROUP 11/26/2015 CAMPBELL NAVARRO ENGINEERING INSTRUCTOR Ot E61.2 MAGNESIUM DEFICIENCY 11/26/2015 CAMPBELL NAVARRO ENGINEERING INSTRUCTOR Ot Z87.440 PERSONAL HISTORY OF URINARY (TRACT) INFE 11/26/2015 CAMPBELL NAVARRO ENGINEERING INSTRUCTOR Ot N93.9 ABNORMAL UTERINE AND VAGINAL BLEEDING, U 11/26/2015 CAMPBELL NAVARRO ENGINEERING INSTRUCTOR Ot N93.9 ABNORMAL UTERINE AND VAGINAL BLEEDING, U 11/26/2015 CAMPBELL NAVARRO ENGINEERING INSTRUCTOR Ot R10.30 LOWER ABDOMINAL PAIN, UNSPECIFIED 11/26/2015 RUTH GRANADOS MD Ot D50.9 IRON DEFICIENCY ANEMIA, UNSPECIFIED 11/26/2015 RUTH GRANADOS MD Ot E46 UNSPECIFIED PROTEIN-CALORIE MALNUTRITION 11/26/2015 RUTH GRANADOS MD, Ot K90.9 INTESTINAL MALABSORPTION, UNSPECIFIED 11/26/2015 RUTH GRANADOS MD Ot Z98.84 BARIATRIC SURGERY STATUS 12/06/2015 TIP BOJORQUEZ MD, Ot E86.9 VOLUME DEPLETION, UNSPECIFIED 12/06/2015 TIP BOJORQUEZ MD, Ot O99.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 12/06/2015 TIP BOJORQUEZ MD Ot R11.2 NAUSEA WITH VOMITING, UNSPECIFIED 12/06/2015 TIP BOJORQUEZ MD, Ot Z3A.01 LESS THAN [...] METABOLISM 12/06/2015 Ot 285.9 ANEMIA NOS 12/06/2015 CARLEY NAVARROIA L ENGINEERING INSTRUCTOR Ot 244.9 HYPOTHYROIDISM NOS 12/06/2015 CARLEY NAVARROIA L ENGINEERING INSTRUCTOR Ot 285.9 ANEMIA NOS 12/06/2015 CARLEY NAVARROIA L ENGINEERING INSTRUCTOR Ot 780.79 OTH MALAISE FATIGUE 12/06/2015 CAMPBELL NAVARRO L ENGINEERING INSTRUCTOR Ot 599.0 URIN TRACT INFECTION NOS 12/06/2015 CAMPBELL NAVARRO ENGINEERING INSTRUCTOR Ot 719.40 JOINT PAIN-UNSPEC 12/06/2015 CAMPBELL NAVARRO ENGINEERING INSTRUCTOR Ot 795.79 OTH AND UNSPEC NONSPECIFIC IMMUNOLOGICAL 12/06/2015 KATHLEEN VIEYRATITO Handley GLASS ENAMEL MIXER Ot 789.00 ABDOMINAL PAIN, UNSPECIFIED SITE 12/06/2015 CAMPBELL NAVARRO ENGINEERING INSTRUCTOR Ot 266.2 B-COMPLEX DEFIC NEC 12/06/2015 CAMPBELL NAVARRO ENGINEERING INSTRUCTOR Ot 268.9 VITAMIN D DEFICIENCY NOS 12/06/2015 CAMPBELL NAVARRO ENGINEERING INSTRUCTOR Ot 620.2 OVARIAN CYST NEC/NOS 12/06/2015 CAMPBELL NAVARRO ENGINEERING INSTRUCTOR Ot 780.79 OTH MALAISE FATIGUE 12/06/2015 CAMPBELL NAVARRO ENGINEERING INSTRUCTOR Ot 786.09 RESPIRATORY ABNORM NEC 12/06/2015 CAMPBELL NAVARRO ENGINEERING INSTRUCTOR Ot 789.00 ABDOMINAL PAIN, UNSPECIFIED SITE 12/06/2015 CAMPBELL NAVARRO ENGINEERING INSTRUCTOR Ot 789.00 ABDOMINAL PAIN, UNSPECIFIED SITE 12/06/2015 CAMPBELL ANVARRO ENGINEERING INSTRUCTOR Ot V45.86 BARIATRIC SURGERY STATUS 12/06/2015 CAMPBELL NAVARRO ENGINEERING INSTRUCTOR Ot 256.4 POLYCYSTIC OVARIES 12/06/2015 CAMPBELL NAVARRO ENGINEERING INSTRUCTOR Ot 611.6 GALACTORRHEA-NONOBSTET 12/06/2015 CAMPBELL NAVARRO ENGINEERING INSTRUCTOR Ot 626.0 ABSENCE OF MENSTRUATION 12/06/2015 CMAPBELL NAVARRO ENGINEERING INSTRUCTOR Ot 787.3 FLATUL/ERUCTAT/GAS PAIN 12/06/2015 CAMPBELL NAVARRO ENGINEERING INSTRUCTOR Ot 789.00 ABDOMINAL PAIN, UNSPECIFIED SITE 12/06/2015 CAMPBELL NAVARRO ENGINEERING INSTRUCTOR Ot 611.6 GALACTORRHEA-NONOBSTET 12/06/2015 CAMPBELL NAVARRO ENGINEERING INSTRUCTOR Ot 787.3 FLATUL/ERUCTAT/GAS PAIN 12/06/2015 CAMPBELL NAVARRO ENGINEERING INSTRUCTOR Ot 789.00 ABDOMINAL PAIN, UNSPECIFIED SITE 12/06/2015 HAROON, LASHON A GLASS ENAMEL MIXER Ot V22.0 SUPERVIS NORMAL 1ST PREG 12/06/2015 ALONDRA BRASHER DO Ot V22.0 SUPERVIS NORMAL 1ST PREG 12/06/2015 Ot V28.81 ENCOUNTER FOR ANATOMIC SURVEY 12/06/2015 ALONDRA BRASHER DO Ot V89.03 SUSPECTED ANOMALY NOT FOUND 12/06/2015 CAMPBELL NAVARRO ENGINEERING INSTRUCTOR Ot D55.9 ANEMIA DUE TO ENZYME DISORDER, UNSPECIFI 12/06/2015 CAMPBELL NAVARRO ENGINEERING INSTRUCTOR Ot E03.9 HYPOTHYROIDISM, UNSPECIFIED 12/06/2015 CAMPBELL NAVARRO ENGINEERING INSTRUCTOR Ot E28.2 POLYCYSTIC OVARIAN SYNDROME 12/06/2015 CAMPBELL NAVARRO ENGINEERING INSTRUCTOR Ot E53.8 DEFICIENCY OF OTHER SPECIFIED B GROUP 12/06/2015 CAMPBELL NAVARRO ENGINEERING INSTRUCTOR Ot E61.2 MAGNESIUM DEFICIENCY 12/06/2015 CAMPBELL NAVARRO ENGINEERING INSTRUCTOR Ot Z87.440 PERSONAL HISTORY OF URINARY (TRACT) INFE 12/06/2015 CAMPBELL NAVARRO ENGINEERING INSTRUCTOR Ot N93.9 ABNORMAL UTERINE AND VAGINAL BLEEDING, U 12/06/2015 CAMPBELL NAVARRO ENGINEERING INSTRUCTOR Ot N93.9 ABNORMAL UTERINE AND VAGINAL BLEEDING, U 12/06/2015 CAMPBELL NAVARRO ENGINEERING INSTRUCTOR Ot R10.30 LOWER ABDOMINAL PAIN, UNSPECIFIED 12/06/2015 [...] Z87.891 PERSONAL HISTORY OF NICOTINE DEPENDENCE 02/27/2016 ALONDRA BRASHER DO Ot Z34.82 ENCOUNTER FOR SUPRVSN OF NORMAL PREGNANC 02/28/2016 ALONDRA BRASHER DO Ot Z34.82 ENCOUNTER FOR SUPRVSN OF NORMAL PREGNANC 03/13/2016 ALONDRA BRASHER DO Ot Z34.82 ENCOUNTER FOR SUPRVSN OF NORMAL [...] 27 WEEKS GESTATION OF 05/05/2016 TORSTEN ENGEL APRN Ot E16.2 HYPOGLYCEMIA, UNSPECIFIED 05/05/2016 TORSTEN ENGEL [...] R03.0 ELEVATED BLOOD-PRESSURE READING, W/O DON 06/23/2016 ANSHU RAWLS ALONDRA K Ot Z3A.35 35 WEEKS GESTATION OF [...] BREECH PRESENTATION, U 06/30/2016 ALONDRA BRASHER DO Ot O42.013 PRETRM ELEUTERIO ROM, ONSET LABOR W/N 24 HOUR 06/30/2016 ALONDRA BRASHER DO Ot Z37.0 SINGLE LIVE 06/30/2016 ALONDRA BRASHER DO Ot Z3A.36 36 WEEKS GESTATION OF 10/27/2016 Ot 244.9 HYPOTHYROIDISM NOS 10/27/2016 Ot 256.4 POLYCYSTIC OVARIES 10/27/2016 Ot 285.9 ANEMIA NOS 10/27/2016 Ot 458.0 ORTHOSTATIC HYPOTENSION 10/27/2016 Ot 780.79 OTH MALAISE FATIGUE 10/27/2016 Ot 255.8 ADRENAL DISORDER NEC 10/27/2016 Ot 255.10 HYPERALDOSTERONISM, UNSPECIFIED 10/27/2016 Ot 255.10 HYPERALDOSTERONISM, UNSPECIFIED 10/27/2016 Ot 782.3 EDEMA 10/27/2016 Ot 785.1 PALPITATIONS 10/27/2016 Ot 256.4 POLYCYSTIC OVARIES 10/27/2016 Ot 266.2 B-COMPLEX DEFIC NEC 10/27/2016 Ot 268.9 VITAMIN D DEFICIENCY NOS 10/27/2016 Ot 275.2 DIS MAGNESIUM METABOLISM 10/27/2016 Ot 285.9 ANEMIA NOS 10/27/2016 Ot 256.4 POLYCYSTIC OVARIES 10/27/2016 Ot 266.2 B-COMPLEX DEFIC NEC 10/27/2016 Ot 268.9 VITAMIN D DEFICIENCY NOS 10/27/2016 Ot 275.2 DIS MAGNESIUM METABOLISM 10/27/2016 Ot 285.9 ANEMIA NOS 10/27/2016 CAMPBELL NAVARRO L ENGINEERING INSTRUCTOR Ot 244.9 HYPOTHYROIDISM NOS 10/27/2016 CAMPBELL NAVARRO L ENGINEERING INSTRUCTOR Ot 285.9 ANEMIA NOS 10/27/2016 CAMPBELL NAVARRO L ENGINEERING INSTRUCTOR Ot 780.79 OTH MALAISE FATIGUE 10/27/2016 CAMPBELL NAVARRO L ENGINEERING INSTRUCTOR Ot 599.0 URIN TRACT INFECTION NOS 10/27/2016 CAMPBELL NAVARRO L ENGINEERING INSTRUCTOR Ot 719.40 JOINT PAIN-UNSPEC 10/27/2016 CAMPBELL NAVARRO ENGINEERING INSTRUCTOR Ot 795.79 OTH AND UNSPEC NONSPECIFIC IMMUNOLOGICAL 10/27/2016 CARLEY VIEYRASIOBHAN Handley GLASS ENAMEL MIXER Ot 789.00 ABDOMINAL PAIN, UNSPECIFIED SITE 10/27/2016 CAMPBELL NAVARRO ENGINEERING INSTRUCTOR Ot 266.2 B-COMPLEX DEFIC NEC 10/27/2016 CAMPBELL NAVARRO ENGINEERING INSTRUCTOR Ot 268.9 VITAMIN D DEFICIENCY NOS 10/27/2016 CAMPBELL NAVARRO L ENGINEERING INSTRUCTOR Ot 620.2 OVARIAN CYST NEC/NOS 10/27/2016 CAMPBELL NAVARRO ENGINEERING INSTRUCTOR Ot 780.79 OTH MALAISE FATIGUE 10/27/2016 CAMPBELL NAVARRO ENGINEERING INSTRUCTOR Ot 786.09 RESPIRATORY ABNORM NEC 10/27/2016 CAMPBELL NAVARRO ENGINEERING INSTRUCTOR Ot 789.00 ABDOMINAL PAIN, UNSPECIFIED SITE 10/27/2016 CAMPBELL NAVARRO ENGINEERING INSTRUCTOR Ot 789.00 ABDOMINAL PAIN, UNSPECIFIED SITE 10/27/2016 CAMPBELL NAVARRO ENGINEERING INSTRUCTOR Ot V45.86 BARIATRIC SURGERY STATUS 10/27/2016 CAMPBELL NAVARRO ENGINEERING INSTRUCTOR Ot 256.4 POLYCYSTIC OVARIES 10/27/2016 CAMPBELL NAVARRO ENGINEERING INSTRUCTOR Ot 611.6 GALACTORRHEA-NONOBSTET 10/27/2016 CAMPBELL NAVARRO ENGINEERING INSTRUCTOR Ot 626.0 ABSENCE OF MENSTRUATION 10/27/2016 CAMPBELL NAVARRO ENGINEERING INSTRUCTOR Ot 787.3 FLATUL/ERUCTAT/GAS PAIN 10/27/2016 CAMPBELL NAVARRO ENGINEERING INSTRUCTOR Ot 789.00 ABDOMINAL PAIN, UNSPECIFIED SITE 10/27/2016 CAMPBELL NAVARRO ENGINEERING INSTRUCTOR Ot 611.6 GALACTORRHEA-NONOBSTET 10/27/2016 CAMPBELL NAVARRO ENGINEERING INSTRUCTOR Ot 787.3 FLATUL/ERUCTAT/GAS PAIN 10/27/2016 CAMPBELL NAVARRO ENGINEERING INSTRUCTOR Ot 789.00 ABDOMINAL PAIN, UNSPECIFIED SITE 10/27/2016 LASHON PATIÑO GLASS ENAMEL MIXER Ot V22.0 SUPERVIS NORMAL 1ST PREG 10/27/2016 ALONDRA BRASHER DO Ot V22.0 SUPERVIS NORMAL 1ST PREG 10/27/2016 Ot V28.81 ENCOUNTER FOR ANATOMIC SURVEY 10/27/2016 ALONDRA BRASHER DO Ot V89.03 SUSPECTED ANOMALY NOT FOUND 10/27/2016 RAMONCAMPBELL ENGINEERING INSTRUCTOR Ot D55.9 ANEMIA DUE TO ENZYME DISORDER, UNSPECIFI 10/27/2016 RAMON CAMPBELL Pedro ENGINEERING INSTRUCTOR Ot E03.9 HYPOTHYROIDISM, UNSPECIFIED 10/27/2016 CARLEY NAVARROIA Pedro ENGINEERING INSTRUCTOR Ot E28.2 POLYCYSTIC OVARIAN SYNDROME 10/27/2016 RAMON CAMPBELL Pedro ENGINEERING INSTRUCTOR Ot E53.8 DEFICIENCY OF OTHER SPECIFIED B GROUP 10/27/2016 CAMPBELL NAVARRO ENGINEERING INSTRUCTOR Ot E61.2 MAGNESIUM DEFICIENCY 10/27/2016 CARLEY NAVARROIA Pedro ENGINEERING INSTRUCTOR Ot Z87.440 PERSONAL HISTORY OF URINARY (TRACT) INFE 10/27/2016 CAMPBELL NAVARRO ENGINEERING INSTRUCTOR Ot N93.9 ABNORMAL UTERINE AND VAGINAL BLEEDING, U 10/27/2016 CAMPBELL NAVARRO ENGINEERING INSTRUCTOR Ot N93.9 ABNORMAL UTERINE AND VAGINAL BLEEDING, U 10/27/2016 CAMPBELL NAVARRO ENGINEERING INSTRUCTOR Ot R10.30 LOWER ABDOMINAL PAIN, UNSPECIFIED 10/27/2016 RUTH GRANADOS MD Ot D50.9 IRON DEFICIENCY ANEMIA, UNSPECIFIED 10/27/2016 RUTH GRANADOS MD Ot E46 UNSPECIFIED PROTEIN-CALORIE MALNUTRITION 10/27/2016 RUTH GRANADOS MD Ot K90.9 INTESTINAL MALABSORPTION, UNSPECIFIED 10/27/2016 RUTH GRANADOS MD Ot Z98.84 BARIATRIC SURGERY STATUS 10/27/2016 ALONDRA BRASHER DO Ot Z34.82 ENCOUNTER FOR SUPRVSN OF NORMAL PREGNANC 10/27/2016 ROSSANA LOVETT MD Ot F32.9 MAJOR DEPRESSIVE DISORDER, SINGLE EPISOD 10/27/2016 ROSSANA LOVETT MD Ot F41.9 ANXIETY DISORDER, UNSPECIFIED 10/27/2016 ROSSANA LOVETT MD Ot G43.909 MIGRAINE, UNSP, NOT INTRACTABLE, WITHOUT 10/27/2016 ROSSANA LOVETT MD Ot K21.9 GASTRO-ESOPHAGEAL REFLUX DISEASE WITHOUT 10/27/2016 ROSSANA LOVETT MD Ot R11.2 NAUSEA WITH VOMITING, UNSPECIFIED 10/27/2016 ROSSANA LOVETT MD Ot Z87.42 PERSONAL HISTORY OF OTH DISEASES OF THE 10/27/2016 ROSSANA LOVETT MD Ot Z87.891 PERSONAL HISTORY OF NICOTINE DEPENDENCE 10/27/2016 ROSSANA LOVETT MD Ot Z90.89 ACQUIRED ABSENCE OF OTHER ORGANS 10/27/2016 ROSSANA LOVETT MD Ot Z98.890 OTHER SPECIFIED POSTPROCEDURAL STATES 10/29/2016 ROSSANA LOVETT MD Ot F32.9 MAJOR DEPRESSIVE DISORDER, SINGLE EPISOD 10/29/2016 ROSSANA LOVETT MD Ot F41.9 ANXIETY DISORDER, UNSPECIFIED 10/29/2016 ROSSANA LOVETT MD Ot G43.909 MIGRAINE, UNSP, NOT INTRACTABLE, WITHOUT 10/29/2016 ROSSANA LOVETT MD Ot K21.9 GASTRO-ESOPHAGEAL REFLUX DISEASE WITHOUT 10/29/2016 ROSSANA LOVETT MD Ot R11.2 NAUSEA WITH VOMITING, UNSPECIFIED 10/29/2016 ROSSANA LOVETT MD Ot Z87.42 PERSONAL HISTORY OF OTH DISEASES OF THE 10/29/2016 ROSSANA LOVETT MD Ot Z87.891 PERSONAL HISTORY OF NICOTINE DEPENDENCE 10/29/2016 ROSSANA LOVETT MD Ot Z90.89 ACQUIRED ABSENCE OF OTHER ORGANS 10/29/2016 ROSSANA LOVETT MD Ot Z98.890 OTHER SPECIFIED POSTPROCEDURAL STATES Procedures Code Description [place] [address] TEST, URINE (IN-HOUSE) 01/31/2014 54366 ROUTINE VENIPUNCTURE 02/07/2014 64516 US OB - EARLY <14 WEEKS 02/07/2014 97627 SYPHILLIS-[facility] 02/07/2014 99426 HIV ([facility]) 02/07/2014 19235 ANTIBODY SCREEN (order) 02/07/2014 79249 CULTURE URINE 02/07/2014 85125 HEP B SURFACE ANTIGEN ([facility]) 02/07/2014 18402 CBC 02/07/2014 18010 TSH 02/07/2014 [id number] ANTIBODY SCREEN (RESULT ONLY) 02/08/2014 55109 A1C (RML) 02/08/2014 62315 BLOOD TYPE/Rh FACTOR 02/08/2014 38765 RUBELLA ANTIBODY, IGG 02/08/2014 53423 GC/CHLAM PROBE (STATE) 03/07/2014 82098 PAP SMEAR 03/07/2014 Q0091 PAP SMEAR OBTAIN SMEAR 03/07/2014 16803 UA OB DIP 03/07/2014 21013 TRICHOMONAS (IN-HOUSE) 03/07/2014 20701 CULTURE URINE 03/08/2014 99720 CULTURE UROGENITAL 03/09/2014 25578 TB TEST INTRADERMAL 03/16/2014 79902 UA W/ CULTURE IF INDICATED 03/30/2014 03457 CULTURE URINE 03/30/2014 06512 UA OB DIP 04/04/2014 70849 ROUTINE VENIPUNCTURE 06/28/2014 01804 UA OB DIP 06/28/2014 49475 CBC 06/28/2014 08906 GLUCOSE JACINTA 1 HOUR 06/29/2014 25301 UA OB DIP 07/14/2014 75.69 REPAIR OB LACERATION NEC 09/23/2014 [id number] EXTRACTION OF POC, LOW CERVICAL, OPEN AP 06/28/2016 Results Test Result Range Urine Culture, Routine - 12/18/15 14:22 Urine Culture, Routine Note CBC With Differential/Platelet - 12/18/15 14:22 WBC 8.0 x10E3/uL 3.4-10.8 RBC 4.72 x10E6/uL 3.77-5.28 Hemoglobin 14.2 g/dL 11.1-15.9 Hematocrit 42.0 % 34.0-46.6 MCV 89 fL 79-97 MCH 30.1 pg 26.6-33.0 MCHC 33.8 g/dL 31.5-35.7 RDW 13.7 % 12.3-15.4 Platelets 298 x10E3/uL 150-379 Neutrophils 71 % Lymphs 21 % Monocytes 7 % Eos 1 % Basos 0 % Neutrophils (Absolute) 5.7 x10E3/uL 1.4-7.0 Lymphs (Absolute) 1.7 x10E3/uL 0.7-3.1 Monocytes(Absolute) 0.6 x10E3/uL 0.1-0.9 Eos (Absolute) 0.1 x10E3/uL 0.0-0.4 Baso (Absolute) 0.0 x10E3/uL 0.0-0.2 Immature Granulocytes 0 % Immature Grans (Abs) 0.0 x10E3/uL 0.0-0.1 TSH - 12/18/15 14:22 TSH 0.586 uIU/mL 0.450-4.500 Rubella Antibodies, IgG - 12/18/15 14:22 Rubella Antibodies, IgG 2.41 index Immune >0.99 Antibody Screen - 12/18/15 14:22 Antibody Screen Negative Negative Hemoglobin A1c - 12/18/15 14:22 Hemoglobin A1c 5.0 % 4.8-5.6 AFP Tetra - 02/12/16 11:56 Results Report Test Results: *Screen Negative* Gest. Age on Collection Date 19.4 WEEKS Gestat. Age Based On LMP M[age] At JAMAL 34[age]6 YEARS Race Weight 166 lbs Insulin Dep Diabetes No Multiple Gestation No AFP Value 21.0 ng/mL AFP MoM 0.44 hCG Value 84294 mIU/mL hCG MoM 0.50 uE3 Value 0.97 ng/mL uE3 MoM 0.56 DON Value 106.13 pg/mL DON MoM 0.60 OSBR [place] 1 [place] [address] DSR (Second Trimester) 1 [place] 6582 DSR (By Age) 1 IN 325 T18 Risk Not increased T18 (By Age) 1:1265 Interpretation Comment Comments: Comment PDF . Urine Culture, Routine - 03/18/16 10:17 Urine Culture, Routine Note CBC With Differential/Platelet - 04/15/16 11:09 WBC 7.2 x10E3/uL 3.4-10.8 RBC 3.72 x10E6/uL 3.77-5.28 Hemoglobin 11.6 g/dL 11.1-15.9 Hematocrit 34.5 % 34.0-46.6 MCV 93 fL 79-97 MCH 31.2 pg 26.6-33.0 MCHC 33.6 g/dL 31.5-35.7 RDW 14.1 % 12.3-15.4 Platelets 232 x10E3/uL 150-379 Neutrophils 79 % Lymphs 16 % Monocytes 5 % Eos 0 % Basos 0 % Neutrophils (Absolute) 5.7 x10E3/uL 1.4-7.0 Lymphs (Absolute) 1.1 x10E3/uL 0.7-3.1 Monocytes(Absolute) 0.4 x10E3/uL 0.1-0.9 Eos (Absolute) 0.0 x10E3/uL 0.0-0.4 Baso (Absolute) 0.0 x10E3/uL 0.0-0.2 Immature Granulocytes 0 % Immature Grans (Abs) 0.0 x10E3/uL 0.0-0.1 Gest. Diabetes 1-Hr Screen - 04/15/16 11:09 Gestational Diabetes Screen 85 mg/dL 65-139 Urine Culture, Routine - 05/02/16 10:40 Urine Culture, Routine Note Influenza virus A and B antigen detection - 05/03/16 10:44 FLU RESULT NEGATIVE FOR INFLUENZA A AND B ANTIGENS BY IA NRG Complete urinalysis with reflex to culture - 05/03/16 10:45 Urine color determination YELLOW NRG Urine clarity determination VERY CLOUDY NRG Urine pH measurement by test strip 5 5-9 Specific gravity of urine by test strip [...] sediment leukocyte count by microscopy (number/high power field) [HPF] NRG Bacteria detection in urine sediment [...] culture - 05/03/16 10:45 Bacterial urine culture [id number] NRG COLONY COUNT >100,000/ML NRG Complete blood count (CBC) with automated white blood cell (WBC) differential - 05/03/16 10:55 Blood leukocytes automated count (number/volume) 5.0 10*3/uL 4.3-11.0 Blood erythrocytes automated count (number/volume) 3.99 10*6/uL 4.35-5.85 Venous blood hemoglobin measurement (mass/volume) 12.5 g/dL 11.5-16.0 Blood hematocrit (volume fraction) 37 % 35-52 Automated erythrocyte mean corpuscular volume 92 [foz_us] 80-99 Automated erythrocyte mean corpuscular hemoglobin (mass per erythrocyte) 31 pg 25-34 Automated erythrocyte mean corpuscular hemoglobin concentration measurement (mass/volume) 34 g/dL 32-36 Automated erythrocyte distribution width ratio 13.7 % 10.0- 14.5 Automated blood platelet count (count/volume) 194 10*3/uL 130-400 Automated blood platelet mean volume measurement 9.7 [foz_us] 7.4-10.4 Automated blood neutrophils/100 leukocytes 76 % 42-75 Automated blood lymphocytes/100 leukocytes 16 % 12-44 Blood monocytes/100 leukocytes 8 % 0-12 Automated blood eosinophils/100 leukocytes 1 % 0-10 Automated blood basophils/100 leukocytes 0 % 0-10 Blood neutrophils automated count (number/volume) 3.8 10*3 1.8-7.8 Blood lymphocytes automated count (number/volume) 0.8 10*3 1.0-4.0 Blood monocytes automated count (number/volume) 0.4 10*3 0.0- 1.0 Automated eosinophil count 0.0 10*3/uL 0.0-0.3 Automated blood basophil count (count/volume) 0.0 10*3/uL 0.0-0.1 Comprehensive metabolic panel - 05/03/16 10:55 Serum or plasma sodium measurement (moles/volume) 136 mmol/L 135-145 Serum or plasma potassium measurement (moles/volume) 3.4 mmol/L 3.6-5.0 Serum or plasma chloride measurement (moles/volume) 105 mmol/L 98-107 Carbon dioxide 22 mmol/L 21-32 Serum or plasma anion gap determination (moles/volume) 9 mmol/L 5-14 Serum or plasma urea nitrogen measurement (mass/volume) 8 mg/dL 7-18 Serum or plasma creatinine measurement (mass/volume) 0.73 mg/dL 0.60-1.30 Serum or plasma urea nitrogen/creatinine mass [...] Serum or plasma aspartate aminotransferase measurement (enzymatic activity/volume) 12 U/L 5-34 Serum or plasma alanine aminotransferase measurement (enzymatic activity/volume) 9 U/L 0-55 Serum or plasma protein measurement (mass/volume) 6.1 g/dL 6.4-8.2 Serum or plasma albumin measurement (mass/volume) 3.2 g/dL 3.2-4.5 Capillary blood glucose measurement by glucometer (mass/volume) - 05/03/16 12:10 Capillary blood glucose measurement by glucometer (mass/volume) 80 mg/dL 70-110 Urine Culture, Routine - 05/13/16 09:25 Urine Culture, Routine Note CBC With Differential/Platelet - 06/17/16 14:56 WBC 7.1 x10E3/uL 3.4-10.8 RBC 3.75 x10E6/uL 3.77-5.28 Hemoglobin 11.7 g/dL 11.1-15.9 Hematocrit 34.1 % 34.0-46.6 MCV 91 fL 79-97 MCH 31.2 pg 26.6-33.0 MCHC 34.3 g/dL 31.5-35.7 RDW 13.8 % 12.3-15.4 Platelets 222 x10E3/uL 150-379 Neutrophils 74 % Lymphs 21 % Monocytes 4 % Eos 0 % Basos 0 % Neutrophils (Absolute) 5.3 x10E3/uL 1.4-7.0 Lymphs (Absolute) 1.5 x10E3/uL 0.7-3.1 Monocytes(Absolute) 0.3 x10E3/uL 0.1-0.9 Eos (Absolute) 0.0 x10E3/uL 0.0-0.4 Baso (Absolute) 0.0 x10E3/uL 0.0-0.2 Immature Granulocytes 1 % Immature Grans (Abs) 0.1 x10E3/uL 0.0-0.1 Comp. Metabolic Panel (14) - 06/17/16 14:56 Glucose, Serum 78 mg/dL 65-99 BUN 10 mg/dL 6-20 Creatinine, Serum 0.67 mg/dL 0.57-1.00 eGFR If NonAfricn Am 115 mL/min/1.73 >59 eGFR If Africn Am 133 mL/min/1.73 >59 BUN/Creatinine Ratio 15 8-20 Sodium, Serum 138 mmol/L 134-144 Potassium, Serum 4.2 mmol/L 3.5-5.2 Chloride, Serum 100 mmol/L 96-106 Carbon Dioxide, Total 22 mmol/L 18-29 Calcium, Serum 8.7 mg/dL 8.7-10.2 Protein, Total, Serum 5.8 g/dL 6.0-8.5 Albumin, Serum 3.2 g/dL 3.5-5.5 Globulin, Total 2.6 g/dL 1.5-4.5 A/G Ratio 1.2 1.2-2.2 Bilirubin, Total 0.3 mg/dL 0.0-1.2 Alkaline Phosphatase, S 115 IU/L 39-117 AST (SGOT) 13 IU/L 0-40 ALT (SGPT) 8 IU/L 0-32 Microalb/Creat Ratio, [facility] Ur - 06/17/16 14:56 Creatinine, Urine 206.1 mg/dL Not Estab. Microalbumin, Urine 4.4 ug/mL Not Estab. Microalb/Creat Ratio 2.1 mg/g creat 0.0-30.0 Protein Total, Qn, 24-Hr Urine - 06/20/16 11:07 Protein,Total,Urine 23.3 mg/dL Not Estab. Prot,24hr calculated 97.9 mg/24 hr 30.0-150.0 Complete urinalysis with reflex to culture - 06/22/16 13:30 Urine color determination YELLOW NRG Urine clarity determination SLIGHTLY CLOUDY NRG Urine pH measurement by test strip 5 5-9 Specific gravity of urine by test strip [...] sediment leukocyte count by microscopy (number/high power field) [HPF] NRG Bacteria detection in urine sediment [...] detection by organism specific culture - 06/23/16 10:25 QUANTITY OF GROWTH Isolated NRG MRSA AGAR Screening test for MRSA is NEGATIVE (Final to follow) NRG Streptococcus agalactiae detection by organism specific culture [id number] NRG Complete urinalysis with reflex to culture - 06/28/16 05:15 Urine color determination YELLOW NRG Urine clarity determination CLEAR NRG Urine pH measurement by test strip 6 5-9 Specific gravity of urine by test strip [...] sediment leukocyte count by microscopy (number/high power field) > [HPF] NRG Bacteria detection in urine [...] 05:50 Blood leukocytes automated count (number/volume) 7.5 10*3/uL 4.3-11.0 Blood erythrocytes automated count (number/volume) 3.89 10*6/uL 4.35-5.85 Venous blood hemoglobin measurement (mass/volume) 12.2 g/dL 11.5-16.0 Blood hematocrit (volume fraction) 35 % 35-52 Automated erythrocyte mean corpuscular volume 91 [foz_us] 80-99 Automated erythrocyte mean corpuscular hemoglobin (mass per erythrocyte) 31 pg 25-34 Automated erythrocyte mean corpuscular hemoglobin concentration measurement (mass/volume) 35 g/dL 32-36 Automated erythrocyte distribution width ratio 13.7 % 10.0- 14.5 Automated blood platelet count (count/volume) 212 10*3/uL 130-400 Automated blood platelet mean volume measurement 11.4 [foz_us] 7.4-10.4 Automated blood neutrophils/100 leukocytes 67 % 42-75 Automated blood lymphocytes/100 leukocytes 26 % 12-44 Blood monocytes/100 leukocytes 6 % 0-12 Automated blood eosinophils/100 leukocytes 0 % 0-10 Automated blood basophils/100 leukocytes 0 % 0-10 Blood neutrophils automated count (number/volume) 5.1 10*3 1.8-7.8 Blood lymphocytes automated count (number/volume) 2.0 10*3 1.0-4.0 Blood monocytes automated count (number/volume) 0.5 10*3 0.0- 1.0 Automated eosinophil count 0.0 10*3/uL 0.0-0.3 Automated blood basophil count (count/volume) 0.0 10*3/uL 0.0-0.1 Blood type T Indirect antibody screen panel - 06/28/16 05:50 ABO+Rh group OP NRG Transfusion band number [id number] NRG Blood group antibody screen NEGATIVE NRG Encounters ACCT No. Visit Date/Time Discharge Status Pt. Type Provider Facility Loc./Unit Complaint [id number] 07/14/2014 13:49:00 07/14/2014 23:59:59 [facility] Outpatient LASHON PATIÑO APRN [id number] 06/28/2014 13:22:00 06/28/2014 23:59:59 [facility] Outpatient ALONDRA BRASHER DO [id number] 05/31/2014 10:07:00 05/31/2014 23:59:59 [facility] Outpatient LASHON PATIÑO APRN [id number] 05/09/2014 08:26:00 05/09/2014 23:59:59 [facility] Outpatient KRISTINA TRACEY APRN [id number] 05/02/2014 13:54:00 05/02/2014 23:59:59 [facility] Outpatient VANESSA BRASHER DOKathrine Lopez [id number] 04/04/2014 13:58:00 04/04/2014 23:59:59 [facility] Outpatient ANSHU RAWLS ALONDRA Lopez [id number] 03/30/2014 12:55:00 03/30/2014 23:59:59 [facility] Outpatient SOFYA BANUELOS APRN [id number] 03/07/2014 08:42:00 03/07/2014 23:59:59 [facility] Outpatient LASHON PATIÑO APRN [id number] 02/07/2014 13:00:00 02/07/2014 23:59:59 [facility] Outpatient LASHON PATIÑO APRN [id number] 01/31/2014 10:48:00 01/31/2014 23:59:59 [facility] Outpatient VANESSA BRASHER DOKathrine Lopez [id number] 06/25/2018 13:20:00 06/25/2018 23:59:59 [facility] Outpatient ALONDRA BRASHER DO [facility] [id number] 02/19/2016 18:05:00 Document Registration [id number] 05/04/2016 03:07:00 Document Registration [id number] 12/20/2015 05:05:00 Document Registration [id number] 05/15/2016 15:13:00 Document Registration [id number] 03/20/2016 05:05:00 Document Registration [id number] 10/27/2016 10:22:00 10/27/2016 23:59:59 CLS Emergency ROSSANA LOVETT MD [facility] ER MIGRAINE [id number] 06/28/2016 05:42:00 06/30/2016 14:35:00 DIS Inpatient ALONDRA BRASHER DO [facility] LDRP LABOR,SROM [id number] 06/22/2016 13:32:00 06/23/2016 10:32:00 DIS Inpatient ALONDRA BRASHER DO [facility] LDRP CONTRACTIONS [id number] 05/03/2016 10:27:00 05/03/2016 12:14:00 DIS Emergency TORSTEN ENGEL APRN [facility] ER COUGH,CONGESTION,N,V [id number] 02/27/2016 09:35:00 02/27/2016 23:59:59 CLS Outpatient ALONDRA BRASHER DO [facility] RAD SURVEY [id number] 12/06/2015 06:49:00 12/06/2015 11:15:00 DIS Emergency TIP BOJORQUEZ MD [facility] ER VOMTING,TORRES X 2 DAYS,FEVER,DEHYDRATED [id number] 07/19/2015 00:08:00 07/19/2015 23:59:59 CLS Preadmit RUTH GRANADOS MD [facility] ONC [id number] 06/07/2015 13:50:00 07/18/2015 00:01:00 DIS Outpatient RUTH GRANADOS MD [facility] ONC [id number] 02/22/2015 15:20:00 02/22/2015 23:59:59 CLS Outpatient CAMPBELL NAVARRO ENGINEERING INSTRUCTOR [facility] RAD LOWER ABDOMINAL PAIN,ABNORMAL UTERINE BLEEDING [id number] 02/09/2015 14:20:00 02/09/2015 23:59:59 CLS Outpatient CAMPBELL NAVARRO ENGINEERING INSTRUCTOR [facility] RAD ABNORMAL UTERINE BLEEDING [id number] 02/06/2015 10:44:00 02/06/2015 23:59:59 CLS Outpatient CAMPBELL NAVARRO ENGINEERING INSTRUCTOR [facility] LAB PCOS,UTI,LEVELS FOR VIT D.B12 [id number] 01/28/2015 23:36:00 01/29/2015 01:00:00 DIS Emergency APURVAANNE MARIE Wang DO [facility] ER VAGINAL BLEEDING [id number] 10/02/2014 11:34:00 10/02/2014 13:30:00 DIS Emergency ANTONIETA GUALLPA MD [facility] ER HIGH BLOOD PRESSURE MIGRAINE SWELLING [id number] 09/23/2014 04:34:00 09/25/2014 16:35:00 DIS Inpatient ALONDRA BRASHER DO [facility] LDRP LABOR [id number] 09/19/2014 19:55:00 09/19/2014 21:55:00 DIS Outpatient ALONDRA BRASHER DO [facility] WSo CONTRACTIONS NOT FEELING WELL [id number] 09/08/2014 09:20:00 09/09/2014 16:49:00 DIS Inpatient FROILAN SUTTON MD [facility] LDRP HEADACHE, ELEVATED BP [id number] 08/31/2014 23:00:00 09/01/2014 09:29:00 DIS Inpatient ALONDRA BRASHER DO [facility] LDRP CTXS [id number] 08/30/2014 19:59:00 08/30/2014 21:15:00 DIS Outpatient ALONDRA BRASHER DO John [facility] WSo SPOTTING,DIZZINESS,PRESSURE [id number] 08/28/2014 08:45:00 08/28/2014 15:00:00 DIS Outpatient ALONDRA BRASHER DO John [facility] WSo SPOTTING PRESSURE BACK PAIN [id number] 07/20/2014 10:03:00 07/20/2014 23:59:59 CLS Outpatient ALONDRA BRASHER DO John [facility] RAD FOLLOW UP C SPINE VISUALIZATION [id number] 05/06/2014 09:54:00 05/06/2014 23:59:59 CLS Outpatient ALONDRA BRASHER DO [facility] RAD DATING [id number] 04/26/2014 22:27:00 04/27/2014 00:02:00 DIS Emergency ANNE MARIE MIXON DO [facility] ER FAINTING @ 17 WEEKS [id number] 04/22/2014 08:01:00 04/22/2014 09:40:00 DIS Emergency ANTONIETA GUALLPA MD [facility] ER ABD PAIN 17 WKS PREG [id number] 02/16/2014 09:27:00 02/16/2014 23:59:59 CLS Outpatient LASHON PATIÑO APRN [facility] RAD DATING [id number] 11/11/2013 10:56:00 11/11/2013 23:59:59 CLS Outpatient CAMPBELL NAVARRO [facility] RAD ABD PAIN,DISTINCTION,CHANGES --STAT-- [id number] 11/10/2013 10:47:00 11/10/2013 23:59:59 CLS Outpatient NAVARROCAMPBELL PÉREZ ENGINEERING INSTRUCTOR [facility] RAD ABD PAIN,DISTINCTION--STAT-- [id number] 11/08/2013 11:55:00 11/08/2013 23:59:59 CLS Outpatient NAVARROCAMPBELL PAUL L ENGINEERING INSTRUCTOR [facility] RAD ABD DISCOMFORT [id number] 08/27/2013 08:05:00 08/27/2013 23:59:59 CLS Outpatient CARLEY NAVARROIA L ENGINEERING INSTRUCTOR [facility] RAD ABD DISCOMFORT [id number] 03/25/2013 11:38:00 03/25/2013 23:59:59 CLS Outpatient NAVARROCARLEY PAULIA L ENGINEERING INSTRUCTOR [facility] RAD PELVIC PAIN,PULSITILE AORTA [id number] 03/01/2013 10:09:00 03/01/2013 23:59:59 CLS Outpatient RIDINGS, CAMPBELL C GLASS ENAMEL MIXER [facility] LAB CRAMPING,POSSIBLE [id number] 11/25/2012 07:26:00 11/25/2012 23:59:59 CLS Outpatient NAVARROCARLEY PAULIA L ENGINEERING INSTRUCTOR [facility] LAB EVALATED TALON, JOINT PAIN,UTI [id number] 10/21/2012 07:43:00 10/21/2012 23:59:59 CLS Outpatient CARLEY NAVARROIA L ENGINEERING INSTRUCTOR [facility] LAB HYPOTHYROID,FATIGUE,ANEMIA [id number] 10/09/2012 23:13:00 10/10/2012 00:45:00 DIS Emergency LORETTA LOPEZ MD [facility] ER OVER HEATED [id number] 06/03/2014 09:46:00 Document Registration [id number] 04/22/2014 09:48:00 Document Registration [id number] 04/22/2014 09:48:00 Document Registration [id number] 05/04/2012 14:36:00 Document Registration [id number] 04/25/2012 10:45:00 Document Registration [id number] 04/25/2012 10:34:00 Document Registration [id number] 04/20/2012 20:17:00 Document Registration [id number] 09/21/2011 23:20:00 Document Registration [id number] 08/29/2011 08:36:00 Document Registration [id number] 08/20/2011 07:40:00 Document Registration [id number] 08/08/2011 09:15:00 Document Registration [id number] 08/05/2011 07:49:00 Document Registration [id number] 06/28/2011 08:35:00 Document Registration [id number] 04/30/2011 09:47:00 Document Registration [id number] 04/29/2011 07:56:00 Document Registration [id number] 03/26/2011 00:00:00 Document Registration [id number] 12/27/2010 08:48:00 Document Registration [id number] 12/27/2010 08:00:00 Document Registration [id number] 05/16/2010 16:41:00 Document Registration [id number] 04/29/2010 16:28:00 Document Registration [id number] 12/08/2009 07:31:00 Document Registration [id number] 09/22/2009 07:46:00 Document Registration [id number] 09/22/2009 07:41:00 Document Registration [id number] 08/16/2009 12:55:00 Document Registration [id number] 07/26/2009 08:12:00 Document Registration [id number] 11/28/2008 15:15:00 Document Registration [id number] 12/19/2015 13:06:00 Document Registration [id number] 03/22/2016 13:55:00 03/22/2016 23:59:00 DIS Outpatient Campbell Navarro [id number] 06/21/2016 12:08:00 Document Registration [id number] 04/16/2016 08:06:00 Document Registration [id number] 12/19/2015 13:06:00 Document Registration [id number] 10/03/2014 02:05:02 [place] Document Registration [id number] 06/18/2016 12:08:00 Document Registration
[2018-08-27 22:25] LABS: BASOPHILS % (AUTO) 1 % (0-10); EOSINOPHILS # (AUTO) 0.1 10^3/uL (0.0-0.3); EOSINOPHILS % (AUTO) 1 % (0-10); HEMATOCRIT 36 % (35-52); HEMOGLOBIN 11.8 G/DL (11.5-16.0); LYMPHOCYTES % (AUTO) 23 % (12-44); MEAN CORPUSCULAR HEMOGLOBIN 26 PG (25-34); MEAN CORPUSCULAR HGB CONC 32 G/DL (32-36); MEAN CORPUSCULAR VOLUME 79 FL (80-99); MEAN PLATELET VOLUME 9.6 FL (7.4-10.4); MONOCYTES # (AUTO) 0.5 X 10^3 (0.0-1.0); MONOCYTES % (AUTO) 5 % (0-12); NEUTROPHILS % (AUTO) 70 % (42-75); PLATELET COUNT 325 10^3/uL (130-400); RED CELL DISTRIBUTION WIDTH 15.3 % (10.0-14.5); WHITE BLOOD COUNT 8.5 10^3/uL (4.3-11.0)
[2018-08-27 22:27] LABS: BILIRUBIN,URINE NEGATIVE (NEGATIVE); CLARITY,URINE SLIGHTLY CLOUDY; COLOR,URINE YELLOW; GLUCOSE, URINE (UA) NEGATIVE (NEGATIVE); KETONES,URINE NEGATIVE (NEGATIVE); LEUKOCYTE ESTERASE ,URINE 1+ (NEGATIVE); NITRITE,URINE NEGATIVE (NEGATIVE); PH,URINE 7 (5-9); PROTEIN,URINE NEGATIVE (NEGATIVE); UROBILINOGEN,URINE NORMAL (NORMAL)
[2018-08-27] MEDS ORDERED: LACTATED RINGERS 1,000 ML IV ONE (22:31)
[2018-08-27] MEDS ORDERED: KETOROLAC 30 MG/ML VIAL IVP STA (22:31)
--- NOTE | 2018-08-27 22:38 | ED General ---
General Chief Complaint: Head/Cervical Problems Stated Complaint: HEADACHE,ABD PAIN Nursing Triage Note: headache, abdominal pain. Nursing Sepsis Screen: No Definite Risk Allergies and Home Medications Allergies Coded Allergies: NKANo Known Allergies (Verified Allergy, Unknown, 06/03/08) Home Medications Buspirone HCl 5 Mg Tablet, 5 MG PO DAILY, (Reported) Review of Systems Review of Systems Constitutional: see HPI, fever EENTM: no symptoms reported Respiratory: no symptoms reported Cardiovascular: no symptoms reported Gastrointestinal: see HPI, abdominal pain, loss of appetite, nausea, vomiting Genitourinary: other (CHRONIC IRREGULAR PERIODS--IUD IN PLACE) : No LMP: August 11, 2018 Musculoskeletal: see HPI, back pain Skin: no symptoms reported Psychiatric/Neurological: See HPI, Headache; Denies Numbness, Denies Paresthesia, Denies Seizure, Denies Tingling, Denies Tremors, Denies Weakness Hematologic/Lymphatic: No Symptoms Reported Immunological/Allergic: no symptoms reported Past Zhjjham-Oceffv-Tolmys Hx Patient Social History Alcohol Use: Rarely Uses Recreational Drug Use: No Smoking Status: Current Someday Smoker Type Used: Cigarettes Recent Foreign Travel: No Contact w/Someone Who Travel: No Recent Infectious Disease Expo: No Recent Hopitalizations: No Immunizations Up To Date Tetanus Booster (TDap): Unknown PED Vaccines UTD: Yes Date of Influenza Vaccine: Dec 13, 2015 Seasonal Allergies Seasonal Allergies: Yes Past Medical History Surgeries: Yes (LAP BAND 2008; X 1; BILATERAL TOE SURGERY) Abdominal, Adenoidectomy, Section, Gallbladder, Orthopedic, Tonsillectomy Respiratory: No Cardiac: Yes (GESTATIONAL HYPERTENSION) Syncope Neurological: Yes (CHRONIC HEADACHES) Headaches /Migraines : No Last Menstrual Period: August 10, 2018 Reproductive Disorders: Yes Female Reproductive Disorders: Menstrual Problems, Polycystic Ovarian Dis 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 Sexually Transmitted Disease: Yes (HX TRICHOMONAS 2013) HIV/AIDS: No Genitourinary: Yes UTI-Chronic Gastrointestinal: Yes (LAP BAND IN PLACE) Gastroesophageal Reflux Musculoskeletal: Yes Degenerate Disk Disease, Chronic Back Pain Endocrine: Yes ("PCOS" ) HEENT: No Cancer: No Psychosocial: Yes Anxiety, Depression Integumentary: No Blood Disorders: Yes (ANEMIA) Adverse Reaction/Blood Tranf: No Family Medical History Asthma 19 MOTHER, Onset:40's - 50 Diabetes mellitus 19 MOTHER, Onset:40's - 50 Gastroenteritis G8 SISTER, Onset: - Hypercholesterolemia 19 FATHER 19 MOTHER, Onset:40 - 50 Hypertension 19 FATHER, Onset:40 - 50 19 MOTHER, Onset: - Seizure disorder G8 SISTER, Onset: - No Family History of: AIDS Abdominal aortic aneurysm [place]'s disease Alcoholism Alzheimer's disease Aphasia Arthritis Cancer of mouth Cardiovascular disease Cataracts Colon cancer Completed stroke Congenital disease Congenital heart disease Coronary thrombosis Cystic fibrosis Deafness or hearing loss Dementia Drug abuse Dysphasia Fibrocystic disease of breast Glaucoma Headache disorder Infertility Kidney disease Myocardial infarction Neoplasm Not obtainable due to adoption Osteoporosis Parkinson's disease Prostate cancer Psychosocial problem Respiratory disorder Severe allergy Thyroid disease Tuberculosis Visual disorder Physical Exam Vital Signs Vital Signs - First Documented 08/27/18 21:56 Temp 97.3 Pulse 96 Resp 18 B/P (MAP) 156/118 (131) Pulse Ox 100 O2 Delivery Room Air Capillary Refill : Less Than 3 Seconds Height, Weight, BMI Height: 5'1.00" Weight: 164lbs. 0oz. [id number]; 31.3 BMI Method:Stated General Appearance: No Apparent Distress, WD/WN, Other (WALKS UPRIGHT AND MOVES WITHOUT DIFFICULTY) HEENT: PERRL/EOMI, Normal ENT Inspection Neck: Full Range of Motion, Normal Inspection, Non Tender, Supple Respiratory: Normal Breath Sounds, No Accessory Muscle Use, No Respiratory Distress Cardiovascular: Regular Rate, Rhythm, No Edema, No JVD, No Murmur, Normal Peripheral Pulses Gastrointestinal: Normal Bowel Sounds, No Organomegaly, No Pulsatile Mass, Soft, Tenderness (MILD DIFFUSE LOWER ABDOMEN TENDERNESS) Back: No CVA Tenderness Extremity: Normal Capillary Refill, Normal Inspection, Normal Range of Motion, Non Tender, No Calf Tenderness, No Pedal Edema Neurologic/Psychiatric: Alert, Oriented x3, No Motor/Sensory Deficits, Normal Mood/Affect, order picker/assembler II-XII Norm as Tested Skin: Normal Color, Warm/Dry Progress/Results/Core Measures Suspected Sepsis Recent Fever Within 48 Hours: No Infection Criteria Present: None New/Unexplained Altered Menta: No Sepsis Screen: No Definite Risk SIRS Temperature:97.3 Pulse: 96 Respiratory Rate: 18 Laboratory Tests 08/27/18 22:15: White Blood Count 8.5 Blood Pressure 156 /118 Mean: 131 Laboratory Tests 08/27/18 22:15: Creatinine 0.92, Platelet Count 325, Total Bilirubin 0.3 Results/Orders Lab Results Laboratory Tests Test 08/27/18 22:05 08/27/18 22:15 Range/Units Urine Color YELLOW Urine Clarity SLIGHTLY CLOUDY Urine pH 7 5-9 Urine Specific Mcintosh 1.010 L 1.016-1.022 Urine Protein NEGATIVE NEGATIVE Urine Glucose (UA) NEGATIVE NEGATIVE Urine Ketones NEGATIVE NEGATIVE Urine Nitrite NEGATIVE NEGATIVE Urine Bilirubin NEGATIVE NEGATIVE Urine Urobilinogen NORMAL NORMAL MG/DL Urine Leukocyte Esterase 1+ H NEGATIVE Urine RBC (Auto) 5+ H NEGATIVE Urine RBC 5-10 H /HPF Urine WBC 0-2 /HPF Urine Squamous Epithelial Cells 5-10 /HPF Urine Crystals PRESENT H /LPF Urine Amorphous Sediment RARE LÁZARO PHOSPHATE H /LPF Urine Bacteria TRACE /HPF Urine Casts NONE /LPF Urine Mucus NEGATIVE /LPF Urine Trichomonas FEW H /HPF Urine Culture Indicated YES Urine Opiates Screen NEGATIVE NEGATIVE Urine Oxycodone Screen NEGATIVE NEGATIVE Urine Methadone Screen NEGATIVE NEGATIVE Urine Propoxyphene Screen NEGATIVE NEGATIVE Urine Barbiturates Screen NEGATIVE NEGATIVE Ur Tricyclic Antidepressants Screen NEGATIVE NEGATIVE Urine Phencyclidine Screen NEGATIVE NEGATIVE Urine Amphetamines Screen POSITIVE H NEGATIVE Urine Methamphetamines Screen NEGATIVE NEGATIVE Urine Benzodiazepines Screen NEGATIVE NEGATIVE Urine Cocaine Screen NEGATIVE NEGATIVE Urine Cannabinoids Screen NEGATIVE NEGATIVE White Blood Count 8.5 4.3-11.0 10^3/uL Red Blood Count 4.63 4.35-5.85 10^6/uL Hemoglobin 11.8 11.5-16.0 G/DL Hematocrit 36 35-52 % Mean Corpuscular Volume 79 L 80-99 FL Mean Corpuscular Hemoglobin 26 25-34 PG Mean Corpuscular Hemoglobin Concent 32 32-36 G/DL Red Cell Distribution Width 15.3 H 10.0-14.5 % Platelet Count 325 130-400 10^3/uL Mean Platelet Volume 9.6 7.4-10.4 FL Neutrophils (%) (Auto) 70 42-75 % Lymphocytes (%) (Auto) 23 12-44 % Monocytes (%) (Auto) 5 0-12 % Eosinophils (%) (Auto) 1 0-10 % Basophils (%) (Auto) 1 0-10 % Neutrophils # (Auto) 6.0 1.8-7.8 X 10^3 Lymphocytes # (Auto) 2.0 1.0-4.0 X 10^3 Monocytes # (Auto) 0.5 0.0-1.0 X 10^3 Eosinophils # (Auto) 0.1 0.0-0.3 10^3/uL Basophils # (Auto) 0.0 0.0-0.1 10^3/uL Sodium Level 141 135-145 MMOL/L Potassium Level 3.4 L 3.6-5.0 MMOL/L Chloride Level 112 H 98-107 MMOL/L Carbon Dioxide Level 20 L 21-32 MMOL/L Anion Gap 9 5-14 MMOL/L Blood Urea Nitrogen 13 7-18 MG/DL Creatinine 0.92 0.60-1.30 MG/DL Estimat Glomerular Filtration Rate > 60 BUN/Creatinine Ratio 14 Glucose Level 88 70-105 MG/DL Calcium Level 9.4 8.5-10.1 MG/DL Corrected Calcium 9.4 8.5-10.1 MG/DL Magnesium Level 1.9 1.8-2.4 MG/DL Total Bilirubin 0.3 0.1-1.0 MG/DL Aspartate Amino Transf (AST/SGOT) 15 5-34 U/L Alanine Aminotransferase (ALT/SGPT) 10 0-55 U/L Alkaline Phosphatase 64 40-136 U/L Total Protein 7.0 6.4-8.2 GM/DL Albumin 4.0 3.2-4.5 GM/DL Amylase Level 59 25-125 U/L Lipase 29 8-78 U/L Serum Alcohol < 10 <10 MG/DL My Orders Orders - ANNE MARIE MIXON DO Ed Iv/Invasive Line Start (08/27/18 22:04) Urine Bedside (08/27/18 22:04) Alcohol (08/27/18 22:04) Amylase (08/27/18 22:04) Cbc With Automated Diff (08/27/18 22:04) Comprehensive Metabolic Panel (08/27/18 22:04) Drug Screen Stat (Urine) (08/27/18 22:04) Lipase (08/27/18 22:04) Magnesium (08/27/18 22:04) Ua Culture If Indicated (08/27/18 22:04) Ct Abd/Pelv W (Appendicitis) (08/27/18 22:31) Acute Abd Series (08/27/18 22:31) Ed Iv/Invasive Line Start (08/27/18 22:31) Lactated Ringers (Lr 1000 Ml Iv Solution (08/27/18 22:31) Ketorolac Injection (Toradol Injection) (08/27/18 22:31) Urine Culture (08/27/18 22:05) Iohexol Injection (Omnipaque 350 Mg/Ml 1 (08/27/18 23:30) Ns (Ivpb) (Sodium Chloride 0.9% Ivpb Bag (08/27/18 23:30) Rx-Nitrofurantoin [place] (Rx-Macrobid) (08/28/18 00:09) Rx-Ondansetron Po (Rx-Zofran Po) (08/28/18 00:09) Medications Given in ED Current Medications Medications Dose Ordered Sig/Rufina Route Start Time Stop Time Status Last Admin Dose Admin Iohexol 100 ml ONCE ONCE IV 08/27/18 23:30 08/27/18 23:31 UNV 08/27/18 23:27 100 ML Lactated Ringer's 1,000 ml @ 0 mls/hr Q0M ONCE IV 08/27/18 22:31 08/27/18 23:10 DC 08/27/18 22:49 0 MLS/HR Sodium Chloride 100 ml ONCE ONCE IV 08/27/18 23:30 08/27/18 23:31 UNV 08/27/18 23:27 100 ML Vital Signs/I&O 08/27/18 21:56 Temp 97.3 Pulse 96 Resp 18 B/P (MAP) 156/118 (131) Pulse Ox 100 O2 Delivery Room Air 08/28/18 00:00 Intake Total 1000 ml Balance 1000 ml Capillary Refill : Less Than 3 Seconds Blood Pressure Mean: 131 Departure Impression Primary Impression: UTI (urinary tract infection) Additional Impression: Chronic headaches Disposition: HOME, SELF-CARE Condition: Stable Departure-Patient Inst. Referrals: [facility] (PCP) Primary Care Physician ASHLEY ZEE (Family) Primary Care Physician Patient Instructions: Headache, Adult (DC), Urinary Tract Infection, Adult (DC) Add. Discharge Instructions: CONTINUE YOUR REGULAR MEDICATIONS PRESCRIBED, INCLUDING BACLOFEN FOR MUSCLE SPASMS LOTS OF WATER FOLLOW UP WITH YOUR DR IN 2-3 DAYS FOR FURTHER CARE All discharge instructions reviewed with patient and/or family. Voiced understanding. Scripts Nitrofurantoin Monohyd/M-Cryst (Macrobid 100 mg Capsule) 100 Mg Capsule 100 MG PO BID, #20 CAP Prov: ANNE MARIE MIXON DO 08/28/18 Ondansetron (Ondansetron Odt) 8 Mg Tab.rapdis 8 MG PO Q6H for Nausea/Vomiting, #10 TAB Prov: ANNE MARIE MIXON DO 08/28/18 ANNE MARIE MIXON DO August 27, 2018 22:38
[2018-08-27 22:47] LABS: AMPHETAMINE SCREEN, URINE POSITIVE (NEGATIVE); BACTERIA,URINE TRACE /HPF; BARBITURATE SCREEN URINE NEGATIVE (NEGATIVE); BENZODIAZEPINES SCREEN URINE NEGATIVE (NEGATIVE); CANNABINOID SCREEN, URINE NEGATIVE (NEGATIVE); COCAINE SCREEN URINE NEGATIVE (NEGATIVE); METHADONE STAT NEGATIVE (NEGATIVE); METHAMPHETAMINE SCREEN URINE S NEGATIVE (NEGATIVE); OPIATE SCREEN URINE NEGATIVE (NEGATIVE); OXYCODONE STAT NEGATIVE (NEGATIVE); PROPOXYPHENE STAT NEGATIVE (NEGATIVE); TRICYCLIC ANTIDEPRESSANTS SCRE NEGATIVE (NEGATIVE); WBC,URINE 0-2 /HPF
[2018-08-27 22:48] LABS: ALANINE AMINOTRANSFERASE 10 U/L (0-55); ALKALINE PHOSPHATASE 64 U/L (40-136); AMYLASE 59 U/L (25-125); BILIRUBIN,TOTAL 0.3 MG/DL (0.1-1.0); BUN/CREATININE RATIO 14; CALCIUM 9.4 MG/DL (8.5-10.1); CARBON DIOXIDE 20 MMOL/L (21-32); CHLORIDE 112 MMOL/L (98-107); CREATININE SERUM 0.92 MG/DL (0.60-1.30); GFR ESTIMATED > 60; GLUCOSE 88 MG/DL (70-105); LIPASE 29 U/L (8-78); MAGNESIUM 1.9 MG/DL (1.8-2.4); POTASSIUM 3.4 MMOL/L (3.6-5.0); SODIUM 141 MMOL/L (135-145)
[2018-08-27 22:48] LABS: AMORPHOUS SEDIMENT,UR RARE AMOR PHOSPHATE /LPF; TRICHOMONAS,URINE FEW /HPF
[2018-08-27] MEDS ORDERED: IOHEXOL 350 MG/ML 100 ML (OMNIPAQUE 350) VIAL IV ONE (23:30)
[2018-08-27] MEDS ORDERED: NS 100 ML (IVPB) BAG IV ONE (23:30)
[2018-08-28] MEDS ORDERED: RX-NITROFURANTOIN 100 MG (MACROBID) CAP PPK#2 PO STA (00:09)
[2018-08-28] MEDS ORDERED: RX-ONDANSETRON 4 MG ODT (ZOFRAN) PPK #4 PO STA (00:09)
[2018-08-28] MEDS ORDERED: NITR-65 PO (00:12)
[2018-08-28] MEDS ORDERED: ONDA8TAB13 PO (00:12)
[2018-08-28 00:17] VITALS: BP 146/92
--- NOTE | 2018-08-28 07:30 | Diagnostic Imaging Report ---
PROCEDURE: CT abdomen and pelvis with contrast, rule out appendicitis. TECHNIQUE: Multiple contiguous axial images were obtained through the abdomen and pelvis after the administration of intravenous contrast. DATE: August 27, 2018. COMPARISON: Abdominal radiographs August 27, 2018. CT abdomen and pelvis November 10, 2013. INDICATION: 37-year-old female, abdominal pain. FINDINGS: The visualized portions of the lung bases are clear. The heart is not enlarged. There is no pericardial effusion. The liver is normal in size and contour. The main, right, and left portal veins are patent. The patient is status post cholecystectomy. There is no intrahepatic or extrahepatic bile duct dilation. The main pancreatic duct is not abnormally dilated. Unremarkable appearance of the pancreatic parenchyma. The spleen is normal in size. The adrenal glands are unremarkable. Unremarkable appearance of the renal parenchyma. The urinary collecting systems are not distended. There is no identified renal or ureteral stone. There are pelvic calcifications likely relating to phleboliths. The urinary bladder is underdistended and not well evaluated. There is no obvious urinary bladder wall thickening. The intrauterine contraceptive devices within the midline uterus are most likely within the endometrial cavity. There is nonspecific heterogeneous attenuation of the uterus. There is a low-attenuation right adnexal lesion most likely relating to a right ovarian cyst measuring 2.5 cm in size on axial image 90. The intestinal tract is not distended. The appendix is normal and well seen on axial image 70 and adjacent sequential images. There is a lap band at the level of the gastroesophageal junction. There is fluid in the distal esophagus which may relate to slow transit of recently swallowed fluid material, gastroesophageal reflux, or potentially esophagitis. There does appear to be wall thickening of the distal esophagus near the level of the gastroesophageal junction. There is no free intraperitoneal air. There is no drainable fluid collection. There is no free pelvic fluid. There is no identified abnormally enlarged lymph node in the abdomen or pelvis which meets CT size criteria for adenopathy. There is grade 1/2 anterolisthesis of L5 on S1. There are degenerative changes of the spine. There are facet degenerative changes at L5-S1. IMPRESSION: CT ABDOMEN AND PELVIS. 1. Fluid within the distal esophagus which may relate to slow transit of recently swallowed fluid material, gastroesophageal reflux, or possibly esophagitis. There does appear to be wall thickening of the distal esophagus near the level of the gastroesophageal junction. 2. Gastric band is noted. 3. Intrauterine contraceptive device within the midline uterus, likely in the endometrial canal. 4. Probable right ovarian cyst measuring 2.5 cm in size. Dictated by: Dictated on workstation # [id number]
--- NOTE | 2018-08-28 08:27 | Diagnostic Imaging Report ---
INDICATION: History of laparoscopic band procedure Abdominal series performed in the routine fashion with a frontal chest radiograph and supine and upper abdominal films. Frontal chest view shows heart normal in size. The lungs clear. There is no pneumothorax or pleural fluid. There is no free intraperitoneal air. There is a laparoscopic band device in place which is unchanged in position compared with 11/08/13. There are surgical clips in right upper quadrant. There is an IUD in place over the midpelvis. There is no overt bowel obstruction or ileus. There are a few minimal fluid levels in the right colon. IMPRESSION: No sign of free air or bowel obstruction. Laparoscopic band in place. IUD in place as well. No acute process in the chest. Dictated by: Dictated on workstation # [id number]
== END 2018-08-28 00:23 | disposition home or self-care (01) ==
LOC: EDUNIT# 21:49 → ER 21:51
DX: N39.0 Urinary tract infection, site not specified (principal); R51 Headache; G89.29 Other chronic pain; K21.9 Gastro-esophageal reflux disease without esophagitis; F41.9 Anxiety disorder, unspecified; F32.9 Major depressive disorder, single episode, unspecified; F17.210 Nicotine dependence, cigarettes, uncomplicated; Z90.89 Acquired absence of other organs; Z98.84 Bariatric surgery status; Z86.69 Personal history of other diseases of the nervous system and sense organs; Z80.0 Family history of malignant neoplasm of digestive organs; Z82.49 Family history of ischemic heart disease and other diseases of the circulatory system; Z87.448 Personal history of other diseases of urinary system; Z87.440 Personal history of urinary (tract) infections; Z97.5 Presence of (intrauterine) contraceptive device; Z98.890 Other specified postprocedural states
CPT/HCPCS: 36415; 74022; 74177; 80053; 80306; 80320; 81000; 82150; 83690; 83735; 84703; 85025; 87088; 96361; 96374

== ENCOUNTER 2020-11-10 22:54 | Inpatient (IN) | payer MEDICAID, OTHER ==
[~2020-11-10] VITALS: Ht 152.4 cm; Wt 103.9 kg
[~2020-11-10 22:54] MED LIST changes: +BACL10TA; -CLIN300C11 PO; +CLIN300C12 PO; +LANS15CA18 PO; -LANS15CA21 PO; +METF-399; -ONDA8TAB12 PO; +ONDA8TAB13 PO; +ONDA8TAB15 PO; -OXYC-465 PO; +OXYC-556 PO; +SPIR100T4; +SUMA50TA2 PO; +TOPI100T11; +VORT20TA
[2020-11-10] MEDS ORDERED: KETOROLAC 30 MG/ML VIAL IVP STA (23:54)
[2020-11-11] VITALS (8 sets, daily range): BP systolic 112–151; BP diastolic 75–107
[2020-11-11] MEDS ORDERED: hydrALAZINE (APESOLINE) 20 MG/ML VIAL IV ONE
[2020-11-11 00:18] LABS: BASOPHILS % (AUTO) 0 % (0-10); EOSINOPHILS # (AUTO) 0.2 10^3/uL (0.0-0.3); EOSINOPHILS % (AUTO) 3 % (0-10); HEMATOCRIT 40 % (35-52); HEMOGLOBIN 12.9 g/dL (11.5-16.0); LYMPHOCYTES # (AUTO) 0.9 10^3/uL (1.0-4.0); LYMPHOCYTES % (AUTO) 17 % (12-44); MEAN CORPUSCULAR HEMOGLOBIN 26 pg (25-34); MEAN CORPUSCULAR HGB CONC 32 g/dL (32-36); MEAN CORPUSCULAR VOLUME 82 fL (80-99); MEAN PLATELET VOLUME 9.1 fL (9.0-12.2); MONOCYTES # (AUTO) 0.4 10^3/uL (0.0-1.0); MONOCYTES % (AUTO) 8 % (0-12); NEUTROPHILS # (AUTO) 3.8 10^3/uL (1.8-7.8); NEUTROPHILS % (AUTO) 71 % (42-75); PLATELET COUNT 250 10^3/uL (130-400); WHITE BLOOD COUNT 5.4 10^3/uL (4.3-11.0)
[2020-11-11] MEDS ORDERED: prednisoLONE 1% OPTH (PRED FORTE) 5 ML BTL OU SCH (00:30)
[2020-11-11 00:45] LABS: ERYTHROCYTE SEDIMENTATION RATE 31 MM/HR (0-20)
[2020-11-11 00:48] LABS: ALBUMIN 3.6 GM/DL (3.2-4.5); BILIRUBIN,TOTAL 0.2 MG/DL (0.1-1.0); CALCIUM 9.1 MG/DL (8.5-10.1); CREATININE SERUM 1.33 MG/DL (0.60-1.30); POTASSIUM 3.6 MMOL/L (3.6-5.0); TOTAL PROTEIN 7.2 GM/DL (6.4-8.2)
[2020-11-11] MEDS ORDERED: NS (IVPB) 250 ML ONE (01:15)
[2020-11-11] MEDS ORDERED: fentaNYL INJ 100 MCG/2 ML AMP IVP ONE (01:15)
[2020-11-11] MEDS ORDERED: fentaNYL INJ 100 MCG/2 ML AMP IVP PRN (03:45)
[2020-11-11] MEDS ORDERED: hydrALAZINE (APESOLINE) 20 MG/ML VIAL IV PRN (03:45)
[2020-11-11] MEDS ORDERED: ACYCLOVIR INJECTION 800 MG in NS (IVPB) 250 ML IV SCH (06:00)
[2020-11-11] MEDS: KETOROLAC 30 MG/ML VIAL IVP PRN ×2 (06:16→20:20)
[2020-11-11 06:22] LABS: BASOPHILS % (AUTO) 1 % (0-10); EOSINOPHILS # (AUTO) 0.2 10^3/uL (0.0-0.3); EOSINOPHILS % (AUTO) 4 % (0-10); HEMATOCRIT 39 % (35-52); LYMPHOCYTES # (AUTO) 0.9 10^3/uL (1.0-4.0); LYMPHOCYTES % (AUTO) 21 % (12-44); MEAN CORPUSCULAR HEMOGLOBIN 26 pg (25-34); MEAN CORPUSCULAR HGB CONC 31 g/dL (32-36); MEAN CORPUSCULAR VOLUME 83 fL (80-99); MEAN PLATELET VOLUME 9.4 fL (9.0-12.2); MONOCYTES # (AUTO) 0.4 10^3/uL (0.0-1.0); MONOCYTES % (AUTO) 8 % (0-12); NEUTROPHILS # (AUTO) 2.9 10^3/uL (1.8-7.8); NEUTROPHILS % (AUTO) 65 % (42-75); PLATELET COUNT 214 10^3/uL (130-400); WHITE BLOOD COUNT 4.5 10^3/uL (4.3-11.0)
[2020-11-11 06:38] LABS: CALCIUM 8.6 MG/DL (8.5-10.1); CREATININE SERUM 1.19 MG/DL (0.60-1.30); POTASSIUM 3.5 MMOL/L (3.6-5.0)
--- NOTE | 2020-11-11 06:46 | Diagnostic Imaging Report ---
Clinical indications: Patient complains of left eye pain x3 days. Patient's history of blood clot involving the right eye and states it feels the same. Exam: Axial CT scan of the brain without IV contrast with coronal and sagittal reformatted images. Auto Exposure Controls were utilized during the CT exam to meet ALARA standards for radiation dose reduction. Comparison: Head CT without contrast dated 04/20/2012. Findings: There is no evidence of acute cerebral infarct, intracranial hemorrhage, or gross mass effect. The brain parenchymal volume appears appropriate for patient's age. There is normal goodwin-white matter distinction. There is no significant midline shift or herniation. There is no evidence of hydrocephalus. The basal cisterns are unremarkable. The skull, extracranial soft tissue, and orbits are unremarkable. The paranasal sinuses are unremarkable. Temporal bones show no significant abnormality. Impression: Unremarkable CT scan of the brain. I agree was stat rad report. Dictated by: Dictated on workstation # [id number]
--- NOTE | 2020-11-11 06:59 | ED General ---
General Chief Complaint: Eye Problems Stated Complaint: HERPES ZOSTER L FACE & EYE HTN Nursing Triage Note: Pt ambulatory into ER with complaint of L. Eye Pain x3 days. Hx of blood clot behind right eye and states that it feels the same. Nursing Sepsis Screen: No Definite Risk Source of Information: Patient History of Present Illness Date Seen by Provider: Nov 10, 2020 Time Seen by Provider: 23:10 Initial Comments PT ARRIVES VIA POV FROM HOME C/O SEVERE PAIN TO RIGHT EYE X 3 DAYS EYE HAS BEEN RED AND WATERY, BUT NO PURULENT DRAINAGE OR MATTING NO VISION CHANGES STATES MOVING HER EYE INCREASED PAIN IS SOMEWHAT PHOTOSENSITIVE WELL PT STATES PAIN IS ALSO AROUND LEFT FOREHEAD, LEFT RESTORATION AND PARIETAL AREAS STATES SHE HAS "CHRONIC MIGRAINES" BUT THIS IS NOT THE SAME HAS HAD SLIGHT NAUSEA YESTERDAY AND THE DAY BEFORE, BUT NOT TODAY NO FEVER AT ANY TIME HAS FELT A LITTLE SINUS PRESSURE ON THE LEFT LAST NIGHT, BEGAN HAVING A RASH TO LEFT FOREHEAD AND NOSE NO RECENT ILLNESS HAD A "TELE-HEALTH" VISIT TODAY WITH LOCAL "URGENT CARE" FOR THIS PROBLEM AND WAS STARTED ON OFLOXACIN ANTIBIOTIC EYE DROPS, STATES NO RELIEF, AND PAIN IS GETTING WORSE. TRIED TO GET INTO HER LOCAL EYE DR. --DR. ESCAMILLA--BUT CANNOT GET IN TO SEE HIM FOR A COUPLE OF MONTHS NO HISTORY OF SIMILAR PT STATES SHE HAD COVID-19 LAST , AND HAD PFIZER COVID-19 VACCINES X 2 IN MARCH STATES SHE DEVELOPED A VASCULAR OCCLUSION IN HER RIGHT RETINA, AND WAS TOLD IT WAS FROM HAVING COVID, AND HAS BEEN SEEING A RETINA SPECIALIST IN [place], AND BEEN GETTING MONTHLY INJECTIONS IN THE RIGHT EYE, AND IT HAS HELPED GREATLY HAS NOT HAD ANY PROBLEMS WITH THE LEFT EYE. PT DENIES ANY HISTORY OF HTN, STATES HER BP IS ALWAYS AROUND 120/80 STATES SHE HAS FIBROMYALGIA PCP: Lore ZEE AT [facility] HAS ALSO SEEN MULTIPLE OTHER LOCAL PROVIDERS, INCLUDING [facility] PROVID[facility] AND SPECIAL COLLECTIONS LIBRARIAN TIKI MARLOW/ DR. NAVARRO BONDING MACHINE TENDER: DR. ESCAMILLA Allergies and Home Medications Allergies Coded Allergies: NKANo Known Allergies (Verified Allergy, Unknown, 06/03/08) Home Medications Nitrofurantoin Monohyd/M-Cryst 100 Mg Capsule, 100 MG PO BID Prescribed by: ANNE MARIE MIXON on 08/28/18 0012 Ondansetron 8 Mg Tab.rapdis, 8 MG PO Q6H Prescribed by: ANNE MARIE MIXON on 08/28/18 0012 Patient Home Medication List Home Medication List Reviewed: Yes Review of Systems Review of Systems Constitutional: no symptoms reported; No chills, No diaphoresis, No dizziness, No fever, No malaise EENTM: see HPI, eye pain, tearing, nose congestion (ON LEFT); No ear pain, No blurred vision, No double vision, No vision loss, No throat pain Respiratory: no symptoms reported; No cough Cardiovascular: no symptoms reported Gastrointestinal: see HPI; No abdominal pain, No diarrhea; nausea; No vomiting Genitourinary: no symptoms reported : No LMP: Oct 12, 2020 (IUD IN PLACE) Musculoskeletal: no symptoms reported Skin: see HPI Psychiatric/Neurological: See HPI, Headache; Denies Numbness, Denies Paresthesia, Denies Tingling, Denies Weakness Hematologic/Lymphatic: No Symptoms Reported Immunological/Allergic: no symptoms reported Past Cdptupd-Tdadsz-Kmigko Hx Patient Social History Tobacco Use?: No Smoking Status: Former Smoker Smokeless Tobacco Frequency: Never a User Use of E-Cig and/or Vaping dev: Yes E-Cig or Vaping type used: Nicotine Use of E-Cig and/or Vaping Min: Current Everyday User Substance use?: No Alcohol Use?: No Pt feels they are or have been: No Immunizations Up To Date Tetanus Booster (TDap): Unknown PED Vaccines UTD: Yes Influenza Vaccine Up-to-Date: No; Not Current First/Initial COVID19 Vaccinat: 04/20 Second COVID19 Vaccination Salazar: 04/20 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: [employer] Seasonal Allergies Seasonal Allergies: Yes Past Medical History Surgery/Hospitalization HX: LAP BAND IN PLACE SINCE 2008 X 1 CHOLECYSTECTOMY TONSILLECTOMY/ADENOIDECTOMY BILATERAL TOE SURGERY RIGHT FOOT SURGERY AGE 9 Surgeries: Yes Abdominal, Adenoidectomy, Section, Gallbladder, Orthopedic, Tonsillec jerome Respiratory: No Cardiac: Yes (GESTATIONAL HYPERTENSION) Syncope Neurological: Yes (CHRONIC HEADACHES) Headaches /Migraines Reproductive Disorders: Yes Female Reproductive Disorders: Menstrual Problems, Polycystic Ovarian Dis 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 Sexually Transmitted Disease: Yes (HX TRICHOMONAS 2013) HIV/AIDS: No Genitourinary: Yes UTI-Chronic Gastrointestinal: Yes (LAP BAND IN PLACE; [place]) Gastroesophageal Reflux, Liver Disease/Jaundice Musculoskeletal: Yes Degenerate Disk Disease, Chronic Back Pain Endocrine: Yes ("PCOS" ) HEENT: No Cancer: No Psychosocial: Yes Anxiety, Depression Integumentary: No Blood Disorders: Yes (ANEMIA) Adverse Reaction/Blood Tranf: No Family Medical History Asthma 19 MOTHER, Onset:40's - Diabetes mellitus 19 MOTHER, Onset:40' Gastroenteritis G8 SISTER, Onset:' Hypercholesterolemia 19 FATHER 19 MOTHER, Onset: Hypertension 19 FATHER, Onset: 19 MOTHER, Onset: Seizure disorder G8 SISTER, Onset: No Family History of: AIDS Abdominal aortic aneurysm Mclean's disease Alcoholism Alzheimer's disease Aphasia Arthritis Cancer of mouth Cardiovascular disease Cataracts Colon cancer Completed stroke Congenital disease Congenital heart disease Coronary thrombosis Cystic fibrosis Deafness or hearing loss Dementia Drug abuse Dysphasia Fibrocystic disease of breast Glaucoma Headache disorder Infertility Kidney disease Myocardial infarction Neoplasm Not obtainable due to adoption Osteoporosis Parkinson's disease Prostate cancer Psychosocial problem Respiratory disorder Severe allergy Thyroid disease Tuberculosis Visual disorder Physical Exam Vital Signs Vital Signs - First Documented 11/10/20 23:04 Temp 35.8 Pulse 86 Resp 16 B/P (MAP) 141/108 (119) Pulse Ox 98 O2 Delivery Room Air Capillary Refill : Less Than 3 Seconds Height, Weight, BMI Height: 5'1.00" Weight: 164lbs. 0oz. [id number]; 43.05 BMI Method:Stated General Appearance: WD/WN, Other (LOOKS UNCOMFORTABLE) Eyes: Left Eye Other (RIGHT CONJUNCTIVA MARKEDLY INFLAMED AND CONSTANT WATERING. NO LESIONS NOTED TO EYE); Bilateral Eye PERRL, Bilateral Eye EOMI HEENT: Pharynx Normal, Moist Mucous Membranes, Other (MILD NASAL CONGESTION LEFT > RIGHT; MID AND LEFT FOREHEAD, AND DOWN NOSE TO TIP OF NOSE WITH INFLAMED, MACULOPAPULAR RASH WITH A FEW EARLY VESICLES. FEW EARLY PAPULES NOTED IN LEFT HAIRLINE/RESTORATION AREA) Neck: Normal Inspection, Supple Respiratory: Normal Breath Sounds, No Accessory Muscle Use, No Respiratory Di stress Cardiovascular: Regular Rate, Rhythm, No Edema Extremity: Normal Inspection Neurologic/Psychiatric: Alert, Oriented x3, No Motor/Sensory Deficits, Normal Mood/Affect, behavioral sciences department chair II-XII Norm as Tested Skin: Normal Color, Warm/Dry, Rash ( ABOVE) Progress/Results/Core Measures Suspected Sepsis Infection Criteria Present: None Sepsis Screen: No Definite Risk SIRS Temperature: Pulse: 62 Respiratory Rate: 20 Laboratory Tests 11/10/20 00:15: White Blood Count 5.4 Blood Pressure 112 /75 Mean: 87 Laboratory Tests 11/10/20 00:15: Creatinine 1.33H, Platelet Count 250, Total Bilirubin 0.2 Results/Orders Lab Results Laboratory Tests Test 11/10/20 00:15 Range/Units White Blood Count 5.4 4.3-11.0 10^3/uL Red Blood Count 4.90 3.80-5.11 10^6/uL Hemoglobin 12.9 11.5-16.0 g/dL Hematocrit 40 35-52 % Mean Corpuscular Volume 82 80-99 fL Mean Corpuscular Hemoglobin 26 25-34 pg Mean Corpuscular Hemoglobin Concent 32 32-36 g/dL Red Cell Distribution Width 15.9 H 10.0-14.5 % Platelet Count 250 130-400 10^3/uL Mean Platelet Volume 9.1 9.0-12.2 fL Immature Granulocyte % (Auto) 0 % Neutrophils (%) (Auto) 71 42-75 % Lymphocytes (%) (Auto) 17 12-44 % Monocytes (%) (Auto) 8 0-12 % Eosinophils (%) (Auto) 3 0-10 % Basophils (%) (Auto) 0 0-10 % Neutrophils # (Auto) 3.8 1.8-7.8 10^3/uL Lymphocytes # (Auto) 0.9 L 1.0-4.0 10^3/uL Monocytes # (Auto) 0.4 0.0-1.0 10^3/uL Eosinophils # (Auto) 0.2 0.0-0.3 10^3/uL Basophils # (Auto) 0.0 0.0-0.1 10^3/uL Immature Granulocyte # (Auto) 0.0 0.0-0.1 10^3/uL Erythrocyte Sedimentation Rate 31 H 0-20 MM/HR Sodium Level 137 135-145 MMOL/L Potassium Level 3.6 3.6-5.0 MMOL/L Chloride Level 106 98-107 MMOL/L Carbon Dioxide Level 20 L 21-32 MMOL/L Anion Gap 11 5-14 MMOL/L Blood Urea Nitrogen 14 7-18 MG/DL Creatinine 1.33 H 0.60-1.30 MG/DL Estimat Glomerular Filtration Rate 45 BUN/Creatinine Ratio 11 Glucose Level 124 H 70-105 MG/DL Calcium Level 9.1 8.5-10.1 MG/DL Corrected Calcium 9.4 8.5-10.1 MG/DL Total Bilirubin 0.2 0.1-1.0 MG/DL Aspartate Amino Transf (AST/SGOT) 20 5-34 U/L Alanine Aminotransferase (ALT/SGPT) 24 0-55 U/L Alkaline Phosphatase 92 40-136 U/L C-Reactive Protein High Sensitivity 2.01 H 0.00-0.50 MG/DL Total Protein 7.2 6.4-8.2 GM/DL Albumin 3.6 3.2-4.5 GM/DL Serum Test, Qualitative NEGATIVE NEGATIVE My Orders Orders - ANNE MARIE MIXON DO Ed Iv/Invasive Line Start (11/10/20 23:54) Monitor-Rhythm Ecg Trace Only (11/10/20 23:54) Cbc With Automated Diff (11/10/20 23:54) Comprehensive Metabolic Panel (11/10/20 23:54) Hs C Reactive Protein (11/10/20 23:54) Hcg,Qualitative Serum (11/10/20 23:54) Erythrocyte Sedimentation Rate (11/10/20 23:54) Ketorolac Injection (Toradol Injection) (11/10/20 23:54) Acyclovir Injection (Zovirax Injection) (11/11/20 06:00) Hydralazine Injection (Apresoline Inject (11/11/20 00:00) Medications Given in ED Current Medications Medications Dose Ordered Sig/Rufina Route Start Time Stop Time Status Last Admin Dose Admin Hydralazine HCl 10 mg ONCE ONCE IV 11/11/20 00:00 11/11/20 00:01 DC 11/11/20 00:19 10 MG Vital Signs/I&O 11/10/20 23:04 Temp 35.8 Pulse 86 Resp 16 B/P (MAP) 141/108 (119) Pulse Ox 98 O2 Delivery Room Air Capillary Refill : Less Than 3 Seconds Blood Pressure Mean: 87 Progress Note : Progress Note GIVEN TORADOL AND FENTAYL FOR PAIN STARTED ACYCLOVIR IV PRED-FORTE INSTILLED INTO LEFT EYE HYDRALAZINE GIVEN FOR BLOOD PRESSURE--BP UP TO 180'S/120'S AT ONE POINT. BP DOWN AT TIME OF ADMIT Diagnostic Imaging Comments CT HEAD--NO ACUTE PROCESS, PER [facility] VIA FAX AT 0208 Reviewed: Reviewed by Me Departure Communication (Admissions) 000--SPOKE WITH DR. LAU, HOSPITALIST, ACCEPTS PT FOR ADMIT 001--SPOKE WITH DR. DEL ROSARIO, BONDING MACHINE TENDER, ONE OF HIS PARTNERS WILL SEE PT IN CONSULT TOMORROW. ORDERS NOTED FOR PRED-FORTE, AND ZIRGAN OPTHALMIC GEL ( GANCICLOVIR) Impression Primary Impression: HERPES ZOSTER TO LEFT FACE AND EYE Additional Impressions: Herpes zoster ophthalmicus of left eye HTN (hypertension) Disposition: ADMITTED INPATIENT Condition: Stable Admissions Decision to Admit Reason: Admit from ER (General) Decision to Admit/Date: Nov 11, 2020 Time/Decision to Admit Time: 00:10 Departure-Patient Inst. Referrals: ASHLEY ZEE (PCP) Primary Care Physician ANNE MARIE MIXON DO Nov 11, 2020 06:59
[2020-11-11] MEDS ORDERED: ZIRGAN OS SCH (07:00)
[2020-11-11] MEDS ORDERED: DULO30CA49 PO (07:36)
[2020-11-11] MEDS ORDERED: HYDR-3584 PO (07:36)
[2020-11-11] MEDS ORDERED: AMIT25TA9 PO (07:36)
[2020-11-11] MEDS ORDERED: SUMAtriptan 50 MG (IMITREX) TAB PO NR (08:15)
[2020-11-11] MEDS: ACET/BUTAL/CAFF (FIORICET) TAB PO PRN ×2 (08:42→20:15)
[2020-11-11] MEDS: prednisoLONE 1% OPTH (PRED FORTE) 5 ML BTL OS SCH ×3 (08:43→20:20)
[2020-11-11] MEDS ORDERED: NS IV SCH (09:00)
[2020-11-11] MEDS ORDERED: ACYCLOVIR IV SCH (09:00)
[2020-11-11] MEDS: NS IV SCH ×2 (09:23→17:10)
[2020-11-11] MEDS: ACYCLOVIR IV SCH ×2 (09:23→17:10)
[2020-11-11] MEDS ORDERED: oxyCODONE/APAP 5/325MG (PERCOCET 5) TABLET ONE (12:05)
[2020-11-11] MEDS: oxyCODONE/APAP 5/325MG (PERCOCET 5) TABLET PO PRN ×3 (12:07→22:11)
--- NOTE | 2020-11-11 12:57 | History & Physical-Hospitalist ---
History of Present Illness HPI/Chief Complaint Pt is a 39yoCF who presented to the ER due to pain in her eye. She reports it's been red and watering over this time but not matted. She has a history of what sounds like a retinal vein occlusion in her right eye after having COVID last year.She follows with an broom worker in for this. She denies any fevers or chills. Her pain has progressed and spread to her forehead. She has also developed a rash on her face that spreads from her forehead down to her nose. She was admitted for HSV ophthalmicus and IV antivirals. This morning she reports her pain in her eye is better. She does have a migraine though. She took Fioricet and Imitrex for this with some relief though still has a headache. Despite this she is asking about potential discharge home. We discussed plan for at least 24 hours on IV acyclovir and evaluation by optometry. Source: patient Date Seen 11/11/20 Time Seen by a Provider: 12:49 Attending Physician Jyoti Abdi MD PCP Kayleen Pemberton Referring Physician Date of Admission Nov 11, 2020 at 00:10 Home Medications & Allergies Home Medications Reviewed patient Home Medication Reconciliation performed by pharmacy medication reconciliations appliance repair technician and/or nursing. Patients Allergies have been reviewed. Allergies Allergies Coded Allergies NKANo Known Allergies (Verified Allergy, Unknown, 06/03/08) Past Ymoiyma-Zorlst-Aawctx Hx Patient Social History Marrital Status: Tobacco Use?: No Smoking Status: Former Smoker Smokeless Tobacco Frequency: Never a User Use of E-Cig and/or Vaping dev: Yes E-Cig or Vaping type used: Nicotine Use of E-Cig and/or Vaping Min: Current Everyday User Substance use?: No Alcohol Use?: No Pt feels they are or have been: No Immunizations Up To Date Date of Influenza Vaccine: Dec 13, 2015 First/Initial COVID19 Vaccinat: 04/20 Second COVID19 Vaccination Salazar: 04/20 Tetanus Booster (TDap): Unknown Hepatitis A: Yes Hepatitis B: Yes PED Vaccines UTD: Yes Seasonal Allergies Seasonal Allergies: Yes Current Status status: No status: No Advance Directives: No Communicates: Verbally Primary Language: Frisian Preferred Spoken Language: Frisian Is interpretation needed?: No Implanted or Applied Medical D: Contraceptive device Past Medical History Surgeries: Abdominal, Adenoidectomy, Section, Gallbladder, Orthopedic, Tonsillectomy Syncope Headaches /Migraines 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 Sexually Transmitted Disease: Yes (HX TRICHOMONAS 2013) HIV/AIDS: No UTI-Chronic Gastroesophageal Reflux, Liver Disease/Jaundice Degenerate Disk Disease, Chronic Back Pain Anxiety, Depression Blood Disorders: Yes (ANEMIA) Adverse Reaction/Blood Tranf: No PMH: hx PCOS PSH: cholecystectomy foot surgery lap band Family Medical History Reviewed Nursing Family Hx Asthma 19 MOTHER, Onset:40 - Diabetes mellitus 19 MOTHER, Onset: Gastroenteritis G8 SISTER, Onset: - Hypercholesterolemia 19 FATHER 19 MOTHER, Onset: Hypertension 19 FATHER, Onset: 19 MOTHER, Onset: Seizure disorder G8 SISTER, Onset: No Family History of: AIDS Abdominal aortic aneurysm Yakov's disease Alcoholism Alzheimer's disease Aphasia Arthritis Cancer of mouth Cardiovascular disease Cataracts Colon cancer Completed stroke Congenital disease Congenital heart disease Coronary thrombosis Cystic fibrosis Deafness or hearing loss Dementia Drug abuse Dysphasia Fibrocystic disease of breast Glaucoma Headache disorder Infertility Kidney disease Myocardial infarction Neoplasm Not obtainable due to adoption Osteoporosis Parkinson's disease Prostate cancer Psychosocial problem Respiratory disorder Severe allergy Thyroid disease Tuberculosis Visual disorder Review of Systems Constitutional: No chills, No fever EENTM: see HPI, eye pain, tearing Respiratory: No cough, No short of breath Cardiovascular: No chest pain, No edema Gastrointestinal: no symptoms reported Genitourinary: no symptoms reported Musculoskeletal: no symptoms reported Skin: no symptoms reported Psychiatric/Neurological: Headache Physical Exam Physical Exam Vital Signs Vital Signs - First Documented 11/10/20 23:04 Temp 35.8 Pulse 86 Resp 16 B/P (MAP) 141/108 (119) Pulse Ox 98 O2 Delivery Room Air Capillary Refill : Less Than 3 Seconds Height, Weight, BMI Height: 5'1.00" Weight: 164lbs. 0oz. 74.049260mw; 43.05 BMI Method:Stated General Appearance: No Apparent Distress, WD/WN HEENT: PERRL/EOMI, Moist Mucous Membranes; No Scleral Icterus (L), No Scleral Icterus (R); Other (erythematous rash on foreheard and down nose some small vesicles on nose, ) Neck: Normal Inspection, Supple Respiratory: Lungs Clear, No Accessory Muscle Use, No Respiratory Distress Cardiovascular: Regular Rate, Rhythm, No JVD, No Murmur Gastrointestinal: Normal Bowel Sounds, Non Tender, Soft Neurologic/Psychiatric: Alert, Oriented x3, Normal Mood/Affect Skin: Normal Color, Warm/Dry Results Results/Procedures Labs Laboratory Tests 11/10/20 00:15 11/11/20 05:40 Patient resulted labs reviewed. Imaging: Reviewed Imaging Report Imaging [facility] [place] NAME: [facility] REC#: [id number] PT STATUS: ADM IN : 1980 PHYSICIAN: ANNE MARIE MIXON DO ADMIT DATE: 11/11/20 Draft Date of Exam:11/11/20 CT HEAD WO Clinical indications: Patient complains of left eye pain x3 days. Patient's history of blood clot involving the right eye and states it feels the same. Exam: Axial CT scan of the brain without IV contrast with coronal and sagittal reformatted images. Auto Exposure Controls were utilized during the CT exam to meet ALARA standards for radiation dose reduction. Comparison: Head CT without contrast dated 04/20/2012. Findings: There is no evidence of acute cerebral infarct, intracranial hemorrhage, or gross mass effect. The brain parenchymal volume appears appropriate for patient's age. There is normal goodwin-white matter distinction. There is no significant midline shift or herniation. There is no evidence of hydrocephalus. The basal cisterns are unremarkable. The skull, extracranial soft tissue, and orbits are unremarkable. The paranasal sinuses are unremarkable. Temporal bones show no significant abnormality. Impression: Unremarkable CT scan of the brain. I agree was stat rad report. Dictated on workstation # [id number] Dict: 11/11/20 0636 Trans: 11/11/20 0645 [facility] [id number] Interpreted by: ELPIDIO NASCIMENTO MD Electronically signed by: Assessment/Plan Admission Diagnosis HSV ophthalmicus Admission Status: Inpatient Order (span 2 midnights) Reason for Inpatient Admission: see below Assessment and Plan HSV ophthalmicus Continue on IV acyclovir Optometry consulted, appreciate recs Pharmacy attempting to get Zirgan gel Symptomatically improving Migraine Imitrex given Continue home fioricet Feels fentanyl triggered migraine so will DC Percocet added as she's able to take oral Diagnosis/Problems Diagnosis/Problems (1) Herpes zoster ophthalmicus of left eye Status: Acute (2) HTN (hypertension) Status: Acute JYOTI ABDI MD Nov 11, 2020 12:57
[2020-11-11] MEDS ORDERED: PROG200C10 PO (16:21)
[2020-11-11] MEDS ORDERED: PROP10TA8 PO ×2 (16:21)
[2020-11-11] MEDS ORDERED: hydrOXYzine (ATARAX) 10 MG TAB PO PRN (16:45)
[2020-11-11] MEDS ORDERED: PROPRANOLOL HCL 10 MG PO SCH (16:45)
[2020-11-11] MEDS ORDERED: TRIFLURIDINE 1% 7.5 ML BTL (VIROPTIC) NON-FORMULARY OS SCH (18:00)
[2020-11-11] MEDS: DULoxetine 30 MG (CYMBALTA) CAP PO SCH (20:15)
[2020-11-11] MEDS: AMITRIPTYLINE 25 MG (ELAVIL) TAB PO SCH (20:16)
[2020-11-11] MEDS: PROPRANOLOL 20 MG (INDERAL) TABLET PO SCH (20:16)
[2020-11-11] MEDS ORDERED: PROPRANOLOL HCL 20 MG PO SCH (21:00)
[2020-11-11] MEDS ORDERED: PROGESTERONE 200 MG CAP (PROMETRIUM) NON-FORMULARY PO SCH (21:00)
[2020-11-12] MEDS: NS IV SCH ×3 (01:08→17:07)
[2020-11-12] MEDS: ACYCLOVIR IV SCH ×3 (01:08→17:07)
[2020-11-12] MEDS: ACET/BUTAL/CAFF (FIORICET) TAB PO PRN ×3 (01:10→12:18)
[2020-11-12 04:07] VITALS: BP 132/88
[2020-11-12] MEDS: oxyCODONE/APAP 5/325MG (PERCOCET 5) TABLET PO PRN ×4 (04:12→21:38)
[2020-11-12] MEDS: KETOROLAC 30 MG/ML VIAL IVP PRN ×3 (05:51→21:49)
[2020-11-12 06:00] LABS: BASOPHILS % (AUTO) 0 % (0-10); EOSINOPHILS # (AUTO) 0.1 10^3/uL (0.0-0.3); EOSINOPHILS % (AUTO) 2 % (0-10); HEMATOCRIT 38 % (35-52); LYMPHOCYTES # (AUTO) 1.1 10^3/uL (1.0-4.0); LYMPHOCYTES % (AUTO) 21 % (12-44); MEAN CORPUSCULAR HEMOGLOBIN 26 pg (25-34); MEAN CORPUSCULAR HGB CONC 32 g/dL (32-36); MEAN CORPUSCULAR VOLUME 83 fL (80-99); MEAN PLATELET VOLUME 9.6 fL (9.0-12.2); MONOCYTES # (AUTO) 0.4 10^3/uL (0.0-1.0); MONOCYTES % (AUTO) 8 % (0-12); NEUTROPHILS # (AUTO) 3.5 10^3/uL (1.8-7.8); NEUTROPHILS % (AUTO) 68 % (42-75); PLATELET COUNT 209 10^3/uL (130-400); WHITE BLOOD COUNT 5.2 10^3/uL (4.3-11.0)
[2020-11-12 06:11] LABS: POTASSIUM 3.5 MMOL/L (3.6-5.0)
[2020-11-12 06:12] LABS: CALCIUM 8.4 MG/DL (8.5-10.1)
[2020-11-12 06:17] LABS: CREATININE SERUM 0.89 MG/DL (0.60-1.30)
[2020-11-12] MEDS ORDERED: AMITRIPTYLINE 25 MG (ELAVIL) TAB PO SCH (09:00)
[2020-11-12] MEDS: PROPRANOLOL 20 MG (INDERAL) TABLET PO SCH ×2 (09:15→21:02)
[2020-11-12] MEDS: prednisoLONE 1% OPTH (PRED FORTE) 5 ML BTL OS SCH ×3 (09:16→21:03)
[2020-11-12 11:35] VITALS: BP 126/82
--- NOTE | 2020-11-12 12:48 | Progress Note - Hospitalist ---
Subjective HPI/CC On Admission Date Seen by Provider: Nov 12, 2020 Time Seen by Provider: 12:43 Pt is a 39yoCF who presented to the ER due to pain in her eye. She reports it's been red and watering over this time but not matted. She has a history of what sounds like a retinal vein occlusion in her right eye after having COVID last year.She follows with an custodian in for this. She denies any fevers or chills. Her pain has progressed and spread to her forehead. She has also developed a rash on her face that spreads from her forehead down to her nose. She was admitted for HSV ophthalmicus and IV antivirals. This morning she reports her pain in her eye is better. She does have a migraine though. She took Fioricet and Imitrex for this with some relief though still has a headache. Despite this she is asking about potential discharge home. We discussed plan for at least 24 hours on IV acyclovir and evaluation by optometry. Subjective/Events-last exam Pt reports feeling much better. No complaints. pain improving. Without issue on vision. Objective Exam Vital Signs Vital Signs Date Time Temp Pulse Resp B/P (MAP) Pulse Ox O2 Delivery O2 Flow Rate FiO2 11/12/20 11:35 36.2 77 20 126/82 (97) 100 Room Air Capillary Refill : Less Than 3 Seconds General Appearance: No Apparent Distress, Obese HEENT: Other (erythema present still though less apparent ) Respiratory: Lungs Clear, No Respiratory Distress Cardiovascular: Regular Rate, Rhythm, No Murmur Neurologic/Psychiatric: Alert, Oriented x3 Results/Procedures Lab Laboratory Tests 11/12/20 05:13 Patient resulted labs reviewed. Imaging: Reviewed Imaging Report Assessment/Plan Assessment and Plan Assess & Plan/Chief Complaint HSV ophthalmicus Continue on IV acyclovir Optometry consulted, appreciate recs Pharmacy attempting to get Zirgan gel, should be in tomorrow Symptomatically improving Hopefully home tomorrow Will need outpatient follow up with Dr Landon Migraine Imitrex given Continue home fioricet Feels fentanyl triggered migraine so will DC Percocet added as she's able to take oral Diagnosis/Problems Diagnosis/Problems (1) Herpes zoster ophthalmicus of left eye Status: Acute (2) HTN (hypertension) Status: Acute JYOTI LAU MD Nov 12, 2020 12:48
[2020-11-12 16:31] VITALS: BP 138/80
[2020-11-12 19:44] VITALS: BP 125/84
[2020-11-12] MEDS: DULoxetine 30 MG (CYMBALTA) CAP PO SCH (21:02)
[2020-11-12] MEDS: AMITRIPTYLINE 25 MG (ELAVIL) TAB PO SCH (21:02)
[2020-11-12] MEDS ORDERED: hydrOXYzine (ATARAX) 10 MG TAB PO ONE (21:45)
[2020-11-12 23:18] VITALS: BP 145/99
[2020-11-13] MEDS: ACYCLOVIR IV SCH ×2 (02:32→08:18)
[2020-11-13] MEDS: NS IV SCH ×2 (02:32→08:18)
[2020-11-13 03:11] VITALS: BP 139/86
[2020-11-13] MEDS: oxyCODONE/APAP 5/325MG (PERCOCET 5) TABLET PO PRN (05:13)
[2020-11-13 08:10] VITALS: BP 121/66
[2020-11-13] MEDS: PROPRANOLOL 20 MG (INDERAL) TABLET PO SCH (08:17)
[2020-11-13] MEDS: prednisoLONE 1% OPTH (PRED FORTE) 5 ML BTL OS SCH ×2 (08:18→12:26)
[2020-11-13] MEDS: KETOROLAC 30 MG/ML VIAL IVP PRN (08:18)
[2020-11-13] MEDS ORDERED: IBUP-1780 PO (09:34)
[2020-11-13] MEDS ORDERED: CYCL5TAB PO (09:34)
[2020-11-13] MEDS ORDERED: BUTA1CAP41 PO (09:34)
[2020-11-13] MEDS ORDERED: TRAM50TA3 PO (09:34)
[2020-11-13] MEDS ORDERED: TRIF7.5D6 OS (10:51)
[2020-11-13] MEDS ORDERED: VALA500T7 PO (10:51)
[2020-11-13] MEDS ORDERED: OXYC1TAB87 PO (10:51)
--- NOTE | 2020-11-13 10:52 | Discharge Inst-Simple/Standard ---
Discharge Inst-Standard Patient Instructions/Follow Up Plan of Care/Instructions/FU: Please continue to take your medications as written. Please follow up with your primary care doctor to follow up this hospital stay. Activity as Tolerated: Yes Discharge Diet: No Restrictions Return to The Hospital For: Chest pain, shortness of breath, change in vision, worsening eye pain, headache, worsening rash, if you feel you are getting worse. JYOTI LAU MD Nov 13, 2020 10:52
--- NOTE | 2020-11-13 11:48 | Discharge Summary ---
Diagnosis/Chief Complaint Date of Admission Nov 11, 2020 at 00:10 Date of Discharge Discharge Date: Nov 13, 2020 Admission Diagnosis HSV ophthalmicus Primary Care Pemberton,Kayleen Deleon Data Abstractor Discharge Diagnosis (1) Herpes zoster ophthalmicus of left eye Status: Acute (2) HTN (hypertension) Status: Acute Discharge Summary Discharge Physical Exam Allergies: Coded Allergies: NKANo Known Allergies (Verified Allergy, Unknown, 06/03/08) Vitals & I&Os Vital Signs Date Time Temp Pulse Resp B/P (MAP) Pulse Ox O2 Delivery O2 Flow Rate FiO2 11/13/20 08:10 36.8 77 16 121/66 (84) 98 Room Air Hospital Course Labs (last 24 hrs) Patient resulted labs reviewed. Imaging: Reviewed Imaging Report Discharge Home Medications: Active Scripts Active Valacyclovir (Valacyclovir HCl) 500 Mg Tablet 500 Mg PO TID Trifluridine 7.5 Ml Drops 1 Ml OS Q6HR Percocet 5-325 mg Tablet (Oxycodone HCl/Acetaminophen) 1 Each Tablet 1 Tab PO Q4H PRN Reported Ibuprofen 800 Mg Tablet 800 Mg PO BID PRN Cyclobenzaprine HCl 5 Mg Tablet 5 Mg PO QID PRN Tramadol HCl 50 Mg Tablet 50 Mg PO TID PRN [id number] 50-300-40 (Butalb/Acetaminophen/Caffeine) 1 Each Capsule 2 Cap PO DAILY PRN Progesterone (Progesterone,Micronized) 200 Mg Capsule 400 Tab PO HS TAKES 2 (200MG) CAPSULES Propranolol HCl 10 Mg Tablet 20 Mg PO HS TAKES 2 (10MG) TABLETS Propranolol HCl 10 Mg Tablet 10 Mg PO DAILY Duloxetine HCl 30 Mg Capsule.dr 90 Mg PO HS TAKES 3 (30MG) CAPSULES Hydroxyzine HCl 10 Mg Tablet 20 Mg PO HS TAKES 2 (10MG) TABLETS Amitriptyline HCl 25 Mg Tablet 25 Mg PO HS Sumatriptan Succinate 50 Mg Tablet 50 Mg PO DAILY PRN Instructions to patient/family Please see electronic discharge instructions given to patient. JYOTI LAU MD Nov 13, 2020 11:47
[2020-11-13 12:03] VITALS: BP 108/62
[2020-11-13 12:34] VITALS: BP 108/62
== END 2020-11-13 12:34 | disposition home or self-care (01) | DRG 125 ==
LOC: EDUNIT# 22:54 → ER 22:58 → 4TH 11-11 00:10
PROVIDERS: ADMIT Family Medicine; ATTEND Family Medicine
DX: B02.30 Zoster ocular disease, unspecified (principal); I10 Essential (primary) hypertension; G43.909 Migraine, unspecified, not intractable, without status migrainosus; M79.7 Fibromyalgia; K21.9 Gastro-esophageal reflux disease without esophagitis; F41.9 Anxiety disorder, unspecified; F32.9 Major depressive disorder, single episode, unspecified; Z87.891 Personal history of nicotine dependence; Z86.16 Personal history of COVID-19; Z86.718 Personal history of other venous thrombosis and embolism; Z82.49 Family history of ischemic heart disease and other diseases of the circulatory system
CPT/HCPCS: 36415; 70450; 80048; 80053; 84703; 85025; 85652; 86141